=== PATIENT | male | born 1940 | race Caucasian/White ===

== ENCOUNTER → 2017-11-13 07:48 | Outpatient (CLI) | payer MEDICARE, OTHER, SELFPAY ==
--- NOTE | 2017-11-13 07:52 | CT_ITS ---
STUDY: CT PELVIS WITHOUT CONTRAST REASON FOR EXAM: Male, 76 years old. Abnormal bone scan. Pelvic fracture. RADIATION DOSAGE (If Supplied By Facility): CTDIvol = ( 17.68 ) mGy, DLP = ( 591.64 ) mGycm TECHNIQUE: Transaxial imaging of the pelvis was performed with oral contrast, and without intravenous administration of contrast material. Individualized dose optimization techniques were used for this CT. COMPARISON: 03/01/2017 and 09/28/2017 FINDINGS: Patient is status post prostatectomy. Some bladder wall thickening is noted. Fat stranding in the lower pelvic region is noted. Normal visualized small intestine. There are multiple colonic diverticula of the sigmoid colon consistent with chronic diverticulosis. There is no pelvic fluid. There is no pelvic mass lesion or lymphadenopathy. There is diffuse atherosclerotic calcification of the pelvic arteries. Normal abdominal wall. Healing fracture of the right acetabulum is noted, likely corresponding to increased radiotracer uptake on bone scan. There is some healing osseous sclerotic formation. Stable bone island in the right iliac wing as compared to February [address]/Pelvis without IV Contrast IMPRESSION: Healing fracture involving the right acetabulum with sclerotic appearance. Likely corresponding to increased uptake on bone scan. Repeat pelvic CT is suggested in 6 months Electronically Signed: Rod Camarena DO at 9:46 EST Tel , Service support ,
== END ==
PROVIDERS: Family Provider Internal Medicine; PCP Internal Medicine; Visit Provider Internal Medicine
DX: R94.8 Abnormal results of function studies of other organs and systems (principal)
CPT/HCPCS: 72192

== ENCOUNTER → 2018-03-14 13:06 | Outpatient (CLI) | payer MEDICARE, OTHER, SELFPAY ==
[2018-03-14 14:55] LABS: Absolute Lymphocyte Count 1.14 X10^3/ul (0.83-4.51); Absolute Neutrophil Count 3.3 X10^3/uL (2.0-7.7); Basophil# 0.02 X10^3/uL; Basophil% 0.4 % (0-1); Eosinophil# 0.22 X10^3/uL; Hemoglobin 13.4 g/dl (13.0-16.5); Lymphocyte # 1.14 X10^3/ul (4.0); Lymphocyte % 20.5 % (19-41); Mean Corp Hgb Conc 33.5 g/gl (32-36); Mean Corpuscular Hgb 32.9 pg (27.0-32.0); Mean Corpuscular Volume 98.3 fL (80-94); Monocyte# 0.81 X10^3/uL; Monocyte% 14.6 % (0-10); Neutrophil # 3.33 X10^3/uL (2.7-7.7); Neutrophil % 59.8 % (47-70); Platelet Count 198 K/mm3 (150-450); RBC Distribution Width CV 13.9 % (11.6-14.6); RBC Distribution Width SD 49.5 fl (35.1-43.9); Red Blood Count 4.07 M/mm3 (4.6-6.2); White Blood Count 5.6 K/mm3 (4.4-11.0)
[2018-03-14 15:01] LABS: POSITIVE COUNT NO; POSITIVE DIFFERENTIAL NO; POSITIVE MORPHOLOGY NO
[2018-03-14 15:23] LABS: ALB/GLOB Ratio 0.8 RATIO (0.9-2.4); AST(SGOT) 22 U/L (15-37); Alanine Aminotransfer ALT/SGPT 24 U/L (16-61); Albumin, Serum 3.2 g/dL (3.2-5.0); Alkaline Phosphatase 98 U/L (45-117); Anion Gap 9 (5-15); BUN 16 mg/dL (7-18); BUN/Creat Ratio 17.8 RATIO (10-20); Calcium,Total 8.4 mg/dL (8.5-10.1); Chloride 106 mmol/L (98-107); EST Glomerular Filtration Rate 87 mL/min (>60); Est Glom Filt Rate - Afr Amer 105 mL/min (>60); Globulin 3.9 g/dL (2.2-4.2); Glucose 86 mg/dL (74-106); Potassium 3.8 mmol/L (3.5-5.1); Protein, Total 7.1 g/dL (6.4-8.2); Sodium Level 142 mmol/L (136-145)
== END ==
PROVIDERS: Family Provider Internal Medicine; PCP Internal Medicine; Visit Provider Internal Medicine
DX: Z51.81 Encounter for therapeutic drug level monitoring (principal)
CPT/HCPCS: 36415; 80053; 85025

== ENCOUNTER → 2018-03-21 10:03 | Outpatient (CLI) | payer MEDICARE, OTHER, SELFPAY ==
--- NOTE | 2018-03-21 10:03 | DT_ITS ---
This patient was seen during an EMR downtime March 18, 2018 - March 25, 2018. This patient may have a combination of paper and electronic documentation or all paper documentation. All documentation is viewable within the e-chart portion of [facility] for each patient visit.
--- NOTE | 2018-03-21 10:05 | NM_ITS ---
CLINICAL: Male, 77 years old. Prostate cancer, pelvic fracture WHOLE BODY NUCLEAR BONE SCAN TECHNIQUE: Following the IV administration of 25.9 mCi of Tc MDP, whole body bone imaging was performed with a gamma camera following a three hour delay. COMPARISON STUDIES : NM - bone scan 09/28/2017 CR - Not available for review at this time. CT - pelvis CT 11/13/2017 MR - Not available for review at this time. US - Not available for review at this time. FINDINGS: There is abnormal activity identified involving the right ilium and acetabulum. Mild activity bilateral sacroiliac joints. NM/Bone Scan Whole Body IMPRESSION: Continued abnormal activity right acetabulum, ilium and bilateral SI joints. Findings consistent with metastases. Electronically Signed: Aniceto Patten DO at 10:38 EDT , Service support ,
== END ==
PROVIDERS: Family Provider Internal Medicine; PCP Internal Medicine; Visit Provider Internal Medicine
DX: C61 Malignant neoplasm of prostate (principal)
CPT/HCPCS: 78306

== ENCOUNTER → 2018-03-29 10:48 | Outpatient (CLI) | payer MEDICARE, OTHER, SELFPAY ==
--- NOTE | 2018-03-29 10:50 | RAD_ITS ---
STUDY: X-RAY - LEFT KNEE REASON FOR EXAM: Male, 77 years old. Knee pain TECHNIQUE: 2 view(s) of the knee. COMPARISON: None. FINDINGS: Normal visualized distal femur. Normal visualized proximal tibia and fibula. Normal proximal tibiofibular articulation. There is no demonstrated fracture. Normal medial femorotibial compartment. Normal lateral femorotibial compartment. Normal patellofemoral articulation. There is no demonstrated joint effusion. There are atherosclerotic calcifications. RAD/Knee 1 or 2 Views IMPRESSION: Within normal limits for age. Electronically Signed: Jesus Ghosh MD at 14:38 EDT , Service support ,
== END ==
PROVIDERS: Family Provider Internal Medicine; PCP Internal Medicine; Visit Provider Anesthesiology Pain Medicine
DX: M25.562 Pain in left knee (principal)
CPT/HCPCS: 73560

== ENCOUNTER → 2018-04-03 16:33 | Outpatient (CLI) | payer MEDICARE, OTHER, SELFPAY ==
[2018-04-03 17:44] LABS: Hematocrit 42.4 % (40-54); Hemoglobin 13.8 g/dl (13.0-16.5); Mean Corp Hgb Conc 32.5 g/gl (32-36); Mean Corpuscular Volume 98.4 fL (80-94); Mean Platelet Vol. 9.5 fl (6.2-12.0); Platelet Count 177 K/mm3 (150-450); RBC Distribution Width CV 14.2 % (11.6-14.6); RBC Distribution Width SD 51.3 fl (35.1-43.9); Red Blood Count 4.31 M/mm3 (4.6-6.2); White Blood Count 7.2 K/mm3 (4.4-11.0)
[2018-04-03 17:45] LABS: Scan Indicated on CBC? Y/N NO
[2018-04-03 18:14] LABS: Erythrocyte Sedimentation Rate 25 mm/hr (0-20)
[2018-04-03 18:28] LABS: ALB/GLOB Ratio 0.8 RATIO (0.9-2.4); AST(SGOT) 17 U/L (15-37); Alanine Aminotransfer ALT/SGPT 25 U/L (16-61); Albumin, Serum 3.4 g/dL (3.2-5.0); Alkaline Phosphatase 83 U/L (45-117); Anion Gap 10 (5-15); BUN 20 mg/dL (7-18); BUN/Creat Ratio 18.5 RATIO (10-20); CRP < 2.90 mg/L (0.0-3.0); Calcium,Total 8.2 mg/dL (8.5-10.1); Chloride 106 mmol/L (98-107); Creatinine, Serum 1.08 mg/dL (0.70-1.30); EST Glomerular Filtration Rate 70 mL/min (>60); Est Glom Filt Rate - Afr Amer 85 mL/min (>60); Globulin 4.1 g/dL (2.2-4.2); Glucose 93 mg/dL (74-106); PSA,Total - Annual Screen 1.69 ng/mL (0.00-4.00); Protein, Total 7.5 g/dL (6.4-8.2); Sodium Level 141 mmol/L (136-145)
== END ==
PROVIDERS: Family Provider Internal Medicine; PCP Internal Medicine; Visit Provider Internal Medicine
DX: C61 Malignant neoplasm of prostate (principal); R93.8 Abnormal findings on diagnostic imaging of other specified body structures
CPT/HCPCS: 36415; 80053; 84153; 85027; 85652; 86140; G0103

== ENCOUNTER → 2018-04-29 10:24 | Outpatient (CLI) | payer MEDICARE, OTHER, SELFPAY ==
--- NOTE | 2018-04-29 12:00 | PET_ITS ---
EXAMINATION: FDG PET CT INDICATIONS: A 77-year-old male with history of carcinoma of the prostate presenting for restaging examination. COMPARISON EXAMINATION: Conventional whole body bone scintigraphy report dated 03/21/18. TECHNIQUE: Following the intravenous administration of 15 mCi of F-18 deoxyglucose via the left antecubital fossa, multiplanar image acquisitions of the neck, chest, abdomen and pelvis to level of mid thigh, obtained at one hour post radiopharmaceutical administration contemporaneously interpreted with the current CT of the neck, chest, abdomen and pelvis to level of mid thigh, dated 04/29/18 via coregistration and conventional whole body bone scintigraphy report dated 03/21/18 reveal: SERUM GLUCOSE LEVEL: 95 mg/dl. HEIGHT: 72 inches. WEIGHT: 180 lbs. FINDINGS: 1. There is no quantitative scintigraphic evidence of abnormal increased glucose metabolism on meticulous inspection of whole body acquisitions to include all three axis reconstructions. 2. Normal physiologic distribution of the radiopharmaceutical is apparent in the hepatic and splenic parenchyma, both renal units, bladder and visualized intestinal tract. There is uniform distribution of the radiopharmaceutical concentration compared on the cerebellar hemispheres and cerebral cortex. Diffuse intestinal tract activity is noted throughout all four quadrants of the abdominal-pelvic retroperitoneum, mesentery consistent with normal physiologic distribution of the radiopharmaceutical. Prominent glucose metabolism is defined in the oral cavity to the right of the midline in proximity to dental hardware placement. Pertinent CT findings are as follows. CHEST: There is evidence of prior median sternotomy. Atherosclerotic calcification is defined in the thoracic aorta without evidence of dilatation, aneurysm formation. Coronary arterial calcification is observed. Bilateral axillary soft tissue densities are ametabolic. Scattered mediastinal soft tissue demonstrates no evidence of increased glucose metabolism. ABDOMEN AND PELVIS: Cholelithiasis is defined. Atherosclerotic calcification is defined in the abdominal aorta without evidence of dilatation, aneurysm formation. Abdominal-pelvic arterial calcification is visualized. Right-left inguinal soft tissue densities with fatty hilus formation are non-glucose avid. There appears to be surgical absence of the prostate gland. Surgical clips are identified in the prostatic bed and bilateral lower hemipelvis. SKELETAL: Degenerative changes defined in the cervical, thoracic and lumbar spine demonstrate no evidence for glucose hypermetabolism. Diffuse demineralization is noted in the axial skeletal structures. Meticulous attention paid to the right acetabulum, posterior ilium demonstrates no evidence of increased glucose metabolism to correlate with sclerotic changes defined on CT of the pelvis dated 04/29/18. PET/PET/CT Tumor Base -Thigh Init IMPRESSION: 1. NEGATIVE EXAMINATION. There is no definitive quantitative scintigraphic evidence of recurrent-metastatic viable neoplasm. 2. Prominent glucose concentration observed in the oral cavity is commensurate with a component of metallic reconstruction artifact. (Ciro et al, AJR 179:1337, 2002). 3. Sclerotic changes noted in the right acetabulum and right posterior ilium demonstrate no evidence of increased glucose metabolism. This is consistent with the expected decreased sensitivity of FDG PET in the evaluation of primarily osteoblastic skeletal metastatic disease. (Bert, [place] J Med 350: 1655, 2004. David et al, Journal of Nuclear Medicine 33:1280, 2006). Electronic Signature Gordon Thompson D.O. Electronically Signed: Gordon Thompson DO at 23:41 EDT Tel , Service support ,
== END ==
PROVIDERS: Family Provider Internal Medicine; PCP Internal Medicine; Visit Provider Internal Medicine Medical Oncology
DX: C61 Malignant neoplasm of prostate (principal); R97.20 Elevated prostate specific antigen [PSA]
CPT/HCPCS: 78815; A9552

== ENCOUNTER → 2018-04-30 10:12 | Outpatient (CLI) | payer MEDICARE, OTHER, SELFPAY ==
--- NOTE | 2018-04-30 10:56 | MRI_ITS ---
STUDY: MR PELVIS WITH T WITHOUT CONTRAST REASON FOR EXAM: Male, 77 years old. Pelvic metastatic bone disease, prostate cancer history. TECHNIQUE: Standardized fat and water weighted pulse sequences were obtained in all 3 orthogonal planes, pre-and post contrast administration. 10 ml of Gadavist contrast material was administered intravenously for the contrast portion of the examination. COMPARISON: PET/CT 04/29/2018, whole body bone scan 03/21/2018, CT pelvis 11/13/2017, whole-body bone scan 09/28/2017. FINDINGS: Intrapelvic: The prostate appears to be surgically absent. Seminal vesicles also appear to be surgically absent. There is no lymphadenopathy of the pelvic floor or sidewalls. Unremarkable vasculature. Evaluated portions of the bowel exhibits no acute process. Bilateral soft tissues: Unremarkable. Osseous structures: On prior bone scan of 09/28/2017 there was prominent reticular uptake in the superior acetabulum on the right, in the sacrum bilaterally. On the bone scan of 03/21/2018 there was prominent radiotracer deposition in the sacrum bilaterally, there was new radiotracer deposition in the right iliac crest, and there was prominent radiotracer deposition in the right superior acetabulum, mild in the left superior acetabulum. On PET/CT of 04/29/2018, there is radiotracer deposition within the right iliac crest lateral to the SI joint, within the sacrum bilaterally, within the superior acetabulum bilaterally. Also within the left superior and inferior pubic rami. On the CT portion of the PET scan, there were sacral insufficiency fractures bilaterally, fracture of the left side of the pubic symphysis, and a fracture of the right superior acetabulum. There is heterogeneous mild sclerosis within the right iliac crest just lateral to the SI joint. There is minimal hazy sclerosis in the left superior acetabulum. There is more prominent sclerosis of the right superior acetabulum surrounding the fractures. On the MRI today: There is diffuse edema and enhancement of the bone of the superior acetabulum on the left, of the anterior and posterior columns of the acetabulum on the left, with a suspicion of insufficiency fractures in the anterior and posterior columns. There is edema and enhancement associated with the fractures on the left pubic rami. There is mild edema and enhancement of the right side of the pubic symphysis. There is edema and enhancement associated with the right superior acetabular fractures. There is edema and enhancement associated with the right iliac crest just lateral to the SI joint. There is edema and enhancement associated with the bilateral sacral insufficiency fractures. There is low lumbar spondylosis with disc bulging at L3-L4 contributing to mild stenosis, moderate disc narrowing L4-L5 without significant stenosis, mild disc bulge at L5-S1 associated with mild foraminal stenosis. MRI/Pelvis W/WO Contrast IMPRESSION: The sacral insufficiency fractures are likely associated with osteoporosis. The edema and enhancement of the right iliac crest lateral to the SI joint associated with sclerotic heterogeneous features on the PET CT scan, and associated with increased metabolism on the PET CT scan, is suspicious for metastatic disease. On the PET/CT scan there is no definitive blastic pattern in the bone of the left superior acetabulum. The bone is hyperlucent, possibly reflecting infiltrative metastatic disease. Edema and enhancement are quite impressive on the MRI today, suspicious for metastatic disease. Edema and enhancement of the left-sided pubic rami are associated with fracture. Insufficiency fracture versus trauma versus pathologic fracture? Edema and enhancement of the right superior acetabulum are associated with sclerotic features in the bone and fracture. Underlying metastatic disease with pathologic fracture is suspected. Electronically Signed: Gordon Austin, at 13:59 EDT Tel , Service support ,
== END ==
PROVIDERS: Family Provider Internal Medicine; PCP Internal Medicine; Visit Provider Internal Medicine Medical Oncology
DX: C61 Malignant neoplasm of prostate (principal); R97.20 Elevated prostate specific antigen [PSA]
CPT/HCPCS: 72197; A9585

== ENCOUNTER → 2018-05-17 10:04 | Outpatient (CLI) | payer MEDICARE, OTHER, SELFPAY ==
--- NOTE | 2018-05-17 10:06 | STEWCON_ITS ---
Reason For Study: CAD; S/P CABG Stress Results Protocol: Dobutamine Stress Echo Maximum Predicted HR: 142 bpm Target HR: 121 bpm% Maximum Pre dicted HR: 89 % DurationHeart Rate Stage (mm:ss) (bpm) BPCom ment Baseline 81 130/77 Definity 6 ML Diluted Given; No Chest Pain DSE 10 MCG 4:41 76 111/52No Chest Pain DSE 20 MCG 5:07 12 7 108/57No Chest Pain Recovery 93 118/51 No Chest Pain Stress Duration: 9:48 mm:ss Maximum Stress HR: 127 bpmM ETS: 1 Baseline Echocardiogram Findings The estimated ejection fraction is 65 %. Stress Echo Wall motion Data Resting WMIntermediate WMStress WM Resting Wall Motion Wall Motion Stress No regional wall motion No regional wall motion abnormalities noted. abnormalities noted. EKG Data Normal intervals are noted. The patient was titrated from 10 mcg to a maximum of 20 mcg of dobutamine during the stress. The maximum heart rate attained was 139 beats per minute. This was 97% of maximum predicted heart rate. During dobutamine infusion, there were no ST or T wave changes noted to suggest ischemia. No clinical angina was noted. Interpretation Summary The estimated ejection fraction is 65 %. The patient was titrated from 10 mcg to a maximum of 20 mcg of dobutamine during the stress. Normal, adequate, dobutamine echocardiogram. Negative for ischemia by EKG and echocardiographic criteria. No anginal symptoms noted. Rare PVCs noted. One ventricular triplet noted which is a nonspecific finding given dobutamine. Appropriate blood pressure response to dobutamine. Final LVEF of 75%. Decreased sensitivity due to poor echo windows requiring Definity agent. No complications. Ordering Physician: Carroll Johnson Referring Physician: Carroll Johnson Performed By: Grant Meehan RCS
[2018-05-17 11:20] LABS: AST(SGOT) 23 U/L (15-37); Alanine Aminotransfer ALT/SGPT 24 U/L (16-61); Albumin, Serum 3.2 g/dL (3.2-5.0); Alkaline Phosphatase 88 U/L (45-117); Bilirubin, Direct 0.15 mg/dL (0.00-0.30); Cholesterol 147 mg/dL (200); Globulin 3.7 g/dL (2.2-4.2); High Density Lipoprotein 45 mg/dL; Protein, Total 6.9 g/dL (6.4-8.2); Triglycerides 138 mg/dL; Very Low Density Lipoprotein 28 mg/dL (5-40)
== END ==
PROVIDERS: Family Provider Internal Medicine; PCP Internal Medicine; Visit Provider Internal Medicine Cardiovascular Disease
DX: I25.10 Atherosclerotic heart disease of native coronary artery without angina pectoris (principal); I10 Essential (primary) hypertension; E78.5 Hyperlipidemia, unspecified; Z95.1 Presence of aortocoronary bypass graft
CPT/HCPCS: 36415; 80061; 80076; 93017; 93350; J7030; Q9957; A4216; C8928

== ENCOUNTER → 2018-11-19 14:00 | Outpatient (CLI) | payer MEDICARE, OTHER, SELFPAY ==
[2018-08-05 11:31] VITALS: BMI 25.0
--- NOTE | 2018-11-19 14:03 | US_ITS ---
STUDY: ULTRASOUND BREAST - LEFT REASON FOR EXAM: Male, 77 years old. Palpable lump left breast. TECHNIQUE: Axial and longitudinal images of the LEFT breast were performed with a high resolution ultrasound transducer. COMPARISON: Comparison is made with prior mammogram done earlier today. FINDINGS: LEFT Breast: There is a homogeneous thyroid glandular tissue. No solid or cystic mass lesion is seen. This is in keeping with gynecomastia. US/Breast Complete Unilateral IMPRESSION: Gynecomastia. No sonographic abnormality is seen. ASSESSMENT CATEGORY: BIRADS Category 2: Benign. A letter regarding these results will be sent to the patient by the facility within 30 days. Electronically Signed: Nam Bell MD at 15:47 EST , Service support ,
--- NOTE | 2018-11-19 14:12 | BI_ITS ---
MAMMOGRAPHY - BILATERAL DIAGNOSTIC REASON FOR EXAM: Male, 77 years old. 2 month history of left breast pain. PERTINENT HISTORY: Non-contributory. TECHNIQUE: Digital bilateral breast dong (3D mammographic acquisition) in the CC and MLO projections. 2-D mediolateral oblique (MLO) and craniocaudad (CC) views of both breasts were obtained. CAD: Full Field Digital Mammography with Computer Added Detection was performed. COMPARISON: None. Baseline examination. FINDINGS: Breast Composition: There are scattered areas of fibroglandular density. There are no dominant masses or suspicious calcifications. No other significant abnormalities are identified. BI/DIAG MAMM W/CAD, BILAT IMPRESSION: Negative diagnostic mammogram. Correlation with ultrasound is recommended. ASSESSMENT CATEGORY: BIRADS Category 0: Incomplete. Need additional imaging evaluation. A letter regarding these results will be sent to the patient by the facility within 30 days. Approximately 10% of breast cancers are not detected by mammography. A normal mammogram should not delay biopsy of a clinically suspicious abnormality. Electronically Signed: Nam Bell MD at 15:54 EST , Service support ,
== END ==
PROVIDERS: Family Provider Internal Medicine; PCP Internal Medicine; Referring Provider Surgery; Visit Provider Surgery
DX: N64.4 Mastodynia (principal); N63.20 Unspecified lump in the left breast, unspecified quadrant
CPT/HCPCS: 76641; 77062; 77066; G0279

== ENCOUNTER → 2018-12-12 09:13 | Outpatient (CLI) | payer MEDICARE, OTHER, SELFPAY ==
[2018-12-10 14:29] VITALS: BMI 25.0
[2018-12-12 11:36] LABS: AST(SGOT) 18 U/L (15-37); Alanine Aminotransfer ALT/SGPT 25 U/L (16-61); Albumin, Serum 3.4 g/dL (3.2-5.0); Alkaline Phosphatase 75 U/L (45-117); Bilirubin, Direct 0.13 mg/dL (0.00-0.30); Cholesterol 141 mg/dL (200); Globulin 3.9 g/dL (2.2-4.2); High Density Lipoprotein 41 mg/dL; Protein, Total 7.3 g/dL (6.4-8.2); Triglycerides 153 mg/dL; Very Low Density Lipoprotein 31 mg/dL (5-40)
== END ==
PROVIDERS: Family Provider Internal Medicine; PCP Internal Medicine; Referring Provider Internal Medicine Cardiovascular Disease; Visit Provider Internal Medicine Cardiovascular Disease
DX: E78.5 Hyperlipidemia, unspecified (principal)
CPT/HCPCS: 36415; 80061; 80076

== ENCOUNTER → 2019-03-03 11:26 | Outpatient (CLI) | payer MEDICARE, OTHER, SELFPAY ==
[2018-12-10 14:29] VITALS: BMI 25.0
[2019-03-03 12:53] LABS: Absolute Lymphocyte Count 1.45 X10^3/ul (0.83-4.51); Absolute Neutrophil Count 2.8 X10^3/uL (2.0-7.7); Basophil# 0.01 X10^3/uL; Basophil% 0.2 % (0-1); Eosinophil# 0.25 X10^3/uL; Eosinophils% 4.8 % (0-5); Hematocrit 43.3 % (40-54); Hemoglobin 14.6 g/dl (13.0-16.5); Lymphocyte # 1.45 X10^3/ul (4.0); Lymphocyte % 27.8 % (19-41); Mean Corp Hgb Conc 33.7 g/gl (32-36); Mean Corpuscular Hgb 32.2 pg (27.0-32.0); Mean Corpuscular Volume 95.4 fL (80-94); Monocyte# 0.72 X10^3/uL; Monocyte% 13.8 % (0-10); Neutrophil # 2.77 X10^3/uL (2.7-7.7); Platelet Count 159 K/mm3 (150-450); RBC Distribution Width CV 14.9 % (11.6-14.6); RBC Distribution Width SD 50.2 fl (35.1-43.9); Red Blood Count 4.54 M/mm3 (4.6-6.2); White Blood Count 5.2 K/mm3 (4.4-11.0)
[2019-03-03 12:57] LABS: POSITIVE COUNT NO; POSITIVE DIFFERENTIAL NO; POSITIVE MORPHOLOGY NO
[2019-03-03 13:18] LABS: AST(SGOT) 23 U/L (15-37); Alanine Aminotransfer ALT/SGPT 23 U/L (16-61); Albumin, Serum 3.5 g/dL (3.2-5.0); Alkaline Phosphatase 71 U/L (45-117); Anion Gap 6 (5-15); BUN 17 mg/dL (7-18); Calcium,Total 8.4 mg/dL (8.5-10.1); Chloride 107 mmol/L (98-107); EST Glomerular Filtration Rate 77 mL/min (>60); Est Glom Filt Rate - Afr Amer 93 mL/min (>60); Globulin 3.6 g/dL (2.2-4.2); Glucose 97 mg/dL (74-106); PSA,Total- Diagnostic 2.03 ng/mL (0.0-4.0); Potassium 3.9 mmol/L (3.5-5.1); Protein, Total 7.1 g/dL (6.4-8.2); Sodium Level 139 mmol/L (136-145)
== END ==
PROVIDERS: Internal Medicine Medical Oncology; Family Provider Internal Medicine; PCP Internal Medicine; Referring Provider Urology; Visit Provider Urology
DX: C61 Malignant neoplasm of prostate (principal)
CPT/HCPCS: 36415; 80053; 84153; 85025

== ENCOUNTER → 2019-08-04 10:54 | Outpatient (CLI) | payer MEDICARE, OTHER, SELFPAY ==
[2019-07-21 13:56] VITALS: BMI 24.7
--- NOTE | 2019-08-04 10:55 | ECHOD_ITS ---
Reason For Study: S/P CABG Procedure This was a 2D Doppler, Color Flow transthoracic echocardiogram. Exam performed in department. Left Ventricle Normal size and thickness. The estimated ejection fraction is 60 %. Stage 1 diastolic dysfunction. No regional wall motion abnormalities noted. Right Ventricle Normal size and thickness. Normal systolic function. Atria Normal left atrium. Normal right atrium. Normal atrial septum. Mitral Valve The mitral valve is structurally normal. No prolapse or stenosis seen. Trivial mitral valve insufficiency. Tricuspid Valve Normal tricuspid valve. Trivial tricuspid valve insufficiency. Right ventricular systolic pressure estimated to be 26 mmHg. Aortic Valve Normal aortic valve. Trisinus/trileaflet aortic valve. Pulmonic Valve Normal pulmonic valve. Great Vessels Normal aortic root. Normal arch. Normal inferior vena cava. Inferior vena cava collapse with sniff. Pericardium/Pleural No pericardial effusion. MMode/2D Measurements & Calculations LVIDd: 3.9 cm IVSd: 1.1 cm Ao root diam: 3.2 cm LVIDs: 2.6 cm LVPWd: 1.2 cm LA dimension: 3.8 cm FS: 32.9 % LAV(MOD-bp): 65.6 ml LA A4 area: 21.3 cm2 RA A4 area: 12.1 cm2 LAV(MOD-bp) Indexed: 32.6 ml/m2 LAV(MOD-sp2): 60.8 ml LAV(MOD-sp4): 61.5 ml Time Measurements MV dec time: 0.22 sec Doppler Measurements & Calculations MV E max spencer: 65.3 cm/sec Lat Peak E' Spencer: 11.6 cm/sec Med Peak E' Spencer: 7.4 cm/sec MV A max spencer: 40.4 cm/sec E/E' lat: 5.7 E/E' med: 8.9 MV E/A: 1.6 MV V2 max: 79.4 cm/sec MV P1/2t max spencer: 83.1 cm/sec Ao V2 max: 101.2 cm/sec MV max P.5 mmHg MV P1/2t: 55.4 msec Ao max P.1 mmHg MV V2 mean: 35.7 cm/sec MV dec slope: 439.4 cm/sec2 Ao V2 mean: 63.8 cm/sec MV mean P.61 mmHg MVA(P1/2t): 4.0 cm2 Ao mean P.9 mmHg MV V2 VTI: 23.3 cm Ao V2 VTI: 19.9 cm LV V1 max: 89.1 cm/sec PA V2 max: 78.5 cm/sec TR max spencer: 229.4 cm/sec LV V1 max P.2 mmHg TR max P.0 mmHg LV V1 mean P.5 mmHg LV V1 mean: 57.4 cm/sec LV V1 VTI: 20.5 cm Interpretation Summary The estimated ejection fraction is 60 %. Stage 1 diastolic dysfunction. Trivial mitral valve insufficiency. Trivial tricuspid valve insufficiency. Right ventricular systolic pressure estimated to be 26 mmHg. Compared to echo report dated 12/20/2011, no appreciable changes noted. Ordering Physician: Carroll Johnson Referring Physician: Nahomi Long M.D. Performed By: Grant Meehan RCS
== END ==
PROVIDERS: Family Provider Internal Medicine; PCP Internal Medicine; Referring Provider Internal Medicine Cardiovascular Disease; Visit Provider Internal Medicine Cardiovascular Disease
DX: I25.10 Atherosclerotic heart disease of native coronary artery without angina pectoris (principal); I10 Essential (primary) hypertension; E78.5 Hyperlipidemia, unspecified; Z95.1 Presence of aortocoronary bypass graft; Z95.5 Presence of coronary angioplasty implant and graft
CPT/HCPCS: 93306

== ENCOUNTER → 2020-05-21 09:13 | Outpatient (CLI) | payer MEDICARE, OTHER, SELFPAY ==
[2020-05-13 10:36] VITALS: BMI 24.9
[2020-05-21 10:39] LABS: AST(SGOT) 19 U/L (15-37); Alanine Aminotransfer ALT/SGPT 25 U/L (16-61); Albumin, Serum 3.6 g/dL (3.2-5.0); Alkaline Phosphatase 53 U/L (45-117); Bilirubin, Direct 0.21 mg/dL (0.00-0.30); Cholesterol 143 mg/dL (200); Globulin 3.7 g/dL (2.2-4.2); High Density Lipoprotein 46 mg/dL; Protein, Total 7.3 g/dL (6.4-8.2); Triglycerides 120 mg/dL; Very Low Density Lipoprotein 24 mg/dL (5-40)
== END ==
PROVIDERS: PCP Internal Medicine; Visit Provider Internal Medicine Cardiovascular Disease
DX: I25.10 Atherosclerotic heart disease of native coronary artery without angina pectoris (principal); E78.5 Hyperlipidemia, unspecified
CPT/HCPCS: 36415; 80061; 80076

== ENCOUNTER → 2020-05-24 10:48 | Outpatient (CLI) | payer MEDICARE, OTHER, SELFPAY ==
[2020-05-13 10:36] VITALS: BMI 24.9
--- NOTE | 2020-05-24 10:49 | ECHOD_ITS ---
Reason For Study: S/P CABG Procedure This was a 2D Doppler, Color Flow transthoracic echocardiogram. Exam performed in department. Left Ventricle Normal size and thickness. The estimated ejection fraction is 65 %. Stage 2 diastolic dysfunction. No regional wall motion abnormalities noted. Right Ventricle Normal size and thickness. Normal systolic function. Atria Normal left atrium. Normal right atrium. Normal atrial septum. Mitral Valve The mitral valve is structurally normal. No prolapse or stenosis seen. Tricuspid Valve Normal tricuspid valve. Mild (1+) tricuspid valve insufficiency. Right ventricular systolic pressure estimated to be 25 mmHg. Aortic Valve Trisinus/trileaflet aortic valve. Normal aortic valve. Pulmonic Valve The pulmonic valve is not well visualized. Great Vessels Normal aortic root. Normal arch. Normal inferior vena cava. Inferior vena cava collapse with sniff. Pericardium/Pleural No pericardial effusion. MMode/2D Measurements & Calculations LVIDd: 3.8 cm IVSd: 1.3 cm Ao root diam: 3.6 cm LVIDs: 2.3 cm LVPWd: 0.96 cm LA dimension: 4.1 cm RVDd: 3.0 cm FS: 40.9 % LAV(MOD-bp): 47.4 ml LA Area_phl: 17.2 cm2 RA A4 area: 10.9 cm2 LAV(MOD-bp) Indexed: 23.3 ml/m2 LAV(MOD-sp2): 52.1 ml LAV(MOD-sp4): 43.2 ml Time Measurements MV dec time: 0.21 sec Doppler Measurements & Calculations MV E max spencer: 70.7 cm/sec Lat Peak E' Spencer: 9.0 cm/sec Med Peak E' Spencer: 6.6 cm/sec MV A max spencer: 39.3 cm/sec E/E' lat: 7.9 E/E' med: 10.7 MV E/A: 1.8 Ao V2 max: 107.2 cm/sec LV V1 max: 90.5 cm/sec PA V2 max: 83.6 cm/sec Ao max P.6 mmHg LV V1 max P.3 mmHg TR max spencer: 220.9 cm/sec TR max P.5 mmHg Interpretation Summary The estimated ejection fraction is 65 %. Stage 2 diastolic dysfunction. Mild (1+) tricuspid valve insufficiency. Right ventricular systolic pressure estimated to be 25 mmHg. Compared to echo report dated 08/04/2019, no appreciable changes noted. Ordering Physician: Carroll Johnson Referring Physician: Nahomi Long Performed By: Leisa Tyler RDCS and Student
== END ==
PROVIDERS: PCP Internal Medicine; Referring Provider Internal Medicine Cardiovascular Disease; Visit Provider Internal Medicine Cardiovascular Disease
DX: I25.10 Atherosclerotic heart disease of native coronary artery without angina pectoris (principal); Z95.1 Presence of aortocoronary bypass graft
CPT/HCPCS: 93306

== ENCOUNTER → 2020-05-31 09:11 | Outpatient (CLI) | payer MEDICARE, OTHER, SELFPAY ==
[2020-05-13 10:36] VITALS: BMI 24.9
--- NOTE | 2020-05-31 09:11 | STEWCON_ITS ---
Reason For Study: S/P CABG Stress Results Protocol: [facility] Protocol WITH DEFINITY Maximum Predicted HR: 140 bpm Target HR: 119 bpm % Maximum Predicted HR: 90 % DurationHeart Rate Stage (mm:ss) (bpm) BP Comment BASELINE 75 120/845CC DEFINITY STAGE 1 3:00 98 152/74 STAGE 2 3:00 126 162/64 RECOVERY 75 114/60 Stress Duration: 6:00 mm:ss Maximum Stress HR: 126 bpm Baseline Echocardiogram Findings The estimated ejection fraction is 65 %. Stress Echo Wall motion Data Resting WM Intermediate WM Stress WM Resting Wall Motion Wall Motion Stress No regional wall motion No regional wall motion abnormalities noted. abnormalities noted. EKG Data The baseline ECG displays diffuse abnormal ST segments. The patient exercised according to the regular [facility] protocol for a total duration of 6:01. The maximum heart rate attained was 141 beats per minute. This was 100% of maximum predicted heart rate. The patient exercised into stage 3 of the [facility] protocol. During stress, there were no ST or T wave changes noted to suggest ischemia. No clinical angina was noted. Interpretation Summary The estimated ejection fraction is 65 %. Normal, adequate, treadmill echocardiogram. Negative for ischemia by EKG and echocardiographic criteria. No anginal symptoms noted. Average exercise capacity for age. Rare PVC and PACs noted during exercise. Test terminated due to the attainment of target heart rate and dyspnea. Final LVEF is 75%. Decrease sensitivity due to poor echo windows requiring Definity agent. Patient tolerated procedure well. No complications. The study was technically difficult. Contrast injection was performed. Ordering Physician: Carroll Johnson Referring Physician: Carroll Johnson Performed By: Modesta Colon, DREWCS, RVT
== END ==
PROVIDERS: PCP Internal Medicine; Referring Provider Internal Medicine Cardiovascular Disease; Visit Provider Internal Medicine Cardiovascular Disease
DX: I25.10 Atherosclerotic heart disease of native coronary artery without angina pectoris (principal); I10 Essential (primary) hypertension; E78.5 Hyperlipidemia, unspecified; Z95.1 Presence of aortocoronary bypass graft; Z95.5 Presence of coronary angioplasty implant and graft
CPT/HCPCS: 93017; 93350; Q9957; A4216; C8928

== ENCOUNTER 2021-01-19 09:39 | Emergency (ER) | payer MEDICARE, OTHER, SELFPAY ==
[2021-01-04 14:29] VITALS: BMI 23.6
[2021-01-19 09:40] VITALS: BP 138/82; PULSE 71; RESP 17; TEMP 36.6; O2SAT 94; BMI 23.9
[2021-01-19 09:53] VITALS: O2SAT 97
--- NOTE | 2021-01-19 10:11 | ED.VIS.GEN ---
History of Present Illness Chief Complaint: Fall Informant: Patient Onset: Today Current Severity: Mild Maximum Severity: Mild Narrative: Patient presents after mechanical fall. Patient states he was walking into his dentist office when his face mask came up over his eyes. He caught his toe on the curb and fell forward striking his head and right hand. He has abrasions to his right forehead and right hand. He denies loss of consciousness. Patient does currently take Plavix. - Past Medical History (1) Atherosclerotic heart disease of [place] coronary artery without angina pectoris Status: Chronic (2) DVT (deep venous thrombosis) Status: Chronic (3) Essential (primary) hypertension Status: Chronic (4) History of prostate cancer Status: Chronic (5) Hyperlipidemia Status: Chronic (6) H/O coronary artery bypass surgery Status: Resolved Comment: CABG x 3: GOLDSTEIN-LCx, CHANDA-LAD, SVG-D1 11/11/97 (7) History of coronary artery stent placement Status: Resolved Comment: LAFREDO-LMT to Prox LCx w/ 3.5 x 28 mm Promus Premier Stent 10/01/14 Past Medical History - Allergies and Home Meds Allergies/Adverse Reactions: Allergies atorvastatin [From Lipitor] Adverse Reaction (Intermediate, Verified 01/19/21 09:40) Myalgias simvastatin [From Zocor] Adverse Reaction (Intermediate, Verified 01/19/21 09:40) Myalgias iodine Adverse Reaction (Verified 01/19/21 09:40) Rash Primary Care Physician: Nahomi Long DO [Primary Care Provider] - Prior records reviewed: Yes Lives: Spouse/ Significant Other Smoking Status: Never smoker Review of Systems General: Denies: Chills, Fever Eyes: Denies: Visual changes - bilaterally ENT: Denies: Bilateral ear pain Cardiovascular: Denies: Chest pain, Palpitations Respiratory: Denies: Dyspnea, Cough Gastrointestinal: Denies: Abdominal pain Skin: Reports: Abrasions Neurological: Denies: Headache Psych: Denies: Depression Hematologic: Denies: Easy bruising, Easy bleeding Allergy: Denies: Uticaria Physical Exam Vital Signs/Narrative: Vital Signs Temp Pulse Resp BP Pulse Ox 01/19/21 09:53 97 01/19/21 09:40 97.8 F 71 17 138/82 H 94 Inital Vital Signs reviewed: Yes General: Well nourished, Well developed Head: Normocephalic, - - Superficial abrasions to the right forehead. Minimal edema. Eyes: Perrl, EOMI ENT: Moist mucous membranes Neck: Supple, - - No C-spine tenderness. Cardiovascular: Regular rate, Regular rhythm Respiratory: No distress, CTA bilaterally Abdomen: Soft, Nontender Extremities: - - 3 abrasions along the right fifth finger and metacarpal region of the right hand. No bony tenderness with full range of motion. The combined length of abrasions is 3 cm. Neurological: Alert, Oriented x3 Diagnostic/Tx/Re-eval - Medical Decision Making Right hand wounds are cleansed and dressed. Forehead is cleansed and bacitracin applied. Tetanus is up-to-date. With patient's injury occurring an hour ago and had a normal neuro exam at this time I do not feel he needs CT imaging. He agrees. He will be discharged with his . Return instructions are provided. ED Disposition - Plan for ED Patient: Disposition: Home or Assisted Living Diagnosis: Fall, Forehead abrasion, Hand abrasion Instructions: ED Abrasion, ED Head Injury (Adult) Referrals: Nahomi Long DO [Primary Care Provider] - As Needed
== END 2021-01-19 11:05 | disposition home or self-care (01) ==
PROVIDERS: Emergency Provider Emergency Medicine; PCP Internal Medicine
DX: S00.81XA Abrasion of other part of head, initial encounter (principal); S60.511A Abrasion of right hand, initial encounter; S60.416A Abrasion of right little finger, initial encounter; W01.10XA Fall on same level from slipping, tripping and stumbling with subsequent striking against unspecified object, initial encounter; Y93.01 Activity, walking, marching and hiking; Y92.531 Health care provider office as the place of occurrence of the external cause; Y99.9 Unspecified external cause status; I25.10 Atherosclerotic heart disease of native coronary artery without angina pectoris; I10 Essential (primary) hypertension; E78.5 Hyperlipidemia, unspecified; Z79.02 Long term (current) use of antithrombotics/antiplatelets; Z79.82 Long term (current) use of aspirin; Z79.899 Other long term (current) drug therapy; Z86.718 Personal history of other venous thrombosis and embolism; Z85.46 Personal history of malignant neoplasm of prostate; Z95.1 Presence of aortocoronary bypass graft; Z95.5 Presence of coronary angioplasty implant and graft
CPT/HCPCS: 99282

== ENCOUNTER → 2021-06-17 12:22 | Outpatient (CLI) | payer MEDICARE, OTHER, SELFPAY ==
--- NOTE | 2021-06-17 12:25 | RAD_ITS ---
STUDY: X-RAY - UNILATERAL RIBS ( RIGHT ) WITH CHEST REASON FOR EXAM: Male, 80 years old. Rib pain. TECHNIQUE - RIBS: 3 view(s) of the ribs. TECHNIQUE - CHEST: Single frontal view of the chest. COMPARISON: 09/21/2014. FINDINGS - RIBS: Diffuse osteopenia of the osseous structures. No displaced rib fracture identified. FINDINGS - CHEST: Stable mild hyperexpansion with scattered healed granulomatous calcifications. There is no demonstrated pleural abnormality. Cardiomegaly with sternotomy wires unchanged. Normal mediastinum and jodi. Normal visualized pulmonary arteries. Aortic tortuosity with calcification unchanged. Normal visualized thoracic spine. Normal visualized ribs, clavicles, and shoulders. There is no demonstrated abnormality of the visualized soft tissue structures of the upper abdomen. RAD/Ribs Uni Min 3V w/PA Chest IMPRESSION: RIBS: Osteopenia with no displaced rib fracture. CHEST: Stable mild cardiomegaly with hyperexpansion and no acute finding. Electronically Signed: Fantasma Cruz MD at 13:45 EDT , Service support ,
== END ==
PROVIDERS: PCP Internal Medicine; Referring Provider Internal Medicine; Visit Provider Internal Medicine
DX: R07.81 Pleurodynia (principal)
CPT/HCPCS: 71101

== ENCOUNTER → 2021-07-07 10:58 | Outpatient (CLI) | payer MEDICARE, OTHER, SELFPAY ==
--- NOTE | 2021-07-07 11:01 | MRI_ITS ---
STUDY: MRI BRAIN WITH AND WITHOUT CONTRAST (ATTENTION INTERNAL AUDITORY CANALS - I.A.C.''s) REASON FOR EXAM: Male, 80 years old. TINNITUS, LEFT HEARING LOSS TECHNIQUE: Standardized multiplanar fat and water weighted pulse sequences were obtained. IV Yes YES was administered for the contrast portion of the examination. COMPARISON: MRI brain with and without contrast 12/16/2015. FINDINGS: Normal bilateral temporal bones. Normal bilateral internal auditory canals. There is no demonstrated intracanalicular or cisternal vestibular schwannoma (acoustic neuroma). There is no enhancement of the bilateral VIIth or VIIIth cranial nerves. Normal bilateral cochlea, vestibules and semicircular canals. Normal size of the ventricles and extra-axial spaces for the patient''s age. Multiple T2 FLAIR hyperintensity foci in the white matter of both cerebral hemispheres are chronic white matter ischemic changes. Normal bilateral basal ganglia. Normal thalami. Normal flow voids within the major intracranial circulation suggesting patency by spin echo criteria. Normal venous enhancement. There is no enhancing intra-axial or extra-axial abnormality. There is no extra-axial fluid accumulation. Normal sella turcica, pituitary gland, infundibular stalk, optic chiasm and hypothalamus. Normal tectal plate and pineal gland. Normal midbrain, rolanda and medulla. Normal cerebellum. Normal basal cisterns. No demonstrated orbital abnormality, within the constraints of a routine brain study. Normal visualized paranasal sinuses. Normal calvarium and skull base. Normal visualized soft tissue structures. Normal visualized upper cervical spine. MRI/Brain W/WO Contrast IMPRESSION: 1. Normal MRI of the bilateral internal auditory canals and the membranous labyrinths with and without contrast. 2. Chronic white matter ischemic changes in both cerebral hemispheres. 3. No significant interval change when compared to 12/16/2015. Electronically Signed: Tanmay Collazo MD at 12:58 EDT , Service support ,
[2021-07-07 11:26] LABS: CREATININE FINGERSTICK 0.6 mg/dL (0.70-1.30); EGFR FINGERSTICK > 60.0000 mL/min (>60)
== END ==
PROVIDERS: PCP Internal Medicine; Visit Provider Otolaryngology
DX: H91.92 Unspecified hearing loss, left ear (principal); H93.19 Tinnitus, unspecified ear
CPT/HCPCS: 70553; A9575

== ENCOUNTER → 2021-10-06 10:57 | Outpatient (CLI) | payer MEDICARE, OTHER, SELFPAY ==
--- NOTE | 2021-10-06 11:01 | CDU_ITS ---
Reason For Study: Dizziness Rt. Velocities/BP Lt. Velocities/BP Prox CCA 83.9/14.7 cm/sec. Prox CCA 100.3/15.7 cm/sec. Mid CCA 93/17.3 cm/sec. Mid CCA 110.9/20 cm/sec. Dist CCA 81.2/16 cm/sec. Dist CCA 69.1/13.9 cm/sec. Prox ICA 102.8/11.5 cm/sec. Prox ICA 75.4/11.5 cm/sec. Mid ICA 61.5/15.1 cm/sec. Mid ICA 69.1/18.8 cm/sec. Dist ICA 37.7/11.3 cm/sec. Dist ICA 70.4/20 cm/sec. Rt. ICA/CCA = 1.09. Lt. ICA/CCA = 0.75. Prox ECA 124.7/13.3 cm/sec. Prox ECA 110.1/9.7 cm/sec. Rt. Vert. 45.6/14.2 cm/sec. Lt. Vert. 39/7.8 cm/sec. Right Extracranial There is homogeneous, smooth atherosclerotic plaque noted in the right common carotid artery. There is heterogeneous, irregular atherosclerotic plaque noted in the right internal carotid artery. There is heterogeneous, irregular atherosclerotic plaque noted in the right external carotid artery. Antegrade flow is noted in the right vertebral artery. Left Extracranial There is homogeneous, smooth atherosclerotic plaque noted in the left common carotid artery. There is heterogeneous, smooth atherosclerotic plaque noted in the left internal carotid artery. There is intimal thickening but no significant atherosclerotic plaque noted in the left external carotid artery. Antegrade flow is noted in the left vertebral artery. Procedure Carotid Duplex 78209. This is a Carotid Duplex examination using B-mode, color flow and specral Doppler. Exam performed in department. VL/Carotid Duplex Ultrasound Interpretation Summary Mild irregular plague proximal right internal carotid with <50% stenosis. <50% stenosis right external carotid Smooth plague at the proximal left internal carotid with <50% stenosis. <50% stenosis left external carotid Patent, antegrade vertebrals bilaterally No change from 04/21/16 Ordering Physician: Trevor Shin Referring Physician: Nahomi Long M.D. Performed By: France Brown RVT
== END ==
PROVIDERS: PCP Internal Medicine; Referring Provider Internal Medicine Cardiovascular Disease; Visit Provider Internal Medicine Cardiovascular Disease
DX: R42 Dizziness and giddiness (principal); I25.10 Atherosclerotic heart disease of native coronary artery without angina pectoris; I82.409 Acute embolism and thrombosis of unspecified deep veins of unspecified lower extremity; I10 Essential (primary) hypertension; E78.5 Hyperlipidemia, unspecified; M54.2 Cervicalgia; N62 Hypertrophy of breast; Q78.2 Osteopetrosis; Z85.46 Personal history of malignant neoplasm of prostate; Z95.1 Presence of aortocoronary bypass graft; Z95.5 Presence of coronary angioplasty implant and graft
CPT/HCPCS: 93880

== ENCOUNTER 2022-01-19 07:02 | Outpatient (CLI) | payer MEDICARE, OTHER, SELFPAY ==
--- NOTE | 2022-01-19 11:25 | STRESSREP ---
Stress Test Report Exercise myocardial perfusion stress test. 81-year-old man with a history of coronary artery disease status post carotid bypass surgery and stenting. Stress protocol: Resting EKG demonstrates normal sinus rhythm with a rate of 65 bpm normal intervals are noted resting blood pressure is 122/78 mmHg. The patient exercised according to regular Hunter protocol for a total duration of 4 minutes and 30 seconds. The maximum heart rate attained was 133 bpm which was 96% of max impact at heart rate the maximum workload was 7 metabolic equivalents. At rest there were no ST or T wave changes noted suggest ischemia and at peak exercise downsloping ST changes of approximately 1 mm were noted in leads II, III and aVF with T wave inversions. The above did not meet the criteria for ischemia. No clinical angina was noted. The maximum heart rate was 133 bpm and the maximum blood pressure was 158/72 mmHg. Myocardial perfusion protocol. 11.6 mCi of technetium 99m sestamibi was injected at rest. Patient exercised according to regular Hunter protocol for 4-1/2 minutes and at peak exercise 36.0 mCi of technetium 99m sestamibi was injected stress images were obtained stress and rest images were reconstructed and compared in the short axis vertical long and horizontal long axis. Gated images were also obtained per Perfusion SPECT analysis: Review of the images demonstrate normal uptake of tracer noted in all areas of the myocardium. The resting images similarly demonstrate normal uptake of tracer noted in all areas of the myocardium. No areas of reversibility are noted to suggest ischemia and no previous infarct is noted. Gated SPECT analysis: The gated ejection fraction is noted to be 60%. Conclusion: Normal exercise myocardial perfusion stress test at a moderate workload. No obvious ischemia noted.
== END 2022-01-19 23:59 | disposition home or self-care (01) ==
LOC: CVS 07:03
PROVIDERS: PCP Internal Medicine; Referring Provider Internal Medicine Cardiovascular Disease; Visit Provider Internal Medicine Cardiovascular Disease
DX: I25.10 Atherosclerotic heart disease of native coronary artery without angina pectoris (principal); I10 Essential (primary) hypertension; E78.5 Hyperlipidemia, unspecified; Z95.1 Presence of aortocoronary bypass graft; Z95.5 Presence of coronary angioplasty implant and graft
CPT/HCPCS: 78452; 93017; A9500; A4216

== ENCOUNTER → 2022-06-14 | Outpatient (CLI) | payer MEDICARE, OTHER, SELFPAY ==
--- NOTE | 2022-06-14 15:17 | RAD_ITS ---
STUDY: X-RAY CHEST REASON FOR EXAM: Male, 81 years old. ELEVATED PSA/HX OF PROSTATE CA TECHNIQUE: PA and lateral COMPARISON: 12/21/2021 FINDINGS: The lungs are clear and expanded. Left lower lobe infiltrate resolved. There is no demonstrated pleural abnormality. Normal size heart. Status post sternotomy. Normal mediastinum and jodi. Normal visualized pulmonary arteries. Mildly tortuous descending aorta. Normal visualized thoracic spine. Normal visualized ribs, clavicles, and shoulders. There is no demonstrated abnormality of the visualized soft tissue structures of the upper abdomen. RAD/Chest PA and Lateral IMPRESSION: Interval resolution of left lower lobe infiltrate. Status post sternotomy. Electronically Signed: Will Esteban MD, MANFRED at 17:54 EDT ,
== END | disposition home or self-care (01) ==
LOC: RAD 15:15
PROVIDERS: PCP Internal Medicine; Visit Provider Internal Medicine Medical Oncology
DX: R97.20 Elevated prostate specific antigen [PSA] (principal); Z85.46 Personal history of malignant neoplasm of prostate
CPT/HCPCS: 71046

== ENCOUNTER → 2022-06-21 | Outpatient (CLI) | payer MEDICARE, OTHER, SELFPAY ==
--- NOTE | 2022-06-21 09:00 | CT_ITS ---
STUDY: CT ABDOMEN AND PELVIS WITH CONTRAST REASON FOR EXAM: Male, 81 years old. Elevated PSA. Prostate cancer. RADIATION DOSAGE (If Supplied By Facility): CTDIvol = ( 18.91 ) mGy, DLP = ( 985.82 ) mGycm TECHNIQUE: Transaxial images were obtained from the dome of the diaphragm to the symphysis pubis without oral contrast. IV 100mL Isovue-300 was administered. Sagittal and coronal images were reconstructed. Individualized dose optimization techniques were used for this CT. COMPARISON: MRI of the pelvis 04/30/2008 FINDINGS: The visualized lung bases are unremarkable. The visualized portions of the heart are within normal limits. Evidence of CABG procedure. Normal liver. There are small gallstones near the neck of the gallbladder without inflammatory change. No biliary ductal dilatation or choledocholithiasis. Normal spleen. Fatty replacement of pancreas without mass. Normal bilateral adrenal glands. Normal right kidney. Normal left kidney. Normal ureters. Normal visualized stomach. Normal small intestine. Normal colon. There is non-visualization of the appendix. There is diffuse atherosclerotic calcification of the abdominal aorta, without a demonstrated aneurysm. Normal inferior vena cava. Normal retroperitoneum. Poorly distended urinary bladder with mild wall thickening. There is no filling defect. Status post prostatectomy. There are multiple surgical clips in the pelvis. No lymphadenopathy. No free air or free fluid is seen within the peritoneal cavity. Normal abdominal wall. There are diffuse degenerative changes of the visualized lumbar spine. There is evidence of lytic area as well as sclerotic margins in both thania. There are degenerative changes of bilateral hips. There is irregularity of the symphysis pubis with fracture through the left superior pubic ramus, possibly pathologic. CT/Abdomen/Pelvis W IV Cont ONLY IMPRESSION: 1. 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 There is a questionable pathological fracture of the left superior pubic ramus and symphysis pubis. 2. Status post prostatectomy. There is no evidence of local recurrence. 3. Gallstones without acute cholecystitis. 4. Atherosclerotic changes of the abdominal aorta. Electronically Signed: Tee Gutiérrez DO at 23:01 EDT ,
[2022-06-21 09:31] LABS: CREATININE FINGERSTICK < 0.9 mg/dL (0.70-1.30); EGFR FINGERSTICK > 60.0000 mL/min (>60)
== END | disposition home or self-care (01) ==
LOC: CT 08:55
PROVIDERS: PCP Internal Medicine; Referring Provider Internal Medicine Medical Oncology; Visit Provider Internal Medicine Medical Oncology
DX: C61 Malignant neoplasm of prostate (principal); R97.20 Elevated prostate specific antigen [PSA]
CPT/HCPCS: 74177; Q9967

== ENCOUNTER → 2022-06-26 | Outpatient (CLI) | payer MEDICARE, OTHER, SELFPAY ==
--- NOTE | 2022-06-26 08:45 | NM_ITS ---
CLINICAL: Male, 81 years old. PROSTATE CA/ELEVATED PSA WHOLE BODY NUCLEAR BONE SCAN TECHNIQUE: Following the IV administration of 25.5 mCi of Tc MDP, whole body bone imaging was performed with a gamma camera following a three hour delay. COMPARISON STUDIES : NM - comparison is made with prior nuclear medicine bone scan dated 03/21/2018. CR - Not available for review at this time. CT - Not available for review at this time. MR - Not available for review at this time. US - Not available for review at this time. FINDINGS: Persistent increased uptake is seen at the level of the right acetabulum. Increased uptake is also seen at the level of both shoulder joints suggestive of the degenerative changes. NM/Bone Scan Whole Body IMPRESSION: Persistent mild increased uptake at the level of the right acetabulum. Electronically Signed: Nam Bell MD at 12:31 EDT ,
== END | disposition home or self-care (01) ==
LOC: NM 08:44
PROVIDERS: PCP Internal Medicine; Referring Provider Internal Medicine Medical Oncology; Visit Provider Internal Medicine Medical Oncology
DX: C61 Malignant neoplasm of prostate (principal); R97.20 Elevated prostate specific antigen [PSA]
CPT/HCPCS: 78306; A9503

== ENCOUNTER → 2022-09-11 | Outpatient (CLI) | payer MEDICARE, OTHER, SELFPAY ==
[2022-09-11 08:58] LABS: Absolute Lymphocyte Count 1.72 X10^3/uL (0.83-4.51); Absolute Neutrophil Count 2.7 X10^3/uL (2.0-7.7); Basophil# 0.03 X10^3/uL; Basophil% 0.5 % (0-1); Eosinophil# 0.46 X10^3/uL; Eosinophils% 8.2 % (0-5); Hematocrit 44.2 % (40-54); Hemoglobin 14.7 g/dL (13.0-16.5); Lymphocyte # 1.72 X10^3/ul (0.83-4.51); Lymphocyte % 30.7 % (19-41); Mean Corp Hgb Conc 33.3 g/dL (32-36); Mean Corpuscular Volume 99.3 fL (80-94); Mean Platelet Vol. 9.5 fl (6.2-12.0); Monocyte# 0.67 X10^3/uL; Monocyte% 11.9 % (0-10); NRBC Flagged by Analyzer 0 % (0-5); Neutrophil # 2.71 X10^3/uL (2.7-7.7); Neutrophil % 48.3 % (47-70); Platelet Count 161 K/mm3 (150-450); RBC Distribution Width CV 14.2 % (11.6-14.6); RBC Distribution Width SD 51.6 fl (35.1-43.9); Red Blood Count 4.45 M/mm3 (4.6-6.2); White Blood Count 5.6 K/mm3 (4.4-11.0)
[2022-09-11 09:20] LABS: ALB/GLOB Ratio 0.9 RATIO (0.9-2.4); AST(SGOT) 22 U/L (15-37); Alanine Aminotransfer ALT/SGPT 28 U/L (16-61); Albumin, Serum 3.4 g/dL (3.2-5.0); Alkaline Phosphatase 44 U/L (45-117); Anion Gap 4 (5-15); BUN 17 mg/dL (7-18); BUN/Creat Ratio 15.7 RATIO (10-20); Calcium,Total 8.9 mg/dL (8.5-10.1); Chloride 110 mmol/L (98-107); Creatinine, Serum 1.08 mg/dL (0.70-1.30); EST Glomerular Filtration Rate 69 mL/min (>60); Est Glom Filt Rate - Afr Amer 84 mL/min (>60); Globulin 3.6 g/dL (2.2-4.2); Glucose 91 mg/dL (74-106); LDH 200 U/L (87-241); Potassium 4.2 mmol/L (3.5-5.1); Sodium Level 140 mmol/L (136-145)
[2022-09-11 16:56] LABS: Xtra Tube EP Lab EXTRA TUBE
== END | disposition home or self-care (01) ==
LOC: PAVLAB 08:40
PROVIDERS: PCP Internal Medicine; Referring Provider Internal Medicine Medical Oncology; Visit Provider Internal Medicine Medical Oncology
DX: Z85.46 Personal history of malignant neoplasm of prostate (principal)
CPT/HCPCS: 36415; 80053; 83615; 84153; 85025

== ENCOUNTER → 2023-04-19 | Outpatient (CLI) | payer MEDICARE, OTHER, SELFPAY ==
--- NOTE | 2023-04-19 08:40 | BD_ITS ---
STUDY: DUAL ENERGY X-RAY ABSORPTIOMETRY / DXA REASON FOR EXAM: Male, 82 years old. HIGH RISK MED TECHNIQUE: Bone Mineral Density (BMD) measurements of lumbar spine and bilateral hips were obtained. COMPARISON: Comparison is made with prior study dated September 18, 2017. FINDINGS: Lumbar Spine (L1-L4): g/cm2 (0.914) / T-score (-1.5) / Z-score (-0.3) Findings are suggestive of osteopenia with a low fracture risk. Left Femur Total: g/cm2 (0.730) / T-score (-2.0) / Z-score (-0.8) Left Femoral Neck: g/cm2 (0.642) / T-score (-2.1) / Z-score (-0.5) Right Femur Total: g/cm2 (0.794) / T-score (-1.6) / Z-score (-0.4) Right Femoral Neck: g/cm2 (0.786) / T-score (-1.1) / Z-score (0.6) The T-Scores on the most recent prior examination were: Lumbar Spine (L1-L4): There has been worsening of bone density since the previous examination. Left Femur Total: which represents a worsening of 9.2%. Right Femur Total: which represents an improvement of 3.2%. BD/Dexa Bone Density Study IMPRESSION: The patient is considered osteopenic as outlined below according to World Nain Organization (WHO) criteria with a high fracture risk. There has been worsening of bone density since the previous examination. Reference Information: The T-score is the number of standard deviations above or below the standard which is normal for young adults at their peak bone mineral density. The World Health Organization (WHO) interprets the T-scores as follows: Above -1 Normal bone density Between -1 and -2.5 Osteopenia Equal to / or below -2.5 Osteoporosis As a practical clinical guideline, osteopenia may be graded as follows: Mild -1 through -1.5 Moderate -1.6 through -2.0 Severe -2.1 through -2.4 The Z-score is the number of standard deviations above or below age-matched controls. A Z-score of less than -1.5 would be considered abnormal. References: 1. NIH Osteoporosis and Related Bone Diseases www osteo.org 2. International Society for Clinical Densitometry www iscd.org 3. National Osteoporosis Foundation www nof.org Electronically Signed: Nam Bell MD at 14:51 EDT ,
== END | disposition home or self-care (01) ==
LOC: OPBD 08:24
PROVIDERS: PCP Internal Medicine; Referring Provider Internal Medicine Medical Oncology; Visit Provider Internal Medicine Medical Oncology
DX: Z79.899 Other long term (current) drug therapy (principal); M85.861 Other specified disorders of bone density and structure, right lower leg; M85.862 Other specified disorders of bone density and structure, left lower leg; M85.88 Other specified disorders of bone density and structure, other site
CPT/HCPCS: 77080

== ENCOUNTER → 2023-05-08 | Outpatient (CLI) | payer MEDICARE, OTHER, SELFPAY ==
--- NOTE | 2023-05-08 09:44 | CDU_ITS ---
Reason For Study: carotid stenosis Rt. Velocities/BP Lt. Velocities/BP Prox CCA 68.3/14.5 cm/sec. Prox CCA 74.0/13.9 cm/sec. Mid CCA 84.4/20.1 cm/sec. Mid CCA 82.6/17.6 cm/sec. Dist CCA 74.9/16.3 cm/sec. Dist CCA 69.1/17.6 cm/sec. Prox ICA 77.7/13.9 cm/sec. Prox ICA 80.2/16.3 cm/sec. Mid ICA 61.8/18.8 cm/sec. Mid ICA 88.8/21.2 cm/sec. Dist ICA 63.0/17.6 cm/sec. Dist ICA 90.0/28.6 cm/sec. Rt. ICA/CCA = .9. Lt. ICA/CCA = 1.1. Prox ECA 78.0/6.1 cm/sec. Prox ECA 88.8/7.7 cm/sec. Rt. Vert. 39.7/11.4 cm/sec. Lt. Vert. 34.4/5.8 cm/sec. Right Extracranial There is intimal thickening but no significant atherosclerotic plaque noted in the right common carotid artery. There is heterogeneous, irregular atherosclerotic plaque noted in the right internal carotid artery. There is heterogeneous, irregular atherosclerotic plaque noted in the right external carotid artery. Antegrade flow is noted in the right vertebral artery. Left Extracranial There is intimal thickening but no significant atherosclerotic plaque noted in the left common carotid artery. There is heterogeneous, irregular atherosclerotic plaque noted in the left internal carotid artery. There is intimal thickening but no significant atherosclerotic plaque noted in the left external carotid artery. Antegrade flow is noted in the left vertebral artery. Procedure Carotid Duplex [id number]. This is a Carotid Duplex examination using B-mode, color flow and specral Doppler. The exam was diagnostic. Exam performed in department. VL/Carotid Duplex Ultrasound Interpretation Summary Mild (<50%) stenosis right extracranial internal carotid. Mild (<50%) stenosis left extracranial internal carotid. Patent and antegrade vertebrals bilaterally. Ordering Physician: Nahomi Long Performed By: Leighton Mora RVT
== END | disposition home or self-care (01) ==
LOC: CVS 09:43
PROVIDERS: PCP Internal Medicine; Referring Provider Internal Medicine; Visit Provider Internal Medicine
DX: I65.23 Occlusion and stenosis of bilateral carotid arteries (principal)
CPT/HCPCS: 93880

== ENCOUNTER → 2023-06-22 | Outpatient (CLI) | payer MEDICARE, OTHER, SELFPAY ==
[2023-06-22 16:38] LABS: Absolute Lymphocyte Count 1.68 X10^3/uL (0.83-4.51); Absolute Neutrophil Count 3.8 X10^3/uL (2.0-7.7); Basophil# 0.04 X10^3/uL; Basophil% 0.6 % (0-1); Eosinophils% 4.6 % (0-5); Hematocrit 40.2 % (40-54); Hemoglobin 13.9 g/dL (13.0-16.5); Lymphocyte # 1.68 X10^3/ul (0.83-4.51); Lymphocyte % 25.5 % (19-41); Mean Corp Hgb Conc 34.6 g/dL (32-36); Mean Corpuscular Hgb 34.2 pg (27.0-32.0); Mean Corpuscular Volume 98.8 fL (80-94); Mean Platelet Vol. 9.6 fl (6.2-12.0); Monocyte# 0.71 X10^3/uL; Monocyte% 10.8 % (0-10); NRBC Flagged by Analyzer 0 % (0-5); Neutrophil # 3.83 X10^3/uL (2.7-7.7); Platelet Count 175 K/mm3 (150-450); RBC Distribution Width CV 14.6 % (11.6-14.6); RBC Distribution Width SD 53.6 fl (35.1-43.9); Red Blood Count 4.07 M/mm3 (4.6-6.2); White Blood Count 6.6 K/mm3 (4.4-11.0)
[2023-06-22 17:09] LABS: ALB/GLOB Ratio 0.9 RATIO (0.9-2.4); AST(SGOT) 28 U/L (15-37); Alanine Aminotransfer ALT/SGPT 33 U/L (16-61); Albumin, Serum 3.5 g/dL (3.2-5.0); Alkaline Phosphatase 45 U/L (45-117); Anion Gap 5 (5-15); BUN 21 mg/dL (7-18); Calcium,Total 8.7 mg/dL (8.5-10.1); Chloride 111 mmol/L (98-107); Creatinine, Serum 1.05 mg/dL (0.70-1.30); EST Glomerular Filtration Rate 72 mL/min (>60); Est Glom Filt Rate - Afr Amer 87 mL/min (>60); Globulin 3.7 g/dL (2.2-4.2); Glucose 93 mg/dL (74-106); LDH 271 U/L (87-241); Potassium 3.9 mmol/L (3.5-5.1); Protein, Total 7.2 g/dL (6.4-8.2); Sodium Level 140 mmol/L (136-145)
== END | disposition home or self-care (01) ==
LOC: LAB 15:40
PROVIDERS: PCP Internal Medicine; Referring Provider Internal Medicine Medical Oncology; Visit Provider Internal Medicine Medical Oncology
DX: R97.20 Elevated prostate specific antigen [PSA] (principal); Z85.46 Personal history of malignant neoplasm of prostate
CPT/HCPCS: 36415; 80053; 83615; 84153; 85025

== ENCOUNTER → 2023-11-15 | Outpatient (CLI) | payer MEDICARE, OTHER, SELFPAY ==
[2023-11-15 12:14] LABS: Bacteria 0 SEEN /hpf (None Seen); Mucous, Urine 0 SEEN /hpf (<or=2+); Squamous Epithelial Cells - UA 0 SEEN /hpf (0-5); White Blood Cells 0 SEEN /hpf (0-5)
[2023-11-15 12:36] LABS: Color, Urine Yellow (Yellow); Glucose, Dipstick Normal (Normal); Ketone-Dipstick Negative (Negative); Leukocyte Esterase-Dipstick Negative /ul (Negative); Nitrite-Dipstick Negative (Negative); Occult Blood-Urine 10 /ul (Negative); Protein-Dipstick Negative (Negative); Specific Gravity, Urine 1.025 (1.002-1.030); Urine Bilirubin Dipstick Negative (Negative); Urine Clarity Clear (Clear); Urine Urobilinogen Normal (Normal)
--- NOTE | 2023-11-15 12:50 | RAD_ITS ---
STUDY: X-RAY - LUMBAR SPINE REASON FOR EXAM: Male, 82 years old. LOW BACK PAIN-PROSTATE CA-BONE METS TECHNIQUE: 5 view(s) of the lumbar spine were obtained. COMPARISON: None FINDINGS: Normal lumbar lordosis. There is a dextroscoliosis of the lumbar spine. There is no acute fracture seen. There is multilevel endplate spondylosis of the lumbar vertebrae. There is multi-level degenerative disc disease with multi-level disc space narrowing. There is sacroiliac spurring and sclerosis. There is atherosclerotic calcification of the abdominal aorta without a demonstrated aneurysm. There is postoperative change in the soft tissues of the pelvis. RAD/L/S Spine Min 4 Views IMPRESSION: Scoliosis and degenerative change. Electronically Signed: Jignesh Epstein MD at 8:43 EST ,
[2023-11-15 12:57] LABS: Red Blood Cells-Urine 0-5 SEEN /hpf (0-5); Transitional Epithelial - Ur 0-5 SEEN /hpf (0-5)
== END | disposition home or self-care (01) ==
PROVIDERS: PCP Internal Medicine; Referring Provider Internal Medicine Medical Oncology; Visit Provider Internal Medicine Medical Oncology
DX: C61 Malignant neoplasm of prostate (principal); C79.51 Secondary malignant neoplasm of bone; M54.50 Low back pain, unspecified; Z85.46 Personal history of malignant neoplasm of prostate
CPT/HCPCS: 36415; 72110; 81001; 84153

== ENCOUNTER → 2024-01-31 | Outpatient (CLI) | payer MEDICARE, OTHER, SELFPAY ==
--- NOTE | 2024-01-31 18:01 | CT_ITS ---
INDICATION: PAIN EXAMINATION: CT ABDOMEN AND PELVIS WITHOUT CONTRAST - CT Abdomen And Pelvis W/O Contrast Injection TECHNIQUE: Helically acquired images were obtained of the abdomen and pelvis with oral and without IV contrast. A radiation dose optimization technique was used for this scan. IV Contrast dosage and agent: None. Oral contrast: Redicat RADIATION DOSAGE (If Supplied By Facility): CTDIvol = ( 12.69 ) mGy, DLP = ( 640.38 ) mGycm COMPARISON: Head CT dated March 27, 2023 FINDINGS: LOWER CHEST: Lung bases are clear. There are coronary artery calcifications. There are sternotomy wires in place. The lack of intravenous contrast limits evaluation of solid visceral organs. LIVER: Homogeneous. No focal mass. GALLBLADDER AND BILIARY TREE: No calcified gallstones. No gallbladder distension or wall edema. No intra- or extrahepatic biliary ductal dilation. PANCREAS: No focal cystic or solid mass. SPLEEN: Normal size without focal cystic or solid mass. ADRENAL GLANDS: No nodules. KIDNEYS AND URETERS: Normal renal size and position. No hydronephrosis. PERITONEUM: No ascites or free air. No other fluid collection. BOWEL: No stomach or bowel distension. There is nonvisualization of the appendix. No focal inflammatory change. LYMPH NODES: No enlarged mesenteric or retroperitoneal lymph nodes. VESSELS: Aorta is non-dilated. There are peripheral calcifications of the abdominal aorta. URINARY BLADDER: Unremarkable. REPRODUCTIVE ORGANS: There are surgical clips within the pelvis consistent with prior prostatectomy ABDOMINAL WALL: No discrete abdominal or pelvic wall hernia. BONES: There are stable left superior and inferior pubic rami deformities consistent with old fractures. There are stable radiolucent and sclerotic foci throughout the bony pelvis. There are degenerative changes of the visualized thoracic and lumbar spine. CT/Abdomen/Pel W ORAL Cont Only IMPRESSION: Stable indeterminate radiolucent and sclerotic within the bony pelvis, cannot exclude a neoplastic process. Atherosclerosis. Degenerative changes of the visualized thoracic and lumbar spine. Electronically Signed: Scarlet Garcia MD at 9:30 EDT ,
== END | disposition home or self-care (01) ==
LOC: CT 17:50
PROVIDERS: PCP Internal Medicine; Referring Provider Urology; Visit Provider Urology
DX: R10.84 Generalized abdominal pain (principal)
CPT/HCPCS: 74176

== ENCOUNTER → 2024-02-11 | Outpatient (CLI) | payer MEDICARE, OTHER, SELFPAY ==
--- NOTE | 2024-02-11 09:51 | NM_ITS ---
CLINICAL: 83-year-old male with history of primary prostate carcinoma with elevation of the serum PSA level. WHOLE BODY 99m Tc MDP RADIONUCLIDE BONE SCINTIGRAPHY COMPARISON: Whole body bone scan report dated 06/26/2022 FINDINGS: Following the intravenous administration of 27.4 mCi of 99m Tc MDP, whole body bone images reveal: 1. Increased tracer uptake is noted in the patellofemoral compartment of the right knee, the dorsal aspect of the right hindfoot, the bilateral midfoot, the 11th thoracic and fifth lumbar vertebra posteriorly on the right, the mid cervical spine posteriorly on the left, the acromioclavicular compartments of both shoulders, the sternoclavicular compartment of the right shoulder, right hip involving the superior acetabulum. 2. The remaining skeletal structures are scintigraphically unremarkable with normal-appearing renal images and urinary bladder activity identified. Facilitated uptake is noted in the right maxilla most consistent with periostitis and/or periodontal disease. NM/Bone Scan Whole Body IMPRESSION: 1. The increase in radiopharmaceutical concentration defined in the appendicular and axial skeletal structures articulated above is consistent with degenerative arthrosis. 2. There is no definitive scintigraphic evidence of diffuse axial skeletal metastatic disease. Overall compared to the previous whole body bone scintigraphy report dated 06/26/2022, there is apparent no interval change. Electronically Signed: Gordon Thompson DO at 8:24 EDT ,
== END | disposition home or self-care (01) ==
LOC: NM 09:50
PROVIDERS: PCP Internal Medicine; Referring Provider Urology; Visit Provider Urology
DX: R97.21 Rising PSA following treatment for malignant neoplasm of prostate (principal); R97.20 Elevated prostate specific antigen [PSA]
CPT/HCPCS: 78306; A9503

== ENCOUNTER → 2024-10-13 | Outpatient (CLI) | payer MEDICARE, OTHER, SELFPAY ==
[2024-10-13 16:02] LABS: Absolute Lymphocyte Count 1.15 X10^3/uL (0.83-4.51); Absolute Neutrophil Count 6.5 X10^3/uL (2.0-7.7); Basophil# 0.03 X10^3/uL; Basophil% 0.4 % (0-1); Eosinophil# 0.05 X10^3/uL; Eosinophils% 0.6 % (0-5); Hematocrit 46.8 % (40-54); Hemoglobin 15.9 g/dL (13.0-16.5); Lymphocyte # 1.15 X10^3/ul (0.83-4.51); Lymphocyte % 13.7 % (19-41); Mean Corpuscular Hgb 33.6 pg (27.0-32.0); Mean Corpuscular Volume 98.9 fL (80-94); Mean Platelet Vol. 9.9 fl (6.2-12.0); Monocyte# 0.61 X10^3/uL; Monocyte% 7.3 % (0-10); NRBC Flagged by Analyzer 0 % (0-5); Neutrophil % 77.2 % (47-70); Platelet Count 166 K/mm3 (150-450); RBC Distribution Width SD 51.2 fl (35.1-43.9); Red Blood Count 4.73 M/mm3 (4.6-6.2); White Blood Count 8.4 K/mm3 (4.4-11.0)
[2024-10-13 16:39] LABS: AST(SGOT) 26 U/L (15-37); Alanine Aminotransfer ALT/SGPT 38 U/L (16-61); Albumin, Serum 3.3 g/dL (3.2-5.0); Alkaline Phosphatase 98 U/L (45-117); Amylase 40 U/L (25-115); Anion Gap 10 (5-15); BUN 37 mg/dL (7-18); BUN/Creat Ratio 29.1 RATIO (10-20); Bilirubin, Direct 0.46 mg/dL (0.00-0.30); Calcium,Total 8.7 mg/dL (8.5-10.1); Chloride 103 mmol/L (98-107); Creatinine, Serum 1.27 mg/dL (0.70-1.30); EST Glomerular Filtration Rate 57 mL/min (>60); Est Glom Filt Rate - Afr Amer 69 mL/min (>60); Globulin 3.9 g/dL (2.2-4.2); Glucose 113 mg/dL (74-106); Lipase 37 U/L (13-75); Potassium 3.9 mmol/L (3.5-5.1); Protein, Total 7.2 g/dL (6.4-8.2); Sodium Level 138 mmol/L (136-145)
[2024-10-13 17:52] LABS: D-Dimer Quantitative (DVT/PE) > 20.00 FEU/ug/m (0.27-0.49)
[2024-10-14 05:45] LABS: Troponin-I HS 13 pg/mL (3.0-78.0)
[2024-10-15 05:06] LABS: CRP, High Sensitivity 14.55 mg/L (0.00-3.00)
== END | disposition home or self-care (01) ==
LOC: LABSPEC 15:04
PROVIDERS: PCP Internal Medicine; Referring Provider Nurse Practitioner Family; Visit Provider Nurse Practitioner Family
DX: R07.9 Chest pain, unspecified (principal); R10.9 Unspecified abdominal pain; Z85.46 Personal history of malignant neoplasm of prostate
CPT/HCPCS: 71046; 74176; 80048; 80076; 82150; 83690; 84443; 84484; 85025; 85379; 86141

== ENCOUNTER → 2024-10-13 | Outpatient (CLI) | payer MEDICARE, OTHER, SELFPAY ==
--- NOTE | 2024-10-13 08:03 | RAD_ITS ---
We are attempting to reach an attending provider to discuss findings. An addendum with communication details will be sent when the communication is complete. EXAM: XR CHEST, 2 VIEWS CLINICAL INDICATION: CHEST PAIN TECHNIQUE: Frontal and lateral views of the chest. COMPARISON: June 14, 2022. CT abdomen and pelvis October 13, 2024 at 6:03 PM. FINDINGS: LUNGS AND PLEURAL SPACES: Similar appearance of mild increased lucency in the central lungs. May be due to COPD. Minimal linear-and increased vascular markings in the right lung base compared to the left are stable, possibly minimal scarring. No basilar infiltrate is seen on abdomen and pelvis CT this evening. No pneumothorax. No effusion. HEART: Unremarkable. Cardiac silhouette not enlarged. MEDIASTINUM: Central airways and mediastinal contour are unremarkable. BONES/JOINTS: Similar appearance of median sternotomy wires with broken most superior wire. SOFT TISSUES: Unremarkable. RAD/Chest PA and Lateral IMPRESSION: 1. Stable chest. 2. On review of the abdomen and pelvis CT there is suspicion of 1.9 cm x 1.4 cm nonperforated ulcer projecting inferiorly from the duodenal bulb on coronal image #43. Correlate with epigastric pain. This is not a typical location of a duodenal diverticulum. Mild surrounding soft tissue stranding. Electronically Signed: Tyra Pires MD at 2:41 EST ,
--- NOTE | 2024-10-13 15:54 | CT_ITS ---
EXAM: CT ABDOMEN AND PELVIS WITHOUT INTRAVENOUS CONTRAST CLINICAL INDICATION: STAT N/V, pain, no oral intake x 5 days -- STAT ORAL ONLY-PT REFUSED IV TECHNIQUE: Helically acquired images were obtained of the abdomen and pelvis without intravenous contrast. This CT exam was performed using one or more of the following dose reduction techniques: automated exposure control, adjustment of the mA and/or kV according to patient size, and/or use of iterative reconstruction technique. CONTRAST: Oral Gastrografin RADIATION DOSE: CTDIvol = 7.10 mGy, DLP = 379.41 mGy-cm COMPARISON: January 31, 2024 FINDINGS: LOWER THORAX: Median sternotomy wires and coronary artery stents are partially included. Normal heart size. Lung bases are clear. No significant pericardial effusion. ABDOMEN: LIVER: Unremarkable. Homogeneous. GALLBLADDER AND BILE DUCTS: Multiple small gallstones in the distal gallbladder, the gallbladder is partially contracted with no obvious wall thickening. No bowel duct distention. PANCREAS: Fatty replaced and atrophic pancreas appear similar. No dilated pancreatic duct. No focal cystic mass. SPLEEN: Unremarkable. Normal size without focal cystic or solid mass. ADRENALS: Unremarkable. No nodules. KIDNEYS AND URETERS: Unremarkable. Normal renal size and position. No hydronephrosis. STOMACH AND BOWEL: Oral contrast reached proximal descending colon, no obstruction. Minimal gas and stool in the rectosigmoid. Minimal sigmoid diverticulosis, no evidence of diverticulitis. PELVIS: APPENDIX: Nonvisualized appendix. BLADDER: Moderately distended urinary bladder with minimal wall thickening, similar to prior exam. REPRODUCTIVE: Prostatectomy clips are again noted. ABDOMEN and PELVIS: INTRAPERITONEAL SPACE: Unremarkable. No ascites or other fluid collection. No free air. BONES/JOINTS: Multilevel vacuum discs and disc space narrowing of the lumbar spine. New compression deformity with sclerosis and some residual curvilinear upper body lucent fracture line in the L1 body, with slight retropulsion of the posterior-superior margin of the body, only roughly 4 mm. Likely at least subacute, there is mild sclerosis adjacent to the visible curvilinear fracture line. There is similar appearance of nonunited-nonhealed left pubic ramus fracture with some sclerotic margins, no significant surrounding soft tissue swelling, and similar appearance of fairly extensive changes around the SI joints and involving the sacral wings. No evidence of high-grade spinal stenosis. SOFT TISSUES: See above. VASCULATURE: Moderate aortoiliac atherosclerotic calcifications, moderate to high-grade calcifications at the origin-proximal celiac axis, conjoined SMA and celiac axis. Moderate to high-grade origin stenosis. LYMPH NODES: Unremarkable. No enlarged lymph nodes. CT/Abdomen/Pelvis without Cont IMPRESSION: 1. Compression fracture deformity of L1 is new from January 31, 2024 but the loss of body height and mild sclerosis along the slightly visible fracture line suggests it is at least subacute. No convincing acute-appearing fractures. 2. 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 Similar extensive bone changes involving SI joints and iliac bones. 3. Prostatectomy. 4. Cholelithiasis. No convincing evidence of acute cholecystitis. 5. No bowel obstruction. Minimal diverticulosis. No evidence of acute diverticulitis. 6. Minimal distention of most of the sigmoid and rectum. This is a very limited exam for screening for neoplasm. Electronically Signed: Tyra Pires MD at 20:30 EST ,
== END | disposition home or self-care (01) ==
LOC: CT 15:54
PROVIDERS: PCP Internal Medicine; Referring Provider Nurse Practitioner Family; Visit Provider Nurse Practitioner Family
DX: R07.9 Chest pain, unspecified (principal); R10.9 Unspecified abdominal pain; Z85.46 Personal history of malignant neoplasm of prostate
CPT/HCPCS: 71046; 74176

== ENCOUNTER 2024-10-14 09:46 | Emergency (ER) | payer MEDICARE, OTHER, SELFPAY ==
[2024-10-14 09:46] VITALS: BP 129/89; PULSE 92; RESP 14; TEMP 36.1; O2SAT 100; BMI 20.9
--- NOTE | 2024-10-14 10:18 | EDS_ITS ---
HPI History of Present Illness Chief Complaint: General Illness Informant: patient Onset/Context/Timing Onset: Days Context: Gradual Onset Timing: Continuous Quality: Aching Location: Upper abdomen Worsened by: Nothing Relieved by: Nothing Narrative Narrative: Patient presents because he was told to come to the emergency department. [facility] and had x-ray and CT scan done there. Patient states he went home after that. Patient states that he was awoken today by people knocking on his door and was being told that he needed to go to the emergency department. Patient states he had recent episode of food poisoning. Patient states he has been having some nausea and vomiting. Patient denies any diarrhea, melena, or hematochezia. Patient states he had been having some upper abdominal pain. Patient denies any fevers or chills. Patient denies any chest pain or shortness of breath. [facility] Medical History Neck pain on right side Essential (primary) hypertension Gynecomastia, male Bony sclerosis History of prostate cancer History of fractured pelvis Kidney stones BPH (benign prostatic hyperplasia) GERD (gastroesophageal reflux disease) DVT (deep venous thrombosis) Hyperlipidemia Atherosclerotic heart disease of [place] coronary artery without angina pectoris Prostate cancer Home Medications ?Medication ?Instructions ?Recorded ?Last Taken ?Type nitroglycerin 0.4 mg sublingual 0.4 mg sublingual Q5M PRN Chest 09/22/14 Unknown History tablet Pain losartan 25 mg tablet 12.5 mg PO DAILY 01/09/17 02/09/17 07:00 History cholecalciferol (vitamin D3) 25 2,000 unit PO QDAY 10/26/17 Unknown History mcg (1,000 unit) capsule finasteride 5 mg tablet (Proscar) 5 mg PO DAILY 12/10/18 Unknown History metoprolol succinate 25 mg 12.5 mg PO DAILY 01/05/22 Unknown History tablet,extended release 24 hr bicalutamide 50 mg tablet (Casodex) 50 mg PO DAILY #60 tabs 06/25/23 Unknown Rx rosuvastatin 20 mg tablet 20 mg PO QHS #90 tabs 06/25/24 Unknown Rx apixaban 5 mg tablet (Eliquis) 5 mg PO BID #74 tabs 10/14/24 Unknown Rx pantoprazole 40 mg tablet,delayed 40 mg PO DAILY #30 tabs 10/14/24 Unknown Rx release sucralfate 100 mg/mL oral 1 gm (10 mL) PO 4X/DAY stomach 10/14/24 Unknown Rx suspension upset #200 mL Allergy/AdvReac Type Severity Reaction Status Date / Time povidone-iodine Allergy Mild Rash Verified 10/14/24 09:47 atorvastatin (From Lipitor) AdvReac Intermediate Myalgias Verified 10/14/24 09:47 simvastatin (From Zocor) AdvReac Intermediate Myalgias Verified 10/14/24 09:47 Family History Father , age 64 CAD (coronary artery disease) Myocardial infarction Sudden cardiac Mother , Age 67 Cancer Brother CAD (coronary artery disease) Sister CAD (coronary artery disease) Surgical History H/O coronary artery bypass surgery (11/11/97) History of coronary artery stent placement (10/01/14) H/O right mastectomy Social History Smoking Status: Never smoker ROS ROS ED Constitutional Constitutional ED: Denies chills or fever(s) Eyes Eyes: Denies blurry vision or change in vision ENT ENT ED: Denies rhinorrhea or sore throat Cardiovascular Cardiovascular: Denies chest pain or palpitations Respiratory/Chest Respiratory/Chest: Denies cough or dyspnea Gastrointestinal Gastrointestinal: Reports abdominal pain, nausea and vomiting; Denies diarrhea or melena Genitourinary Genitourinary ED: Denies dysuria or hematuria Musculoskeletal Musculoskeletal: Reports back pain; Denies neck pain Integumentary Denies abscess or rash Neurologic Neurologic: Denies headache(s) or weakness Allergic/Immunologic Allergic/Immunologic ED: Denies mouth swelling or urticaria EXAM Physical Exam Const Vital Signs: 10/14/24 09:46 10/14/24 10:14 10/14/24 11:46 Temperature 97 F L Temperature Source Temporal Pulse Rate 92 77 Respiratory Rate 14 17 Respiratory Effort Normal Non-Labored Respiratory Pattern Normal Blood Pressure 129/89 H 104/67 Blood Pressure Mean 102 79 Pulse Ox 100 96 Oxygen Delivery Method Room Air Room Air 10/14/24 13:00 Temperature Temperature Source Pulse Rate 77 Respiratory Rate 19 H Respiratory Effort Respiratory Pattern Blood Pressure Blood Pressure Mean Pulse Ox 97 Oxygen Delivery Method Room Air Positive well nourished and well developed General Appearance ED: well developed and NAD HEENT Reports moist mucous membranes Eyes PERRL and EOMs intact bilaterally Neck supple and no JVD Resp normal respiratory effort and clear to auscultation bilaterally Cardio regular rate and regular rhythm GI non-tender and non-distended Palpation: soft Neuro oriented x3, CN's II-XII intact bilaterally and no sensory deficits noted Sensorium / Orientation: alert Motor Exam: strength 5/5 throughout Psych mental status grossly normal MDM MDM MDM Narrative Medical decision making narrative: Differential diagnosis includes gastroenteritis, peptic ulcer disease, duodenal ulcer, cholecystitis, cholelithiasis, pancreatitis, urinary tract infection, and pyelonephritis. CBC will be obtained to assess for leukocytosis and anemia. Comprehensive metabolic profile will be obtained to assess for hepatic function, renal function, and electrolyte abnormality. Lipase will be obtained to assess for pancreatitis. Urinalysis will be obtained to assess for urinary tract infection and hematuria. Acute abdominal x-rays will be obtained to assess for perforation and obstruction. History & Record Review Additional record(s) reviewed:: Prior outpatient record (I reviewed patient's outpatient CT scan done yesterday. There is a duodenal ulcer with some surrounding edema. There is no perforation at this time.) Lab Data Attestation: I reviewed the patient's lab results. Lab results narrative: CBC was reviewed and was essentially within normal limits. Comprehensive metabolic profile was reviewed. Total bilirubin was mildly elevated at 1.2. The remainder is within normal limits. Lipase was reviewed and was normal at 36. Urinalysis was reviewed. There is no evidence of urinary tract infection or hematuria. Labs: Laboratory Results - last 24 hr 10/14/24 10/14/24 10:03 11:04 WBC 8.4 RBC 4.48 L Hgb 14.8 Hct 43.3 MCV 96.7 H MCH 33.0 H MCHC 34.2 RDW Std Deviation 50.1 H RDW Coeff of Dami 14.1 Plt Count 157 MPV 10.0 Immature Gran % (Auto) 1.000 H Neut % (Auto) 66.3 Lymph % (Auto) 22.2 [place] % (Auto) 8.6 Eos % (Auto) 1.4 Baso % (Auto) 0.5 Absolute Neuts (auto) 5.5 Absolute Lymphs (auto) 1.85 Nucleated RBC % 0 Sodium 136 Potassium 3.8 Chloride 104 Carbon Dioxide 22.0 Anion Gap 10 BUN 30 H Creatinine 1.10 Estim Creat Clear Calc 49.58 Est GFR (MDRD) Af Amer 82 Est GFR (MDRD) Non-Af 68 BUN/Creatinine Ratio 27.3 H Glucose 92 Calcium 8.7 Total Bilirubin 1.20 H AST 28 ALT 33 Alkaline Phosphatase 92 Total Protein 7.0 Albumin 3.0 L Globulin 4.0 Albumin/Globulin Ratio 0.8 L Lipase 36 Urine Color Yellow Urine Clarity Clear Urine pH 5.0 Ur Specific [place] 1.025 Urine Protein 30 H Urine Glucose (UA) Normal Urine Ketones 15 H Urine Occult Blood 10 H Urine Nitrite Negative Urine Bilirubin Negative Urine Urobilinogen 1 H Ur Leukocyte Esterase 25 H Urine RBC 0 SEEN Urine WBC 0 SEEN Ur Squamous Epith Cells 0 SEEN Urine Bacteria 0 SEEN Urine Mucus 0 SEEN Radiography Diagnostic Testing: Clinical Impression(s) from Imaging Studies Acute Abdomen Series 10/14/24 10:30 IMPRESSION: Negative chest and abdominal series. Electronically Signed: Teddy Camarillo MD at 11:19 EST , Chest CTA 10/14/24 12:57 IMPRESSION: 1. Pulmonary emboli in peripheral branches of right lower lobe pulmonary artery. 2. No acute pulmonary infiltrate or pleural effusions. N.B. : The above Results were Read Back by Teddy Camarillo MD to Eladio Livingston DO, and understanding confirmed on 10/14/2024 14:17:42 (ET). Electronically Signed: Teddy Camarillo MD at 14:10 EST , Acute abdominal x-rays were obtained. There are 4 views. On my independent interpretation, there is no evidence of free air or air-fluid levels. Radiologist also interpreted the x-rays and agrees. CT of the chest was obtained. There are pulmonary emboli in the peripheral branches of the right lower lobe. There is no acute infiltrate or effusion noted. This was interpreted by the radiologist was also independently reviewed by myself. Treatment and Re-Evaluation :: Saline lock IV was established. Patient was advised of his findings. Patient is feeling better on reevaluation. I discussed the case with Dr. Masters. She s tated that the patient was referred to the emergency department due to the elevated D-dimer drawn as an outpatient yesterday. Because of this, CTA of the chest was obtained. CTA of the chest was reviewed. There are pulmonary emboli in the peripheral branches of the right lower lobe. Because of this, patient will be started on Eliquis. Patient was also started on pantoprazole and Carafate for the duodenal ulcer. Patient was instructed to follow-up with his primary care physician in 5 to 7 days. Patient understood and was agreeable with the plan. All questions were answered. Discharge Plan Triage Chief Complaint: General Illness ED Provider: Eladio Livingston Dx/Rx/DC Orders Clinical Impression: Pulmonary embolism, Essential (primary) hypertension, Duodenal ulcer Instructions: Pulmonary Embolism, ED Peptic Ulcer Prescriptions: New Eliquis 5 mg tablet 5 mg PO BID Qty: 74 0RF Rx Instructions: 10 mg twice a day for the first week. Then 5 mg twice a day. Continued pantoprazole 40 mg tablet,delayed release (DR/EC) 40 mg PO DAILY Qty: 30 0RF Changed sucralfate 1 GM/10 ML suspension 1 gm PO 4X/DAY Qty: 200 0RF No Action cholecalciferol (vitamin D3) 1,000 unit capsule 2,000 unit PO QDAY finasteride [Proscar] 5 mg tablet 5 mg PO DAILY metoprolol succinate 25 mg tablet extended release 24 hr 12.5 mg PO DAILY bicalutamide [Casodex] 50 mg tablet 50 mg PO DAILY Qty: 60 3RF nitroglycerin 0.4 MG tablet 0.4 mg sublingual Q5M PRN (Reason: Chest Pain) losartan 25 MG tablet 12.5 mg PO DAILY rosuvastatin 20 mg tablet 20 mg PO QHS Qty: 90 3RF Primary Care Provider: Nahomi Long Referrals: Nahomi Long DO [Primary Care Provider] - 5-7 Days Print Language: Green[place]ic Disposition Disposition: Home, Self Care
--- NOTE | 2024-10-14 10:30 | RAD_ITS ---
INDICATION: Pain EXAMINATION/TECHNIQUE: X-RAY - XR Abdomen Series W/ Chest 1 View COMPARISON: No relevant prior comparison study available FINDINGS: --Chest: LINES/DEVICES: None. LUNGS: No consolidation, edema or effusion. Mild stranding/scarring in the right lung base. No pneumothorax. MEDIASTINUM AND CARDIOVASCULAR STRUCTURES: Normal cardiac silhouette. Status post median sternotomy and CABG. Tortuosity of the thoracic aorta. BONES AND SOFT TISSUES: No acute findings. --Abdomen: BOWEL GAS PATTERN: Non-obstructive. No bowel or stomach distention. FREE AIR: None visualized. ORGANOMEGALY: Not seen. CALCIFICATIONS: No abnormal calcifications observed. BONES AND SOFT TISSUES: No acute findings. RAD/Acute Abdomen Inc Chest IMPRESSION: Negative chest and abdominal series. Electronically Signed: Teddy Camarillo MD at 11:19 EST ,
[2024-10-14 10:36] LABS: Absolute Lymphocyte Count 1.85 X10^3/uL (0.83-4.51); Absolute Neutrophil Count 5.5 X10^3/uL (2.0-7.7); Basophil# 0.04 X10^3/uL; Basophil% 0.5 % (0-1); Eosinophil# 0.12 X10^3/uL; Eosinophils% 1.4 % (0-5); Hematocrit 43.3 % (40-54); Hemoglobin 14.8 g/dL (13.0-16.5); Lymphocyte # 1.85 X10^3/ul (0.83-4.51); Lymphocyte % 22.2 % (19-41); Mean Corp Hgb Conc 34.2 g/dL (32-36); Mean Corpuscular Volume 96.7 fL (80-94); Monocyte# 0.72 X10^3/uL; Monocyte% 8.6 % (0-10); NRBC Flagged by Analyzer 0 % (0-5); Neutrophil # 5.54 X10^3/uL (2.7-7.7); Neutrophil % 66.3 % (47-70); Platelet Count 157 K/mm3 (150-450); RBC Distribution Width CV 14.1 % (11.6-14.6); RBC Distribution Width SD 50.1 fl (35.1-43.9); Red Blood Count 4.48 M/mm3 (4.6-6.2); White Blood Count 8.4 K/mm3 (4.4-11.0)
[2024-10-14 11:08] LABS: Bacteria 0 SEEN /hpf (None Seen); Mucous, Urine 0 SEEN /hpf (<or=2+); Red Blood Cells-Urine 0 SEEN /hpf (0-5); Squamous Epithelial Cells - UA 0 SEEN /hpf (0-5); White Blood Cells 0 SEEN /hpf (0-5)
[2024-10-14 11:10] LABS: ALB/GLOB Ratio 0.8 RATIO (0.9-2.4); AST(SGOT) 28 U/L (15-37); Alanine Aminotransfer ALT/SGPT 33 U/L (16-61); Alkaline Phosphatase 92 U/L (45-117); Anion Gap 10 (5-15); BUN 30 mg/dL (7-18); BUN/Creat Ratio 27.3 RATIO (10-20); Calcium,Total 8.7 mg/dL (8.5-10.1); Chloride 104 mmol/L (98-107); EST Glomerular Filtration Rate 68 mL/min (>60); Est Glom Filt Rate - Afr Amer 82 mL/min (>60); Estimated Creatinine Clearance 49.58 ml/min; Glucose 92 mg/dL (74-106); Lipase 36 U/L (13-75); Potassium 3.8 mmol/L (3.5-5.1); Sodium Level 136 mmol/L (136-145)
[2024-10-14 11:14] LABS: Color, Urine Yellow (Yellow); Glucose, Dipstick Normal (Normal); Ketone-Dipstick 15 mg/dl (Negative); Leukocyte Esterase-Dipstick 25 /ul (Negative); Nitrite-Dipstick Negative (Negative); Occult Blood-Urine 10 /ul (Negative); Protein-Dipstick 30 mg/dl (Negative); Specific Gravity, Urine 1.025 (1.002-1.030); Urine Bilirubin Dipstick Negative (Negative); Urine Clarity Clear (Clear); Urine Urobilinogen 1 mg/dl (Normal)
[2024-10-14 11:46] VITALS: BP 104/67; PULSE 77; RESP 17; O2SAT 96
--- NOTE | 2024-10-14 12:57 | CT_ITS ---
STUDY: CTA CHEST REASON FOR EXAM: Male, 83 years old. Elevated D-dimer RADIATION DOSAGE (If Supplied By Facility): CTDIvol = ( 6.67 ) mGy, DLP = ( 232.76 ) mGycm TECHNIQUE: The examination was performed with the intravenous administration of IV 100mL [id number]-[id number]. Post-processing of the angiographic images was performed, with multiplanar reformation and 3D reconstruction. The protocol utilizes one or more of the following dose reduction techniques: automated exposure control, adjustment of mA and/or kV according to patient size,and/or use of iterative reconstruction technique. COMPARISON: No relevant prior comparison study available FINDINGS: Normal enhancement of the main pulmonary artery and right and left pulmonary arteries. Filling defects in peripheral branches of right lower lobe consistent with pulmonary emboli. Atherosclerotic calcifications of the aortic arch without evidence of aneurysm There is no demonstrated aortic dissection. Sternal cerclage wires and vascular clips are present from a prior sternotomy and coronary artery bypass graft procedure (CABG). There are calcifications of the coronary arteries. Normal mediastinum. Normal hilar regions. Normal visualized trachea and bronchi. There are no pulmonary infiltrates. There are no pleural effusions. Normal chest wall structures. No demonstrated acute osseous changes. Visualized portions of the upper abdomen demonstrate gallstones. CT/CTA Chest W/WO Contrast IMPRESSION: 1. Pulmonary emboli in peripheral branches of right lower lobe pulmonary artery. 2. No acute pulmonary infiltrate or pleural effusions. N.B. : The above Results were Read Back by Teddy Camarillo MD to Eladio Livingston DO, and understanding confirmed on 10/14/2024 14:17:42 (ET). Electronically Signed: Teddy Camarillo MD at 14:10 EST ,
[2024-10-14 13:00] VITALS: PULSE 77; RESP 19; O2SAT 97
[2024-10-14 15:00] VITALS: BP 110/75; PULSE 87; RESP 16; O2SAT 95
[2024-10-14] MEDS: APIXABAN 5 MG TABLET 10 MG PO (15:14)
[2024-10-14 15:19] VITALS: BP 110/75; PULSE 87; RESP 16; TEMP 36.1; O2SAT 95
== END 2024-10-14 15:19 | disposition home or self-care (01) ==
PROVIDERS: Emergency Provider Emergency Medicine; PCP Internal Medicine; Visit Provider Emergency Medicine
DX: I26.99 Other pulmonary embolism without acute cor pulmonale (principal); K26.9 Duodenal ulcer, unspecified as acute or chronic, without hemorrhage or perforation; E78.5 Hyperlipidemia, unspecified; I25.10 Atherosclerotic heart disease of native coronary artery without angina pectoris; I10 Essential (primary) hypertension; R10.9 Unspecified abdominal pain; R11.2 Nausea with vomiting, unspecified; Z79.899 Other long term (current) drug therapy; Z95.1 Presence of aortocoronary bypass graft; Z95.5 Presence of coronary angioplasty implant and graft
CPT/HCPCS: 71275; 74022; 80053; 81001; 83690; 85025; 99283; Q9967; A4216

== ENCOUNTER 2024-10-20 07:37 | Emergency (ER) | payer MEDICARE, OTHER, SELFPAY ==
[2024-10-20 07:38] VITALS: BP 122/78; PULSE 84; RESP 16; TEMP 36.4; O2SAT 99
[2024-10-20 07:40] VITALS: BP 124/78; PULSE 83; RESP 18; TEMP 36.6; O2SAT 98
[2024-10-20 07:55] VITALS: BP 113/75; BP 129/70; BP 92/47; PULSE 70; PULSE 74; PULSE 87
[2024-10-20 08:07] LABS: Absolute Lymphocyte Count 1.57 X10^3/uL (0.83-4.51); Absolute Neutrophil Count 5.5 X10^3/uL (2.0-7.7); Basophil# 0.05 X10^3/uL; Basophil% 0.6 % (0-1); Eosinophil# 0.09 X10^3/uL; Eosinophils% 1.1 % (0-5); Hematocrit 41.5 % (40-54); Hemoglobin 14.1 g/dL (13.0-16.5); Lymphocyte # 1.57 X10^3/ul (0.83-4.51); Lymphocyte % 19.6 % (19-41); Mean Corpuscular Hgb 32.9 pg (27.0-32.0); Mean Platelet Vol. 9.2 fl (6.2-12.0); Monocyte# 0.66 X10^3/uL; Monocyte% 8.3 % (0-10); NRBC Flagged by Analyzer 0 % (0-5); Neutrophil # 5.46 X10^3/uL (2.7-7.7); Neutrophil % 68.3 % (47-70); Platelet Count 252 K/mm3 (150-450); RBC Distribution Width CV 14.3 % (11.6-14.6); RBC Distribution Width SD 50.5 fl (35.1-43.9); Red Blood Count 4.28 M/mm3 (4.6-6.2)
--- NOTE | 2024-10-20 08:09 | EX.ED.DYSGE1 ---
HPI History of Present Illness Chief Complaint: Nausea/Vomiting/Diarrhea Detail of Chief Complaint: Nausea vomiting predominantly and diarrhea for greater than a week Informant: patient and spouse/S.O. Onset/Context/Timing Onset: Weeks Context: Sudden Onset Timing: Intermittent Quality: I do not feel well. I feel like I am dying. Location: Generalized Maximum Severity: Severe Worsened by: Worse anytime he attempts to eat or drink anything Relieved by: Nothing Associated Symptoms Associated Symptoms: Thirst, dry mouth, lightheadedness Narrative Narrative: Patient is an 83-year-old male. He was diagnosed with peripheral PE last week October 14. He is on apixaban. He does have history of prostate cancer. He denies fever, chills or night sweats. He denies headache, visual, ocular auditory symptoms. He does endorse thirst, dry mouth and lightheadedness. He denies cough, shortness of breath or difficulty breathing. He denies chest discomfort. He complains of vague abdominal discomfort. With nausea and vomiting. Vomited once since last night. He vomited twice yesterday. He has had minimal diarrhea. Denies blood or mucus in the diarrhea. He denies hematemesis, melena or hematochezia. He is on anticoagulant for PE that was diagnosed October 14. Prior similar symptoms: Yes Recent Illness/Hospitalization: Yes (Seen in the ER for pulmonary embolus) [facility] Medical History Neck pain on right side Essential (primary) hypertension Gynecomastia, male Bony sclerosis History of prostate cancer History of fractured pelvis Kidney stones BPH (benign prostatic hyperplasia) GERD (gastroesophageal reflux disease) DVT (deep venous thrombosis) Hyperlipidemia Atherosclerotic heart disease of [place] coronary artery without angina pectoris Prostate cancer Home Medications ?Medication ?Instructions ?Recorded ?Last Taken ?Type nitroglycerin 0.4 mg sublingual 0.4 mg sublingual Q5M PRN Chest 09/22/14 Unknown History tablet Pain losartan 25 mg tablet 12.5 mg PO DAILY 01/09/17 02/09/17 07:00 History cholecalciferol (vitamin D3) 25 2,000 unit PO QDAY 10/26/17 Unknown History mcg (1,000 unit) capsule finasteride 5 mg tablet (Proscar) 5 mg PO DAILY 12/10/18 Unknown History metoprolol succinate 25 mg 12.5 mg PO DAILY 01/05/22 Unknown History tablet,extended release 24 hr bicalutamide 50 mg tablet (Casodex) 50 mg PO DAILY #60 tabs 06/25/23 Unknown Rx rosuvastatin 20 mg tablet 20 mg PO QHS #90 tabs 06/25/24 Unknown Rx apixaban 5 mg tablet (Eliquis) 5 mg PO BID #74 tabs 10/14/24 Unknown Rx pantoprazole 40 mg tablet,delayed 40 mg PO DAILY #30 tabs 10/14/24 Unknown Rx release sucralfate 100 mg/mL oral 1 gm (10 mL) PO 4X/DAY stomach 10/14/24 Unknown Rx suspension upset #200 mL dicyclomine 10 mg capsule 20 mg (2 x 10 mg) PO TIDAC #20 10/20/24 Unknown Rx CAPSULES ondansetron 4 mg disintegrating 4 mg PO Q8H PRN PRN Nausea #10 tabs 10/20/24 Unknown Rx tablet Allergy/AdvReac Type Severity Reaction Status Date / Time povidone-iodine Allergy Mild Rash Verified 10/20/24 07:37 atorvastatin (From Lipitor) AdvReac Intermediate Myalgias Verified 10/20/24 07:37 simvastatin (From Zocor) AdvReac Intermediate Myalgias Verified 10/20/24 07:37 Family History Father , age 64 CAD (coronary artery disease) Myocardial infarction Sudden cardiac Mother , Age 67 Cancer Brother CAD (coronary artery disease) Sister CAD (coronary artery disease) Surgical History H/O coronary artery bypass surgery (11/11/97) History of coronary artery stent placement (10/01/14) H/O right mastectomy Social History Smoking Status: Never smoker ROS ROS ED Constitutional Constitutional ED: Denies chills, fever(s), subjective, sweats or weight loss Eyes Eyes: Denies blurry vision or change in vision ENT ENT ED: Denies ear pain, rhinorrhea or sore throat Cardiovascular Cardiovascular: Denies chest pain, orthopnea, palpitations or paroxysmal nocturnal dyspnea Respiratory/Chest Respiratory/Chest: Denies cough, dyspnea, dyspnea on exertion, orthopnea or paroxysmal nocturnal dyspnea Gastrointestinal Gastrointestinal: Reports abdominal pain, diarrhea, nausea and vomiting; Denies constipation or melena Genitourinary Genitourinary ED: Denies dysuria, hematuria or urinary frequency Integumentary Denies abscess or rash Neurologic Neurologic: Reports weakness; Denies headache(s) or paresthesias Psychiatric Psychiatric: Denies anxiety or depression Endocrine Endocrinology: Denies cold intolerance Hematologic/Lymphatic Hematologic/Lymphatic: Reports systems reviewed and no addt'l complaints, except as documented EXAM Physical Exam Const Vital Signs: 10/20/24 07:38 10/20/24 07:40 10/20/24 07:55 Temperature 97.6 F L 98 F Temperature Source Temporal Oral Pulse Rate 84 83 Pulse Rate [Lying] 70 Pulse Rate [Sitting (for 1 minute prior to obtaining)] 74 Pulse Rate [Standing (for 1 minute prior to obtaining)] 87 Respiratory Rate 16 18 Blood Pressure 122/78 H 124/78 H Blood Pressure [Lying] 129/70 H Blood Pressure [Sitting (for 1 minute prior to obtaining)] 113/75 Blood Pressure [Standing (for 1 minute prior to obtaining)] 92/47 L Blood Pressure Mean 92 93 Blood Pressure Mean [Lying] 89 Blood Pressure Mean [Sitting (for 1 minute prior to obtaining)] 87 Blood Pressure Mean [Standing (for 1 minute prior to obtaining)] 62 Pulse Ox 99 98 Oxygen Delivery Method Room Air Room Air 10/20/24 09:37 Temperature Temperature Source Pulse Rate 74 Pulse Rate [Lying] Pulse Rate [Sitting (for 1 minute prior to obtaining)] Pulse Rate [Standing (for 1 minute prior to obtaining)] Respiratory Rate 18 Blood Pressure 109/67 Blood Pressure [Lying] Blood Pressure [Sitting (for 1 minute prior to obtaining)] Blood Pressure [Standing (for 1 minute prior to obtaining)] Blood Pressure Mean 81 Blood Pressure Mean [Lying] Blood Pressure Mean [Sitting (for 1 minute prior to obtaining)] Blood Pressure Mean [Standing (for 1 minute prior to obtaining)] Pulse Ox 98 Oxygen Delivery Method Room Air Positive well nourished Constitutional Narrative: Orthostatic vital signs revealed greater than 30 mm drop. He was symptomatic. He was not tachycardic. He is on a beta-elmo which may blunt his response. General Appearance ED: Negative for cyanotic, diaphoretic, NAD or pallor HEENT Reports dry mucous membranes HEENT Narrative: Head is atraumatic and normocephalic. Ears normal. Nares patent. Posterior pharynx is normal. Mouth ED: Yes dry mucous membranes Mouth: dry mucous membranes Eyes PERRL and EOMs intact bilaterally General Eye ED: Negative for pale conjunctiva or scleral icterus Neck no lymphadenopathy, supple and no JVD Chest Wall inspection of chest normal and palpation of chest normal Resp normal respiratory effort and clear to auscultation bilaterally Cardio regular rate, regular rhythm, S1 normal heart sound, S2 normal heart sound and no murmurs GI non-tender, non-distended and no masses; Negative for normal to inspection, nondistended, normoactive bowel sounds or hepatosplenomegaly Auscultation: hypoactive bowel sounds Palpation: soft; Negative for tender, guarding, splenomegaly or mass Back/Spine no CVA tenderness Extremity normal to inspection General Extremety ED: Negative for edema or tenderness General Extremity: Negative for edema Neuro oriented x3 and CN's II-XII intact bilaterally Sensorium / Orientation: alert Psych mental status grossly normal Skin no rashes or lesions noted, no wounds and skin turgor normal General Skin Exam: elasticity normal; Negative for jaundice or pallor MDM MDM MDM Narrative Medical decision making narrative: Differential diagnosis would include viral illness, with him having [place] his foot essentially rule out ileus, partial small bowel obstruction or bowel obstruction. Will obtain BMP to assess renal function and anion gap. CBC to assess white count and differential as well as H&H. History & Record Review Additional record(s) reviewed:: Prior ED visit (Note authored by Dr. Eladio De Dios on October 14 was reviewed. He was diagnosed with peripheral PE at that time.) and Prior labs Lab Data Attestation: I reviewed the patient's lab results. Lab results narrative: Competence of metabolic panel is remarkable for glucose of 120 with a normal CO2 anion gap. BUN and is elevated 26 with a creatinine of 1.09 and estimated GFR 68. BUN to creatinine ratio is approximate 24-1. CBC is unremarkable. Labs: Laboratory Results - last 24 hr 10/20/24 07:50 WBC 8.0 RBC 4.28 L Hgb 14.1 Hct 41.5 MCV 97.0 H MCH 32.9 H MCHC 34.0 RDW Std Deviation 50.5 H RDW Coeff of Dami 14.3 Plt Count 252 MPV 9.2 Immature Gran % (Auto) 2.100 H Neut % (Auto) 68.3 Lymph % (Auto) 19.6 [place] % (Auto) 8.3 Eos % (Auto) 1.1 Baso % (Auto) 0.6 Absolute Neuts (auto) 5.5 Absolute Lymphs (auto) 1.57 Nucleated RBC % 0 Sodium 134 L Potassium 4.3 Chloride 103 Carbon Dioxide 25.0 Anion Gap 6 BUN 26 H Creatinine 1.09 Estim Creat Clear Calc 50.73 Est GFR (MDRD) Af Amer 83 Est GFR (MDRD) Non-Af 68 BUN/Creatinine Ratio 23.9 H Glucose 120 H Calcium 8.9 Total Bilirubin 0.70 AST 30 ALT 41 Alkaline Phosphatase 87 Total Protein 6.9 Albumin 3.1 L Globulin 3.8 Albumin/Globulin Ratio 0.8 L Treatment and Re-Evaluation :: Patient was complaining of pain. Exam was not remarkable. He is given Bentyl. He has not vomited as of 953. Patient was reassessed at 1034. Patient asked what was in the medicine I prescribed to him. He was informed he received dicyclomine. He is pain-free. He has passed p.o. challenge. Will discharge to home. Discharge Plan Triage Chief Complaint: Nausea/Vomiting/Diarrhea ED Provider: Nestor Mendez Dx/Rx/DC Orders Clinical Impression: Nausea, vomiting and diarrhea, Essential (primary) hypertension, Prostate cancer metastatic to bone, Hyperlipidemia, Generalized abdominal pain, Acute dehydration Instructions: ED Vomit Diarrhea [place] Adult Prescriptions: New ondansetron 4 mg tablet,disintegrating 4 mg PO Q8H PRN PRN (Reason: Nausea) Qty: 10 0RF dicyclomine 10 mg capsule 20 mg PO TIDAC Qty: 20 0RF No Action cholecalciferol (vitamin D3) 1,000 unit capsule 2,000 unit PO QDAY finasteride [Proscar] 5 mg tablet 5 mg PO DAILY metoprolol succinate 25 mg tablet extended release 24 hr 12.5 mg PO DAILY bicalutamide [Casodex] 50 mg tablet 50 mg PO DAILY Qty: 60 3RF nitroglycerin 0.4 MG tablet 0.4 mg sublingual Q5M PRN (Reason: Chest Pain) losartan 25 MG tablet 12.5 mg PO DAILY Eliquis 5 mg tablet 5 mg PO BID Qty: 74 0RF Rx Instructions: 10 mg twice a day for the first week. Then 5 mg twice a day. sucralfate 1 GM/10 ML suspension 1 gm PO 4X/DAY Qty: 200 0RF pantoprazole 40 mg tablet,delayed release (DR/EC) 40 mg PO DAILY Qty: 30 0RF rosuvastatin 20 mg tablet 20 mg PO QHS Qty: 90 3RF Primary Care Provider: Nahomi Long Referrals: Nahomi Long DO [Primary Care Provider] - 3-5 Days if not improving Print Language: Lebanese Disposition Disposition: Home, Self Care
[2024-10-20] MEDS: Ondansetron 4 MG/2 ML Vial IV (08:14)
[2024-10-20] MEDS: 0.9% Normal Saline (1000mL) 1,000 ML 1000 ML IV (08:14)
[2024-10-20 08:16] VITALS: BMI 21.2
[2024-10-20 08:23] LABS: ALB/GLOB Ratio 0.8 RATIO (0.9-2.4); AST(SGOT) 30 U/L (15-37); Alanine Aminotransfer ALT/SGPT 41 U/L (16-61); Albumin, Serum 3.1 g/dL (3.2-5.0); Alkaline Phosphatase 87 U/L (45-117); Anion Gap 6 (5-15); BUN 26 mg/dL (7-18); BUN/Creat Ratio 23.9 RATIO (10-20); Calcium,Total 8.9 mg/dL (8.5-10.1); Chloride 103 mmol/L (98-107); Creatinine, Serum 1.09 mg/dL (0.70-1.30); EST Glomerular Filtration Rate 68 mL/min (>60); Est Glom Filt Rate - Afr Amer 83 mL/min (>60); Estimated Creatinine Clearance 50.73 ml/min; Globulin 3.8 g/dL (2.2-4.2); Glucose 120 mg/dL (74-106); Potassium 4.3 mmol/L (3.5-5.1); Protein, Total 6.9 g/dL (6.4-8.2); Sodium Level 134 mmol/L (136-145)
[2024-10-20] MEDS: Dicyclomine 10 MG Capsule 20 MG PO (09:35)
[2024-10-20 09:37] VITALS: BP 109/67; PULSE 74; RESP 18; O2SAT 98
[2024-10-20 11:08] VITALS: BP 130/68; PULSE 74; RESP 18; TEMP 36.6; O2SAT 99
== END 2024-10-20 11:13 | disposition home or self-care (01) ==
PROVIDERS: Emergency Provider Emergency Medicine; PCP Internal Medicine; Visit Provider Emergency Medicine
DX: R11.2 Nausea with vomiting, unspecified (principal); C79.51 Secondary malignant neoplasm of bone; I26.99 Other pulmonary embolism without acute cor pulmonale; C61 Malignant neoplasm of prostate; R10.84 Generalized abdominal pain; E86.0 Dehydration; I25.10 Atherosclerotic heart disease of native coronary artery without angina pectoris; I10 Essential (primary) hypertension; E78.5 Hyperlipidemia, unspecified; R19.7 Diarrhea, unspecified; N40.0 Benign prostatic hyperplasia without lower urinary tract symptoms; Z79.01 Long term (current) use of anticoagulants; Z79.899 Other long term (current) drug therapy
CPT/HCPCS: 80053; 85025; 96361; 96374; 99284; A4216; J2405

== ENCOUNTER 2024-10-24 12:30 | Emergency (ER) | payer MEDICARE, OTHER, SELFPAY ==
[2024-10-24 12:32] VITALS: BP 109/73; PULSE 82; RESP 16; TEMP 35.7; O2SAT 100
--- NOTE | 2024-10-24 12:43 | CT_ITS ---
EXAM: CT ABDOMEN AND PELVIS WITH INTRAVENOUS CONTRAST CLINICAL INDICATION: Pain TECHNIQUE: Helically acquired images were obtained of the abdomen and pelvis with intravenous contrast. CTDIvol = ( 21.13 ) mGy, DLP = ( 670.90 ) mGycm This CT exam was performed using one or more of the following dose reduction techniques: automated exposure control, adjustment of the mA and/or kV according to patient size, and/or use of iterative reconstruction technique. CONTRAST: IV 100mL Isovue-300 COMPARISON: 10/13/2024. Blood FINDINGS: Chest: Unremarkable. Bowel: New distal stomach and duodenal wall thickening extending to the second portion of the duodenum. Adjacent stranding. There is compatible with gastritis/duodenitis. No free air. No free fluid. No bowel obstruction. No colitis or diverticulitis. Delayed: Cholelithiasis but no acute cholecystitis. Renal/bladder: Bladder is decompressed in appearance limiting its assessment. Kidneys are unremarkable. Bones: Redemonstration of metastasis and pathologic fractures of L1 vertebral body, the right ilium extending to the SI joint and left parasymphyseal bone. No new metastasis. Other: No other changes. CT/Abdomen/Pelvis W IV Cont ONLY IMPRESSION: 1. NEW distal stomach and duodenal wall thickening extending to the second portion of the duodenum with adjacent stranding. There is compatible with gastritis/duodenitis. No complications. 2. Redemonstration of metastasis and pathologic fractures of L1 vertebral body, the right ilium extending to the SI joint and left parasymphyseal bone. 3. No new metastasis 4. No other changes. Electronically Signed: Remi Huang MD at 14:42 EST ,
--- NOTE | 2024-10-24 12:44 | ED.VIS.GI ---
HPI HPI - GI History of Present Illness Chief Complaint: Nausea/Vomiting Narrative Narrative: 83-year-old male presents with his because of nausea and vomiting that has had for 2 weeks. States he is also losing weight. Thought maybe he had food poisoning. He states this is his third visit to the emergency department. He denies having fever or chills, no diarrhea however, his last bowel movement was 4 days ago. He denies any exacerbating or alleviating factors but complains of diffuse abdominal pain and its present in the right upper quadrant and left lower quadrant as well. Past abdominal surgery includes appendectomy with peritonitis. Although he has not vomited in the last 24 hours, he is concerned because he states this has been ongoing for [address] [facility] Medical History Neck pain on right side Essential (primary) hypertension Gynecomastia, male Bony sclerosis History of prostate cancer History of fractured pelvis Kidney stones BPH (benign prostatic hyperplasia) GERD (gastroesophageal reflux disease) DVT (deep venous thrombosis) Hyperlipidemia Atherosclerotic heart disease of [place] coronary artery without angina pectoris Prostate cancer Home Medications ?Medication ?Instructions ?Recorded ?Last Taken ?Type nitroglycerin 0.4 mg sublingual 0.4 mg sublingual Q5M PRN Chest 09/22/14 Unknown History tablet Pain losartan 25 mg tablet 12.5 mg PO DAILY 01/09/17 02/09/17 07:00 History cholecalciferol (vitamin D3) 25 2,000 unit PO QDAY 10/26/17 Unknown History mcg (1,000 unit) capsule finasteride 5 mg tablet (Proscar) 5 mg PO DAILY 12/10/18 Unknown History metoprolol succinate 25 mg 12.5 mg PO DAILY 01/05/22 Unknown History tablet,extended release 24 hr bicalutamide 50 mg tablet (Casodex) 50 mg PO DAILY #60 tabs 06/25/23 Unknown Rx rosuvastatin 20 mg tablet 20 mg PO QHS #90 tabs 06/25/24 Unknown Rx apixaban 5 mg tablet (Eliquis) 5 mg PO BID #74 tabs 10/14/24 Unknown Rx pantoprazole 40 mg tablet,delayed 40 mg PO DAILY #30 tabs 10/14/24 Unknown Rx release sucralfate 100 mg/mL oral 1 gm (10 mL) PO 4X/DAY stomach 10/14/24 Unknown Rx suspension upset #200 mL dicyclomine 10 mg capsule 20 mg (2 x 10 mg) PO TIDAC #20 10/20/24 Unknown Rx CAPSULES ondansetron 4 mg disintegrating 4 mg PO Q8H PRN PRN Nausea #10 tabs 10/20/24 Unknown Rx tablet pantoprazole 20 mg tablet,delayed 20 mg PO BID #30 tabs 10/24/24 Unknown Rx release Allergy/AdvReac Type Severity Reaction Status Date / Time povidone-iodine Allergy Mild Rash Verified 10/24/24 12:32 atorvastatin (From Lipitor) AdvReac Intermediate Myalgias Verified 10/24/24 12:32 simvastatin (From Zocor) AdvReac Intermediate Myalgias Verified 10/24/24 12:32 Family History Father , age 64 CAD (coronary artery disease) Myocardial infarction Sudden cardiac Mother , Age 67 Cancer Brother CAD (coronary artery disease) Sister CAD (coronary artery disease) Surgical History H/O coronary artery bypass surgery (11/11/97) History of coronary artery stent placement (10/01/14) H/O right mastectomy Social History Smoking Status: Never smoker ROS ROS ED ROS Narrative Constitutional: No fever, no chills. HEENT: No sore throat. No neck pain. No loss of vision. No rhinorrhea. Cardiovascular: No chest pain. No palpitations. No pedal edema. Respiratory: No cough, no shortness of breath. Abdominal: Positive diffuse abdominal pain. 2 weeks of nausea and vomiting. Positive weight loss. No diarrhea. Mild constipation with no bowel movement for 4 days. Genitourinary: No dysuria. No hematuria. Musculoskeletal: No myalgias. No arthralgias. Neurologic: No headaches. No dizziness. No lightheadedness. Skin: No rash. No change in color. EXAM Physical Exam Narrative Exam Narrative: Afebrile. Vital signs noted. Nontoxic-appearing. Cardiovascular examination reveals a regular rate and rhythm. Lungs are clear to auscultation bilaterally. The abdomen is soft with diffuse tenderness to palpation but also in the right upper quadrant and the left lower quadrant. Hypoactive bowel sounds. No guarding or rebound. Neurological examination shows him to be awake, alert, oriented, and ambulatory in the emergency department. Const Vital Signs: 10/24/24 12:32 10/24/24 14:31 Temperature 96.3 F L Temperature Source Temporal Pulse Rate 82 88 Respiratory Rate 16 18 Blood Pressure 109/73 111/66 Blood Pressure Mean 85 81 Pulse Ox 100 97 Oxygen Delivery Method Room Air Room Air MDM MDM MDM Narrative Medical decision making narrative: Differential diagnosis includes but not limited to bowel obstruction versus ileus versus constipation versus pancreatitis versus gastritis. I reviewed the patient's prior labs and ED visits. He was here 4 days ago. He had laboratory work performed. Given that this is his third visit in 2 weeks, I do feel imaging of his abdomen is indicated. It should be noted that his visit on 14 October, was actually more for his recent diagnosis of pulmonary embolism. I reviewed his laboratory work and he has normal white count of 8.0 with hemoglobin normal at 14.0, platelet count normal at 270. Sodium slightly low at 134 which I think is nonspecific, BUN slightly elevated at 21 with normal creatinine of 1.25. LFTs are grossly unremarkable. Lipase normal at 25 so I doubt pancreatitis. In review of the CT of the abdomen and pelvis, he does have wall thickening in the distal part of the stomach and the proximal duodenum consistent with gastritis and duodenitis without complication. Upon repeat examination at approximately 1510, he is comfortably lying on the cot and does not have any abdominal pain. He is motivated for discharge. I wrote him prescription for a PPI to take twice a day for the next 14 days. Additionally, I referred him to gastroenterology. Through shared decision making, and with the fact that I feel he can be discharged to follow-up, he was discharged home in stable condition. Return instructions were reviewed. History & Record Review Discussion w/independent historian: Patient Additional record(s) reviewed:: Prior ED visit and Prior labs Lab Data Attestation: I reviewed the patient's lab results. Labs: Laboratory Results - last 24 hr 10/24/24 13:00 WBC 8.0 RBC 4.21 L Hgb 14.0 Hct 40.6 MCV 96.4 H MCH 33.3 H MCHC 34.5 RDW Std Deviation 50.3 H RDW Coeff of Dami 14.3 Plt Count 270 MPV 8.9 Immature Gran % (Auto) 1.900 H Neut % (Auto) 74.8 H Lymph % (Auto) 13.8 L [place] % (Auto) 8.0 Eos % (Auto) 1.0 Baso % (Auto) 0.5 Absolute Neuts (auto) 6.0 Absolute Lymphs (auto) 1.10 Nucleated RBC % 0 Sodium 134 L Potassium 3.8 Chloride 103 Carbon Dioxide 26.0 Anion Gap 6 BUN 21 H Creatinine 1.25 Est GFR (MDRD) Af Amer 71 Est GFR (MDRD) Non-Af 58 L BUN/Creatinine Ratio 16.8 Glucose 109 H Calcium 8.5 Total Bilirubin 0.90 AST 23 ALT 33 Alkaline Phosphatase 86 Total Protein 6.9 Albumin 3.0 L Globulin 3.9 Albumin/Globulin Ratio 0.8 L Lipase 25 Radiography Diagnostic Testing: Clinical Impression(s) from Imaging Studies Abdomen/Pelvis CT 10/24/24 12:43 IMPRESSION: 1. NEW distal stomach and duodenal wall thickening extending to the second portion of the duodenum with adjacent stranding. There is compatible with gastritis/duodenitis. No complications. 2. Redemonstration of metastasis and pathologic fractures of L1 vertebral body, the right ilium extending to the SI joint and left parasymphyseal bone. 3. No new metastasis 4. No other changes. Electronically Signed: Remi Huang MD at 14:42 EST , Discharge Plan Triage Chief Complaint: Nausea/Vomiting ED Provider: Tanmay Vela Dx/Rx/DC Orders Clinical Impression: Gastritis and duodenitis, Nausea and vomiting Instructions: ED Gastritis (Adult), ED Vomiting (Adult) Prescriptions: New pantoprazole 20 mg tablet,delayed release (DR/EC) 20 mg PO BID Qty: 30 0RF No Action cholecalciferol (vitamin D3) 1,000 unit capsule 2,000 unit PO QDAY finasteride [Proscar] 5 mg tablet 5 mg PO DAILY metoprolol succinate 25 mg tablet extended release 24 hr 12.5 mg PO DAILY bicalutamide [Casodex] 50 mg tablet 50 mg PO DAILY Qty: 60 3RF nitroglycerin 0.4 MG tablet 0.4 mg sublingual Q5M PRN (Reason: Chest Pain) losartan 25 MG tablet 12.5 mg PO DAILY Eliquis 5 mg tablet 5 mg PO BID Qty: 74 0RF Rx Instructions: 10 mg twice a day for the first week. Then 5 mg twice a day. sucralfate 1 GM/10 ML suspension 1 gm PO 4X/DAY Qty: 200 0RF pantoprazole 40 mg tablet,delayed release (DR/EC) 40 mg PO DAILY Qty: 30 0RF ondansetron 4 mg tablet,disintegrating 4 mg PO Q8H PRN PRN (Reason: Nausea) Qty: 10 0RF dicyclomine 10 mg capsule 20 mg PO TIDAC Qty: 20 0RF rosuvastatin 20 mg tablet 20 mg PO QHS Qty: 90 3RF Primary Care Provider: Nahomi Long Referrals: Nahomi Long DO [Primary Care Provider] - Dk Machado DO [Med Staff - Active Staff] - 1-2 Weeks Activity Restrictions/Additional Instructions: Return with increased pain, new or worsening symptoms. Follow-up with Dr. Machado in the next 1 to 2 weeks. If you are already taking pantoprazole, you should increase this to 20 mg twice a day for the next 2 weeks. Print Language: Korean Disposition Disposition: Home, Self Care
[2024-10-24 13:09] LABS: Basophil# 0.04 X10^3/uL; Basophil% 0.5 % (0-1); Eosinophil# 0.08 X10^3/uL; Hematocrit 40.6 % (40-54); Lymphocyte % 13.8 % (19-41); Mean Corp Hgb Conc 34.5 g/dL (32-36); Mean Corpuscular Hgb 33.3 pg (27.0-32.0); Mean Corpuscular Volume 96.4 fL (80-94); Mean Platelet Vol. 8.9 fl (6.2-12.0); Monocyte# 0.64 X10^3/uL; NRBC Flagged by Analyzer 0 % (0-5); Neutrophil # 5.96 X10^3/uL (2.7-7.7); Neutrophil % 74.8 % (47-70); Platelet Count 270 K/mm3 (150-450); RBC Distribution Width CV 14.3 % (11.6-14.6); RBC Distribution Width SD 50.3 fl (35.1-43.9); Red Blood Count 4.21 M/mm3 (4.6-6.2)
[2024-10-24 13:27] LABS: ALB/GLOB Ratio 0.8 RATIO (0.9-2.4); AST(SGOT) 23 U/L (15-37); Alanine Aminotransfer ALT/SGPT 33 U/L (16-61); Alkaline Phosphatase 86 U/L (45-117); Anion Gap 6 (5-15); BUN 21 mg/dL (7-18); BUN/Creat Ratio 16.8 RATIO (10-20); Calcium,Total 8.5 mg/dL (8.5-10.1); Chloride 103 mmol/L (98-107); Creatinine, Serum 1.25 mg/dL (0.70-1.30); EST Glomerular Filtration Rate 58 mL/min (>60); Est Glom Filt Rate - Afr Amer 71 mL/min (>60); Globulin 3.9 g/dL (2.2-4.2); Glucose 109 mg/dL (74-106); Lipase 25 U/L (13-75); Potassium 3.8 mmol/L (3.5-5.1); Protein, Total 6.9 g/dL (6.4-8.2); Sodium Level 134 mmol/L (136-145)
[2024-10-24 14:31] VITALS: BP 111/66; PULSE 88; RESP 18; O2SAT 97
[2024-10-24 15:58] VITALS: BP 104/88; PULSE 88; RESP 16; TEMP 36.6; O2SAT 99
== END 2024-10-24 15:58 | disposition home or self-care (01) ==
PROVIDERS: Emergency Provider Emergency Medicine; PCP Internal Medicine; Visit Provider Emergency Medicine
DX: K29.70 Gastritis, unspecified, without bleeding (principal); R10.84 Generalized abdominal pain; I25.10 Atherosclerotic heart disease of native coronary artery without angina pectoris; K29.80 Duodenitis without bleeding; I10 Essential (primary) hypertension; E78.5 Hyperlipidemia, unspecified; K21.9 Gastro-esophageal reflux disease without esophagitis; Z79.01 Long term (current) use of anticoagulants; Z79.899 Other long term (current) drug therapy; Z95.5 Presence of coronary angioplasty implant and graft
CPT/HCPCS: 74177; 80053; 83690; 85025; 99282; Q9967; A4216

== ENCOUNTER → 2024-11-04 | Outpatient (CLI) | payer MEDICARE, OTHER, SELFPAY ==
--- NOTE | 2024-11-04 07:30 | PET_ITS ---
EXAMINATION:? FDG-PET/CT ? INDICATIONS: 82-year-old male with a history of primary prostate carcinoma, presenting for restaging examination. ? COMPARISON EXAMINATION: None available ? INDEX LESION SIZE SUV INTERPRETATION Spleen uniform increase ? 5.0, > hepatic reference Fulfills quantitative criteria for viable neoplasm with single point technique, histopathologic analysis may be indicated ? TECHNIQUE: Following the intravenous administration of 13.0 mCi of F-18 deoxyglucose via the left hand, multiplanar image acquisitions of the head, neck, chest, abdomen and pelvis to the level of the midthigh, bilateral lower extremities to the level of the forefoot obtained at one-hour post radiopharmaceutical administration contemporaneously interpreted with the current CT of the chest, abdomen and pelvis dated 11/04/2024 via coregistration reveal: ? SERUM GLUCOSE LEVEL:? 104 mg/dL? HEIGHT:?? 72 inches WEIGHT:?? 130 pounds ? FINDINGS: ? HEAD/NECK:? There is no evidence of abnormal increased glucose metabolism in the pharyngeal mucosal space, parapharyngeal space, oropharynx, bilateral-lateral and anterior neck, hypopharynx and distribution of the larynx. ? The visualized portion of the cerebral cortical-subcortical structures demonstrate symmetric and preserved glucose metabolism. ? CHEST:? There is no quantitative scintigraphic evidence of abnormal increased glucose metabolism within the context of the bilateral hemithorax pulmonary parenchyma, right and left hemithorax at the pleural interface, mediastinal structures, and left-right thoracic perihilum. ? CT of the chest demonstrates the following anatomic characteristics: Atherosclerotic calcification is defined in the thoracic aorta without evidence of dilatation, aneurysm formation. Coronary artery calcification is observed. Mediastinal and bilateral axillary soft tissue densities are ametabolic. There are no parenchymal densities-nodules defined in the right and left hemithorax with quantitatively significant increased FDG uptake. ? ABDOMEN/PELVIS: Diffuse increased tracer uptake is noted in the parenchyma of a normal-size spleen. The calculated standard uptake value is 5.0, > hepatic reference. Normal physiologic distribution of the radiopharmaceutical is identified in the hepatic (2.5) parenchyma, both renal units, urinary bladder, and visualized intestinal tract. ? CT of the abdomen and pelvis is remarkable for the following: There is visualized cholelithiasis. Atherosclerotic calcification is defined in the abdominal aorta without evidence of dilatation, aneurysm formation. Abdominal-pelvic arterial calcification is observed. Postsurgical change is noted in the lower pelvis associated with previous prostatectomy. Right and left inguinal soft tissue densities are ametabolic. ? SKELETAL:? There is no evidence of quantitatively significant enhanced glucose metabolism on meticulous inspection of the appendicular and axial skeletal structures. There is evidence of prior left pubic ramus fracture. ? Degenerative changes defined in the thoracic and lumbar spine demonstrate no evidence of increased glucose metabolism. Sclerotic changes noted throughout the visualized axial skeleton demonstrates no evidence of increased tracer uptake. ? PET/PET/CT Tumor WB Subs IMPRESSION: 1. The diffuse increased radiotracer uptake noted in the normal-size spleen may necessitate histopathologic analysis. Quantitative criteria for viable neoplasm are fulfilled utilizing single point technique. 2.? No other quantitatively significant hypermetabolic abnormalities are noted. Electronic Signature Gordon Thompson D.O. Accurate Quantification of SUVs for this report are calculated using the exclusive [employer] Technology. ([place]. Patent No. [phone] [phone] [phone] patent [phone]). Standardization and correction of the FDG SUV metric via [employer] technology allow for vendor non-specific objective quantitative examination comparison and optimization of the sensitivity and specificity of the FDG PET-CT examination. [email or web address] Electronically Signed: Gordon Thompson DO at 22:22 EST ,
== END | disposition home or self-care (01) ==
LOC: ONC 07:16
PROVIDERS: PCP Internal Medicine; Referring Provider Internal Medicine; Visit Provider Internal Medicine
DX: C61 Malignant neoplasm of prostate (principal)
CPT/HCPCS: 78816; A9552

== ENCOUNTER 2024-11-27 19:13 | Emergency (ER) | payer MEDICARE, OTHER, SELFPAY ==
[2024-11-27 19:15] VITALS: BP 129/71; PULSE 85; RESP 20; TEMP 36.6; O2SAT 97; BMI 20.7
[2024-11-27 19:24] VITALS: BP 129/71; PULSE 84; RESP 18; O2SAT 97
--- NOTE | 2024-11-27 19:34 | CT_ITS ---
EXAM: BRAIN/HEAD WITHOUT CONTRAST CLINICAL HISTORY: 83-year-old male, trauma. Fell and hit head, headache and confusion. COMPARISON: MRI head 07/07/2021. TECHNIQUE: Routine CT imaging of the head without IV contrast. Additional multiplanar reformats were obtained. Dose reduction techniques were used including intermediate exposure control (AEC),iterative reconstruction technique, and/or mA and/or KV dose adjustments based on patient's size. FINDINGS: Moderate cerebral and cerebellar atrophy with concordant prominence of the ventricles and subarachnoid spaces. Moderate patchy supratentorial white matter hypodensities. 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 No acute intracranial hemorrhage or herniation. Small frontal mucosal retention cyst or polyp. Mild thickening of the right maxillary sinus. The visualized sinuses and mastoid air cells are otherwise well aerated. Prior bilateral ocular lens replacements. Small left frontal scalp hematoma. CT/Brain/Head without Contrast IMPRESSION: 1. No acute intracranial hemorrhage or herniation. 2. Small left frontal scalp hematoma. 3. Findings of chronic microvascular ischemic changes and age-related changes. Reading Location: [id number]
[2024-11-27 19:47] LABS: Absolute Lymphocyte Count 1.06 X10^3/uL (0.83-4.51); Absolute Neutrophil Count 3.6 X10^3/uL (2.0-7.7); Basophil# 0.03 X10^3/uL; Basophil% 0.5 % (0-1); Eosinophil# 0.06 X10^3/uL; Eosinophils% 1.1 % (0-5); Hematocrit 31.5 % (40-54); Hemoglobin 10.4 g/dL (13.0-16.5); Lymphocyte # 1.06 X10^3/ul (0.83-4.51); Lymphocyte % 19.4 % (19-41); Mean Corpuscular Hgb 33.5 pg (27.0-32.0); Mean Corpuscular Volume 101.6 fL (80-94); Mean Platelet Vol. 9.3 fl (6.2-12.0); Monocyte# 0.64 X10^3/uL; Monocyte% 11.7 % (0-10); NRBC Flagged by Analyzer 0 % (0-5); Neutrophil # 3.64 X10^3/uL (2.7-7.7); Neutrophil % 66.8 % (47-70); Platelet Count 249 K/mm3 (150-450); RBC Distribution Width CV 16.9 % (11.6-14.6); RBC Distribution Width SD 62.2 fl (35.1-43.9); White Blood Count 5.5 K/mm3 (4.4-11.0)
[2024-11-27 20:01] LABS: Anion Gap 6 (5-15); BUN 15 mg/dL (7-18); BUN/Creat Ratio 14.3 RATIO (10-20); Calcium,Total 8.7 mg/dL (8.5-10.1); Chloride 112 mmol/L (98-107); Creatinine, Serum 1.05 mg/dL (0.70-1.30); EST Glomerular Filtration Rate 71 mL/min (>60); Est Glom Filt Rate - Afr Amer 86 mL/min (>60); Estimated Creatinine Clearance 51.56 ml/min; Glucose 109 mg/dL (74-106); Potassium 3.6 mmol/L (3.5-5.1); Sodium Level 144 mmol/L (136-145)
--- NOTE | 2024-11-27 20:10 | EX.ED.DYSGE1 ---
HPI History of Present Illness Chief Complaint: Alt LOC Detail of Chief Complaint: Confusion after fall and striking head Informant: patient and spouse/S.O. Onset/Context/Timing Onset: Today and Hours Context: Sudden Onset Timing: Continuous Quality: Disoriented to time Location: Fire station Current Severity: Mild Maximum Severity: Mild Worsened by: Nothing Relieved by: Nothing Associated Symptoms Associated Symptoms: Headache Narrative Narrative: Patient is a 83-year-old male. He believes he is 63. He does not know the month. He does not know where he is at and his name. states he lost his keys and went to the fire station. He apparently tripped and fell striking his head He complains of headache. Send no vomiting but does feel nauseous. Denies double vision blurred vision loss of vision. Eyes corcoran ears decreased hearing. No trouble speech or swallowing. Denies neck pain. Denies paresthesia, anesthesia medics. Denies chest pain. Denies shortness of breath. Apparently had diarrhea for some time and black stool which states is due to food poisoning. Patient is on no antithrombotic or anticoagulant presently she was on Eliquis per old records. He does have a history of peptic ulcer disease. He denies bruising easily. He denies blood in his urine. Prior similar symptoms: No Recent Illness/Hospitalization: No PFSH PFSH Medical History Neck pain on right side Essential (primary) hypertension Gynecomastia, male Bony sclerosis History of prostate cancer History of fractured pelvis Kidney stones BPH (benign prostatic hyperplasia) GERD (gastroesophageal reflux disease) DVT (deep venous thrombosis) Hyperlipidemia Atherosclerotic heart disease of [place] coronary artery without angina pectoris Prostate cancer Home Medications ?Medication ?Instructions ?Recorded ?Last Taken ?Type nitroglycerin 0.4 mg sublingual 0.4 mg sublingual Q5M PRN Chest 09/22/14 Unknown History tablet Pain losartan 25 mg tablet 12.5 mg PO DAILY 01/09/17 02/09/17 07:00 History cholecalciferol (vitamin D3) 25 2,000 unit PO QDAY 10/26/17 Unknown History mcg (1,000 unit) capsule metoprolol succinate 25 mg 12.5 mg PO DAILY 01/05/22 Unknown History tablet,extended release 24 hr rosuvastatin 20 mg tablet 20 mg PO QHS #90 tabs 06/25/24 Unknown Rx apixaban 5 mg tablet (Eliquis) 5 mg PO BID #74 tabs 10/14/24 Unknown Rx pantoprazole 40 mg tablet,delayed 40 mg PO DAILY #30 tabs 10/14/24 Unknown Rx release ondansetron 4 mg disintegrating 4 mg PO Q8H PRN PRN Nausea #10 tabs 10/20/24 Unknown Rx tablet oxybutynin chloride 10 mg 10 mg PO QDAY 10/30/24 Unknown History tablet,extended release 24 hr sucralfate 1 gram tablet 1 g PO QACHS #56 tabs 10/30/24 Unknown Rx Allergy/AdvReac Type Severity Reaction Status Date / Time povidone-iodine Allergy Mild Rash Verified 10/30/24 10:02 atorvastatin (From Lipitor) AdvReac Intermediate Myalgias Verified 10/30/24 10:02 simvastatin (From Zocor) AdvReac Intermediate Myalgias Verified 10/30/24 10:02 Family History Father , age 64 CAD (coronary artery disease) Myocardial infarction Sudden cardiac Asthma Heart disease Hypertension Mother , Age 67 Cancer Brother CAD (coronary artery disease) Sister CAD (coronary artery disease) Colon cancer Surgical History H/O coronary artery bypass surgery (11/11/97) History of coronary artery stent placement (10/01/14) H/O right mastectomy Social History Smoking Status: Never smoker ROS ROS ED Constitutional Constitutional ED: Denies chills, fever(s), subjective or sweats Eyes Eyes: Denies blurry vision, change in vision or diplopia ENT ENT ED: Denies ear pain, rhinorrhea or sore throat Cardiovascular Cardiovascular: Denies chest pain, palpitations or racing heartbeat Respiratory/Chest Respiratory/Chest: Denies cough, dyspnea or dyspnea on exertion Gastrointestinal Gastrointestinal: Reports diarrhea and other Details: He does not believe his had black stool recently. ; Denies melena, nausea or vomiting Genitourinary Genitourinary ED: Denies dysuria, hematuria or urinary frequency Musculoskeletal Musculoskeletal: Denies arthralgias, back pain or myalgias Integumentary Reports Abrasions; Denies abscess or rash Neurologic Neurologic: Reports headache(s); Denies paresthesias or weakness Endocrine Endocrinology: Denies cold intolerance or heat intolerance Hematologic/Lymphatic Hematologic/Lymphatic: Reports systems reviewed and no addt'l complaints, except as documented EXAM Physical Exam Const Vital Signs: 11/27/24 19:15 11/27/24 19:24 11/27/24 20:18 Temperature 98 F Temperature Source Oral Pulse Rate 85 84 Pulse Rate [Lying] 80 Respiratory Rate 20 H 18 Blood Pressure 129/71 H 129/71 H Blood Pressure [Lying] 110/79 Blood Pressure [Sitting (for 1 minute prior to obtaining)] 130/86 H Blood Pressure [Standing (for 1 minute prior to obtaining)] 121/72 H Blood Pressure Mean 90 90 Blood Pressure Mean [Lying] 89 Blood Pressure Mean [Sitting (for 1 minute prior to obtaining)] 100 Blood Pressure Mean [Standing (for 1 minute prior to obtaining)] 88 Pulse Ox 97 97 Oxygen Delivery Method Room Air Room Air 11/27/24 20:24 11/27/24 21:00 Temperature Temperature Source Pulse Rate 76 76 Pulse Rate [Lying] Respiratory Rate 20 H 12 Blood Pressure 121/72 H 122/73 H Blood Pressure [Lying] Blood Pressure [Sitting (for 1 minute prior to obtaining)] Blood Pressure [Standing (for 1 minute prior to obtaining)] Blood Pressure Mean 88 89 Blood Pressure Mean [Lying] Blood Pressure Mean [Sitting (for 1 minute prior to obtaining)] Blood Pressure Mean [Standing (for 1 minute prior to obtaining)] Pulse Ox 98 99 Oxygen Delivery Method Room Air Room Air Blood pressure slightly elevated otherwise vital signs are unremarkable. Positive well nourished and well developed Constitutional Narrative: Orthostatic vital signs are negative. General Appearance ED: well developed and NAD; Negative for cyanotic, diaphoretic or pallor HEENT Reports TM's clear and moist mucous membranes HEENT Narrative: Left periorbital abrasions and scalp abrasions. There is no palpable depression. No clinical signs of basilar skull fracture. trauma and tenderness Tympanic Membrane ED: Yes TM's clear Eyes PERRL and EOMs intact bilaterally General Eye ED: Negative for pale conjunctiva or scleral icterus Neck no lymphadenopathy, supple and no JVD Neck Narrative: There is no midline posterior neck pain and he has full active range of motion without pain Chest Wall inspection of chest normal and palpation of chest normal Resp normal respiratory effort and clear to auscultation bilaterally Cardio regular rate, regular rhythm, S1 normal heart sound, S2 normal heart sound and no murmurs GI normal to inspection, nondistended, normoactive bowel sounds, non-tender, non-distended and no masses; Negative for hepatosplenomegaly GI Narrative: Because of the drop in hemoglobin rectal exam was a performed. Stool is brown. Stool was sent for occult blood Auscultation: normoactive bowel sounds Palpation: soft Back/Spine no CVA tenderness Extremity normal to inspection General Extremety ED: Negative for edema or tenderness General Extremity: Negative for edema Neuro No oriented x3, CN's II-XII intact bilaterally and no sensory deficits noted Sensorium / Orientation: alert and orientation impaired Motor Exam: strength 5/5 throughout Psych mental status grossly normal Skin no rashes or lesions noted, no wounds and skin turgor normal General Skin Exam: Negative for jaundice or pallor MDM MDM MDM Narrative Medical decision making narrative: CT of the head was obtained to rule out epidural hematoma, subdural hematoma, traumatic subarachnoid hemorrhage or intraparenchymal contusion. Blood work was obtained shows white count H&H and electrolyte function as well as renal function. Because of the drop in hemoglobin rectal exam was performed and stool was sent for occult blood since it is not melanotic. History & Record Review Additional record(s) reviewed:: Prior outpatient record (Blood thinners were held end of October.) and Prior ED visit (October 24 for gastritis duodenitis. He was seen by me on 20 October for nausea vomiting diarrhea. He was diagnosed with pulmonary embolus September.) Lab Data Attestation: I reviewed the patient's lab results. Lab results narrative: White count is normal. Patient's had a 4 g drop in his hemoglobin to 10.4 and 31.5 with MCV of 101.6. BUN and creatinine are normal. Glucose is slight elevated 109. CO2 anion gap is normal. Labs: Laboratory Results - last 24 hr 11/27/24 19:41 WBC 5.5 RBC 3.10 L Hgb 10.4 L Hct 31.5 L MCV 101.6 H MCH 33.5 H MCHC 33.0 RDW Std Deviation 62.2 H RDW Coeff of Dami 16.9 H Plt Count 249 MPV 9.3 Immature Gran % (Auto) 0.500 Neut % (Auto) 66.8 Lymph % (Auto) 19.4 [place] % (Auto) 11.7 H Eos % (Auto) 1.1 Baso % (Auto) 0.5 Absolute Neuts (auto) 3.6 Absolute Lymphs (auto) 1.06 Nucleated RBC % 0 Sodium 144 Potassium 3.6 Chloride 112 H Carbon Dioxide 27.0 Anion Gap 6 BUN 15 Creatinine 1.05 Estim Creat Clear Calc 51.56 Est GFR (MDRD) Af Amer 86 Est GFR (MDRD) Non-Af 71 BUN/Creatinine Ratio 14.3 Glucose 109 H Calcium 8.7 Stool for occult blood is negative. Radiography Diagnostic Testing: Clinical Impression(s) from Imaging Studies Brain CT 11/27/24 19:34 IMPRESSION: 1. No acute intracranial hemorrhage or herniation. 2. Small left frontal scalp hematoma. 3. Findings of chronic microvascular ischemic changes and age-related changes. Reading Location: [facility] Treatment and Re-Evaluation :: Patient was reassessed at 2119. He is alert oriented x 3. GSF is 15. Plan is to discharge to home. Discharge Plan Triage Chief Complaint: Alt LOC ED Provider: Nestor Mendez Dx/Rx/DC Orders Clinical Impression: Concussion with loss of consciousness, History of prostate cancer, Hyperlipidemia, Amnesia, Kristopher coma scale score 13-15, at hospital admission, Contusion of forehead, Abrasion of forehead, Anemia, macrocytic Instructions: ED Abrasion, ED Concussion Prescriptions: No Action cholecalciferol (vitamin D3) 1,000 unit capsule 2,000 unit PO QDAY metoprolol succinate 25 mg tablet extended release 24 hr 12.5 mg PO DAILY oxybutynin chloride 10 mg tablet extended release 24hr 10 mg PO QDAY sucralfate 1 gram tablet 1 g PO QACHS Qty: 56 1RF Rx Instructions: Take an hour before meals and at bedtime nitroglycerin 0.4 MG tablet 0.4 mg sublingual Q5M PRN (Reason: Chest Pain) losartan 25 MG tablet 12.5 mg PO DAILY Eliquis 5 mg tablet 5 mg PO BID Qty: 74 0RF Rx Instructions: 10 mg twice a day for the first week. Then 5 mg twice a day. pantoprazole 40 mg tablet,delayed release (DR/EC) 40 mg PO DAILY Qty: 30 0RF ondansetron 4 mg tablet,disintegrating 4 mg PO Q8H PRN PRN (Reason: Nausea) Qty: 10 0RF rosuvastatin 20 mg tablet 20 mg PO QHS Qty: 90 3RF Primary Care Provider: Nahomi Long Referrals: Nahomi Long, [Primary Care Provider] - 1 Week Activity Restrictions/Additional Instructions: 1. Need to contact Dr. Long for follow-up to evaluate you the cause of your anemia Print Language: Tamazight Disposition Disposition: Home, Self Care
[2024-11-27 20:18] VITALS: BP 110/79; BP 121/72; BP 130/86; PULSE 80
[2024-11-27 20:24] VITALS: BP 121/72; PULSE 76; RESP 20; O2SAT 98
[2024-11-27 21:00] VITALS: BP 122/73; PULSE 76; RESP 12; O2SAT 99
[2024-11-27 21:25] VITALS: BP 101/73; PULSE 82; RESP 16; TEMP 36.6; O2SAT 100
--- NOTE | 2024-11-27 21:43 | CM.ED ---
Social Work SW met with patient and patients . Patient presented to ER due to fall at the firestation. Patient had lost the house keys and he went to [facility] for help. stated that this is the third time the keys have been lost. As patient was empyting pockets, keys were found, uncertain if they are the right keys to access the home. upset over events and was making repetitive statements. Patients brother in law also at bedside and was helping patient and get into their home. Emotional support provided, no further needs identified at this time. Angelica Mendoza, SOLUTION MANAGER, BLUEPRINT CLERK
== END 2024-11-27 21:44 | disposition home or self-care (01) ==
PROVIDERS: Emergency Provider Emergency Medicine; PCP Internal Medicine; Referring Provider Emergency Medicine; Visit Provider Emergency Medicine
DX: S06.0X9A Concussion with loss of consciousness of unspecified duration, initial encounter (principal); S00.83XA Contusion of other part of head, initial encounter; W18.09XA Striking against other object with subsequent fall, initial encounter; R40.2412 Glasgow coma scale score 13-15, at arrival to emergency department; R41.0 Disorientation, unspecified; R41.3 Other amnesia; I10 Essential (primary) hypertension; I25.10 Atherosclerotic heart disease of native coronary artery without angina pectoris; E78.5 Hyperlipidemia, unspecified; R19.7 Diarrhea, unspecified; N40.0 Benign prostatic hyperplasia without lower urinary tract symptoms; K21.9 Gastro-esophageal reflux disease without esophagitis; Z79.01 Long term (current) use of anticoagulants; Z79.899 Other long term (current) drug therapy; Z95.5 Presence of coronary angioplasty implant and graft; Z86.711 Personal history of pulmonary embolism; Z85.46 Personal history of malignant neoplasm of prostate
CPT/HCPCS: 70450; 80048; 82274; 85025; 99284; A4216

== ENCOUNTER → 2024-11-28 | Outpatient (CLI) | payer MEDICARE, OTHER, SELFPAY ==
[2024-11-28 10:20] LABS: Absolute Lymphocyte Count 0.84 X10^3/uL (0.83-4.51); Absolute Neutrophil Count 3.7 X10^3/uL (2.0-7.7); Basophil# 0.02 X10^3/uL; Basophil% 0.4 % (0-1); Eosinophil# 0.02 X10^3/uL; Eosinophils% 0.4 % (0-5); Hematocrit 33.5 % (40-54); Hemoglobin 11.1 g/dL (13.0-16.5); Lymphocyte # 0.84 X10^3/ul (0.83-4.51); Lymphocyte % 16.1 % (19-41); Mean Corp Hgb Conc 33.1 g/dL (32-36); Mean Corpuscular Hgb 33.7 pg (27.0-32.0); Mean Corpuscular Volume 101.8 fL (80-94); Mean Platelet Vol. 9.2 fl (6.2-12.0); Monocyte# 0.57 X10^3/uL; Monocyte% 10.9 % (0-10); NRBC Flagged by Analyzer 0 % (0-5); Neutrophil # 3.72 X10^3/uL (2.7-7.7); Neutrophil % 71.4 % (47-70); Platelet Count 262 K/mm3 (150-450); RBC Distribution Width CV 16.8 % (11.6-14.6); RBC Distribution Width SD 63.2 fl (35.1-43.9); Red Blood Count 3.29 M/mm3 (4.6-6.2); White Blood Count 5.2 K/mm3 (4.4-11.0)
[2024-11-28 11:03] LABS: ALB/GLOB Ratio 0.8 RATIO (0.9-2.4); AST(SGOT) 25 U/L (15-37); Alanine Aminotransfer ALT/SGPT 27 U/L (16-61); Albumin, Serum 2.8 g/dL (3.2-5.0); Alkaline Phosphatase 115 U/L (45-117); Anion Gap 5 (5-15); BUN 13 mg/dL (7-18); BUN/Creat Ratio 14.4 RATIO (10-20); Calcium,Total 8.5 mg/dL (8.5-10.1); Chloride 110 mmol/L (98-107); EST Glomerular Filtration Rate 85 mL/min (>60); Est Glom Filt Rate - Afr Amer 103 mL/min (>60); Globulin 3.7 g/dL (2.2-4.2); Glucose 108 mg/dL (74-106); LDH 245 U/L (87-241); PSA,Total- Diagnostic 1.96 ng/mL (0.0-4.0); Potassium 3.5 mmol/L (3.5-5.1); Protein, Total 6.5 g/dL (6.4-8.2); Sodium Level 143 mmol/L (136-145)
== END | disposition home or self-care (01) ==
LOC: LAB 10:00
PROVIDERS: PCP Internal Medicine; Referring Provider Internal Medicine Medical Oncology; Visit Provider Internal Medicine Medical Oncology
DX: C61 Malignant neoplasm of prostate (principal); C79.51 Secondary malignant neoplasm of bone
CPT/HCPCS: 36415; 80053; 83615; 84153; 85025

== ENCOUNTER 2024-12-19 17:37 | Emergency (ER) | payer MEDICARE, OTHER, SELFPAY ==
[2024-12-19 17:39] VITALS: BP 138/94; PULSE 87; RESP 17; TEMP 36.3; O2SAT 94
--- NOTE | 2024-12-19 17:46 | ED.RN ---
PT AND APPEAR TO BE CONFUSED. UNABLE TO GET ANY TYPE OF TIME TABLE OF THE PAIN. SOUNDS LIKE PT HAS BEEN HER MULTIPLE TIMES FOR SIMILAR COMPLAINTS. PT STATES HE IS SICK OF GETTING SICK. WHEN THIS NURSE TRIED TO CLARIFY COMPLAINTS PT AND TALKED ABOUT ANOTHER VISIT OR SITUATION. AFTER TRIAGING PT EXPLAINED THEY NEEDED TO HAVE A SEAT IN THE WAITING ROOM PT THEN STATED HE WAS GOING HOME. EXPLAINED IF HE WANTED TO BE SEEN HE NEEDED TO HAVE A SEAT IN THE WAITING ROOM. PT THEN REPLIED HE HAD TO HAVE A SEAT IN THE WAITING ROOM IF HE WANTED SEEN TOMORROW. AGAIN EXPLAINED THE WAIT TO BE SEEN TONIGHT. UNSURE IF OR PT ARE FULLY UNDERSTANDING WHAT IS GOING ON OR THE FULL REASON TO WHY THE PT IS HERE.
--- NOTE | 2024-12-19 18:39 | EDS_ITS ---
HPI History of Present Illness Chief Complaint: Abd Pain PFSH PFSH Medical History Neck pain on right side Essential (primary) hypertension Gynecomastia, male Bony sclerosis History of prostate cancer History of fractured pelvis Kidney stones BPH (benign prostatic hyperplasia) GERD (gastroesophageal reflux disease) DVT (deep venous thrombosis) Hyperlipidemia Atherosclerotic heart disease of [place] coronary artery without angina pectoris Prostate cancer Home Medications ?Medication ?Instructions ?Recorded ?Last Taken ?Type nitroglycerin 0.4 mg sublingual 0.4 mg sublingual Q5M PRN Chest 09/22/14 Unknown History tablet Pain losartan 25 mg tablet 12.5 mg PO DAILY 01/09/17 07:00 History cholecalciferol (vitamin D3) 25 2,000 unit PO QDAY 10/01 Unknown History mcg (1,000 unit) capsule metoprolol succinate 25 mg 12.5 mg PO DAILY 01/05/22 U nknown History tablet,extended release 24 hr rosuvastatin 20 mg tablet 20 mg PO QHS #90 tabs Unknown Rx apixaban 5 mg tablet (Eliquis) 5 mg PO BID #74 tabs Unknown Rx pantoprazole 40 mg tablet,delayed 40 mg PO DAILY #30 t abs 10/14/24 Unknown Rx release ondansetron 4 mg disintegrating 4 mg PO Q8H PRN PRN Na usea #10 tabs 10/20/24 Unknown Rx tablet oxybutynin chloride 10 mg 10 mg PO QDAY 10/30/24 Unkno wn History tablet,extended release 24 hr sucralfate 1 gram tablet 1 g PO QACHS #56 tabs Unknown Rx Allergy/AdvReac Type Severity Reaction Status Date / Time povidone-iodine Allergy Mild Rash Verified 12/19/24 17:44 atorvastatin (From Lipitor) AdvReac Intermediate Myalgias Verified 12/19/24 17:44 simvastatin (From Zocor) AdvReac Intermediate Myalgias Verified 12/19/24 17:44 Family History Father , age 64 CAD (coronary artery disease) Myocardial infarction Sudden cardiac
--- NOTE | 2024-12-19 18:39 | EX.ED.DYSGE1 ---
HPI History of Present Illness Chief Complaint: Abd Pain PFSH PFSH Medical History Neck pain on right side Essential (primary) hypertension Gynecomastia, male Bony sclerosis History of prostate cancer History of fractured pelvis Kidney stones BPH (benign prostatic hyperplasia) GERD (gastroesophageal reflux disease) DVT (deep venous thrombosis) Hyperlipidemia Atherosclerotic heart disease of false pass coronary artery without angina pectoris Prostate cancer Home Medications ?Medication ?Instructions ?Recorded ?Last Taken ?Type nitroglycerin 0.4 mg sublingual 0.4 mg sublingual Q5M PRN Chest 09/22/14 Unknown History tablet Pain losartan 25 mg tablet 12.5 mg PO DAILY 01/09/17 02/09/17 07:00 History cholecalciferol (vitamin D3) 25 2,000 unit PO QDAY 10/26/17 Unknown History mcg (1,000 unit) capsule metoprolol succinate 25 mg 12.5 mg PO DAILY 01/05/22 Unknown History tablet,extended release 24 hr rosuvastatin 20 mg tablet 20 mg PO QHS #90 tabs 06/25/24 Unknown Rx apixaban 5 mg tablet (Eliquis) 5 mg PO BID #74 tabs 10/14/24 Unknown Rx pantoprazole 40 mg tablet,delayed 40 mg PO DAILY #30 tabs 10/14/24 Unknown Rx release ondansetron 4 mg disintegrating 4 mg PO Q8H PRN PRN Nausea #10 tabs 10/20/24 Unknown Rx tablet oxybutynin chloride 10 mg 10 mg PO QDAY 10/30/24 Unknown History tablet,extended release 24 hr sucralfate 1 gram tablet 1 g PO QACHS #56 tabs 10/30/24 Unknown Rx Allergy/AdvReac Type Severity Reaction Status Date / Time povidone-iodine Allergy Mild Rash Verified 12/19/24 17:44 atorvastatin (From Lipitor) AdvReac Intermediate Myalgias Verified 12/19/24 17:44 simvastatin (From Zocor) AdvReac Intermediate Myalgias Verified 12/19/24 17:44 Family History Father , age 64 CAD (coronary artery disease) Myocardial infarction Sudden cardiac Asthma Heart disease Hypertension Mother , Age 67 Cancer Brother CAD (coronary artery disease) Sister CAD (coronary artery disease) Colon cancer Surgical History H/O coronary artery bypass surgery (11/11/97) History of coronary artery stent placement (10/01/14) H/O right mastectomy Social History (Updated 12/19/24 @ 21:[address] Cortney Collazo MD) household members: spouse Smoking Status: Never smoker EXAM Physical Exam Const Vital Signs: 12/19/24 17:39 12/19/24 20:00 Temperature 97.3 F L 97.8 F Temperature Source Temporal Temporal Pulse Rate 87 82 Respiratory Rate 17 18 Blood Pressure 138/94 H 110/75 Blood Pressure Mean 108 86 Pulse Ox 94 95 Oxygen Delivery Method Room Air MDM MDM MDM Narrative Medical decision making narrative: HISTORY OF PRESENT ILLNESS: 84-year-old male history of PE on Eliquis, prostate cancer, presents with concern for feeling sick to his stomach. He states this began 4 to 5 days ago. Notes his is also sick. He notes nonbloody vomitus. Number bilious vomitus. He notes diarrhea as well. Denies melena or hematochezia. Notes mid abdominal pain. REVIEW OF SYSTEMS: Pertinent positives: Abdominal pain, nausea vomiting diarrhea Pertinent negatives: Fever, cough, chest pain PHYSICAL EXAM: Nursing triage notes reviewed, Vital signs reviewed Constitutional: please see mdm HENT: MMM Eyes: Pupils equal round and reactive to light, Extraocular muscles intact Neck: No stridor, no JVD, full neck ROM Lungs: Clear to auscultation, No wheezing or rales. No increased work of breathing, no conversational dyspnea, no accessory muscle use, no nasal flaring. No respiratory distress noted Heart: Regular rate and rhythm, No murmurs, No rubs and No gallops, 2+ distal pulses (radial, femoral, posterior tibial) in all extremities Abdomen: Soft, mild mid abdominal tenderness but no rigidity, rebound or guarding, no obvious peritoneal signs, no palpable pulsatile abdominal masses, no auscultated abdominal bruit : No CVAT Extremities: No edema Neuro: No new focal neurological deficits, cranial nerves II through XII intact, 5/5 strength in all present extremities. Intact sensation to light touch in all present extremities, 2+ reflexes bilateral patella tendons. Skin: No rash or lesions noted MEDICAL DECISION MAKING: Chief Complaint: As per HPI External records reviewed: Reviewed CT scan of the abdomen pelvis from October 2024 which showed signs of gastritis/duodenitis Factors affecting care: Weight loss, chronic abdominal pain, chronic back pain, prostate cancer, CAD status post CABG and stent, hypertension, hyperlipidemia, gynecomastia Social determinants of health: Elderly History obtained from others: none Consults: none [facility] Narrative: Patient was initially hemodynamically stable, afebrile and nontoxic-appearing. Abdominal exam with umbilical tenderness but no obvious peritoneal signs. Patient appeared relatively comfortable. Vitals are stable. I considered the following differential diagnosis: AAA, small bowel obstruction, abdominal perforation, appendicitis, pancreatitis, hepatobiliary pathology (acute cholecystitis), mesenteric ischemia, pathology (ie nephrolithiasis, pyelonephritis). I obtained a broad lab and imaging workup to further elucidate etiology patient complaints. Initially treated the patient with 1 L IV fluid, 4 mg IV Zofran and 15 mg IV Toradol ALL IMAGES (IF OBTAINED) HAVE BEEN PERSONALLY REVIEWED AND INTERPRETED BY MYSELF. CBC without leukocytosis, mild anemia (improving baseline) but no thrombocytopenia BMP without evidence of significant electrolyte abnormalities, no anion gap, no acute kidney injury. LFTs show no evidence of hepatobiliary pathology. Lipase is wnl indicating no pancreatic inflammation. Urinalysis pending however patient had no symptoms CT scan showed evidence of duodenitis. The patient was able to tolerate p.o. here in the emergency department. Upon reassessment patient's vital signs improved. They were stable. Will prescribe Zofran and Carafate encouraged patient to continue take pantoprazole given concern for duodenitis. Will give close outpatient GI follow-up The patient and/or family, caregivers express understanding. The patient and/or family, caregivers agrees with the plan. Shared decision making: I will have a discussion with the patient and or visitors regarding risk/benefits of further testing or admission. They will be made aware of of the risk/benefits inherent in this decision they will be given the opportunity to voice understanding. Total critical care time today provided was at least 0 minutes. This excludes separately billable procedures. Critical care time (if documented) is secondary to the patient having high probability of clinically significant/life threatening deterioration in the patient's condition which required my urgent intervention. Impression: 1. Abdominal pain 2. Duodenitis 3. Duodenal ulcer Dispo: Discharge home This note was generated with [employer] dictation software. It may contain incorrect words, spelling, and punctuation that were not noted in review of the chart prior to signing. Lab Data Labs: Laboratory Results - last 24 hr 12/19/24 18:48 WBC 8.3 RBC 3.44 L Hgb 11.5 L Hct 34.5 L MCV 100.3 H MCH 33.4 H MCHC 33.3 RDW Std Deviation 54.4 H RDW Coeff of Dami 14.7 H Plt Count 261 MPV 9.8 Immature Gran % (Auto) 0.400 Neut % (Auto) 81.5 H Lymph % (Auto) 8.8 L [place] % (Auto) 9.0 Eos % (Auto) 0.1 Baso % (Auto) 0.2 Absolute Neuts (auto) 6.8 Absolute Lymphs (auto) 0.73 L Nucleated RBC % 0 Sodium 138 Potassium 3.7 Chloride 103 Carbon Dioxide 20.4 L Anion Gap 15 BUN 16 Creatinine 0.91 Est GFR (MDRD) Non-Af 83 BUN/Creatinine Ratio 17.7 Glucose 129 H Calcium 8.8 Total Bilirubin 0.83 AST 17 ALT 9 Alkaline Phosphatase 79 Total Protein 6.5 Albumin 3.4 Globulin 3.1 Albumin/Globulin Ratio 1.1 Lipase 16 Radiography Diagnostic Testing: Clinical Impression(s) from Imaging Studies Abdomen/Pelvis CT 12/19/24 19:10 IMPRESSION: Circumferential wall thickening of the duodenum with adjacent stranding, as well as a focal area of outpouching with air-fluid collection, concerning for an ulcer. Alternatively this may represent duodenal diverticulum, this is similar in appearance to the prior study. Upper endoscopy on upper GI series is recommended for further characterization. Cholelithiasis. Stable appearing heterogeneous appearance of the osseous structures with pathological fractures as described above, concerning for Mets. One or more dose reduction techniques were used (e.g., Automated exposure control, adjustment of the mA and/or kV according to patient size, use of iterative reconstruction technique). [facility] Chief Complaint: Abd Pain ED Provider: Jacek Vazquez Dx/Rx/DC Orders Prescriptions: No Action cholecalciferol (vitamin D3) 1,000 unit capsule 2,000 unit PO QDAY metoprolol succinate 25 mg tablet extended release 24 hr 12.5 mg PO DAILY oxybutynin chloride 10 mg tablet extended release 24hr 10 mg PO QDAY sucralfate 1 gram tablet 1 g PO QACHS Qty: 56 1RF Rx Instructions: Take an hour before meals and at bedtime nitroglycerin 0.4 MG tablet 0.4 mg sublingual Q5M PRN (Reason: Chest Pain) losartan 25 MG tablet 12.5 mg PO DAILY Eliquis 5 mg tablet 5 mg PO BID Qty: 74 0RF Rx Instructions: 10 mg twice a day for the first week. Then 5 mg twice a day. pantoprazole 40 mg tablet,delayed release (DR/EC) 40 mg PO DAILY Qty: 30 0RF ondansetron 4 mg tablet,disintegrating 4 mg PO Q8H PRN PRN (Reason: Nausea) Qty: 10 0RF rosuvastatin 20 mg tablet 20 mg PO QHS Qty: 90 3RF Primary Care Provider: Nahomi Long Referrals: Nahomi Long DO [Primary Care Provider] - Print Language: Angolan
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
[2024-12-19] MEDS: Ketorolac 15 MG/ML Vial IV (19:32)
[2024-12-19] MEDS: 0.9% Normal Saline (1000mL) 1,000 ML 999 ML IV (19:32)
[2024-12-19] MEDS: Ondansetron 4 MG/2 ML Vial IV (19:32)
[2024-12-19 19:41] LABS: Absolute Lymphocyte Count 0.73 X10^3/uL (0.83-4.51); Absolute Neutrophil Count 6.8 X10^3/uL (2.0-7.7); Basophil# 0.02 X10^3/uL; Basophil% 0.2 % (0-1); Eosinophil# 0.01 X10^3/uL; Eosinophils% 0.1 % (0-5); Hematocrit 34.5 % (40-54); Hemoglobin 11.5 g/dL (13.0-16.5); Lymphocyte # 0.73 X10^3/ul (0.83-4.51); Lymphocyte % 8.8 % (19-41); Mean Corp Hgb Conc 33.3 g/dL (32-36); Mean Corpuscular Hgb 33.4 pg (27.0-32.0); Mean Corpuscular Volume 100.3 fL (80-94); Mean Platelet Vol. 9.8 fl (6.2-12.0); Monocyte# 0.75 X10^3/uL; NRBC Flagged by Analyzer 0 % (0-5); Neutrophil # 6.79 X10^3/uL (2.7-7.7); Neutrophil % 81.5 % (47-70); Platelet Count 261 K/mm3 (150-450); RBC Distribution Width CV 14.7 % (11.6-14.6); RBC Distribution Width SD 54.4 fl (35.1-43.9); Red Blood Count 3.44 M/mm3 (4.6-6.2); White Blood Count 8.3 K/mm3 (4.4-11.0)
[2024-12-19 20:00] VITALS: BP 110/75; PULSE 82; RESP 18; TEMP 36.6; O2SAT 95
[2024-12-19 20:09] LABS: ALB/GLOB Ratio 1.1 RATIO (0.9-2.4); AST(SGOT) 17 U/L (<=37); Alanine Aminotransfer ALT/SGPT 9 U/L (<=46); Albumin, Serum 3.4 g/dL (3.4-4.8); Alkaline Phosphatase 79 U/L (40-129); Anion Gap 15 (5-15); BUN 16 mg/dL (4-19); BUN/Creat Ratio 17.7 RATIO (10-20); Calcium,Total 8.8 mg/dL (7.6-11.0); Carbon Dioxide 20.4 mmol/L (21.0-32.0); Chloride 103 mmol/L (98-108); Creatinine, Serum 0.91 mg/dL (0.70-1.20); EST Glomerular Filtration Rate 83 (>60); Globulin 3.1 g/dL (2.2-4.2); Glucose 129 mg/dL (70-99); Lipase 16 U/L (13-75); Potassium 3.7 mmol/L (3.3-5.1); Protein, Total 6.5 g/dL (5.9-8.4); Sodium Level 138 mmol/L (133-145); Total Bilirubin 0.83 mg/dL (0.00-1.30)
[2024-12-19 21:34] LABS: Bacteria 0 SEEN /hpf (None Seen); Mucous, Urine 0 SEEN /hpf (<or=2+); Squamous Epithelial Cells - UA 0 SEEN /hpf (0-5); White Blood Cells 0 SEEN /hpf (0-5)
[2024-12-19 22:00] VITALS: BP 134/96; PULSE 77; RESP 18; TEMP 36.6; O2SAT 100
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
[2024-12-19 22:20] LABS: Color, Urine Yellow (Yellow); Glucose, Dipstick Normal (Normal); Ketone-Dipstick 15 mg/dl (Negative); Leukocyte Esterase-Dipstick Negative /ul (Negative); Nitrite-Dipstick Negative (Negative); Occult Blood-Urine 250 /ul (Negative); Protein-Dipstick 30 mg/dl (Negative); Urine Bilirubin Dipstick Negative (Negative); Urine Clarity Clear (Clear); Urine Urobilinogen 1 mg/dl (Normal); Urine pH 6.5 (5.0 - 8.0)
[2024-12-19 22:29] LABS: Red Blood Cells-Urine 25-50 SEEN /hpf (0-5)
--- NOTE | 2024-12-19 22:49 | ED.RN ---
pts behavior since arrival has been consistent w/dementia and possible sun downers. he has been in hallway yelling at staff asking for urinal that he had next to him. pt is able to answer some orientation questions correctly with multiple prompts, but initially provides incorrect answers to year and month. pt attempted to dress himself and put his underpants on backwards. per initial assessment in triage and the triage nurses note, pt was unable to provide information on why he came to the hospital and seemed to have generalized confusion (see ED RN note). per & brother in law is primary care professionals and he is unable to dress himself at home. is being admitted to hospital. i expressed concerns to pts attending dr about the safety of him going home independently. per dr hernandes assessment of pts mental status, he is comfortable with discharging patient home.
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
== END 2024-12-19 23:45 | disposition home or self-care (01) ==
PROVIDERS: Emergency Provider Emergency Medicine; PCP Internal Medicine; Visit Provider Emergency Medicine
DX: K29.80 Duodenitis without bleeding (principal); K26.9 Duodenal ulcer, unspecified as acute or chronic, without hemorrhage or perforation; R19.7 Diarrhea, unspecified; G89.29 Other chronic pain; I25.10 Atherosclerotic heart disease of native coronary artery without angina pectoris; M54.9 Dorsalgia, unspecified; I10 Essential (primary) hypertension; E78.5 Hyperlipidemia, unspecified; R41.0 Disorientation, unspecified; R45.1 Restlessness and agitation; Z79.01 Long term (current) use of anticoagulants; Z79.899 Other long term (current) drug therapy; Z86.711 Personal history of pulmonary embolism; Z85.46 Personal history of malignant neoplasm of prostate; Z95.1 Presence of aortocoronary bypass graft; Z95.5 Presence of coronary angioplasty implant and graft
CPT/HCPCS: 74177; 80053; 81001; 83690; 85025; 96361; 96374; 96375; 99283; Q9967; J2405

== ENCOUNTER 2024-12-24 14:47 | Inpatient (IN) | payer MEDICARE, OTHER, SELFPAY ==
[2024-12-24] VITALS (9 sets, daily range): BP systolic 96–126; BP diastolic 52–86; PULSE 80–100; RESP 13–21; TEMP 36.1–37.2; O2SAT 55–100; BMI 18.8; BMI 17.8
--- NOTE | 2024-12-24 15:37 | EKG12_ITS ---
Test Reason : Blood Pressure : */* mmHG Vent. Rate : 90 BPM Atrial Rate : 90 BPM P-R Int : 118 ms QRS Dur : 94 ms QT Int : 378 ms P-R-T Axes : 52 37 -29 degrees QTcB Int : 462 ms Sinus rhythm with Premature atrial complexes Nonspecific T wave abnormality Abnormal ECG Confirmed by KIMBERLEE DUMONT, ELADIO ([id number]), image editor NUNO SYKES ([id number]) on 12/29/2024 10:59:53 AM Referred By: KRISTAN Confirmed By: ELADIO MOHAN MD
--- NOTE | 2024-12-24 15:39 | EDS_ITS ---
HPI History of Present Illness Chief Complaint: Weakness Informant: patient, spouse/S.O. and family Narrative Narrative: Presents from home spouse [id number] present for evaluation worsening vertigo symptoms and chest pain. Symptoms started yesterday. He ambulates with a walker. He is on Eliquis history of A-fib and PE. Coronary bypass in the past. States nausea without vomiting. He fell off the chair yesterday due to vertigo symptoms. Denies head injuries. Does report headache. No fevers. Denies vomiting diarrhea. Denies urinary symptoms. Prior similar symptoms: Yes PFSH PFSH Medical History (Updated 12/24/24 @ 19:19 by Piper Ott) Rheumatoid arthritis Non-smoker Asthma Atrial fibrillation Neck pain on right side Essential (primary) hypertension Gynecomastia, male Bony sclerosis History of prostate cancer History of fractured pelvis Kidney stones BPH (benign prostatic hyperplasia) GERD (gastroesophageal reflux disease) DVT (deep venous thrombosis) Hyperlipidemia Atherosclerotic heart disease of [place] coronary artery without angina pectoris Prostate cancer Home Medications ?Medication ?Instructions ?Recorded ?Last Taken ?Type nitroglycerin 0.4 mg sublingual 0.4 mg sublingual Q5M PRN Chest 09/22/14 Unknown History tablet Pain cholecalciferol (vitamin D3) 25 2,000 unit PO QDAY 10/01 Unknown History mcg (1,000 unit) capsule rosuvastatin 20 mg tablet 20 mg PO QHS #90 tabs Unknown Rx apixaban 5 mg tablet (Eliquis) 5 mg PO BID #74 tabs Unknown Rx ondansetron 4 mg disintegrating 4 mg PO Q8H PRN PRN Na usea #10 tabs 10/20/24 Unknown Rx tablet sucralfate 1 gram tablet 1 g PO QACHS #56 tabs Unknown Rx ondansetron 4 mg disintegrating 4 mg PO Q8H PRN PRN Na usea #10 tabs 12/19/24 Unknown Rx tablet sucralfate 1 gram tablet (Carafate) 1 g PO BID #20 tab s 12/19/24 Unknown Rx pantoprazole 20 mg tablet,delayed 20 mg PO BID 5 Unknown History release Allergy/AdvReac Type Severity Reaction Status Date / Time povidone-iodine Allergy Mild Rash Verified 12/24/24 14:49 atorvastatin (From Lipitor) AdvReac Intermediate Myalgias Verified 12/24/24 14:49 simvastatin (From Zocor) AdvReac Intermediate Myalgias Verified 12/24/24 14:49 Family History Father , age 64 CAD (coronary artery disease) Myocardial infarction Sudden cardiac Asthma Heart disease Hypertension Mother , Age 67 Cancer Brother CAD (coronary artery disease) Sister CAD (coronary artery disease) Colon cancer Surgical History (Updated 12/24/24 @ 19:19 by Piper Ott) History of appendectomy H/O coronary artery bypass surgery (11/11/97) History of coronary artery stent placement (10/01/14) H/O right mastectomy Social History (Updated 12/24/24 @ 19:18 by Ayan JEROME, PA) household members: spouse Smoking Status: Never smoker alcohol intake: never substance use type: does not use ROS ROS ED Constitutional Constitutional ED: Denies chills, fever(s) or sweats ENT ENT ED: Denies sore throat Cardiovascular Cardiovascular: Reports chest pain; Denies leg edema, palpitations or racing heartbeat Respiratory/Chest Respiratory/Chest: Denies cough, dyspnea or dyspnea on exertion Gastrointestinal Gastrointestinal: Reports nausea; Denies abdominal pain, diarrhea or vomiting Genitourinary Genitourinary ED: Denies dysuria, hematuria or urinary frequency Musculoskeletal Musculoskeletal: Denies back pain, extremity pain or neck pain Integumentary Denies rash or wounds Neurologic Neurologic: Reports headache(s) and other Details: Dizziness ; Denies paresthesias or weakness EXAM Physical Exam Const Vital Signs: 12/24/24 14:48 12/24/24 15:27 12/24/24 15:30 Temperature 97 F L Temperature Source Temporal Pulse Rate 100 87 82 Respiratory Rate 20 H 16 13 Blood Pressure 126/86 H Blood Pressure Mean 99 Pulse Ox 100 55 Oxygen Delivery Method Room Air 12/24/24 15:45 12/24/24 16:48 12/24/24 18:16 Temperature Temperature Source Pulse Rate 91 83 Respiratory Rate 17 17 Blood Pressure 100/52 L Blood Pressure Mean 68 Pulse Ox 93 96 98 Oxygen Delivery Method Room Air Room Air Positive well nourished and well developed General Appearance ED: well developed and NAD HEENT Reports dry mucous membranes HEENT Narrative: Mild dry mucosal membranes. normocephalic and atraumatic Mouth ED: Yes dry mucous membranes Mouth: dry mucous membranes Eyes General Eye ED: Yes pale conjunctiva Neck full ROM Chest Wall Chest: Negative for tenderness Resp normal respiratory effort and normal air movement Effort and Inspection: symmetric chest movement; Negative for respiratory distress Cardio regular rate and no murmurs Rhythm: abnormal rhythm Peripheral Pulses: pulses 2+ throughout GI normal to inspection, nondistended, normoactive bowel sounds and non-tender Palpation: Negative for guarding or rebound tenderness present Extremity normal to inspection General Extremety ED: Negative for edema or tenderness General Extremity: Negative for edema Neuro oriented x3, CN's II-XII intact bilaterally and no sensory deficits noted Neuro Narrative: Alert to person place and year. Tell me the month with November. Slight bilateral leg drifting. Cerebellar upper and lower extremity equal and symmetric. Sensorium / Orientation: awake and alert Skin no rashes or lesions noted and no wounds NIHSS NIHSS Initial: 1a Level of Consciousness: 0 1b LOC Questions (Score 2 if aphasic/stupor): 1 1c LOC Commands (Only score 1st attempt): 0 2 Best Gaze (If aphasic, use reflexive mvmts.): 0 3 Visual: 0 4 Facial Palsy: 0 5 Motor Arm Right (UN = amputation/fusion): 0 5 Motor Arm Left: 0 6 Motor Leg Right: 1 6 Motor Leg Left: 1 7 Limb ataxia (Only + if out of proportion): 0 8 Sensory (Aphasia/stupor=0 or 1, coma=2): 0 9 Best Language: 0 10 Dysarthria (mute, coma=2, intubated=UN): 0 11 Extinction and Inattention (only scored if +): 0 Total Score: 3 MDM MDM MDM Narrative Medical decision making narrative: Interventions / MDM: Differential diagnosis: Chest pain, vertigo, anemia Diagnosis considered but do not suspect: N/A My EKG interpretation: Sinus rhythm 98, no ST or T wave changes, frequent PACs noted. Imaging independently reviewed and interpreted by myself: 1 view chest x-ray: No acute process. CT angiogram head and neck: No acute process. External documents reviewed: Seen in ED 5 days ago abdominal discomfort with nausea. Found to have duodenitis on CT. Labs are stable. He was to continue his pantoprazole and Carafate was prescribed. Test considered but not ordered:N/A ED course: Patient having vertigo symptoms with no focal deficits. NIH of 3. Symptoms started yesterday over 24 hours ago. Outside the window for any TNK. Additionally reports chest pains. Heart is irregular with history of A-fib on Eliquis. Cardiac workup initiated. CT angiogram head and neck with his symptoms. Labs fluids Zofran ordered for symptom control. After evaluation and social work discussed with me he was here a few days ago there is concerns of his safety of being at home with his spouse for both of them. APS has been involved. They do not feel he is safe to be at home. Discussed at this time being worked up for his vertigo and his chest pains. 1615: Nausea improved. Hemoglobin 8.2 it was 11.5, 5 days ago. He had a duodenal ulcer on CT 5 days ago. Abdomen soft. Rectal exam performed brown stools with guaiac pending. I am concern for likely upper GI bleed with the ulcer on CT. He is on Eliquis. Will dose with Protonix IV. 1652: Guaiac returned negative. Chest x-ray negative. CT angiogram negative. Vitals remained stable. 1800: I spoke with hospitalist Dr. Cyndi Paz, with his significant drop in hemoglobin 12 and also would like Protonix drip started. He was not given any aspirin or anticoagulants due to the anemia being worked up at this time. He will be admitted to PCU. Re-evaluation: stable Disposition discussed with patient/family/significant other: Patient and family Case discussed with consulting clinician: Hospitalist This note was generated with [employer] dictation software. It may contain incorrect words, spelling, and punctuation that were not noted in checking the note before signing. Lab Data Attestation: I reviewed the patient's lab results. Labs: Laboratory Results - last 24 hr 12/24/24 12/24/24 12/24/24 14:38 16:27 18:09 WBC 9.1 RBC 2.42 L Hgb 8.2 L Hct 24.9 L MCV 102.9 H MCH 33.9 H MCHC 32.9 RDW Std Deviation 55.2 H RDW Coeff of Dami 14.7 H Plt Count 237 MPV 10.2 Immature Gran % (Auto) 1.000 H Neut % (Auto) 80.4 H Lymph % (Auto) 12.3 L [place] % (Auto) 6.1 Eos % (Auto) 0.0 Baso % (Auto) 0.2 Absolute Neuts (auto) 7.3 Absolute Lymphs (auto) 1.12 Nucleated RBC % 0 PT Cancelled 15.8 H INR Cancelled 1.2 APTT Cancelled 26.1 Sodium 135 Potassium 4.1 Chloride 101 Carbon Dioxide 14.6 L Anion Gap 19 H BUN 40 H Creatinine 1.13 Estim Creat Clear Calc 42.66 L Est GFR (MDRD) Non-Af 64 BUN/Creatinine Ratio 35.8 H Glucose 181 H Calcium 8.7 Troponin T High Sens 22 Urine Color Yellow Urine Clarity Clear Urine pH 5.0 Ur Specific [place] 1.010 Urine Protein 15 H Urine Glucose (UA) Normal Urine Ketones 15 H Urine Occult Blood Negative Urine Nitrite Negative Urine Bilirubin 1 H Urine Urobilinogen 1 H Ur Leukocyte Esterase Negative Urine RBC 0-5 SEEN Urine WBC 0-5 SEEN Ur Squamous Epith Cells 0 SEEN Urine Bacteria RARE Urine Mucus 0 SEEN Radiography Diagnostic Testing: Clinical Impression(s) from Imaging Studies Head/Neck CTA 12/24/24 16:00 IMPRESSION: 1. No acute intracranial abnormality. Senescent changes. If there is persistent clinical concern for acute ischemia, MRI is most sensitive. 2. No large vessel high-grade stenosis, occlusion or aneurysm. One or more dose reduction techniques were used (e.g., Automated exposure control, adjustment of the mA and/or kV according to patient size, use of iterative reconstruction technique). [facility] Chest X-Ray 12/24/24 16:05 IMPRESSION: No acute airspace abnormality. Reading Location: [facility] Discharge Plan Dx/Rx/DC Orders Clinical Impression: Chest pain, Dizziness, Anemia Disposition Disposition: Acute Care Hospital [facility] Discharge Date/Time: 12/24/24 19:00
--- NOTE | 2024-12-24 15:43 | ED.RN ---
Pt. refused catheterization upon arrival to ER room.
--- NOTE | 2024-12-24 15:43 | CM.ED ---
Social Work SW received additional information regarding patient from ED nurse. Nurse told SW that after patient was discharged from last visit, patient had returned to the ED several hours later looking for his . Patients was not a patient in the hospital. An APS referral was placed on Sunday, SW called APS this morning to give updated information of patient. Angelica Mendoza, FORMING AND ASSEMBLING SUPERVISOR, PRESCHOOL TEACHER
[2024-12-24] MEDS: Ondansetron 4 MG/2 ML Vial IV (15:50)
[2024-12-24 15:54] LABS: Absolute Lymphocyte Count 1.12 X10^3/uL (0.83-4.51); Absolute Neutrophil Count 7.3 X10^3/uL (2.0-7.7); Basophil# 0.02 X10^3/uL; Basophil% 0.2 % (0-1); Hematocrit 24.9 % (40-54); Hemoglobin 8.2 g/dL (13.0-16.5); Lymphocyte # 1.12 X10^3/ul (0.83-4.51); Lymphocyte % 12.3 % (19-41); Mean Corp Hgb Conc 32.9 g/dL (32-36); Mean Corpuscular Hgb 33.9 pg (27.0-32.0); Mean Corpuscular Volume 102.9 fL (80-94); Mean Platelet Vol. 10.2 fl (6.2-12.0); Monocyte# 0.56 X10^3/uL; Monocyte% 6.1 % (0-10); NRBC Flagged by Analyzer 0 % (0-5); Neutrophil # 7.34 X10^3/uL (2.7-7.7); Neutrophil % 80.4 % (47-70); Platelet Count 237 K/mm3 (150-450); RBC Distribution Width CV 14.7 % (11.6-14.6); RBC Distribution Width SD 55.2 fl (35.1-43.9); Red Blood Count 2.42 M/mm3 (4.6-6.2); White Blood Count 9.1 K/mm3 (4.4-11.0)
--- NOTE | 2024-12-24 16:00 | CT_ITS ---
PROCEDURE: CT brain without IV contrast CTA head and neck width IV contrast REASON FOR EXAM: DIZZINESS TECHNIQUE: Multiple contiguous axial images through the brain were obtained without the administration of intravenous contrast. Two-dimensional coronal and sagittal reformatted images were reconstructed. Contiguous postcontrast images of the brain and neck were also obtained after the administration of intravenous contrast. Two- dimensional and three-dimensional MIP coronal and sagittal reformatted images were reconstructed. Low-dose imaging technique was utilized. COMPARISON: None FINDINGS: Brain. No evidence of acute intracranial hemorrhage, midline shift or mass effect. No definite CT evidence of acute territorial cortical infarction. No hydrocephalus. Moderate generalized cerebral atrophy and chronic small-vessel ischemic changes. Bilateral basal ganglia calcifications. Cerebrovascular calcifications. No depressed calvarial fracture. Paranasal sinuses and mastoid air cells are clear. No large vessel high-grade stenosis, occlusion or aneurysm involving the [id number]. Dural venous sinuses are patent. No pathologic enhancement. Neck. Patent three-vessel arch. No significant subclavian artery stenosis. Right common, internal and external carotid arteries are without significant stenosis. Left common, internal and external carotid arteries are without significant stenosis. Retropharyngeal course of the left ICA. No significant vertebral or basilar artery stenosis. Dominant right vertebral artery. No suspicious neck mass or adenopathy. Lung apices are clear. No acute osseous abnormality. Degenerative changes of the spine. CT/CTA Head AND Neck W/ Contrast IMPRESSION: 1. No acute intracranial abnormality. Senescent changes. If there is persiste nt clinical concern for acute ischemia, MRI is most sensitive. 2. No large vessel high-grade stenosis, occlusion or aneurysm. One or more dose reduction techniques were used (e.g., Automated exposure contr ol, adjustment of the mA and/or kV according to patient size, use of iterative reconstruction technique). Reading Location: [facility]
--- NOTE | 2024-12-24 16:05 | RAD_ITS ---
PROCEDURE: Chest radiograph REASON FOR EXAM: CHEST PAIN TECHNIQUE: Frontal view of the chest. COMPARISON: 10/14/2024 FINDINGS: Cardiomediastinal silhouette is within normal limits. Status post CABG. Lungs are clear. No sizable pneumothorax. RAD/Chest 1 View (Portable) IMPRESSION: No acute airspace abnormality. Reading Location: [facility]
[2024-12-24 17:05] LABS: Anion Gap 19 (5-15); BUN 40 mg/dL (4-19); BUN/Creat Ratio 35.8 RATIO (10-20); Calcium,Total 8.7 mg/dL (7.6-11.0); Carbon Dioxide 14.6 mmol/L (21.0-32.0); Chloride 101 mmol/L (98-108); Creatinine, Serum 1.13 mg/dL (0.70-1.20); EST Glomerular Filtration Rate 64 (>60); Estimated Creatinine Clearance 42.66 ml/min (50-250); Glucose 181 mg/dL (70-99); Potassium 4.1 mmol/L (3.3-5.1); Sodium Level 135 mmol/L (133-145)
[2024-12-24 17:07] LABS: Troponin T High Sensitivity 22 ng/L (<=22)
[2024-12-24 17:21] LABS: International Normalized Ratio 1.2; Partial Thromboplast Time 26.1 Seconds (24.1-36.2); Prothrombin Time (Protime)PT. 15.8 SECONDS (11.7-14.9)
[2024-12-24] MEDS: Pantoprazole Sodium 80 MG in 0.9% Normal Saline (50mL Bag) 15 ML 420 MG IV BOLUS (17:39)
[2024-12-24 18:16] LABS: Mucous, Urine 0 SEEN /hpf (<or=2+); Squamous Epithelial Cells - UA 0 SEEN /hpf (0-5)
[2024-12-24 18:18] LABS: Color, Urine Yellow (Yellow); Glucose, Dipstick Normal (Normal); Ketone-Dipstick 15 mg/dl (Negative); Leukocyte Esterase-Dipstick Negative /ul (Negative); Nitrite-Dipstick Negative (Negative); Occult Blood-Urine Negative /ul (Negative); Protein-Dipstick 15 mg/dl (Negative); Urine Clarity Clear (Clear); Urine Urobilinogen 1 mg/dl (Normal)
[2024-12-24 18:30] LABS: Urine Bilirubin Dipstick 1 mg/dL (Negative)
--- NOTE | 2024-12-24 18:44 | PCM.HP.STD ---
HPI - General General Date of Admission: 12/24/24 Date of Service: 12/24/24 Chief Complaint: dizziness HPI Narrative FELIX RAZA, is a 84 M with pmhx of duodenal ulcer, afib on eliquis, CAD with prior CABG and 4x stent placement, DVT, HTN, HLD, BPH, prostate cancer s/p prostatectomy, who presents to the ER with dizziness. He was in the er 5 days ago with abdominal pain. At that time he had a Hgb of 11.[address] abdomen showing duodenal ulcer. He was treated with carafate and protonix and sent home. Every day he continues to have abdominal pain in the epigastric region. He also notes black tarry stools. He cannot eat solids due to abdominal pain. He can keep liquids down and some cereal. He has vomited, no blood or coffee grounds noted. He has had worsening weakness daily and is also dizzy when he gets up and ambulates. He has had multiple falls at home. He fell today in the driveway and EMS was called and he was brought to the hospital. He had a CT head and neck which was negative. Hgb has declined to 8.2. His notes his memory has also been worsening over about 5 months. [facility] Medical History Neck pain on right side Essential (primary) hypertension Gynecomastia, male Bony sclerosis History of prostate cancer History of fractured pelvis Kidney stones BPH (benign prostatic hyperplasia) GERD (gastroesophageal reflux disease) DVT (deep venous thrombosis) Hyperlipidemia Atherosclerotic heart disease of [place] coronary artery without angina pectoris Prostate cancer Home Medications ?Medication ?Instructions ?Recorded ?Last Taken ?Type nitroglycerin 0.4 mg sublingual 0.4 mg sublingual Q5M PRN Chest 09/22/14 Unknown History tablet Pain cholecalciferol (vitamin D3) 25 2,000 unit PO QDAY 10/26/17 Unknown History mcg (1,000 unit) capsule rosuvastatin 20 mg tablet 20 mg PO QHS #90 tabs 06/25/24 Unknown Rx apixaban 5 mg tablet (Eliquis) 5 mg PO BID #74 tabs 10/14/24 Unknown Rx ondansetron 4 mg disintegrating 4 mg PO Q8H PRN PRN Nausea #10 tabs 10/20/24 Unknown Rx tablet sucralfate 1 gram tablet 1 g PO QACHS #56 tabs 10/30/24 Unknown Rx ondansetron 4 mg disintegrating 4 mg PO Q8H PRN PRN Nausea #10 tabs 12/19/24 Unknown Rx tablet sucralfate 1 gram tablet (Carafate) 1 g PO BID #20 tabs 12/19/24 Unknown Rx pantoprazole 20 mg tablet,delayed 20 mg PO BID 12/24/24 Unknown History release Allergy/AdvReac Type Severity Reaction Status Date / Time povidone-iodine Allergy Mild Rash Verified 12/24/24 14:49 atorvastatin (From Lipitor) AdvReac Intermediate Myalgias Verified 12/24/24 14:49 simvastatin (From Zocor) AdvReac Intermediate Myalgias Verified 12/24/24 14:49 Family History Father , age 64 CAD (coronary artery disease) Myocardial infarction Sudden cardiac Asthma Heart disease Hypertension Mother , Age 67 Cancer Brother CAD (coronary artery disease) Sister CAD (coronary artery disease) Colon cancer Surgical History H/O coronary artery bypass surgery (11/11/97) History of coronary artery stent placement (10/01/14) H/O right mastectomy Social History (Updated 12/24/24 @ 19:18 by Ayan JEROME PA) household members: spouse Smoking Status: Never smoker alcohol intake: never substance use type: does not use ROS Constitutional Constitutional: Reports weakness; Denies anorexia, chills or fever(s) Eyes Eyes: Denies blurry vision ENT HEENT: Denies abnormal hearing, headache(s) or nasal congestion Cardiovascular Cardiovascular: Reports chest pain; Denies edema or syncope Respiratory/Chest Respiratory/Chest: Denies cough, dyspnea or productive cough Gastrointestinal Gastrointestinal: Reports abdominal pain, nausea and vomiting; Denies coffee ground emesis or diarrhea Genitourinary Genitourinary: Denies burning urination or difficulty urinating Musculoskeletal Musculoskeletal: Reports other Details: right shoulder pain Neurologic Neurologic: Reports dizziness; Denies abnormal gait or abnormal speech Psychiatric Psychiatric: Denies anxiety or depression Endocrine Endocrinology: Denies change in body appearance Hematologic/Lymphatic Hematologic/Lymphatic: Reports anemia Allergic/Immunologic Allergic/Immunologic: Denies rhinitis Vital Signs Vital Signs Vital Signs: 12/24/24 14:48 12/24/24 15:27 12/24/24 15:30 Temperature 97 F L Temperature Source Temporal Pulse Rate 100 87 82 Respiratory Rate 20 H 16 13 Blood Pressure 126/86 H Blood Pressure Mean 99 Pulse Ox 100 55 Oxygen Delivery Method Room Air 12/24/24 15:45 12/24/24 16:48 12/24/24 18:16 Temperature Temperature Source Pulse Rate 91 83 Respiratory Rate 17 17 Blood Pressure 100/52 L Blood Pressure Mean 68 Pulse Ox 93 96 98 Oxygen Delivery Method Room Air Room Air Weight Weight: 63.1 kg Body Mass Index (BMI) 18.8 Physical Exam Const alert Constitutional Narrative: oriented x 2 General Appearance: cooperative HEENT normocephalic and head/scalp atraumatic Eyes PERRL Neck no lymphadenopathy, supple, no JVD and no carotid bruits Resp normal respiratory effort, no retractions, no use of accessory muscles and clear to auscultation bilaterally Cardio Cardio Narrative: irregularly irregular GI Auscultation: hypoactive bowel sounds Palpation: tender epigastric; Negative for guarding Extremity normal to inspection Neuro Neuro Narrative: oriented x 2 Sensorium / Orientation: awake, alert and oriented to person Psych affect normal Results Lab / Micro Data 12/24/24 14:38 12/24/24 14:38 Labs: Laboratory Results - last 24 hr 12/24/24 14:38: WBC 9.1, RBC 2.42 L, Hgb 8.2 L, Hct 24.9 L, MCV 102.9 H, MCH 33.9 H, MCHC 32.9, RDW Std Deviation 55.2 H, RDW Coeff of Dami 14.7 H, Plt Count 237, MPV 10.2, Immature Gran % (Auto) 1.000 H, Neut % (Auto) 80.4 H, Lymph % (Auto) 12.3 L, [place] % (Auto) 6.1, Eos % (Auto) 0.0, Baso % (Auto) 0.2, Absolute Neuts (auto) 7.3, Absolute Lymphs (auto) 1.12, Nucleated RBC % 0, PT Cancelled, INR Cancelled, APTT Cancelled, Sodium 135, Potassium 4.1, Chloride 101, Carbon Dioxide 14.6 L, Anion Gap 19 H, BUN 40 H, Creatinine 1.13, Estim Creat Clear Calc 42.66 L, Est GFR (MDRD) Non-Af 64, BUN/Creatinine Ratio 35.8 H, Glucose 181 H, Calcium 8.7, Troponin T High Sens 22 12/24/24 16:27: PT 15.8 H, INR 1.2, APTT 26.1 12/24/24 18:09: Urine Color Yellow, Urine Clarity Clear, Urine pH 5.0, Ur Specific [place] 1.010, Urine Protein 15 H, Urine Glucose (UA) Normal, Urine Ketones 15 H, Urine Occult Blood Negative, Urine Nitrite Negative, Urine Bilirubin 1 H, Urine Urobilinogen 1 H, Ur Leukocyte Esterase Negative Micro: Microbiology 12/24/24 Unknown Stool Stool Occult Blood (NATHALY) - Final Imaging Radiology Impression Head/Neck CTA 12/24/24 16:00 IMPRESSION: 1. No acute intracranial abnormality. Senescent changes. If there is persistent clinical concern for acute ischemia, MRI is most sensitive. 2. No large vessel high-grade stenosis, occlusion or aneurysm. One or more dose reduction techniques were used (e.g., Automated exposure control, adjustment of the mA and/or kV according to patient size, use of iterative reconstruction technique). [facility] Chest X-Ray 12/24/24 16:05 IMPRESSION: No acute airspace abnormality. Reading Location: [facility] Assessment & Plan Assessment/Plan (1) Anemia: PLAN: 1. Dizziness and anemia 2/2 anemia suspected due to blood loss due to duodenal ulcer - 5 days ago he came to the ER with abdominal pain, had CT abdomen with duodenal ulcer but Hgb of 11.5, now representing with daily midepigrastric pain, nausea, vomiting, only tolerating liquids, black stools, worsening weakness and dizziness with ambulation and falling at home. On exam some tenderness at the midepigastric region. Pt already on carafate and protonix but not improving. Pt taking eliquis for afib and hx dvt. Hold eliquis. Start protonix drip, iv fluids, Zofran prn. NPO except clear liquids. Consult GI. 2. right shoulder pain with recent falls - shoulder xray ordered at this time 3. hx Afib - rate irregular but controlled on exam, hold eliquis 2/2 above. 4. Hx CAD prior CABG and stents x 4 - pt of [facility] 5. Hx Prostate cancer s/p prostatectomy - follows Dr. Simeon urology 6. suspected dementia - pt a/ox2 at this time (person, time), per this has been worsening over about 5 weeks. 7. Hx dvt as above eliquis held DVT ppx: scd's, chemoppx contraindicated CODE status : discussed with pt and , pt wishes to remain full code at this time This patient was seen by Ayan Chris PA-C under the supervision of Doctor Paz.
[2024-12-24 18:53] LABS: Red Blood Cells-Urine 0-5 SEEN /hpf (0-5); White Blood Cells 0-5 SEEN /hpf (0-5)
[2024-12-24 18:54] LABS: Bacteria RARE /hpf (None Seen)
[2024-12-24 19:08] LABS: Troponin T High Sens 2 HR 20 ng/L (<=22)
--- NOTE | 2024-12-24 19:50 | RAD_ITS ---
PROCEDURE: Right shoulder radiographs REASON FOR EXAM: Pain TECHNIQUE: Four views of the right shoulder COMPARISON: None. FINDINGS: See impression RAD/Shoulder min 2 Views IMPRESSION: Negative for acute fracture or dislocation. High-riding humeral head which cou ld relate to underlying rotator cuff tear. Mild glenohumeral and acromioclavicular joint osteoarthritis. Reading Location: [facility]
--- NOTE | 2024-12-24 19:56 | CM.ED ---
Social Work SW entered room, introduced self and role at hospital. Patients and KATHERINE were also in room. Patient was thankful he was being admitted, stating he has felt sick for some time. KATHERINE asked to speak to SW in hallway. KATHERINE stated that he had received a call from APS and was concerned that APS worker would not know how to find patient since he was in the hospital. SW reassured KATHERINE that she would would be informed of his admission. KATHERINE stated he was thankful APS was involved as he was concerned about his sisters safety and did not feel patient was able to remain at home. KATHERINE stated that patient has been verbally aggressive with and physically aggressive one time that he was aware of. KATHERINE also stated the he feels that patients cognition is impaired, stating that he recently showed up at his home at 4:00am looking for his . SW was able to speak with patients privately. told SW that patient is incredibly demanding and she is having a hard time taking care of him. SW discussed patient being admitted to a SNF, stated it was a very hard decision for her but she does believe it would be the right decision. Angelica Mendoza, ACT ENGLISH TUTOR, MIXER OPERATOR [employer]
[2024-12-24] MEDS: Pantoprazole Sodium 80 MG in 0.9% Normal Saline (100mL Bag) 80 ML 10 MG CONT INF (21:05)
[2024-12-24] MEDS: Lactated Ringers 1,000 ML 70 ML IV (21:07)
[2024-12-24] MEDS: Rosuvastatin 20 MG Tablet PO (21:08)
[2024-12-24 21:12] LABS: Ferritin 173 ng/mL (37-417)
[2024-12-24 21:20] LABS: Iron 50 ug/dL (65-175); Iron Binding Capacity,Unsat 137 ug/dL (228-428)
[2024-12-24 21:50] LABS: Iron Binding Capacity,Total 187 ug/dL (250-450)
[2024-12-24 22:51] LABS: Hematocrit 20.5 % (40-54); Hemoglobin 6.8 g/dL (13.0-16.5); Platelet Count 212 K/mm3 (150-450); RET-HE 35.7 pg (30-35); Reticulocyte Count 3.94 % (0.5-1.5)
[2024-12-24 23:02] LABS: Troponin T High Sens 4 HR 20 ng/L (<=22)
[2024-12-25] VITALS (10 sets, daily range): BP systolic 90–108; BP diastolic 50–67; PULSE 75–81; RESP 16–18; TEMP 36.4–36.9; O2SAT 97–100; BMI 17.8
--- NOTE | 2024-12-25 01:08 | MDS.RN ---
this nurse called patients brother in law to get further consent for blood products for patient. Brother inlaw oked consent for patient to have blood . Patient signed consent for blood but is confused at times. This nurse attempted to call patients , but it went straight to voicemail with no answer.
[2024-12-25] MEDS: Pantoprazole Sodium 80 MG in 0.9% Normal Saline (100mL Bag) 80 ML 10 MG CONT INF ×2 (07:02→16:16)
[2024-12-25 08:42] LABS: Absolute Lymphocyte Count 1.27 X10^3/uL (0.83-4.51); Absolute Neutrophil Count 4.5 X10^3/uL (2.0-7.7); Basophil# 0.02 X10^3/uL; Basophil% 0.3 % (0-1); Eosinophil# 0.07 X10^3/uL; Eosinophils% 1.1 % (0-5); Hematocrit 24.7 % (40-54); Hemoglobin 8.1 g/dL (13.0-16.5); Lymphocyte # 1.27 X10^3/ul (0.83-4.51); Lymphocyte % 19.4 % (19-41); Mean Corp Hgb Conc 32.8 g/dL (32-36); Mean Corpuscular Hgb 31.5 pg (27.0-32.0); Mean Corpuscular Volume 96.1 fL (80-94); Mean Platelet Vol. 9.7 fl (6.2-12.0); Monocyte% 9.2 % (0-10); NRBC Flagged by Analyzer 0 % (0-5); Neutrophil # 4.48 X10^3/uL (2.7-7.7); Neutrophil % 68.3 % (47-70); Platelet Count 190 K/mm3 (150-450); RBC Distribution Width CV 17.4 % (11.6-14.6); RBC Distribution Width SD 60.8 fl (35.1-43.9); Red Blood Count 2.57 M/mm3 (4.6-6.2); White Blood Count 6.6 K/mm3 (4.4-11.0)
--- NOTE | 2024-12-25 09:09 | PCM.PN.HOSP ---
Reason for Visit Reason for Visit: Diagnoses Anemia, unspecified (12/24/24) Subjective Subjective Patient sitting up in bed, reports that the only thing that makes his stomach feel better is water so he is not been eating and drinking well, reports he does not have frequent bowel movements because he does not eat but when he does they are very dark, not presently feeling nauseous Objective Data Objective Data Vital Signs: Vital Signs Temp Pulse Resp BP Pulse Ox O2 Del Method 98.5 F 77 16 99/57 L 97 Room Air 12/25/24 06:20 12/25/24 06:20 12/25/24 06:20 12/25/24 06:20 12/25/24 06:20 12/25/24 06:20 Oxygen Delivery Method Room Air Weight: 59.6 kg Body Mass Index (BMI) 17.8 Intake & Output: Intake and Output for Last 24 Hours 12/23/24 12/24/24 12/25/24 23:59 23:59 23:59 Intake Total 35 / 35 599.5 / 599.5 Output Total 300 / 300 Balance 35 / 35 299.5 / 299.5 Lab / Micro Data 12/25/24 08:24 12/25/24 08:24 Labs: Laboratory Results - last 24 hr 12/24/24 14:38: WBC 9.1, RBC 2.42 L, Hgb 8.2 L, Hct 24.9 L, MCV 102.9 H, MCH 33.9 H, MCHC 32.9, RDW Std Deviation 55.2 H, RDW Coeff of Dami 14.7 H, Plt Count 237, MPV 10.2, Immature Gran % (Auto) 1.000 H, Neut % (Auto) 80.4 H, Lymph % (Auto) 12.3 L, Bertie % (Auto) 6.1, Eos % (Auto) 0.0, Baso % (Auto) 0.2, Absolute Neuts (auto) 7.3, Absolute Lymphs (auto) 1.12, Nucleated RBC % 0, PT Cancelled, INR Cancelled, APTT Cancelled, Sodium 135, Potassium 4.1, Chloride 101, Carbon Dioxide 14.6 L, Anion Gap 19 H, BUN 40 H, Creatinine 1.13, Estim Creat Clear Calc 42.66 L, Est GFR (MDRD) Non-Af 64, BUN/Creatinine Ratio 35.8 H, Glucose 181 H, Calcium 8.7, Troponin T High Sens 22 12/24/24 16:27: PT 15.8 H, INR 1.2, APTT 26.1 12/24/24 18:09: Urine Color Yellow, Urine Clarity Clear, Urine pH 5.0, Ur Specific [place] 1.010, Urine Protein 15 H, Urine Glucose (UA) Normal, Urine Ketones 15 H, Urine Occult Blood Negative, Urine Nitrite Negative, Urine Bilirubin 1 H, Urine Urobilinogen 1 H, Ur Leukocyte Esterase Negative, Urine RBC 0-5 SEEN, Urine WBC 0-5 SEEN, Ur Squamous Epith Cells 0 SEEN, Urine Bacteria RARE, Urine Mucus 0 SEEN 12/24/24 18:33: Iron 50 L, TIBC 187 L, Iron Saturation 27.0, Unsaturated IBC 137 L, Ferritin 173, Troponin T Hi Sens 2 Hr 20 12/24/24 22:13: Hgb 6.8 L, Hct 20.5 L, Retic Count 3.94 H, Immature Retic Fraction 39.40 H, Retic Hgb Equivalent 35.7 H, Troponin T Hi Sens 4Hr 20, Blood Type A POSITIVE, Antibody Screen NEGATIVE, Crossmatch See Detail 12/25/24 08:24: WBC 6.6, RBC 2.57 L, Hgb Cancelled 12/25/24 08:24: Hgb 8.1 L, Hct Cancelled 12/25/24 08:24: Hct 24.7 L, MCV 96.1 H D, MCH 31.5, MCHC 32.8, RDW Std Deviation 60.8 H, RDW Coeff of Dami 17.4 H, Plt Count 190, MPV 9.7, Immature Gran % (Auto) 1.700 H, Neut % (Auto) 68.3, Lymph % (Auto) 19.4, Bertie % (Auto) 9.2, Eos % (Auto) 1.1, Baso % (Auto) 0.3, Absolute Neuts (auto) 4.5, Absolute Lymphs (auto) 1.27, Nucleated RBC % 0, Diff Path Review Cancelled Micro: Microbiology 12/24/24 Unknown Stool Stool Occult Blood (NATHALY) - Final Radiography Diagnostic Testing: Radiology Impression Head/Neck CTA 12/24/24 16:00 IMPRESSION: 1. No acute intracranial abnormality. Senescent changes. If there is persistent clinical concern for acute ischemia, MRI is most sensitive. 2. No large vessel high-grade stenosis, occlusion or aneurysm. One or more dose reduction techniques were used (e.g., Automated exposure control, adjustment of the mA and/or kV according to patient size, use of iterative reconstruction technique). Reading Location: [facility] Chest X-Ray 12/24/24 16:05 IMPRESSION: No acute airspace abnormality. [facility] Should[facility] 12/24/24 19:50 IMPRESSION: Negative for acute fracture or dislocation. High-riding humeral head which could relate to underlying rotator cuff tear. Mild glenohumeral and acromioclavicular joint osteoarthritis. Reading Location: [facility] Physical Exam Narrative General: Alert, answers most questions appropriately, did think he was in [place] initially but knew the year, no apparent distress HEENT: Atraumatic, normocephalic Eyes: Anicteric, normal conjunctiva, extraocular movements grossly intact Neck: Supple Respiratory: Clear to auscultation bilaterally, normal respiratory effort Cardiovascular: Regular rate GI: Soft, nontender, nondistended Extremities: No edema Musculoskeletal: Moving all extremities Neuro: No overt focal neurological deficits Skin: No rashes appreciated Psych: Cooperative Assessment & Plan Assessment/Plan (1) Anemia: PLAN: Plan # Dizziness and acute on chronic anemia suspected due to GI bleed -Hemoglobin down trended to 6.8, patient transfused -Patient previously noted to have duodenal ulcer and was on Protonix and Carafate, he continues to have epigastric abdominal pain and is having black stools -He has progressive weakness and dizziness -Patient IV PPI -Patient n.p.o. -GI consulted #Hx of afib and PE -Patient on Eliquis at home, this has been held -Metoprolol with holding parameters #DVT ppx: SCDs Jessica Julio MD Time spent in the patient's overall evaluation, decision-making process, review of diagnostic data, adjustment of management, discussion with other providers, nursing and ancillary staff involved in patient's care documentation, 35 Minutes Charges/Coding Visit Charges Inpatient E&M: 82521 Subs Hosp L2
[2024-12-25] MEDS: Metoprolol(XL)Succ 25 MG Tablet 12.5 MG PO (09:12)
[2024-12-25] MEDS: Tolterodine Tartrate 2 MG CAP.SA PO (09:12)
[2024-12-25 09:35] LABS: Magnesium 2.1 mg/dL (1.5-2.2); Phosphorus 2.6 mg/dL (2.7-4.5)
[2024-12-25 10:02] LABS: ALB/GLOB Ratio 1.4 RATIO (0.9-2.4); AST(SGOT) 16 U/L (<=37); Alanine Aminotransfer ALT/SGPT 8 U/L (<=46); Albumin, Serum 2.8 g/dL (3.4-4.8); Alkaline Phosphatase 52 U/L (40-129); Anion Gap 11 (5-15); BUN 35 mg/dL (4-19); BUN/Creat Ratio 38.2 RATIO (10-20); Calcium,Total 7.9 mg/dL (7.6-11.0); Carbon Dioxide 19.6 mmol/L (21.0-32.0); Chloride 108 mmol/L (98-108); Creatinine, Serum 0.92 mg/dL (0.70-1.20); EST Glomerular Filtration Rate 82 (>60); Estimated Creatinine Clearance 49.49 ml/min (50-250); Globulin 2.1 g/dL (2.2-4.2); Glucose 87 mg/dL (70-99); Potassium 3.7 mmol/L (3.3-5.1); Protein, Total 4.9 g/dL (5.9-8.4); Sodium Level 139 mmol/L (133-145); Total Bilirubin 1.01 mg/dL (0.00-1.30)
[2024-12-25] MEDS: Lactated Ringers 1,000 ML 70 ML IV (10:44)
--- NOTE | 2024-12-25 12:51 | CM.ED ---
Social Work Robert from [facility] was notified that patient was admitted to the hospital at this time and likely discharging to a SNF. Angelica Mendoza,GRAD INTERN, LICENSED HOME INSPECTOR
[2024-12-25 13:48] LABS: Hematocrit 24.6 % (40-54)
--- NOTE | 2024-12-25 16:30 | CHAPLAIN ---
Type of Pastoral Visit ___ Initial Visit ___ Follow-up Visit ___ On-call Visit ___ General Patient Visit ___ Spiritual Assessment ___ Family Conference ___ Bereavement ___ Rapid Response ___ Code Blue ___ Other (describe below) Pastoral Care Referral From ___ Patient ___ Family ___ Nurse ___ Physician ___ Slitting Machine Operator Helper ___ [employer] Professional ___ Other (describe below) Sacrament/Intervention ___ Active listening ___ Anointing ___ Religious ___ Bereavement ___ Communion ___ Genny exploration ___ ___ Life review ___ Prayer ___ Reconciliation ___ Sacrament of Sick ___ Supportive presence ___ Wedding ___ Other (describe below) Pastoral Comments cra was sleeping and was not disturbed
--- NOTE | 2024-12-25 18:22 | PN_ITS ---
Progress Note Patient was supposed to undergo an upper endoscopy today. However there are 3 surgical emergencies so it might have to wait until the morning. Visit Charges Inpatient E&M: 19817 [facility] Hosp L1
[2024-12-25] MEDS: Na Biphos/Potassium Phosphate PACKET 1 PACKET PO (18:30)
[2024-12-25 20:18] LABS: Hematocrit 23.9 % (40-54)
[2024-12-25] MEDS: Rosuvastatin 20 MG Tablet PO (21:33)
[2024-12-26] VITALS (20 sets, daily range): BP systolic 76–115; BP diastolic 43–73; PULSE 58–95; RESP 16–18; TEMP 36.2–37.2; O2SAT 93–100; BMI 18.9
[2024-12-26] MEDS: Pantoprazole Sodium 80 MG in 0.9% Normal Saline (100mL Bag) 80 ML 10 MG CONT INF ×3 (02:10→23:38)
[2024-12-26 03:51] LABS: Absolute Neutrophil Count 4.6 X10^3/uL (2.0-7.7); Basophil# 0.01 X10^3/uL; Basophil% 0.2 % (0-1); Eosinophil# 0.04 X10^3/uL; Eosinophils% 0.7 % (0-5); Hematocrit 23.2 % (40-54); Hemoglobin 7.6 g/dL (13.0-16.5); Lymphocyte % 9.1 % (19-41); Mean Corp Hgb Conc 32.8 g/dL (32-36); Mean Corpuscular Hgb 32.3 pg (27.0-32.0); Mean Corpuscular Volume 98.7 fL (80-94); Mean Platelet Vol. 10.2 fl (6.2-12.0); Monocyte# 0.26 X10^3/uL; Monocyte% 4.7 % (0-10); NRBC Flagged by Analyzer 1.1 % (0-5); Neutrophil # 4.57 X10^3/uL (2.7-7.7); Neutrophil % 83.3 % (47-70); POSITIVE DIFFERENTIAL YES; POSITIVE MORPHOLOGY YES; Platelet Count 186 K/mm3 (150-450); RBC Distribution Width CV 18.6 % (11.6-14.6); Red Blood Count 2.35 M/mm3 (4.6-6.2); White Blood Count 5.5 K/mm3 (4.4-11.0)
[2024-12-26 04:08] LABS: Partial Thromboplast Time 26.6 Seconds (24.1-36.2)
[2024-12-26 04:12] LABS: International Normalized Ratio 1.1; Prothrombin Time (Protime)PT. 14.5 SECONDS (11.7-14.9)
[2024-12-26 04:41] LABS: Anion Gap 10 (5-15); BUN 31 mg/dL (4-19); BUN/Creat Ratio 37.9 RATIO (10-20); Calcium,Total 7.8 mg/dL (7.6-11.0); Carbon Dioxide 18.3 mmol/L (21.0-32.0); Chloride 108 mmol/L (98-108); Creatinine, Serum 0.82 mg/dL (0.70-1.20); EST Glomerular Filtration Rate 86 (>60); Estimated Creatinine Clearance 59.06 ml/min (50-250); Glucose 87 mg/dL (70-99); Phosphorus 2.8 mg/dL (2.7-4.5); Potassium 3.6 mmol/L (3.3-5.1); Sodium Level 136 mmol/L (133-145)
[2024-12-26 05:05] LABS: Differential Indicated SCAN CRITERIA MET
[2024-12-26 05:09] LABS: Anisocytosis 2+; Differential Comment SCANNED; Microcytosis 1+
[2024-12-26 05:10] LABS: Macrocytosis RARE; Red Cell Morphology N CHROM NORMAL (NORM C&C)
[2024-12-26 05:19] LABS: AST(SGOT) 19 U/L (<=37); Alanine Aminotransfer ALT/SGPT 7 U/L (<=46)
--- NOTE | 2024-12-26 09:50 | PCM.PN.HOSP ---
Reason for Visit Reason for Visit: Diagnoses Anemia, unspecified (12/24/24) Subjective Subjective Patient resting comfortably in bed, denies any nausea or abdominal pain, discussed with nurse, no bloody bowel movements appreciated Objective Data Objective Data Vital Signs: Vital Signs Temp Pulse Resp BP Pulse Ox O2 Del Method 97.5 F L 95 18 83/69 L 95 Room Air 12/26/24 09:18 12/26/24 09:18 12/26/24 09:18 12/26/24 09:18 12/26/24 09:18 12/26/24 09:24 Oxygen Delivery Method Room Air Weight: 63.4 kg Body Mass Index (BMI) 18.9 Intake & Output: Intake and Output for Last 24 Hours 12/24/24 12/25/24 12/26/24 23:59 23:59 23:59 Intake Total 1845.00 / 1845.00 1099 / 1099 Output Total 600 / 600 Balance 35 35 1245.00 / 1245.00 1099 / 1099 Lab / Micro Data 12/26/24 03:30 12/26/24 03:30 Labs: Laboratory Results - last 24 hr 12/25/24 08:24: Sodium 139, Potassium 3.7, Chloride 108, Carbon Dioxide 19.6 L, Anion Gap 11, BUN 35 H, Creatinine 0.92, Estim Creat Clear Calc 49.49 L, Est GFR (MDRD) Non-Af 82, BUN/Creatinine Ratio 38.2 H, Glucose 87, Calcium 7.9, Total Bilirubin 1.01, AST 16, ALT 8, Alkaline Phosphatase 52, Total Protein 4.9 L, Albumin 2.8 L, Globulin 2.1 L, Albumin/Globulin Ratio 1.4 12/25/24 13:40: Hgb 8.0 L, Hct 24.6 L 12/25/24 20:05: Hgb 8.0 L, Hct 23.9 L 12/26/24 03:30: WBC 5.5, RBC 2.35 L, Hgb 7.6 L, Hct 23.2 L, MCV 98.7 H, MCH 32.3 H, MCHC 32.8, RDW Std Deviation 66.0 H, RDW Coeff of Dami 18.6 H, Plt Count 186, MPV 10.2, Immature Gran % (Auto) 2.000 H, Neut % (Auto) 83.3 H, Lymph % (Auto) 9.1 L, [place] % (Auto) 4.7, Eos % (Auto) 0.7, Baso % (Auto) 0.2, Absolute Neuts (auto) 4.6, Absolute Lymphs (auto) 0.50 L, Nucleated RBC % 1.1, Differential Comment SCANNED, RBC Morphology N CHROM, Anisocytosis 2+, Microcytosis 1+, Macrocytosis RARE, PT 14.5, INR 1.1, APTT 26.6, Sodium 136, Potassium 3.6, Chloride 108, Carbon Dioxide 18.3 L, Anion Gap 10, BUN 31 H, Creatinine 0.82, Estim Creat Clear Calc 59.06, Est GFR (MDRD) Non-Af 86, BUN/Creatinine Ratio 37.9 H, Glucose 87, Calcium 7.8, Phosphorus 2.8, AST 19, ALT 7 Micro: Microbiology 12/24/24 Unknown Stool Stool Occult Blood (NATHALY) - Final Physical Exam Narrative General: Resting comfortably, wakes up and attempts to answer questions HEENT: Atraumatic Eyes: Resting with eyes closed Neck: Supple Respiratory: normal respiratory effort Cardiovascular: no edema appreciated GI: Nontender Extremities: Moving all extremities Neuro: No overt focal neurological deficits Psych: Cooperative Assessment & Plan Assessment/Plan (1) Anemia: PLAN: Plan # Dizziness and acute on chronic anemia suspected due to GI bleed -Hemoglobin down trended to 6.8, patient transfused -Patient previously noted to have duodenal ulcer and was on Protonix and Carafate, he continues to have epigastric abdominal pain and is having black stools -He has progressive weakness and dizziness -Patient IV PPI -Patient n.p.o. -GI consulted -12/26: Continue PPI, hemoglobin slightly down trended since transfusion but has been fairly stable and no profound blood loss appreciated, awaiting upper endoscopy for further management #Hx of afib and PE -Patient on Eliquis at home, this has been held -Metoprolol with holding parameters -12/26: Will need to be resumed soon as cleared to do so with GI #DVT ppx: SCDs Jessica Julio MD Time spent in the patient's overall evaluation, decision-making process, review of diagnostic data, adjustment of management, discussion with other providers, nursing and ancillary staff involved in patient's care documentation, 35 Minutes Charges/Coding Visit Charges Inpatient E&M: 33971 Subs Hosp L2
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
--- NOTE | 2024-12-26 12:34 | CASEMGMT ---
Discharge Planning A list of?SNF providers including quality and resource use data and consistent with the patient's preferred geographic region, medical needs, and insurance network was created in [employer] Guide.? This list was provided to the SW. Екатерина Han Discharge Planning Asst.
--- NOTE | 2024-12-26 14:00 | PCM.PRE.AN2 ---
ASA Classification* ASA Classification ASA Classification: 3 and E Assessment & Plan Anesthesia* Anesthesia Assessment Anesthesia Assessment: Discussed sedation and/or anesthesia options, risks, benefits, and alternatives with patient/parents/legal guardian/POA. Questions invited. The patient/parents/legal guardian/POA seems to understand and agrees to proceed with anesthesia plan. Reviewed the physical assessment, medical history, allergy history and patient home medications list prior to surgery/procedure/anesthetic and documented any changes. Performed airway and anesthesia risk assessments. Anesthesia Type Anesthesia Type: MAC Anesthesia Focused Assessment* Temperature: 97.8 F Pulse Rate: 67 Blood Pressure: 90/60 Respiratory Rate: 18 Pulse Ox: 96 Airway Assessment Mouth opens: >3 cm Mallampati Score: II Focused Labs Anesthesia Preop lab: CBC WBC 5.5 K/mm3 (4.4-11.0) 12/26/24 03:30 12/26/24 RBC 2.35 M/mm3 (4.6-6.2) L 12/26/24 03:30 12/26/24 Hgb 7.6 g/dL (13.0-16.5) L 12/26/24 03:30 12/26/24 Hct 23.2 % (40-54) L 12/26/24 03:30 12/26/24 Plt Count 186 K/mm3 (150-450) 12/26/24 03:30 12/26/24 CHEMISTRY Potassium 3.6 mmol/L (3.3-5.1) 12/26/24 03:30 12/26/24 Sodium 136 mmol/L (133-145) 12/26/24 03:30 12/26/24 Magnesium 2.1 mg/dL (1.5-2.2) 12/25/24 08:24 12/25/24 Phosphorus 2.8 mg/dL (2.7-4.5) 12/26/24 03:30 12/26/24 BUN 31 mg/dL (4-19) H 12/26/24 03:30 12/26/24 Creatinine 0.82 mg/dL (0.70-1.20) 12/26/24 03:30 12/26/24 Glucose 87 mg/dL (70-99) 12/26/24 03:30 12/26/24 TSH 1.600 uIU/mL (0.358-3.740) 10/13/24 02:11 10/13/24 COAG PT 14.5 SECONDS (11.7-14.9) 12/26/24 03:30 12/26/24 Pre-Assessment Diagnosis/Proposed Procedure Planned Operative Procedure(s): EGD Anesthesia History Anesthesia History - wrapper selector: Anesthesia History - wrapper selector Hx Hospitalization Yes 04/02/23 12:34 Any Problems With Anesthesia No 04/02/23 12:34 Cholinesterase deficiency No 04/02/23 12:34 You/Your Family Experience No 04/02/23 12:34 fever (hyperthermia) with Relationship Recent Exposure to Contagious No 04/02/23 12:34 Disease Does patient have nerve No 04/02/23 12:34 stimulator Patient instructed to have device shut off --Does patient have Pacemaker or ICD? When Was Last Pacemaker Check QUESTION #4 FULL TEXT: You/Your Family Experience fever (hyperthermia) with Anesthesia Last Oral Intake Last Oral intake: Last Oral Intake NPO since Meds taken in AM with sips of water? Meds patient instructed to take am of surgery PONV PONV - wrapper selector: PONV - wrapper selector Female HX of Motion Sickness HX of N/V After Surgery Non-Smoker Duration of Surgery greater than 60 minutes Number of Risk Factors PONV Score Height & Weight Height & Weight: Anesthesia: Height & Weight Height 6 ft 12/25/24 15:29 Weight: 63.4 kg 12/26/24 03:46 Body Mass Index (BMI) 18.9 12/26/24 03:46 Respiratory Assessment Respiratory Assessment - wrapper selector: Respiratory Tract Infection Hx - wrapper selector Hx Respiratory Tract Infection No 04/02/23 12:34 STOP Sleep Apnea STOP Sleep Apnea - wrapper selector: STOP Sleep Apnea - wrapper selector Hx Hypertension Yes: on med bp controlled 12/25/24 15:41 Hx Sleep Apnea No 12/24/24 19:13 CPAP BIPAP Do you snore loudly (louder No 12/24/24 19:13 than talking or can be heard Do you often feel tired/ Yes 12/24/24 19:13 fatigued/ sleepy during daytime? Has anyone observed you stop No 12/24/24 19:13 breathing during sleep? STOP Results Positive 12/24/24 19:13 QUESTION #5 FULL TEXT : Do you snore loudly (louder than talking or can be heard through closed doors)? 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 Specify any problems Hx of Preganancy in last 3 N/A 12/24/24 19:13 Months Nurse Filling Out Transfusion FSTEINER 12/24/24 19:13 & Questions: Date: 12/24/24 12/24/24 19:13 Time: 19:15 12/24/24 19:13 Patient unable to answer at this time (ie. confused, unrespo /Reproduction History /Reproductive History - wrapper selector: /Reproductive Hx- wrapper selector Hx Now Gestational Age (in weeks): EDC: Hx Hx Para Hx Section SAB Active Medications Active Medications: Current Medications Generic Name Dose Route Start Last Admin Trade Name Freq PRN Reason Stop Dose Admin Acetaminophen 650 mg 12/24/24 19:46 Acetaminophen 325 Mg Tablet PO Q6H PRN PRN Pain 1-10 Or Fever>100.7 Albuterol Sulfate 2.5 mg 12/24/24 19:46 Albuterol 2.5 Mg/3 Ml Vial.Neb. INHALATION Q2H PRN PRN SOB &/OR WHEEZING Pantoprazole Sodium 80 mg/ 100 mls @ 10 mls/hr 12/24/24 18:15 12/26/24 11:17 Sodium Chloride CONT INF 10 mls/hr Q10H ABNER Administration Sodium Chloride 1,000 mls @ 50 mls/hr 12/26/24 12:30 IV 12/26/24 22:29 .Q20H ABNER Melatonin 3 mg 12/24/24 19:46 Melatonin 3 Mg Tablet PO QHS PRN PRN INSOMNIA Metoprolol Succinate 12.5 mg 12/25/24 10:00 12/26/24 09:23 Metoprolol(Xl)Succ 25 Mg Tablet PO Not Given DAILY [facility] Protocol Ondansetron HCl 4 mg 12/24/24 19:46 Ondansetron 4 Mg/2 Ml Vial IV Q8H PRN PRN NAUSEA/VOMITING Prochlorperazine Edisylate 5 mg 12/24/24 19:46 Prochlorperazine 10 Mg/2 Ml Vial IV Q4H PRN PRN Breakthrough Nausea/Vomiting Rosuvastatin Calcium 20 mg 12/26/24 22:00 Rosuvastatin 20 Mg Tablet PO QHS [facility] Senna/Docusate Sodium 2 tablet 12/24/24 19:46 Senna/Docusate Sodium 1 Tablet PO BID PRN PRN Constipation Tolterodine Tartrate 2 mg 12/25/24 10:00 12/26/24 09:23 Tolterodine Tartrate 2 Mg Cap.Sa PO Not Given DAILY [facility] Medical History Rheumatoid arthritis Non-smoker Asthma Atrial fibrillation Neck pain on right side Essential (primary) hypertension Gynecomastia, male Bony sclerosis History of prostate cancer History of fractured pelvis Kidney stones BPH (benign prostatic hyperplasia) GERD (gastroesophageal reflux disease) DVT (deep venous thrombosis) Hyperlipidemia Atherosclerotic heart disease of [place] coronary artery without angina pectoris Prostate cancer Home Medications ?Medication ?Instructions ?Recorded ?Last Taken ?Type nitroglycerin 0.4 mg sublingual 0.4 mg sublingual Q5M PRN Chest 09/22/14 Unknown History tablet Pain cholecalciferol (vitamin D3) 25 2,000 unit PO QDAY 10/26/17 Unknown History mcg (1,000 unit) capsule rosuvastatin 20 mg tablet 20 mg PO QHS #90 tabs 06/25/24 Unknown Rx apixaban 5 mg tablet (Eliquis) 5 mg PO BID #74 tabs 10/14/24 Unknown Rx ondansetron 4 mg disintegrating 4 mg PO Q8H PRN PRN Nausea #10 tabs 10/20/24 Unknown Rx tablet sucralfate 1 gram tablet 1 g PO QACHS #56 tabs 10/30/24 Unknown Rx ondansetron 4 mg disintegrating 4 mg PO Q8H PRN PRN Nausea #10 tabs 12/19/24 Unknown Rx tablet sucralfate 1 gram tablet (Carafate) 1 g PO BID #20 tabs 12/19/24 Unknown Rx pantoprazole 20 mg tablet,delayed 20 mg PO BID 12/24/24 Unknown History release Allergy/AdvReac Type Severity Reaction Status Date / Time povidone-iodine Allergy Mild Rash Verified 12/24/24 14:49 atorvastatin (From Lipitor) AdvReac Intermediate Myalgias Verified 12/24/24 14:49 simvastatin (From Zocor) AdvReac Intermediate Myalgias Verified 12/24/24 14:49 Family History Father , age 64 CAD (coronary artery disease) Myocardial infarction Sudden cardiac Asthma Heart disease Hypertension Mother , Age 67 Cancer Brother CAD (coronary artery disease) Sister CAD (coronary artery disease) Colon cancer Surgical History History of appendectomy H/O coronary artery bypass surgery (11/11/97) History of coronary artery stent placement (10/01/14) H/O right mastectomy Social History household members: spouse Smoking Status: Never smoker alcohol intake: never substance use type: does not use Review of Systems (Anesthesia) ROS Narrative System reviewed and no additional complaints, except as documented.
--- NOTE | 2024-12-26 14:12 | PCM.PN.BLA ---
Progress Note Patient will undergo upper endoscopy today to evaluate his CT abnormalities. His blood count is down to 7.6. Physical Exam Narrative General: Resting comfortably, wakes up and attempts to answer questions HEENT: Atraumatic Eyes: Resting with eyes closed Neck: Supple Respiratory: normal respiratory effort Cardiovascular: no edema appreciated GI: Nontender Extremities: Moving all extremities Neuro: No overt focal neurological deficits Psych: Cooperative Assessment & Plan Assessment/Plan (1) Anemia: PLAN: Plan 84-year-old with multiple comorbidities including CAD, atrial fibrillation, CABG previously on Eliquis with progressive weight loss and suspected GI bleed due to duodenal ulcer. Patient will undergo an upper endoscopy. He was explained alternatives, risk and benefits include not withstanding bleeding, infection, subsequent perforation, need for return to . He will have an ASA of 3. Visit Charges Inpatient E&M: 60531 Subs Hosp L2
[2024-12-26] MEDS: Epinephrine (1 mg/ml) 1 MG/ML VIAL (14:37)
[2024-12-26] MEDS: 0.9% Normal Saline (Pres. free 10 ML Vial (14:37)
--- NOTE | 2024-12-26 14:49 | PCM.POST.ANE ---
Anesthesia: Postop Eval I Current Vital Signs Temperature: 97.7 F Pulse Rate: 68 Blood Pressure: 81/43 Respiratory Rate: 16 Pulse Ox: 100 Oxygen Delivery Method: Venturi Mask Oxygen Flow Rate (L/min): 8 Assessment Airway patent: Yes Spontaneous unlabored respirations: Yes Mental status: Awake nausea: No Vomiting: No Anesthesia Complication: No Fluid Hydration Crystalloid volume administer (ml): 20 Total IV fluid infused: 20 Progress Note Anesthesia document: Postop Eval 1 completed: Yes
--- NOTE | 2024-12-26 14:54 | OP.CCLET_ITS ---
12/26/2024 Nahomi Long [address] [place] [address] Re : Upper GI endoscopy procedure for [place] [address] Dear Dr. Long This procedure was performed on Thursday, December 26, 2024. My impressions and recommendations are as follows: Impressions : - Normal esophagus. - Red blood in the gastric body. - Spurting duodenal ulcer with a visible vessel. Injected. Treated with a heater probe. - No specimens collected. Recommendations : - [facility] to [facility]. - Give Protonix (pantoprazole): initiate therapy with 80 mg IV bolus, then 8 mg/hr IV by continuous infusion today. - Continue present medications. My findings are described in the full procedure note, which is enclosed. If I can be of further assistance, please feel free to contact me at . Sincerely, Dk Machado, 12/26/2024 2:53:42 PM This report has been signed electronically.
--- NOTE | 2024-12-26 14:54 | OP.EGD_ITS ---
Patient Name: Suleiman Mheta Procedure Date: 12/26/2024 1:40 PM Date of : 1940 Age: 84 Procedure: Upper GI endoscopy Indications: Epigastric abdominal pain Providers: Dk Machado DO Medicines: Monitored Anesthesia Care Patient Profile: This is an 84 year old male. Refer to note in patient chart for documentation of history and physical. Patient has symptoms of acute epigastric abdominal pain. Complications: No immediate complications. Procedure: Pre-Anesthesia Assessment: - Prior to the procedure, a History and Physical was performed, and patient medications and allergies were reviewed. The patient is competent. The risks and benefits of the procedure and the sedation options and risks were discussed with the patient. All questions were answered and informed consent was obtained. Patient identification and proposed procedure were verified by the physician in the pre-procedure area. Mental Status Examination: alert and oriented. Airway Examination: normal oropharyngeal airway and neck mobility. Respiratory Examination: clear to auscultation. CV Examination: normal. Prophylactic Antibiotics: The patient does not require prophylactic antibiotics. Prior Anticoagulants: The patient has taken no anticoagulant or antiplatelet agents. ASA Grade Assessment: IV - A patient with severe systemic disease that is a constant threat to life. After reviewing the risks and benefits, the patient was deemed in satisfactory condition to undergo the procedure. The anesthesia plan was to use monitored anesthesia care (MAC). Immediately prior to administration of medications, the patient was re-assessed for adequacy to receive sedatives. The heart rate, respiratory rate, oxygen saturations, blood pressure, adequacy of pulmonary ventilation, and response to care were monitored throughout the procedure. The physical status of the patient was re-assessed after the procedure. After obtaining informed consent, the endoscope was passed under direct vision. Throughout the procedure, the patient's blood pressure, pulse, and oxygen saturations were monitored continuously. The gastroscope was introduced through the mouth, and advanced to the third part of the duodenum. Small bowel enteroscopy was deemed necessary. The upper GI endoscopy was accomplished without difficulty. The patient tolerated the procedure fairly well. Scope In: 2:26:46 PM Scope Out: 2:41:22 PM Total Procedure Duration Time 0 hours 14 minutes 36 seconds Findings: The examined esophagus was normal. Red blood was found in the gastric body. One spurting cratered duodenal ulcer with a visible vessel was found in the first portion of the duodenum. The lesion was 30 mm in largest dimension. Area was successfully injected with 20 mL of a 0.1 mg/mL solution of epinephrine for hemostasis. Estimated blood loss was minimal. Coagulation for hemostasis using heater probe was successful. Estimated blood loss was minimal. Impression: - Normal esophagus. - Red blood in the gastric body. - Spurting duodenal ulcer with a visible vessel. Injected. Treated with a heater probe. - No specimens collected. Recommendation: - [facility]. - Give Protonix (pantoprazole): initiate therapy with 80 mg IV bolus, then 8 mg/hr IV by continuous infusion today. - Continue present medications. Procedure Code(s): --- Professional --- 32011, Small intestinal endoscopy, enteroscopy beyond second portion of duodenum, not including ileum; with control of bleeding (eg, injection, bipolar cautery, unipolar cautery, laser, heater probe, stapler, plasma housekeeper manager) CPT copyright 2021 [employer]. All rights reserved. The codes documented in this report are preliminary and upon dynamometer tester engine review may be revised to meet current compliance requirements. Dk Machado DO 12/26/2024 2:53:42 PM This report has been signed electronically. Number of Addenda: 0 Note Initiated On: 12/26/2024 1:40 PM
--- NOTE | 2024-12-26 15:00 | CASEMGMT ---
SW spoke with patient's via phone and she said she thinks the plan is SNF for patient. SW told patient's SW will leave a list of facilities in patient's room. SW then explained she would need to choose 3-4 preferences and SW will take care of contacting the facilities. Corinna Rodas ACID TREATER ARNOLDO
--- NOTE | 2024-12-26 15:21 | POSTOPAN2_ITS ---
Anesthesia Postop Eval I Sum Postop Eval Completion status Anesthesia document: Postop Eval 1 completed: Yes Anesthesia Postop Eval I Summary Anesthesia Postop Eval I Summary: Anesthesia Postop Eval I: Assessment Summary Airway patent Yes 12/26/24 14:51 [email or web address] Spontaneous unlabored Yes 12/26/24 14:51 [email or web address] respirations Mental status Awake 12/26/24 14:51 [email or web address] nausea No 12/26/24 14:51 [email or web address] Vomiting No 12/26/24 14:51 [email or web address] Anesthesia Postop Eval I: Fluid Summary Crystalloid volume administer 20 12/26/24 14:51 [email or web address] (ml) Colloids volume administered ( ml) Blood Product volume administered (ml) Total IV fluid infused 20 12/26/24 14:51 [email or web address] Anesthesia Postop Eval I: Summary Notes Anesthesia Complication No 12/26/24 14:51 [email or web address] Anesthesia Complication Comment: Post-operative progress note Anesthesia: Postop Eval II Evaluation Mental status: Awake Pain Level: 0 nausea: No Vomiting: No
--- NOTE | 2024-12-26 15:21 | PCM.POSTANE2 ---
Anesthesia Postop Eval I Sum Postop Eval Completion status Anesthesia document: Postop Eval 1 completed: Yes Anesthesia Postop Eval I Summary Anesthesia Postop Eval I Summary: Anesthesia Postop Eval I: Assessment Summary Airway patent Yes 12/26/24 14:51 [email or web address] Spontaneous unlabored Yes 12/26/24 14:51 [email or web address] [email or web address] respirations Mental status Awake 12/26/24 14:51 [email or web address] nausea No 12/26/24 14:51 [email or web address] [email or web address] Vomiting No 12/26/24 14:51 [email or web address] [email or web address] Anesthesia Postop Eval I: Fluid Summary Crystalloid volume administer 20 12/26/24 14:51 [email or web address] (ml) Colloids volume administered ( ml) Blood Product volume administered (ml) Total IV fluid infused 20 12/26/24 14:51 [email or web address] Anesthesia Postop Eval I: Summary Notes Anesthesia Complication No 12/26/24 14:51 [email or web address] Anesthesia Complication Comment: Post-operative progress note Anesthesia: Postop Eval II Evaluation Mental status: Awake Pain Level: 0 nausea: No Vomiting: No
--- NOTE | 2024-12-26 16:06 | CHAPLAIN ---
Type of Pastoral Visit _x__ Initial Visit ___ Follow-up Visit ___ On-call Visit ___ General Patient Visit ___ Spiritual Assessment ___ Family Conference ___ Bereavement ___ Rapid Response ___ Code Blue ___ Other (describe below) Pastoral Care Referral From _x__ Patient ___ Family ___ Nurse ___ Physician ___ Partner Alliance Manager ___ Multiple Drum Sander Helper ___ Other (describe below) Sacrament/Intervention _x__ Active listening ___ Anointing ___ Jew ___ Bereavement ___ Communion ___ Genny exploration ___ ___ Life review _x__ Prayer ___ Reconciliation ___ Sacrament of Sick _x__ Supportive presence ___ Wedding ___ Other (describe below) Pastoral Comments patient is resting quietly in bed and awake; pt welcomes the grain and yeast plants supervisor but states that he is doing fine and has no needs at this time; pt does welcome a prayer and says thanks for the visit
[2024-12-26] MEDS: Acetaminophen 325 MG Tablet 650 MG PO (16:10)
[2024-12-26] MEDS: Rosuvastatin 20 MG Tablet PO (20:45)
[2024-12-26 22:41] LABS: Hematocrit 27.6 % (40-54); Hemoglobin 9.2 g/dL (13.0-16.5)
[2024-12-27 03:00] VITALS: BP 100/58; PULSE 65; RESP 18; TEMP 36.8; O2SAT 98
[2024-12-27 03:18] VITALS: BMI 19.0
[2024-12-27 04:40] LABS: Absolute Lymphocyte Count 0.82 X10^3/uL (0.83-4.51); Absolute Neutrophil Count 7.1 X10^3/uL (2.0-7.7); Basophil# 0.02 X10^3/uL; Basophil% 0.2 % (0-1); Eosinophil# 0.04 X10^3/uL; Eosinophils% 0.5 % (0-5); Hematocrit 28.2 % (40-54); Hemoglobin 9.2 g/dL (13.0-16.5); Lymphocyte # 0.82 X10^3/ul (0.83-4.51); Lymphocyte % 9.5 % (19-41); Mean Corp Hgb Conc 32.6 g/dL (32-36); Mean Corpuscular Hgb 30.4 pg (27.0-32.0); Mean Corpuscular Volume 93.1 fL (80-94); Mean Platelet Vol. 10.3 fl (6.2-12.0); Monocyte# 0.59 X10^3/uL; Monocyte% 6.9 % (0-10); NRBC Flagged by Analyzer 0.3 % (0-5); Neutrophil # 7.07 X10^3/uL (2.7-7.7); Neutrophil % 82.1 % (47-70); POSITIVE MORPHOLOGY YES; Platelet Count 180 K/mm3 (150-450); RBC Distribution Width CV 19.9 % (11.6-14.6); RBC Distribution Width SD 65.4 fl (35.1-43.9); Red Blood Count 3.03 M/mm3 (4.6-6.2); White Blood Count 8.6 K/mm3 (4.4-11.0)
[2024-12-27 05:12] LABS: Differential Indicated SCAN CRITERIA MET
[2024-12-27 05:46] LABS: Anisocytosis 1+; Differential Comment SCANNED; Macrocytosis 1+; Polychromasia RARE
[2024-12-27 05:48] LABS: Other RBC Morphology RARE
[2024-12-27 06:51] LABS: Anion Gap 15 (5-15); BUN 30 mg/dL (4-19); BUN/Creat Ratio 35.8 RATIO (10-20); Calcium,Total 7.7 mg/dL (7.6-11.0); Carbon Dioxide 16.5 mmol/L (21.0-32.0); Chloride 106 mmol/L (98-108); Creatinine, Serum 0.84 mg/dL (0.70-1.20); EST Glomerular Filtration Rate 86 (>60); Estimated Creatinine Clearance 57.84 ml/min (50-250); Glucose 76 mg/dL (70-99); Potassium 3.4 mmol/L (3.3-5.1); Sodium Level 138 mmol/L (133-145)
[2024-12-27 09:00] VITALS: BP 101/65; PULSE 73; RESP 16; TEMP 36.4; O2SAT 100
[2024-12-27 09:22] VITALS: BP 101/65; PULSE 73
[2024-12-27] MEDS: Tolterodine Tartrate 2 MG CAP.SA PO (09:22)
[2024-12-27] MEDS: Metoprolol(XL)Succ 25 MG Tablet 12.5 MG PO (09:22)
[2024-12-27] MEDS: Pantoprazole Sodium 80 MG in 0.9% Normal Saline (100mL Bag) 80 ML 10 MG CONT INF ×2 (10:46→22:05)
--- NOTE | 2024-12-27 12:35 | PCM.PN.HOSP ---
Reason for Visit Reason for Visit: Diagnoses Anemia, unspecified (12/24/24) Subjective Subjective Patient sitting up in bed, more awake and alert, reports he would like to go home, denies any nausea or abdominal pain, patient remains somewhat confused but is more appropriate and answering questions today Objective Data Objective Data Vital Signs: Vital Signs Temp Pulse Resp BP Pulse Ox O2 Del Method O2 Flow Rate 97.6 F L 73 16 101/65 100 Room Air 2 12/27/24 09:00 12/27/24 09:22 12/27/24 09:00 12/27/24 09:22 12/27/24 09:00 12/27/24 09:00 12/26/24 15:15 Oxygen Flow Rate (L/min) 2 Oxygen Delivery Method Room Air Weight: 63.6 kg Body Mass Index (BMI) 19.0 Intake & Output: Intake and Output for Last 24 Hours 12/25/24 12/26/24 12/27/24 23:59 23:59 23:59 Intake Total 1845.00 / 1845.00 1849.17 / 1849.17 500 / 500 Output Total 600 / 600 500 / 500 400 / 400 Balance 1245.00 / 1245.00 1349.17 / 1349.17 100 / 100 Lab / Micro Data 12/27/24 03:58 12/27/24 03:58 Labs: Laboratory Results - last 24 hr 12/24/24 22:13: Crossmatch See Detail 12/26/24 22:33: Hgb 9.2 L, Hct 27.6 L 12/27/24 03:58: WBC 8.6, RBC 3.03 L, Hgb 9.2 L, Hct 28.2 L, MCV 93.1 D, MCH 30.4, MCHC 32.6, RDW Std Deviation 65.4 H, RDW Coeff of Dami 19.9 H, Plt Count 180, MPV 10.3, Immature Gran % (Auto) 0.800, Neut % (Auto) 82.1 H, Lymph % (Auto) 9.5 L, [place] % (Auto) 6.9, Eos % (Auto) 0.5, Baso % (Auto) 0.2, Absolute Neuts (auto) 7.1, Absolute Lymphs (auto) 0.82 L, Nucleated RBC % 0.3, Differential Comment SCANNED, RBC Morphology RARE, Polychromasia RARE, Anisocytosis 1+, Macrocytosis 1+, Sodium 138, Potassium 3.4, Chloride 106, Carbon Dioxide 16.5 L, Anion Gap 15, BUN 30 H, Creatinine 0.84, Estim Creat Clear Calc 57.84, Est GFR (MDRD) Non-Af 86, BUN/Creatinine Ratio 35.8 H, Glucose 76, Calcium 7.7 Micro: Microbiology 12/24/24 Unknown Stool Stool Occult Blood (NATHALY) - Final Physical Exam Narrative General: Alert, little bit confused, no apparent distress HEENT: Atraumatic, normocephalic Eyes: Anicteric, normal conjunctiva, extraocular movements grossly intact Neck: Supple Respiratory: Clear to auscultation bilaterally, normal respiratory effort Cardiovascular: Regular rate and rhythm GI: Soft, nontender, nondistended Extremities: No edema Musculoskeletal: Moving all extremities Neuro: No overt focal neurological deficits Skin: No rashes appreciated Psych: Cooperative Assessment & Plan Assessment/Plan (1) Anemia: PLAN: Plan # Dizziness and acute on chronic anemia secondary to acute upper GI bleed secondary to spurting duodenal ulcer -Hemoglobin down trended to 6.8, patient transfused -Patient previously noted to have duodenal ulcer and was on Protonix and Carafate, he continues to have epigastric abdominal pain and is having black stools -He has progressive weakness and dizziness -Patient IV PPI -Patient n.p.o. -GI consulted -12/26: Continue PPI, hemoglobin slightly down trended since transfusion but has been fairly stable and no profound blood loss appreciated, awaiting upper endoscopy for further management -12/27: Patient with upper endoscopy that revealed spurting duodenal ulcer with significant bleeding, patient treated endoscopically and subsequently transfused 2 units, patient was on clear liquids and was advised to continue PPI drip, discussed with GI and plan today is to advance to full's, advised protein supplementation and will continue Protonix #Hx of afib and PE -Patient on Eliquis at home, this has been held -Metoprolol with holding parameters -12/26: Will need to be resumed soon as cleared to do so with GI -12/27: Patient with significant bleed yesterday with spurting duodenal ulcer, blood pressure still borderline though hemoglobin is stabilizing, will discuss optimal timing of anticoagulation versus alternatives as patient's hospitalization continues, metoprolol as blood pressure and heart rate allows #DVT ppx: SCDs Jessica Julio MD Time spent in the patient's overall evaluation, decision-making process, review of diagnostic data, adjustment of management, discussion with other providers, nursing and ancillary staff involved in patient's care documentation, 37 Minutes Charges/Coding Visit Charges Inpatient E&M: 44931 Subs Hosp L2
[2024-12-27 14:05] VITALS: BP 103/62; PULSE 79; RESP 16; TEMP 36.4; O2SAT 100
--- NOTE | 2024-12-27 16:02 | VDLE_ITS ---
Reason For Study Reason For Study: HX PE RIGHT LEFT GSV appears compressible from SFJ to knee. Unable to GSV is normal. visualize vessel from knee to ankle, PT has HX of CFV is compressible, spontaneous, phasic, competent, CABG. and demonstrates normal augmentation. CFV is compressible, spontaneous, phasic, competent FV is compressible, spontaneous, phasic, competent and demonstrates normal augmentation. and demonstrates normal augmentation. FV is compressible, spontaneous, phasic, competent POP V is compressible, spontaneous, phasic, competent and demonstrates normal augmentation. and demonstrates normal augmentation. POP V is compressible, spontaneous, phasic, competent T/P Trunk is compressible. and demonstrates normal augmentation. PTV is compressible. T/P Trunk is compressible. LT PerV is compressible. PTV is compressible. RT PerV is compressible. Procedure This is a venous duplex using B-mode, color flow and spectral Doppler. Exam performed portable in patient room. The exam was diagnostic. A preliminary report was called and/or faxed to PCU beverage server Amanda. VL/Venous Duplex US - Mauricio Extrem Interpretation Summary Deep veins of the lower extremities are bilaterally patent and compressible seg mentally. There is no evidence of deep vein thrombosis on either side. Valvular competence appears intact within the p roximal deep venous systems bilaterally. The left great saphenous vein appears patent and compressible segmentally. The right great saphenous vein is patent and compressible above the knee, but was not visualized below the knee. Ordering Physician: Jessica Julio Referring Physician: Nahomi Long M.D. Performed By: Antoni Murillo RVT
[2024-12-27] MEDS: MELATONIN 3 MG TABLET PO (19:35)
[2024-12-27] MEDS: Rosuvastatin 20 MG Tablet PO (19:35)
[2024-12-27] MEDS: Acetaminophen 325 MG Tablet 650 MG PO (19:35)
[2024-12-27 19:38] VITALS: BP 121/77; PULSE 81; RESP 16; TEMP 36.4; O2SAT 99
[2024-12-28 02:49] VITALS: BP 99/67; PULSE 75; RESP 16; TEMP 36.2; O2SAT 95
[2024-12-28 03:22] VITALS: BMI 19.4
[2024-12-28 05:56] LABS: Absolute Lymphocyte Count 0.98 X10^3/uL (0.83-4.51); Absolute Neutrophil Count 3.9 X10^3/uL (2.0-7.7); Basophil# 0.01 X10^3/uL; Basophil% 0.2 % (0-1); Eosinophil# 0.11 X10^3/uL; Hematocrit 28.4 % (40-54); Hemoglobin 9.3 g/dL (13.0-16.5); Lymphocyte # 0.98 X10^3/ul (0.83-4.51); Lymphocyte % 17.5 % (19-41); Mean Corp Hgb Conc 32.7 g/dL (32-36); Mean Corpuscular Hgb 30.3 pg (27.0-32.0); Mean Corpuscular Volume 92.5 fL (80-94); Mean Platelet Vol. 9.5 fl (6.2-12.0); Monocyte# 0.56 X10^3/uL; NRBC Flagged by Analyzer 0 % (0-5); Neutrophil % 69.4 % (47-70); Platelet Count 192 K/mm3 (150-450); RBC Distribution Width CV 19.8 % (11.6-14.6); RBC Distribution Width SD 64.9 fl (35.1-43.9); Red Blood Count 3.07 M/mm3 (4.6-6.2); White Blood Count 5.6 K/mm3 (4.4-11.0)
[2024-12-28 06:54] LABS: Anion Gap 11 (5-15); BUN 29 mg/dL (4-19); BUN/Creat Ratio 34.6 RATIO (10-20); Calcium,Total 7.6 mg/dL (7.6-11.0); Carbon Dioxide 19.6 mmol/L (21.0-32.0); Chloride 106 mmol/L (98-108); Creatinine, Serum 0.83 mg/dL (0.70-1.20); EST Glomerular Filtration Rate 86 (>60); Estimated Creatinine Clearance 59.82 ml/min (50-250); Glucose 92 mg/dL (70-99); Sodium Level 137 mmol/L (133-145)
[2024-12-28 09:17] VITALS: BP 97/56; PULSE 75; RESP 16; TEMP 36.5; O2SAT 98
[2024-12-28 09:19] VITALS: BP 97/56
[2024-12-28] MEDS: Tolterodine Tartrate 2 MG CAP.SA PO (09:19)
[2024-12-28] MEDS: Pantoprazole Sodium 80 MG in 0.9% Normal Saline (100mL Bag) 80 ML 10 MG CONT INF ×2 (09:19→21:55)
--- NOTE | 2024-12-28 09:36 | PN.HOSP_ITS ---
Reason for Visit Reason for Visit: Diagnoses Anemia, unspecified (12/24/24) Subjective Subjective Patient feeling better today, stomach is grumbling little bit but he has none of the previous symptoms, no epigastric pain, no nausea, overall improving Objective Data Objective Data Vital Signs: Vital Signs Temp Pulse Resp BP Pulse Ox O2 Del Method O2 Flow Rate 97.7 F L 75 16 97/56 L 98 Room Air 2 12/28/24 09:17 12/28/24 09:17 12/28/24 09:17 12/28/24 09:19 12/28/24 09:17 12/28/24 09:17 12/26/24 15:15 Oxygen Flow Rate (L/min) 2 Oxygen Delivery Method Room Air Weight: 65 kg Body Mass Index (BMI) 19.4 Intake & Output: Intake and Output for Last 24 Hours 12/26/24 12/27/24 12/28/24 23:59 23:59 23:59 Intake Total 1849.17 / 1849.17 600 / 700 200 / 200 Output Total 500 / 500 500 / 600 700 / 700 Balance 1349.17 / 1349.17 100 / 100 -500 / -500 Lab / Micro Data 12/28/24 05:36 12/28/24 05:36 Labs: Laboratory Results - last 24 hr 12/28/24 05:36: WBC 5.6, RBC 3.07 L, Hgb 9.3 L, Hct 28.4 L, MCV 92.5, MCH 30.3, MCHC 32.7, RDW Std Deviation 64.9 H, RDW Coeff of Dami 19.8 H, Plt Count 192, MPV 9.5, Immature Gran % (Auto) 0.900, Neut % (Auto) 69.4, Lymph % (Auto) 17.5 L, [place] % (Auto) 10.0, Eos % (Auto) 2.0, Baso % (Auto) 0.2, Absolute Neuts (auto) 3.9, Absolute Lymphs (auto) 0.98, Nucleated RBC % 0, Sodium 137, Potassium 3.0 L , Chloride 106, Carbon Dioxide 19.6 L, Anion Gap 11, BUN 29 H, Creatinine 0.83, Estim Creat Clear Calc 59.82, Est GFR (MDRD) Non-Af 86, BUN/Creatinine Ratio 34.6 H, Glucose 92, Calcium 7.6 Micro: Microbiology 12/24/24 Unknown Stool Stool Occult Blood (NATHALY) - Final Physical Exam Narrative General: Awake and alert no apparent distress HEENT: Atraumatic, normocephalic Eyes: Anicteric, normal conjunctiva, extraocular movements grossly intact Neck: Supple Respiratory: Normal respiratory effort Cardiovascular: Regular rate and rhythm GI: Soft, nontender, no rebound, guarding, rigidity Extremities: No edema Musculoskeletal: Moving all extremities Neuro: No overt focal neurological deficits Skin: No rashes appreciated Psych: Cooperative Assessment & Plan Assessment/Plan (1) Anemia: PLAN: Plan # Dizziness and acute on chronic anemia secondary to acute upper GI bleed secondary to spurting duodenal ulcer -Hemoglobin down trended to 6.8, patient transfused -Patient previously noted to have duodenal ulcer and was on Protonix and Carafate, he continues to have epigastric abdominal pain and is having black stools -He has progressive weakness and dizziness -Patient IV PPI -Patient n.p.o. -GI consulted -12/26: Continue PPI, hemoglobin slightly down trended since transfusion but has been fairly stable and no profound blood loss appreciated, awaiting upper endoscopy for further management -12/27: Patient with upper endoscopy that revealed spurting duodenal ulcer with significant bleeding, patient treated endoscopically and subsequently transfused 2 units, patient was on clear liquids and was advised to continue PPI drip, discussed with GI and plan today is to advance to full's, advised protein supplementation and will continue Protonix -12/28: Hemoglobin stable today at 9.3, on full liquid diet and Protonix drip, will need to assess when patient ready to advance diet #Hx of afib and recent PE -Patient on Eliquis at home, this has been held -Metoprolol with holding parameters -12/26: Will need to be resumed soon as cleared to do so with GI -12/27: Patient with significant bleed yesterday with spurting duodenal ulcer, blood pressure still borderline though hemoglobin is stabilizing, will discuss optimal timing of anticoagulation versus alternatives as patient's hospitalization continues, metoprolol as blood pressure and heart rate allows -12/28: On review of the chart patient had his PE 10/14/2024 so this was only 1- 1/2 months ago, discussed with GI and given high risk of holding anticoagulation it was decided the patient would benefit from retrialing his Eliquis at the 48- hour sandra and monitoring closely, if patient rebleeds he will need repeat intervention and likely transfer for a filter, also lower extremity duplex pending to assess if there is any clot burden as this may also change the urgency of need for filter if patient does not tolerate anticoagulation. Presently hemoglobin is stable. Discussed with patient and family members at bedside extensively with risks and benefits of anticoagulation and the risk of bleeding versus the risk of clotting if anticoagulation is held, after extensive discussion patient and family agreeable to retrialing Eliquis while patient is being monitored closely # History of prostate cancer -Following with Dr. Madrigal, patient being monitored for recurrence and had recent PET scan. PET scan showed diffuse increased radiotracer uptake in the normal- sized spleen that may necessitate histopathologic analysis but no other quantitatively significant hypermetabolic abnormalities noted. Patient has had some abdominal CTs which showed pathologic fractures but unclear if these are new or old. Patient supposed to follow-up with his oncologist for further evaluation management #Hypokalemia -Replace -Repeat in the AM #DVT ppx: SCDs Jessica Julio MD Time spent in the patient's overall evaluation, decision-making process, review of diagnostic data, adjustment of management, discussion with other providers, nursing and ancillary staff involved in patient's care documentation, 36 Minutes Charges/Coding Visit Charges Inpatient E&M: 78529 Subs Hosp L2
[2024-12-28] MEDS: Potassium Chloride Oral Tablet 20 MEQ 60 MEQ PO (10:26)
[2024-12-28 15:00] VITALS: BP 111/84; PULSE 77; RESP 16; TEMP 36.4; O2SAT 97
[2024-12-28] MEDS: Rosuvastatin 20 MG Tablet PO (21:55)
[2024-12-28] MEDS: MELATONIN 3 MG TABLET PO (21:55)
[2024-12-28 22:08] VITALS: BP 109/64; PULSE 97; RESP 14; TEMP 36.6; O2SAT 97
[2024-12-29 02:04] VITALS: BP 108/60; PULSE 95; RESP 18; TEMP 36.5; O2SAT 97
[2024-12-29 04:47] LABS: Absolute Lymphocyte Count 1.02 X10^3/uL (0.83-4.51); Absolute Neutrophil Count 3.9 X10^3/uL (2.0-7.7); Basophil# 0.02 X10^3/uL; Basophil% 0.4 % (0-1); Eosinophil# 0.06 X10^3/uL; Eosinophils% 1.1 % (0-5); Hematocrit 29.1 % (40-54); Hemoglobin 9.5 g/dL (13.0-16.5); Lymphocyte # 1.02 X10^3/ul (0.83-4.51); Lymphocyte % 18.3 % (19-41); Mean Corp Hgb Conc 32.6 g/dL (32-36); Mean Corpuscular Hgb 30.4 pg (27.0-32.0); Mean Corpuscular Volume 93.3 fL (80-94); Mean Platelet Vol. 9.5 fl (6.2-12.0); Monocyte# 0.57 X10^3/uL; Monocyte% 10.3 % (0-10); NRBC Flagged by Analyzer 0 % (0-5); Neutrophil # 3.85 X10^3/uL (2.7-7.7); Neutrophil % 69.2 % (47-70); POSITIVE MORPHOLOGY YES; Platelet Count 215 K/mm3 (150-450); RBC Distribution Width CV 19.3 % (11.6-14.6); RBC Distribution Width SD 64.2 fl (35.1-43.9); Red Blood Count 3.12 M/mm3 (4.6-6.2); White Blood Count 5.6 K/mm3 (4.4-11.0)
[2024-12-29 04:58] LABS: Differential Indicated SCAN CRITERIA MET
[2024-12-29 05:12] LABS: Anion Gap 8 (5-15); BUN 24 mg/dL (4-19); BUN/Creat Ratio 29.5 RATIO (10-20); Calcium,Total 7.8 mg/dL (7.6-11.0); Carbon Dioxide 22.4 mmol/L (21.0-32.0); Chloride 105 mmol/L (98-108); Creatinine, Serum 0.82 mg/dL (0.70-1.20); EST Glomerular Filtration Rate 86 (>60); Estimated Creatinine Clearance 60.55 ml/min (50-250); Glucose 106 mg/dL (70-99); Potassium 3.5 mmol/L (3.3-5.1); Sodium Level 135 mmol/L (133-145)
[2024-12-29] MEDS: Pantoprazole Sodium 80 MG in 0.9% Normal Saline (100mL Bag) 80 ML 10 MG CONT INF (07:40)
[2024-12-29 07:48] VITALS: BP 105/63; PULSE 91; RESP 18; TEMP 36.5; O2SAT 97
--- NOTE | 2024-12-29 08:07 | PCM.PN.HOSP ---
Reason for Visit Reason for Visit: Diagnoses Anemia, unspecified (12/24/24) Objective Data Objective Data Vital Signs: Vital Signs Temp Pulse Resp BP Pulse Ox O2 Del Method O2 Flow Rate 97.7 F L 91 18 105/63 97 Room Air 2 12/29/24 07:48 12/29/24 07:48 12/29/24 07:48 12/29/24 07:48 12/29/24 07:48 12/29/24 07:48 12/26/24 15:15 Oxygen Flow Rate (L/min) 2 Oxygen Delivery Method Room Air Weight: 143 lb 4.807 oz Body Mass Index (BMI) 19.4 Intake & Output: Intake and Output for Last 24 Hours 12/27/24 12/28/24 12/29/24 23:59 23:59 23:59 Intake Total 600 / 700 600 / 600 97.5 / 97.5 Output Total 500 / 600 1350 / 1350 Balance 100 / 100 -750 / -750 97.5 / 97.5 Lab / Micro Data 12/29/24 04:32 12/29/24 04:32 Labs: Laboratory Results - last 24 hr 12/29/24 04:32: WBC 5.6, RBC 3.12 L, Hgb 9.5 L, Hct 29.1 L, MCV 93.3, MCH 30.4, MCHC 32.6, RDW Std Deviation 64.2 H, RDW Coeff of Dami 19.3 H, Plt Count 215, MPV 9.5, Immature Gran % (Auto) 0.700, Neut % (Auto) 69.2, Lymph % (Auto) 18.3 L, [place] % (Auto) 10.3 H, Eos % (Auto) 1.1, Baso % (Auto) 0.4, Absolute Neuts (auto) 3.9, Absolute Lymphs (auto) 1.02, Nucleated RBC % 0, Sodium 135, Potassium 3.5, Chloride 105, Carbon Dioxide 22.4, Anion Gap 8, BUN 24 H, Creatinine 0.82, Estim Creat Clear Calc 60.55, Est GFR (MDRD) Non-Af 86, BUN/Creatinine Ratio 29.5 H, Glucose 106 H, Calcium 7.8 Micro: Microbiology 12/24/24 Unknown Stool Stool Occult Blood (NATHALY) - Final Radiography Diagnostic Testing: Radiology Impression Venous Doppler Study 12/27/24 16:02 Interpretation Summary Deep veins of the lower extremities are bilaterally patent and compressible segmentally. There is no evidence of deep vein thrombosis on either side. Valvular competence appears intact within the proximal deep venous systems bilaterally. The left great saphenous vein appears patent and compressible segmentally. The right great saphenous vein is patent and compressible above the knee, but was not visualized below the knee. Ordering Physician: Jessica Julio Referring Physician: Nahomi Long M.D. Performed By: Antoni Murillo RVT Physical Exam Narrative Seen and examined. No acute issues. Anticoagulant is to be resumed from today. Patient on PPI drip for spurting duodenal ulcer. No abdominal pain. History of PE on Eliquis which was on hold Physical exam General: Alert, Oriented x3, Cooperative. BMI 19.4 kg/m? HEENT: Atraumatic, PERRLA, EOMI, Normocephalic Oral: No Gingival or Mucosal Lesions/ Ulcerations Neck: Supple, No JVD, Negative Carotid Bruits Chest wall/Lungs: Air entry diminished in bilateral lung bases. No crepitation/rhonchi Cardiovascular: Regular rate, Regular Rhythm, Normal S1, Normal S2, No M/G/R Abdomen: Bowel Sounds Present, Soft, Non Tender, Non-Distended : No dysuria. No renal angle tenderness. No suprapubic tenderness. Extremities: No edema, Capillary Refill Less than 3 Seconds Skin: No rashes, No breakdown Musculoskeletal: No Tenderness to Palpation of Joints or Extremities. Mild decreased muscle bulk of extremities Neurological: Cranial nerves II-XII grossly intact, DTR 2+/4. No acute focal neurological deficit. Psych/Mental Status: Flat affect. Mild cognitive impairment/amnesia. Assessment & Plan Assessment/Plan (1) Anemia: PLAN: Plan # Dizziness and acute on chronic anemia secondary to acute upper GI bleed secondary to spurting duodenal ulcer -Hemoglobin down trended to 6.8, patient transfused -Patient previously noted to have duodenal ulcer and was on Protonix and Carafate, he continues to have epigastric abdominal pain and is having black stools -He has progressive weakness and dizziness -Patient IV PPI -Patient n.p.o. -GI consulted -12/26: Continue PPI, hemoglobin slightly down trended since transfusion but has been fairly stable and no profound blood loss appreciated, awaiting upper endoscopy for further management -12/27: Patient with upper endoscopy that revealed spurting duodenal ulcer with significant bleeding, patient treated endoscopically and subsequently transfused 2 units, patient was on clear liquids and was advised to continue PPI drip, discussed with GI and plan today is to advance to full's, advised protein supplementation and will continue Protonix -12/28: Hemoglobin stable today at 9.3, on full liquid diet and Protonix drip, will need to assess when patient ready to advance diet. 12/29: H&H 9.5/29%. Started on Eliquis 5 mg twice today monitor CBC tomorrow. Continue PPI, infusion drip changed to intermittent pantoprazole every 12 hourly #Hx of afib and recent PE -Patient on Eliquis at home, this has been held -Metoprolol with holding parameters -12/26: Will need to be resumed soon as cleared to do so with GI -12/27: Patient with significant bleed yesterday with spurting duodenal ulcer, blood pressure still borderline though hemoglobin is stabilizing, will discuss optimal timing of anticoagulation versus alternatives as patient's hospitalization continues, metoprolol as blood pressure and heart rate allows -12/28: On review of the chart patient had his PE 10/14/2024 so this was only 1-1/2 months ago, discussed with GI and given high risk of holding anticoagulation it was decided the patient would benefit from retrialing his Eliquis at the 48-hour sandra and monitoring closely, if patient rebleeds he will need repeat intervention and likely transfer for a filter, also lower extremity duplex pending to assess if there is any clot burden as this may also change the urgency of need for filter if patient does not tolerate anticoagulation. Presently hemoglobin is stable. Discussed with patient and family members at bedside extensively with risks and benefits of anticoagulation and the risk of bleeding versus the risk of clotting if anticoagulation is held, after extensive discussion patient and family agreeable to retrialing Eliquis while patient is being monitored closely # History of prostate cancer -Following with Dr. Madrigal, patient being monitored for recurrence and had recent PET scan. PET scan showed diffuse increased radiotracer uptake in the normal-sized spleen that may necessitate histopathologic analysis but no other quantitatively significant hypermetabolic abnormalities noted. Patient has had some abdominal CTs which showed pathologic fractures but unclear if these are new or old. Patient supposed to follow-up with his oncologist for further evaluation management #Hypokalemia -Replace -Repeat in the AM #DVT ppx: SCDs Charges/Coding Visit Charges Inpatient E&M: 20121 Subs Hosp L2
[2024-12-29 08:24] VITALS: BP 105/63; PULSE 91
[2024-12-29] MEDS: Metoprolol(XL)Succ 25 MG Tablet 12.5 MG PO (08:24)
[2024-12-29] MEDS: Tolterodine Tartrate 2 MG CAP.SA PO (08:24)
[2024-12-29] MEDS: APIXABAN 5 MG TABLET PO ×2 (08:28→21:02)
[2024-12-29] MEDS: Pantoprazole Sodium 40 MG in 0.9% Normal Saline (100mL MB+) 100 ML 330 MG IV ×2 (10:24→21:02)
--- NOTE | 2024-12-29 11:56 | CASEMGMT ---
SW spoke with patient's and nephew. Introduced self and role at [facility]. SW asked about a d/c plan. They asked about therapy coming to the home. SW explained what Medicare pays for regarding home health. They were leaning towards home with home health. SW provided them with a home health list and they longterm list was left in the room last week. VALE and RN CM to follow for d/c planning. Corinna MCLAUGHLIN
--- NOTE | 2024-12-29 11:57 | CASEMGMT ---
Discharge Planning A list of?HH providers including quality and resource use data and consistent with the patient's preferred geographic region, medical needs, and insurance network was created in [facility] Guide.? This list was provided to the SW. Екатерина Han Discharge Planning Asst.
[2024-12-29 13:47] VITALS: BP 93/62; PULSE 76; RESP 16; TEMP 36.4; O2SAT 96
[2024-12-29 16:28] VITALS: BP 95/69; PULSE 86; RESP 18; TEMP 36.5; O2SAT 98
--- NOTE | 2024-12-29 20:52 | PCM.PN.BLA ---
Progress Note Patient will is not having any signs of GI bleeding Physical Exam Narrative Seen and examined. No acute issues. Anticoagulant is to be resumed from today. Patient on PPI drip for spurting duodenal ulcer. No abdominal pain. History of PE on Eliquis which was on hold Physical exam General: Alert, Oriented x3, Cooperative. BMI 19.4 kg/m? HEENT: Atraumatic, PERRLA, EOMI, Normocephalic Oral: No Gingival or Mucosal Lesions/ Ulcerations Neck: Supple, No JVD, Negative Carotid Bruits Chest wall/Lungs: Air entry diminished in bilateral lung bases. No crepitation/rhonchi Cardiovascular: Regular rate, Regular Rhythm, Normal S1, Normal S2, No M/G/R Abdomen: Bowel Sounds Present, Soft, Non Tender, Non-Distended : No dysuria. No renal angle tenderness. No suprapubic tenderness. Extremities: No edema, Capillary Refill Less than 3 Seconds Skin: No rashes, No breakdown Musculoskeletal: No Tenderness to Palpation of Joints or Extremities. Mild decreased muscle bulk of extremities Neurological: Cranial nerves II-XII grossly intact, DTR 2+/4. No acute focal neurological deficit. Psych/Mental Status: Flat affect. Mild cognitive impairment/amnesia. Assessment & Plan Assessment/Plan (1) Anemia: PLAN: Plan 84-year-old with multiple comorbidities including CAD, atrial fibrillation, CABG previously on Eliquis with progressive weight loss and suspected GI bleed due to duodenal ulcer. Patient will undergo an upper endoscopy. He was explained alternatives, risk and benefits include not withstanding bleeding, infection, subsequent perforation, need for return to . He will have an ASA of 3. Findings: The examined esophagus was normal. Red blood was found in the gastric body. One spurting cratered duodenal ulcer with a visible vessel was found in the first portion of the duodenum. The lesion was 30 mm in largest dimension. Area was successfully injected with 20 mL of a 0.1 mg/mL solution of epinephrine for hemostasis. Estimated blood loss was minimal. Coagulation for hemostasis using heater probe was successful. Estimated blood loss was minimal. Impression: - Normal esophagus. - Red blood in the gastric body. - Spurting duodenal ulcer with a visible vessel. Injected. Treated with a heater probe. - No specimens collected. It's ok to start antiocoagulation and continue PPI and Carafate therapy Visit Charges Inpatient E&M: 96768 Subs Hosp L3
[2024-12-29] MEDS: MELATONIN 3 MG TABLET PO (21:02)
[2024-12-29] MEDS: Rosuvastatin 20 MG Tablet PO (21:02)
[2024-12-29 21:15] VITALS: BP 101/59; PULSE 85; RESP 16; TEMP 36.3; O2SAT 98
[2024-12-30 03:45] VITALS: BP 136/68; PULSE 80; RESP 16; TEMP 36.1; O2SAT 98
[2024-12-30 04:36] VITALS: BMI 19.4
[2024-12-30 06:03] LABS: Absolute Lymphocyte Count 1.13 X10^3/uL (0.83-4.51); Absolute Neutrophil Count 3.3 X10^3/uL (2.0-7.7); Basophil# 0.03 X10^3/uL; Basophil% 0.6 % (0-1); Eosinophil# 0.08 X10^3/uL; Eosinophils% 1.6 % (0-5); Hematocrit 31.3 % (40-54); Hemoglobin 10.4 g/dL (13.0-16.5); Lymphocyte # 1.13 X10^3/ul (0.83-4.51); Lymphocyte % 22.1 % (19-41); Mean Corp Hgb Conc 33.2 g/dL (32-36); Mean Corpuscular Hgb 31.2 pg (27.0-32.0); Mean Platelet Vol. 9.3 fl (6.2-12.0); Monocyte# 0.54 X10^3/uL; Monocyte% 10.5 % (0-10); NRBC Flagged by Analyzer 0 % (0-5); Neutrophil % 64.4 % (47-70); POSITIVE MORPHOLOGY YES; Platelet Count 239 K/mm3 (150-450); RBC Distribution Width CV 18.8 % (11.6-14.6); RBC Distribution Width SD 64.3 fl (35.1-43.9); Red Blood Count 3.33 M/mm3 (4.6-6.2); White Blood Count 5.1 K/mm3 (4.4-11.0)
[2024-12-30 06:47] LABS: Atypical Lymphocyte 1+ %; Differential Indicated SCAN CRITERIA MET; Platelet Estimate ADEQUATE (ADEQ); Red Cell Morphology NORM C+C NORMAL (NORM C&C)
[2024-12-30 06:57] LABS: Anion Gap 10 (5-15); BUN 20 mg/dL (4-19); BUN/Creat Ratio 24.2 RATIO (10-20); Carbon Dioxide 21.1 mmol/L (21.0-32.0); Chloride 108 mmol/L (98-108); Creatinine, Serum 0.81 mg/dL (0.70-1.20); EST Glomerular Filtration Rate 86 (>60); Estimated Creatinine Clearance 61.21 ml/min (50-250); Glucose 92 mg/dL (70-99); Potassium 3.6 mmol/L (3.3-5.1); Sodium Level 139 mmol/L (133-145)
[2024-12-30 07:53] VITALS: BP 108/72; PULSE 72; RESP 16; TEMP 36.6; O2SAT 97
--- NOTE | 2024-12-30 08:17 | DCINST_ITS ---
Discharge Instructions Diet Discharge Diet: Light diet - advance as tolerated (Soft diet for 2 to 3 days and regular diet) DC O2, CPAP, BIPAP needs Home O2 Discharge instructions: No Follow Up Care Test Results: Test results from this visit will be discussed in further detail at your follow- up appointment, if applicable. Discharge Plan Admission Admit Date/Time: 12/24/24 18:24 Attending Provider: Otilio Josue Primary Care Provider: Nahomi Long Consulting Providers: Katlyn Paz; Jessica Julio Discharge Orders/Prescriptions Prescriptions: New sennosides-docusate sodium [Stimulant Laxative Plus] 8.6-50 mg Tablet 2 tab PO BID PRN PRN (Reason: Constipation) Qty: 0 0RF pantoprazole 40 mg Tablet,Delayed Release (Dr/Ec) 40 mg PO BID 30 Days Qty: 60 2RF metoprolol succinate 25 mg Tablet Extended Release 24 Hr 25 mg PO DAILY 30 Days Qty: 30 0RF Eliquis 5 mg Tablet 5 mg PO BID 30 Days Qty: 60 1RF Rx Instructions: Discontinue if platelet count drops less than 50,000 or hemoglobin less than 8 g% ferrous sulfate 325 mg (65 mg iron) tablet 325 mg PO QODAY Qty: 30 2RF ascorbic acid (vitamin C) 500 mg tablet 500 mg PO BID Qty: 60 2RF Continued cholecalciferol (vitamin D3) 1,000 unit capsule 2,000 unit PO QDAY nitroglycerin 0.4 MG tablet 0.4 mg sublingual Q5M PRN (Reason: Chest Pain) ondansetron 4 mg tablet,disintegrating 4 mg PO Q8H PRN PRN (Reason: Nausea) Qty: 10 0RF ondansetron 4 mg tablet,disintegrating 4 mg PO Q8H PRN PRN (Reason: Nausea) Qty: 10 0RF pantoprazole 20 mg tablet,delayed release (DR/EC) 20 mg PO BID rosuvastatin 20 mg tablet 20 mg PO QHS Qty: 90 3RF Discontinued sucralfate 1 gram tablet 1 g PO QACHS Qty: 56 1RF Rx Instructions: Take an hour before meals and at bedtime sucralfate [Carafate] 1 gram tablet 1 g PO BID Qty: 20 0RF Eliquis 5 mg tablet 5 mg PO BID Qty: 74 0RF Rx Instructions: 10 mg twice a day for the first week. Then 5 mg twice a day. Referrals / Follow Up: Nahomi Long DO [Primary Care Provider] - Lyssa Kurtz NP-C [Med Staff - Adv Practice Prof] - Within 2 Weeks Disposition Disposition (needs filled in before D/C Order can be placed): Home, Self Care
[2024-12-30 08:48] VITALS: PULSE 72
[2024-12-30] MEDS: Pantoprazole Sodium 40 MG Tablet PO (08:48)
[2024-12-30] MEDS: Metoprolol(XL)Succ 25 MG Tablet 12.5 MG PO (08:48)
[2024-12-30] MEDS: Tolterodine Tartrate 2 MG CAP.SA PO (08:48)
[2024-12-30] MEDS: APIXABAN 5 MG TABLET PO (08:49)
--- NOTE | 2024-12-30 09:10 | TREXTCAR_ITS ---
Diet Diet Order/Speech Therapy: 12/28/24 14:49 Diet: Transitional Type of Dietary Supplement:: Ensure Plus High Protein Diet Comments: 120mL ensure plus HP w/ meals Routine Orders/Code Status Suppository Type: Dulcolax 10mg Suppository Frequency: Daily PRN Routine Lab Work: CBC (IN 3 DAYS THEN 1 WEEK and follow with PCP. On Eliquis.) DC O2, CPAP, BIPAP needs Home O2 Discharge instructions: No Therapies Extremity Affected:: Bilateral Lower Physical Therapy: Eval and Treat Occupational Therapy: Eval and Treat Speech Therapy: Eval and Treat Problem/Diagnosis (1) Anemia: Status: Acute Code(s): D64.9 - Anemia, unspecified Plan # Dizziness and acute on chronic anemia secondary to acute upper GI bleed secondary to spurting duodenal ulcer -Hemoglobin down trended to 6.8, patient transfused -Patient previously noted to have duodenal ulcer and was on Protonix and Carafate, he continues to have epigastric abdominal pain and is having black stools -He has progressive weakness and dizziness -Patient IV PPI -Patient n.p.o. -GI consulted -12/26: Continue PPI, hemoglobin slightly down trended since transfusion but has been fairly stable and no profound blood loss appreciated, awaiting upper endoscopy for further management -12/27: Patient with upper endoscopy that revealed spurting duodenal ulcer with significant bleeding, patient treated endoscopically and subsequently transfused 2 units, patient was on clear liquids and was advised to continue PPI drip, discussed with GI and plan today is to advance to full's, advised protein supplementation and will continue Protonix -12/28: Hemoglobin stable today at 9.3, on full liquid diet and Protonix drip, will need to assess when patient ready to advance diet. 12/29: H&H 9.5/29%. Started on Eliquis 5 mg twice today monitor CBC tomorrow. Continue PPI, infusion drip changed to intermittent pantoprazole every 12 hourly 12/30: Patient tolerating Eliquis well. H&H 10.4 actually more than yesterday 9.5. Prescription given for pantoprazole, ferrous sulfate and ascorbic acid. #Hx of afib and recent PE -Patient on Eliquis at home, this has been held -Metoprolol with holding parameters -12/26: Will need to be resumed soon as cleared to do so with GI -12/27: Patient with significant bleed yesterday with spurting duodenal ulcer, blood pressure still borderline though hemoglobin is stabilizing, will discuss optimal timing of anticoagulation versus alternatives as patient's hospitalization continues, metoprolol as blood pressure and heart rate allows -12/28: On review of the chart patient had his PE 10/14/2024 so this was only 1- 1/2 months ago, discussed with GI and given high risk of holding anticoagulation it was decided the patient would benefit from retrialing his Eliquis at the 48- hour sandra and monitoring closely, if patient rebleeds he will need repeat intervention and likely transfer for a filter, also lower extremity duplex pending to assess if there is any clot burden as this may also change the urgency of need for filter if patient does not tolerate anticoagulation. Presently hemoglobin is stable. Discussed with patient and family members at bedside extensively with risks and benefits of anticoagulation and the risk of bleeding versus the risk of clotting if anticoagulation is held, after extensive discussion patient and family agreeable to retrialing Eliquis while patient is being monitored closely 12/29: Prescription given for metoprolol succinate. # History of prostate cancer -Following with Dr. Madrigal, patient being monitored for recurrence and had recent PET scan. PET scan showed diffuse increased radiotracer uptake in the normal- sized spleen that may necessitate histopathologic analysis but no other quantitatively significant hypermetabolic abnormalities noted. Patient has had some abdominal CTs which showed pathologic fractures but unclear if these are new or old. Patient supposed to follow-up with his oncologist for further evaluation management #Hypokalemia -Replace 12/30: Serum potassium was 3.6 #DVT ppx: SCDs Discharge medication reconciliation done. Discharge follow-up instructions completed. Discharge process discussed with the patient and all questions were answered to patient's satisfaction. Follow with PCP in 1 to 2 weeks Total time spent, exact 35 minutes on discharge meds reconciliation, examination, coordination of care with nurses and ancillary staff, review of imaging and blood test and discussion with the patient on follow-up instructions. Allergies/Procedures Done in Hospital Allergies povidone-iodine Allergy (Mild, Verified 12/24/24 14:49) Rash atorvastatin (From Lipitor) Adverse Reaction (Intermediate, Verified 12/24/24 14:49) Myalgias simvastatin (From Zocor) Adverse Reaction (Intermediate, Verified 12/24/24 14:49) Myalgias Type of Care/Length of Stay Estimated LOS: Convalescent Care Less Than 30 days Type of Care Needed: Skilled Rehab Potential: Good Prognosis: Good Additional Orders/Day of Discharge Day of Discharge: 12/30/24 Dietary and Speech Recommendations Dietitian Recommendations/Changes: Advance diet as tolerated to liberal regular diet when medically able to help optimize oral intakes. Will adjust ONS to 120mL ensure plus high protein 3x daily with meals. Monitor oral intake and trend weights; reassess for malnutrition as indicated. Discharge Plan Admission Admit Date/Time: 12/24/24 18:24 Primary Reason for Your Visit: Acute blood loss anemia, duodenal ulcer Attending Provider: Otilio Josue Primary Care Provider: Nahomi Long Consulting Providers: Katlyn Paz; Jessica Julio Discharge Orders/Prescriptions Prescriptions: New sennosides-docusate sodium [Stimulant Laxative Plus] 8.6-50 mg Tablet 2 tab PO BID PRN PRN (Reason: Constipation) Qty: 0 0RF pantoprazole 40 mg Tablet,Delayed Release (Dr/Ec) 40 mg PO BID 30 Days Qty: 60 2RF metoprolol succinate 25 mg Tablet Extended Release 24 Hr 25 mg PO DAILY 30 Days Qty: 30 0RF Eliquis 5 mg Tablet 5 mg PO BID 30 Days Qty: 60 1RF Rx Instructions: Discontinue if platelet count drops less than 50,000 or hemoglobin less than 8 g% ferrous sulfate 325 mg (65 mg iron) tablet 325 mg PO QODAY Qty: 30 2RF ascorbic acid (vitamin C) 500 mg tablet 500 mg PO BID Qty: 60 2RF Continued cholecalciferol (vitamin D3) 1,000 unit capsule 2,000 unit PO QDAY nitroglycerin 0.4 MG tablet 0.4 mg sublingual Q5M PRN (Reason: Chest Pain) ondansetron 4 mg tablet,disintegrating 4 mg PO Q8H PRN PRN (Reason: Nausea) Qty: 10 0RF ondansetron 4 mg tablet,disintegrating 4 mg PO Q8H PRN PRN (Reason: Nausea) Qty: 10 0RF pantoprazole 20 mg tablet,delayed release (DR/EC) 20 mg PO BID rosuvastatin 20 mg tablet 20 mg PO QHS Qty: 90 3RF Discontinued sucralfate 1 gram tablet 1 g PO QACHS Qty: 56 1RF Rx Instructions: Take an hour before meals and at bedtime sucralfate [Carafate] 1 gram tablet 1 g PO BID Qty: 20 0RF Eliquis 5 mg tablet 5 mg PO BID Qty: 74 0RF Rx Instructions: 10 mg twice a day for the first week. Then 5 mg twice a day. Referrals / Follow Up: Nahomi Long DO [Primary Care Provider] - Lyssa Kurtz NP-C [Med Staff - Adv Practice Prof] - Within 2 Weeks Disposition Disposition (needs filled in before D/C Order can be placed): Home, Self Care
--- NOTE | 2024-12-30 10:05 | CASEMGMT ---
DOMITILA CM in to discuss needs at discharge, and nephew at bedside. Patient slightly confused. RN JOHANNA inquired about disposition at discharge, and nephew prefer TCU and then transitioning home with [facility]. and nephew had no further questions or concerns. DOMITILA SPENCER updated SW regarding request for TCU. CM will continue to follow this patient and plan for a safe discharge.
--- NOTE | 2024-12-30 11:09 | CASEMGMT ---
Per RN CM patient's family would like patient to go to TCU. SW made a referral to TCU. Corinna MCLAUGHLIN
--- NOTE | 2024-12-30 11:58 | DS.PCM_ITS ---
Providers Date of Admission: 12/24/24 Date of Discharge: 12/30/24 Primary Care Physician: Dr. Nahomi Long, DO Consultations 12/24/24 19:46 Consult: Gastroenterology Routine Consulting Provider: Cass[facility] Reason for Consult: GI bleed EMERGENT Consult: No MD Notified: Yes Date Notified: 12/24/24 Time Notified: 18:26 Method of Notification: Text Reason For Visit: GIB/ABLA Diagnosis Discharge Diagnosis (1) Anemia: Status: Acute Code(s): D64.9 - Anemia, unspecified Plan # Dizziness and acute on chronic anemia secondary to acute upper GI bleed secondary to spurting duodenal ulcer -Hemoglobin down trended to 6.8, patient transfused -Patient previously noted to have duodenal ulcer and was on Protonix and Carafate, he continues to have epigastric abdominal pain and is having black stools -He has progressive weakness and dizziness -Patient IV PPI -Patient n.p.o. -GI consulted -12/26: Continue PPI, hemoglobin slightly down trended since transfusion but has been fairly stable and no profound blood loss appreciated, awaiting upper endoscopy for further management -12/27: Patient with upper endoscopy that revealed spurting duodenal ulcer with significant bleeding, patient treated endoscopically and subsequently transfused 2 units, patient was on clear liquids and was advised to continue PPI drip, discussed with GI and plan today is to advance to full's, advised protein supplementation and will continue Protonix -12/28: Hemoglobin stable today at 9.3, on full liquid diet and Protonix drip, will need to assess when patient ready to advance diet. 12/29: H&H 9.5/29%. Started on Eliquis 5 mg twice today monitor CBC tomorrow. Continue PPI, infusion drip changed to intermittent pantoprazole every 12 hourly 12/30: Patient tolerating Eliquis well. H&H 10.4 actually more than yesterday 9.5. Prescription given for pantoprazole, ferrous sulfate and ascorbic acid. #Hx of afib and recent PE -Patient on Eliquis at home, this has been held -Metoprolol with holding parameters -12/26: Will need to be resumed soon as cleared to do so with GI -12/27: Patient with significant bleed yesterday with spurting duodenal ulcer, blood pressure still borderline though hemoglobin is stabilizing, will discuss optimal timing of anticoagulation versus alternatives as patient's hospitalization continues, metoprolol as blood pressure and heart rate allows -12/28: On review of the chart patient had his PE 10/14/2024 so this was only 1- 1/2 months ago, discussed with GI and given high risk of holding anticoagulation it was decided the patient would benefit from retrialing his Eliquis at the 48- hour sandra and monitoring closely, if patient rebleeds he will need repeat intervention and likely transfer for a filter, also lower extremity duplex pending to assess if there is any clot burden as this may also change the urgency of need for filter if patient does not tolerate anticoagulation. Presently hemoglobin is stable. Discussed with patient and family members at bedside extensively with risks and benefits of anticoagulation and the risk of bleeding versus the risk of clotting if anticoagulation is held, after extensive discussion patient and family agreeable to retrialing Eliquis while patient is being monitored closely 12/29: Prescription given for metoprolol succinate. # History of prostate cancer -Following with Dr. Madrigal, patient being monitored for recurrence and had recent PET scan. PET scan showed diffuse increased radiotracer uptake in the normal- sized spleen that may necessitate histopathologic analysis but no other quantitatively significant hypermetabolic abnormalities noted. Patient has had some abdominal CTs which showed pathologic fractures but unclear if these are new or old. Patient supposed to follow-up with his oncologist for further evaluation management #Hypokalemia -Replace 12/30: Serum potassium was 3.6 #DVT ppx: SCDs Discharge medication reconciliation done. Discharge follow-up instructions completed. Discharge process discussed with the patient and all questions were answered to patient's satisfaction. Follow with PCP in 1 to 2 weeks Total time spent, exact 35 minutes on discharge meds reconciliation, examination, coordination of care with nurses and ancillary staff, review of imaging and blood test and discussion with the patient on follow-up instructions. Medications at Discharge Home Medications nitroglycerin 0.4 mg sublingual tablet 0.4 mg sublingual Q5M PRN Chest Pain 09/22/14 cholecalciferol (vitamin D3) 25 mcg (1,000 unit) capsule 2,000 unit PO QDAY 10/26/17 rosuvastatin 20 mg tablet 20 mg PO QHS cholesterol #90 tabs 06/25/24 ondansetron 4 mg disintegrating tablet 4 mg PO Q8H PRN PRN Nausea #10 tabs 10/20/24 ondansetron 4 mg disintegrating tablet 4 mg PO Q8H PRN PRN Nausea #10 tabs 12/19/24 pantoprazole 20 mg tablet,delayed release 20 mg PO BID reflux 12/24/24 apixaban 5 mg tablet (Eliquis) 5 mg PO BID 30 days #60 tabs 12/30/24 ascorbic acid (vitamin C) 500 mg tablet 500 mg PO BID #60 tabs 12/30/24 ferrous sulfate 325 mg (65 mg iron) tablet 325 mg PO QODAY #30 tabs 12/30/24 metoprolol succinate 25 mg tablet,extended release 24 hr 25 mg PO DAILY 30 days #30 tabs 12/30/24 pantoprazole 40 mg tablet,delayed release 40 mg PO BID 30 days #60 tabs 12/30/24 sennosides 8.6 mg-docusate sodium 50 mg tablet (Stimulant Laxative Plus) 2 tab PO BID PRN PRN Constipation #0 tabs 12/30/24 Physical Exam Narrative Seen and examined. No acute issues. Eliquis was resumed yesterday patient tolerating Eliquis good. On PPI no abdominal pain. Physical exam General: Alert, Oriented x3, Cooperative. BMI 19.4 kg/m? HEENT: Atraumatic, PERRLA, EOMI, Normocephalic Oral: No Gingival or Mucosal Lesions/ Ulcerations Neck: Supple, No JVD, Negative Carotid Bruits Chest wall/Lungs: Air entry diminished in bilateral lung bases. No crepitation/rhonchi Cardiovascular: Regular rate, Regular Rhythm, Normal S1, Normal S2, No M/G/R Abdomen: Bowel Sounds Present, Soft, Non Tender, Non-Distended : No dysuria. No renal angle tenderness. No suprapubic tenderness. Extremities: No edema, Capillary Refill Less than 3 Seconds Skin: No rashes, No breakdown Musculoskeletal: No Tenderness to Palpation of Joints or Extremities. Mild decreased muscle bulk of extremities Neurological: Cranial nerves II-XII grossly intact, DTR 2+/4. No acute focal neurological deficit. Psych/Mental Status: Flat affect. Mild cognitive impairment/amnesia. Weight / BMI Weight Weight: 143 lb 1.28 oz Body Mass Index (BMI) 19.4 ABG / Lab / Microbiology Data 12/30/24 05:51 12/30/24 05:51 Laboratory: Laboratory Results - last 24 hr 12/30/24 05:51: WBC 5.1, RBC 3.33 L, Hgb 10.4 L, Hct 31.3 L, MCV 94.0, MCH 31.2, MCHC 33.2, RDW Std Deviation 64.3 H, RDW Coeff of Dami 18.8 H, Plt Count 239, MPV 9.3, Immature Gran % (Auto) 0.800, Neut % (Auto) 64.4, Lymph % (Auto) 22.1, Wilcox % (Auto) 10.5 H, Eos % (Auto) 1.6, Baso % (Auto) 0.6, Absolute Neuts (auto) 3.3, Absolute Lymphs (auto) 1.13, Nucleated RBC % 0, Atypical Lymphocytes 1+, Platelet Estimate ADEQUATE, RBC Morphology NORM C+C, Sodium 139, Potassium 3.6, Chloride 108, Carbon Dioxide 21.1, Anion Gap 10, BUN 20 H, Creatinine 0.81, Estim Creat Clear Calc 61.21, Est GFR (MDRD) Non-Af 86, BUN/Creatinine Ratio 24.2 H, Glucose 92, Calcium 8.0 Microbiology: Microbiology 12/24/24 Unknown Stool Stool Occult Blood (NATHALY) - Final D/C Instructions Discharge Diet: Light diet - advance as tolerated (Soft diet for 2 to 3 days and regular diet) DC O2, CPAP, BIPAP Needs Home O2 Discharge instructions: No Meaningful Use Info Meaningful Use Meaningful Use Diagnoses (Choose all that apply): None applicable Ischemic Stroke Statin Dosing Therapy Reference: STATIN DOSE THERAPY REFERENCE: * Patients > 75 years receive moderate or high dose statin therapy. * Patients 75 years or YOUNGER should receive HIGH intensity statin dose unless contraindicated. You will be required to document reason for non-treatment if statin daily dose does not meet guidelines. HIGH DOSE STATIN THERAPY DAILY Atorvastatin > than or = to 40 mg Rosuvastatin > than or = to 20 mg Amlodipine + Atorvastatin > than or = to 2.5/40 mg Ezetimibe + Simvastatin 10/80 mg Simvastatin 80mg Discharge Plan Admission Admit Date/Time: 12/24/24 18:24 Attending Provider: Otilio Josue Primary Care Provider: Nahomi Long Consulting Providers: Katlyn Paz; Jessica Julio Discharge Orders/Prescriptions Prescriptions: New sennosides-docusate sodium [Stimulant Laxative Plus] 8.6-50 mg Tablet 2 tab PO BID PRN PRN (Reason: Constipation) Qty: 0 0RF pantoprazole 40 mg Tablet,Delayed Release (Dr/Ec) 40 mg PO BID 30 Days Qty: 60 2RF metoprolol succinate 25 mg Tablet Extended Release 24 Hr 25 mg PO DAILY 30 Days Qty: 30 0RF Eliquis 5 mg Tablet 5 mg PO BID 30 Days Qty: 60 1RF Rx Instructions: Discontinue if platelet count drops less than 50,000 or hemoglobin less than 8 g% ferrous sulfate 325 mg (65 mg iron) tablet 325 mg PO QODAY Qty: 30 2RF ascorbic acid (vitamin C) 500 mg tablet 500 mg PO BID Qty: 60 2RF Continued cholecalciferol (vitamin D3) 1,000 unit capsule 2,000 unit PO QDAY nitroglycerin 0.4 MG tablet 0.4 mg sublingual Q5M PRN (Reason: Chest Pain) ondansetron 4 mg tablet,disintegrating 4 mg PO Q8H PRN PRN (Reason: Nausea) Qty: 10 0RF ondansetron 4 mg tablet,disintegrating 4 mg PO Q8H PRN PRN (Reason: Nausea) Qty: 10 0RF pantoprazole 20 mg tablet,delayed release (DR/EC) 20 mg PO BID rosuvastatin 20 mg tablet 20 mg PO QHS Qty: 90 3RF Discontinued sucralfate 1 gram tablet 1 g PO QACHS Qty: 56 1RF Rx Instructions: Take an hour before meals and at bedtime sucralfate [Carafate] 1 gram tablet 1 g PO BID Qty: 20 0RF Eliquis 5 mg tablet 5 mg PO BID Qty: 74 0RF Rx Instructions: 10 mg twice a day for the first week. Then 5 mg twice a day. Referrals / Follow Up: Nahomi Long DO [Primary Care Provider] - Lyssa Kurtz NP-C [Med Staff - [facility]] - Within 2 Weeks Disposition Disposition (needs filled in before D/C Order can be placed): Home, Self Care Charges/Coding Visit Charges Inpatient E&M: 40761 Disch Hosp >30min
--- NOTE | 2024-12-30 12:30 | CASEMGMT ---
[facility]CU has accepted patient. VALE met with patient and his family. SW let them know patient was approved for TCU and will go today. SW answered all of their questions. Plan: d/c to [facility] under skilled level of care Corinna MCLAUGHLIN
--- NOTE | 2024-12-30 12:54 | PHA.PHARE_ITS ---
Consult Prior Doses of Antibiotics Prior Doses of Antibiotics Received/Current Regimen: * Labs Labs: Sodium 139 mmol/L (133-145) 12/30/24 05:51 Potassium 3.6 mmol/L (3.3-5.1) 12/30/24 05:51 Chloride 108 mmol/L (98-108) 12/30/24 05:51 Carbon Dioxide 21.1 mmol/L (21.0-32.0) 12/30/24 05:51 Anion Gap 10 (5-15) 12/30/24 05:51 BUN 20 mg/dL (4-19) H 12/30/24 05:51 Creatinine 0.81 mg/dL (0.70-1.20) 12/30/24 05:51 Est GFR (MDRD) Non-Af 86 (>60) 12/30/24 05:51 BUN/Creatinine Ratio 24.2 RATIO (10-20) H 12/30/24 05:51 Glucose 92 mg/dL (70-99) 12/30/24 05:51 Microbiology Microbiology: Microbiology 12/24/24 Unknown Stool Stool Occult Blood (NATHALY) - Final Pharmacy Plan for Drug Dosing Pharmacy Plan for Drug Dosing: Pharmacy Service will continue to monitor and adjust dosing as required.
--- NOTE | 2024-12-30 14:17 | CASEMGMT ---
VALE called Robert at [facility] and left her a voice mail requesting a return call. VALE will update Robert letting her know patient went to [facility]. Corinna MCLAUGHLIN
[2024-12-30 14:25] VITALS: BP 115/68; PULSE 82; RESP 18; TEMP 36.7; O2SAT 96
--- NOTE | 2024-12-30 14:51 | PHA.DC.MR.R ---
Pharmacy PA Med Reconciliation Pharmacy Service has performed discharge medication reconciliation for this patient. Pantoprazole dose increased to 40mg PO BID, but 20mg BID home dose was continued. TEXT order from Dr. Josue to stop home 20mg dose. The patient's discharge medication list was reviewed for discrepancies and discrepancies were resolved. Medications at Discharge Home Medications nitroglycerin 0.4 mg sublingual tablet 0.4 mg sublingual Q5M PRN Chest Pain 09/22/14 cholecalciferol (vitamin D3) 25 mcg (1,000 unit) capsule 2,000 unit PO QDAY 10/26/17 rosuvastatin 20 mg tablet 20 mg PO QHS cholesterol #90 tabs 06/25/24 ondansetron 4 mg disintegrating tablet 4 mg PO Q8H PRN PRN Nausea #10 tabs 12/19/24 apixaban 5 mg tablet (Eliquis) 5 mg PO BID 30 days #60 tabs 12/30/24 ascorbic acid (vitamin C) 500 mg tablet 500 mg PO BID #60 tabs 12/30/24 ferrous sulfate 325 mg (65 mg iron) tablet 325 mg PO QODAY #30 tabs 12/30/24 metoprolol succinate 25 mg tablet,extended release 24 hr 25 mg PO DAILY 30 days #30 tabs 12/30/24 pantoprazole 40 mg tablet,delayed release 40 mg PO BID 30 days #60 tabs 12/30/24 sennosides 8.6 mg-docusate sodium 50 mg tablet (Stimulant Laxative Plus) 2 tab PO BID PRN PRN Constipation #0 tabs 12/30/24
== END 2024-12-30 15:14 | disposition skilled nursing facility (03) | DRG 377 ==
LOC: ED 18:43 → PCU 18:50
PROVIDERS: Anesthesiology; Internal Medicine; Internal Medicine Gastroenterology; Admitting Provider Internal Medicine; Emergency Provider Emergency Medicine; PCP Internal Medicine; Visit Provider Internal Medicine
PROC: 0DJ08ZZ Inspection of Upper Intestinal Tract, Via Natural or Artificial Opening Endoscopic (ICD-10-PCS; CPT 43235; principal; 2024-12-26 15:40)
DX: K26.4 Chronic or unspecified duodenal ulcer with hemorrhage (principal); I26.99 Other pulmonary embolism without acute cor pulmonale; D68.32 Hemorrhagic disorder due to extrinsic circulating anticoagulants; D62 Acute posthemorrhagic anemia; Z68.1 Body mass index [BMI] 19.9 or less, adult; F03.90 Unspecified dementia, unspecified severity, without behavioral disturbance, psychotic disturbance, mood disturbance, and anxiety; I10 Essential (primary) hypertension; R63.4 Abnormal weight loss; I48.0 Paroxysmal atrial fibrillation; K29.80 Duodenitis without bleeding; K21.9 Gastro-esophageal reflux disease without esophagitis; E78.5 Hyperlipidemia, unspecified; E55.9 Vitamin D deficiency, unspecified; I25.10 Atherosclerotic heart disease of native coronary artery without angina pectoris; E87.6 Hypokalemia; M25.511 Pain in right shoulder; R29.6 Repeated falls; R42 Dizziness and giddiness; R79.89 Other specified abnormal findings of blood chemistry; Z79.01 Long term (current) use of anticoagulants; Z79.899 Other long term (current) drug therapy; Z86.718 Personal history of other venous thrombosis and embolism; Z86.711 Personal history of pulmonary embolism; Z95.1 Presence of aortocoronary bypass graft; Z95.5 Presence of coronary angioplasty implant and graft
CPT/HCPCS: 36415; 70496; 70498; 71045; 73030; 80048; 80053; 81001; 82274; 82728; 83540; 83550; 83735; 84100; 84450; 84460; 84484; 85014; 85018; 85025; 85045; 85610; 85730; 86850; 86900; 86901; 93005; 93970; 97116; 97162; 97166; 97530; 97535; 99285; P9016; Q9967; A4216; J2405

== ENCOUNTER 2024-12-30 15:28 | Inpatient (IN) | payer MEDICARE, OTHER, SELFPAY ==
[2024-12-30 15:35] VITALS: BP 117/66; PULSE 72; RESP 16; TEMP 36.4; O2SAT 99
[2024-12-30 15:37] VITALS: BMI 18.4
[2024-12-30 15:41] VITALS: BMI 18.3
[2024-12-30] MEDS: Ascorbic Acid 500 MG Tablet PO (17:16)
--- NOTE | 2024-12-30 18:11 | NURSING ---
Discussed with family PA and CAM. Family denies any questions/concerns.
[2024-12-30] MEDS: Rosuvastatin 20 MG Tablet PO (21:22)
[2024-12-30] MEDS: APIXABAN 5 MG TABLET PO (21:22)
[2024-12-30] MEDS: Pantoprazole Sodium 40 MG Tablet PO (21:23)
--- NOTE | 2024-12-30 21:41 | HP.PCM_ITS ---
HPI - General General Date of Admission: 12/30/24 Date of Service: 12/30/24 Chief Complaint: Here for rehabilitation. HPI Nessa RAZA, is a 84 Male who presents with followin12/24/2024 [facility] ED weakness. Vertigo, chest pain, on Eliquis for atrial fibrillation/pulmonary embolism. Fell out of chair, 2/2 Vertigo. Hemoglobin dropped from 12 to 8.2, start Pantoprazole drip. 12/24/2024 Admit [facility]. Serial H&H, transfuse if hemoglobin < 7, hold Eliquis, continue Pantoprazole drip, consult Dr. Machado for GI bleed. PT/OT/CM. 12/25/2024 Stools dark. Hemoglobin 6.8, transfuse PRBC. Pantoprazole, Carafate for duodenal ulcer. Epigastric pain, dark stools. 12/26/2024 Comfortable in bed. Await EGD, continue Pantoprazole. Hold Eliquis. 12/26/2024 Dr. Machado EGD normal esophagus, red blood in gastric body, spurting duodenal ulcer with visible vessel, injected, treated with heater probe. 12/27/2024 Confused, wants to go home. Recent pulmonary embolism, start Eliquis tomorrow. 12/28/2024 Feeling better, stomach pain resolved. Replace potassium. Order doppler ultrasound bilateral lower extremity to evaluate for dvt. Patient may need IVC filter if he rebleeds. 12/29/2024 Hemoglobin 9.5, Pantoprazole iv q12h. Restart Eliquis 5mg bid, monitor H&H. 12/30/2024 Admit to TCU with debility, here for rehabilitation, strengthening, prior to discharge home with . [facility] Medical History (Updated 12/30/24 @ 21:[address] Jaylon Up MD) Rheumatoid arthritis Non-smoker Asthma Atrial fibrillation Neck pain on right side Essential (primary) hypertension Gynecomastia, male Bony sclerosis History of prostate cancer History of fractured pelvis Kidney stones BPH (benign prostatic hyperplasia) GERD (gastroesophageal reflux disease) DVT (deep venous thrombosis) Hyperlipidemia Atherosclerotic heart disease of [place] coronary artery without angina pectoris Prostate cancer Home Medications ?Medication ?Instructions ?Recorded ?Last Taken ?Type nitroglycerin 0.4 mg sublingual 0.4 mg sublingual Q5M PRN Chest 09/22/14 Unknown History tablet Pain cholecalciferol (vitamin D3) 25 2,000 unit PO QDAY sup plement 10/26/17 Unknown History mcg (1,000 unit) capsule rosuvastatin 20 mg tablet 20 mg PO QHS cholesterol #90 tabs 06/25/24 Unknown Rx ondansetron 4 mg disintegrating 4 mg PO Q8H PRN PRN Na usea #10 tabs 12/19/24 Unknown Rx tablet apixaban 5 mg tablet (Eliquis) 5 mg PO BID blood thinn er 30 days 12/30/24 Unknown Rx #60 tabs ascorbic acid (vitamin C) 500 mg 500 mg PO BID supplem ent #60 tabs 12/30/24 Unknown Rx tablet ferrous sulfate 325 mg (65 mg 325 mg PO QODAY suppleme nt #30 tabs 12/30/24 Unknown Rx iron) tablet metoprolol succinate 25 mg 25 mg PO DAILY pulse/BP 30 days 12/30/24 Unknown Rx tablet,extended release 24 hr #30 tabs pantoprazole 40 mg tablet,delayed 40 mg PO BID reflux 30 days #60 12/30/24 Unknown Rx release tabs sennosides 8.6 mg-docusate sodium 2 tab PO BID PRN PRN Constipation 12/30/24 Unknown Rx 50 mg tablet (Stimulant Laxative #0 tabs Plus) Allergy/AdvReac Type Severity Reaction Status Date / Time povidone-iodine Allergy Mild Rash Verified 12/24/24 14:49 atorvastatin (From Lipitor) AdvReac Intermediate Myalgias Verified 12/24/24 14:49 simvastatin (From Zocor) AdvReac Intermediate Myalgias Verified 12/24/24 14:49 Family History Father , age 64 CAD (coronary artery disease) Myocardial infarction Sudden cardiac Asthma Heart disease Hypertension Mother , Age 67 Cancer Brother CAD (coronary artery disease) Sister CAD (coronary artery disease) Colon cancer Surgical History History of appendectomy H/O coronary artery bypass surgery (11/11/97) History of coronary artery stent placement (10/01/14) H/O right mastectomy Social History household members: spouse Smoking Status: Never smoker alcohol intake: never substance use type: does not use ROS Constitutional Constitutional: Reports weakness; Denies chills, fever(s) or weight gain ENT HEENT: Denies headache(s), nasal congestion or nasal discharge Cardiovascular Cardiovascular: Denies chest pain or palpitations Respiratory/Chest Respiratory/Chest: Denies cough, excessive phlegm production or shortness of breath with exertion Gastrointestinal Gastrointestinal: Denies abdominal pain, nausea or vomiting Genitourinary Genitourinary: Denies dysuria Musculoskeletal Musculoskeletal: Denies joint pain or joint swelling Integumentary Integumentary: Denies rash or wounds Neurologic Neurologic: Denies focal weakness, numbness or tingling Psychiatric Psychiatric: Denies anxiety, auditory hallucinations, depression, homicidal ideation or suicidal ideation Vital Signs Vital Signs Vital Signs: 12/30/24 15:35 12/30/24 16:12 Temperature 97.6 F L Temperature Source Temporal Pulse Rate 72 Pulse Rhythm Irregular Pulse Strength Normal (2+) Respiratory Rate 16 Respiratory Effort Normal Non-Labored Respiratory Depth Normal Respiratory Pattern Normal Blood Pressure 117/66 Blood Pressure Mean 83 Blood Pressure Source Monitor Blood Pressure Position Semi-Fowlers Blood Pressure Location Right Arm Pulse Ox 99 Oxygen Delivery Method Room Air Room Air Weight Weight: 61.235 kg Body Mass Index (BMI) 18.3 Physical Exam Const alert General Appearance: cooperative HEENT normocephalic Eyes PERRL and EOMs intact bilaterally Neck supple, no JVD and no carotid bruits Resp normal respiratory effort, normal air movement and clear to auscultation bilaterally Cardio regular rate and regular rhythm GI normal to inspection, nondistended, normoactive bowel sounds, non-tender and non-distended Extremity normal capillary refill General Extremity: Negative for edema Skin no rashes or lesions noted General Skin Exam: no breakdown Psych affect normal Appearance: appropriate Assessment & Plan Assessment/Plan (1) Debility: (2) Acute blood loss anemia: (3) Upper gastrointestinal bleed: (4) Duodenal ulcer: (5) Hypokalemia: (6) Encephalopathy: (7) Pulmonary embolism: (8) Atrial fibrillation: (9) Coronary artery disease: (10) Hyperlipidemia: QUALIFIERS: Hyperlipidemia type: other hyperlipidemia Qualified Code(s): E78.49 - Other hyperlipidemia PLAN: Plan 84 year old male with below past medical history hospitalized for acute blood less anemia 2/2 upper GI bleed 2/2 duodenal ulcer, complicated by encephalopathy, hypokalemia, recent pulmonary embolism, admitted to TCU with debility, here for rehabilitation, strengthening, prior to discharge home with . * Debility - PT/OT. * Cognition - ST. * Pain - Tylenol 1000mg q6 prn pain (1-10). * Bowel - Miralax 17gm daily, senna/colace 2 tablets bid, Magnesium citrate 300mL daily prn. * Adult immunization - Administer pneumonia vaccine, covid vaccine, flu vaccine as appropriate. * DVT prophylaxis - Eliquis. * Iron deficiency anemia - Ferrous sulfate 325mg every other day, Vitamin C 500mg bidcm. * Dry eyes - Artificial tears 2 gtt ou q1h prn. * Vitamin D deficiency - D3 50mcg daily. * Atrial fibrillation - Metoprolol succinate 25mg daily, Eliquis 5mg bid. * Pulmonary embolism - Eliquis 5mg bid. * Coronary artery disease - Metoprolol succinate 25mg daily, Eliquis 5mg bid, NTG 0.4mg q5m prn. * Nausea - Zofran odt 4mg q8 prn. * Duodenal ulcer - Pantoprazole 40mg bid, Carafate 1gm qachs. * Hyperlipidemia - Rosuvastatin 20mg qhs.
[2024-12-30] MEDS: Sucralfate 1 GM Tablet PO (22:59)
[2024-12-30] MEDS: Senna/Docusate Sodium 1 Tablet 2 TABLET PO (23:00)
--- NOTE | 2024-12-31 03:08 | NURSING ---
Patient with difficulty sleeping, update via written communication left for Dr. Up.
[2024-12-31 05:49] LABS: Absolute Lymphocyte Count 1.23 X10^3/uL (0.83-4.51); Absolute Neutrophil Count 3.6 X10^3/uL (2.0-7.7); Basophil# 0.02 X10^3/uL; Basophil% 0.4 % (0-1); Eosinophil# 0.05 X10^3/uL; Eosinophils% 0.9 % (0-5); Hematocrit 30.2 % (40-54); Hemoglobin 10.2 g/dL (13.0-16.5); Lymphocyte # 1.23 X10^3/ul (0.83-4.51); Lymphocyte % 22.4 % (19-41); Mean Corp Hgb Conc 33.8 g/dL (32-36); Mean Corpuscular Hgb 31.1 pg (27.0-32.0); Mean Corpuscular Volume 92.1 fL (80-94); Mean Platelet Vol. 9.5 fl (6.2-12.0); Monocyte# 0.57 X10^3/uL; Monocyte% 10.4 % (0-10); NRBC Flagged by Analyzer 0 % (0-5); Neutrophil # 3.57 X10^3/uL (2.7-7.7); POSITIVE MORPHOLOGY YES; Platelet Count 259 K/mm3 (150-450); RBC Distribution Width CV 18.2 % (11.6-14.6); RBC Distribution Width SD 61.1 fl (35.1-43.9); Red Blood Count 3.28 M/mm3 (4.6-6.2); White Blood Count 5.5 K/mm3 (4.4-11.0)
[2024-12-31] MEDS: Sucralfate 1 GM Tablet PO ×4 (06:05→20:54)
[2024-12-31 06:11] LABS: Differential Indicated SCAN CRITERIA MET
[2024-12-31 06:14] LABS: Anion Gap 10 (5-15); BUN 21 mg/dL (4-19); BUN/Creat Ratio 26.3 RATIO (10-20); Carbon Dioxide 20.3 mmol/L (21.0-32.0); Chloride 104 mmol/L (98-108); EST Glomerular Filtration Rate 87 (>60); Estimated Creatinine Clearance 58.47 ml/min (50-250); Glucose 119 mg/dL (70-99); Potassium 3.3 mmol/L (3.3-5.1); Sodium Level 134 mmol/L (133-145)
[2024-12-31 07:10] LABS: Differential Comment SCANNED
[2024-12-31] MEDS: Polyethylene Glycol 3350 17 GM PACKET PO (09:55)
[2024-12-31] MEDS: Senna/Docusate Sodium 1 Tablet 2 TABLET PO ×2 (09:56→20:55)
[2024-12-31] MEDS: Cholecalciferol (VIT D3) 25 MCG TABLET (1,000 UNITS) 50 MCG PO (09:56)
[2024-12-31] MEDS: Pantoprazole Sodium 40 MG Tablet PO ×2 (09:56→20:49)
[2024-12-31] MEDS: APIXABAN 5 MG TABLET PO ×2 (09:56→20:49)
[2024-12-31] MEDS: Ascorbic Acid 500 MG Tablet PO ×2 (09:56→18:01)
[2024-12-31 09:57] VITALS: BP 100/60; PULSE 68
[2024-12-31] MEDS: Metoprolol(XL)Succ 25 MG Tablet PO (09:57)
[2024-12-31 10:06] VITALS: BP 100/60; PULSE 68; RESP 16; TEMP 36.6; O2SAT 97
[2024-12-31] MEDS: Tuberculin,Purif.prot.deriv. 50 TU/ML Vial 0.1 ML ID (11:26)
--- NOTE | 2024-12-31 12:36 | NURSING ---
Industrial Painter Note; Activity Asset: Johnny Bearden is independent in his choice of daily activities w/reminders. will be her daily and will bring items from home he may need or want. He prefers in room activities, tv, read or resting over group. Suleiman enjoys outdoors the most. He welcomes visits from the grease and tallow pumper and therapy dog when available. Staff has given him some stuff to read while here, will remind him of weekly activities and respect his right to say no.
--- NOTE | 2024-12-31 12:41 | NURSING ---
Addendum entered by Ruddy Carpenter 12/31/24 14:10: PT HAS PRN ERIC,THIS NURSE GAVE. Original Note: PT VERY SLEEPY TODAY. MOLDING TECHNICIAN REPORTED THAT PT DIDN'T SLEEP MUCH LAST NIGHT. PT REPORTED HE WAS TIRED AND FELT NAUSEATED. PT PUT BACK TO BED AND HAS BEEN SLEEPING. REFUSED BREAKFAST AND LUNCH. IN ROOM AND STATED SHE DIDN'T WANT PT WOKE UP. WILL CONTINUE TO MONITOR AND LEFT NOTE FOR . RN AWARE
[2024-12-31] MEDS: Ferrous Sulfate 325 MG Tablet PO (13:57)
[2024-12-31 14:00] VITALS: PULSE 83; RESP 16; O2SAT 96
[2024-12-31] MEDS: Ondansetron ODT 4 MG Tablet PO (14:06)
[2024-12-31 14:10] VITALS: BP 97/70; PULSE 93
--- NOTE | 2024-12-31 14:38 | PHA.CONS_ITS ---
Documented by User: Morelia Suh 12/31/24 16:10 TCU RX Drug Regimen Review Subjective/Objective Subjective/Objective Subjective: TCU Admission. 84 YOM presented to the ER with weakness. Hospitalized for acute blood less anemia 2/2 upper GI bleed 2/2 duodenal ulcer, complicated by encephalopathy, hypokalemia, recent pulmonary embolism. Admitted to TCU with debility for strengthening and rehabilitation. Objective: Allergies povidone-iodine Allergy (Mild, Verified 12/24/24 14:49) Rash atorvastatin (From Lipitor) Adverse Reaction (Intermediate, Verified 12/24/24 14:49) Myalgias simvastatin (From Zocor) Adverse Reaction (Intermediate, Verified 12/24/24 14:49) Myalgias Current Medications Generic Name Dose Route Start Last Admin Trade Name Freq PRN Reason Stop Dose Admin Acetaminophen 1,000 mg 12/30/24 21:59 Acetaminophen 500 Mg Tablet PO Q6H PRN PRN Pain Score 1-10 Apixaban 5 mg 12/30/24 22:00 12/31/24 09:56 Apixaban 5 Mg Tablet PO 5 mg BID ABNER Administration Artificial Tears 2 drp 12/30/24 15:55 Carboxymethylcellulose Sodium 15 Ml Ophth Drops EACH EYE Q1H PRN DRY EYES Ascorbic Acid 500 mg 12/30/24 17:00 12/31/24 09:56 Ascorbic Acid 500 Mg Tablet PO 500 mg BIDCM [facility] Administration Cholecalciferol 50 mcg 12/31/24 08:00 12/31/24 09:56 Cholecalciferol (Vit D3) 25 Mcg Tablet (1,000 Units) PO 50 mcg DAILYCM [facility] Administration Ferrous Sulfate 325 mg 12/31/24 12:00 12/31/24 13:57 Ferrous Sulfate 325 Mg Tablet PO 325 mg QODAY@1200 [facility] Administration Magnesium Citrate 300 ml 12/30/24 21:52 Magnesium Citrate 300 Ml PO DAILY PRN Constipation Melatonin 3 mg 12/31/24 22:00 Melatonin 3 Mg Tablet PO QHS [facility] Metoprolol Succinate 25 mg 12/31/24 10:00 12/31/24 09:57 Metoprolol(Xl)Succ 25 Mg Tablet PO 25 mg DAILY ABNER Administration Protocol Nitroglycerin 0.4 mg 12/30/24 15:38 Nitroglycerin (Inpatient Use) 0.4 Mg Tab.Subl SL Q5M PRN Chest Pain Ondansetron HCl 4 mg 12/30/24 15:38 12/31/24 14:06 Ondansetron Odt 4 Mg Tablet PO 4 mg Q8H PRN PRN Administration Nausea Pantoprazole Sodium 40 mg 12/30/24 22:00 12/31/24 09:56 Pantoprazole Sodium 40 Mg Tablet PO 40 mg BID ABNER Administration Polyethylene Glycol 17 gm 12/31/24 10:00 12/31/24 09:55 Polyethylene Glycol 3350 17 Gm Packet PO 17 gm DAILY ABNER Administration Rosuvastatin Calcium 20 mg 12/30/24 22:00 12/30/24 21:22 Rosuvastatin 20 Mg Tablet PO 20 mg QHS [facility] Administration Senna/Docusate Sodium 2 tablet 12/30/24 22:00 12/31/24 09:56 Senna/Docusate Sodium 1 Tablet PO 2 tablet BID ABNER Administration Sucralfate 1 gm 12/30/24 22:00 12/31/24 11:28 Sucralfate 1 Gm Tablet PO 1 gm 1HR_ACHS ABNER Administration Tuberculin PPD 0.1 ml 01/07/25 10:00 Tuberculin,Purif.Prot.Deriv. 50 Tu/Ml Vial ID 01/07/25 10:01 X1 ONE Problem List Coronary artery disease (Acute) Atrial fibrillation (Acute) Encephalopathy (Acute) Hypokalemia (Acute) Upper gastrointestinal bleed (Acute) Acute blood loss anemia (Acute) Debility (Acute) Hyperlipidemia (Chronic) Vital Signs Temp Pulse Resp BP Pulse Ox O2 Del Method 97.8 F 93 16 97/70 97 Room Air 12/31/24 10:06 12/31/24 14:10 12/31/24 10:06 12/31/24 14:10 12/31/24 10:06 12/31/24 10:06 Oxygen Delivery Method Room Air Weight: 61.235 kg Body Mass Index (BMI) 18.3 Sodium 134 mmol/L (133-145) 12/31/24 05:22 Potassium 3.3 mmol/L (3.3-5.1) 12/31/24 05:22 Chloride 104 mmol/L (98-108) 12/31/24 05:22 Carbon Dioxide 20.3 mmol/L (21.0-32.0) L 12/31/24 05:22 Anion Gap 10 (5-15) 12/31/24 05:22 BUN 21 mg/dL (4-19) H 12/31/24 05:22 Creatinine 0.80 mg/dL (0.70-1.20) 12/31/24 05:22 Est GFR (MDRD) Non-Af 87 (>60) 12/31/24 05:22 BUN/Creatinine Ratio 26.3 RATIO (10-20) H 12/31/24 05:22 Glucose 119 mg/dL (70-99) H 12/31/24 05:22 Assessment/Plan: 1. Pain: acetaminophen 1000mg PO Q6H PRN pain 1-10. Patient has not required any doses. Please continue to monitor for PRN usage and increased pain. 2. Bowel: Miralax 17gm PO daily, senna/docusate 2T PO BID and magnesium citrate 300mL PO daily PRN constipation. No PRN doses have been given. Please continue to monitor for PRN usage and constipation. Last documented bowel movement was 12/30/24. 3. Atrial fibrillation/CAD/PE: apixaban 5mg PO BID, metoprolol succinate 25mg PO daily and nitroglycerin 0.4mg SL Q5M PRN chest pain. No PRN doses have been given. Please continue to monitor for S/S of bleeding, BP (last 97/70), HR (last 93), hemoglobin (last 10.2g/dL) and PRN usage. 4. Duodenal ulcer: pantoprazole 40mg PO BID and sucralfate 1gm PO 1HR_ACHS. Ple ase continue to monitor for ulcer, pain, diarrhea (BEERs), gas. 5. Hyperlipidemia: rosuvastatin 20mg PO QHS. Please consider ordering a lipid panel as the last panel is from 2019. Thanks. Please continue to monitor LFTs (last 12/26/24) and muscle pain. 6. Iron deficiency anemia: ferrous sulfate 325mg PO QODAY and ascorbic acid 500mg PO BIDCM. Please continue to monitor hemoglobin (last 10.2g/dL), constipation, dark stools. 7. Dry eyes: Artificial Tears 2gtt OU Q1H PRN dry eyes. No PRN doses given. Please continue to monitor for PRN usage. 8. Nausea: ondansetron ODT 4mg PO Q8H PRN nausea. Resident has had 1 dose. Please continue to monitor for PRN usage and nausea. 9. Vitamin D deficiency: cholecalciferol 50mcg PO daily. Please consider ordering a vitamin D level as the last level is from 2017. Thanks. 10. Insomnia: melatonin 3mg PO QHS. Please continue to monitor for excessive daytime drowsiness. Assessment/Plan for indications treated with psychotropic medications: None Medical chart and medication regimen reviewed. The following medication irregularities or issues were identified: 1. Rosuvastatin 20mg PO QHS. Please consider ordering a lipid panel as the last panel is from 2020. Thanks. 2. Cholecalciferol 50mcg PO daily. Please consider ordering a vitamin D level as the last level is from 2017. Thanks. Date Date of Note: 12/31/24 Documented by User: Dr. Jaylon Up MD 12/31/24 17:48 TCU RX Drug Regimen Review Provider Comments Provider responsibility Provider Comments to Recommendations by Pharmacy Agree
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
[2024-12-31 17:55] VITALS: BP 98/60; PULSE 84; O2SAT 95
--- NOTE | 2024-12-31 17:56 | NURSING ---
REPORTED TO THAT PT HAS BEEN SLEEPING ALL DAY AND HARD TO KEEP AWAKE. STATED HIS STOMACH WAS HURTING A LITTLE. REFUSING TO EAT AND CAN ONLY GET A FEW SIPS OF WATER IN TO PT AND BP RUNNING LOW. N.O FOR STAT H&H AND N.S 1000 ML BOLUS. RN AND FAMILY AWARE.
[2024-12-31 18:32] LABS: Hematocrit 29.2 % (40-54); Hemoglobin 9.7 g/dL (13.0-16.5)
[2024-12-31] MEDS: MELATONIN 3 MG TABLET PO (20:53)
[2024-12-31] MEDS: Rosuvastatin 20 MG Tablet PO (20:54)
[2024-12-31] MEDS: Donepezil HCl 5 MG Tablet PO (20:54)
[2024-12-31] MEDS: 0.9% Normal Saline (1000mL) 1,000 ML 999 ML IV (21:00)
[2025-01-01 05:56] VITALS: BP 121/70; PULSE 89
[2025-01-01 08:59] LABS: Cholesterol 88 mg/dL (<=200); High Density Lipoprotein 33 mg/dL; Low Density Lipoprotein Calc. 31 mg/dL; Triglycerides 121 mg/dL; Very Low Density Lipoprotein 24 mg/dL (5-40); Vitamin D,25 Hydroxy 31.4 ng/mL (30-100); cholesterol:hdl ratio screen 2.66
[2025-01-01 10:14] VITALS: BP 93/59; PULSE 71; RESP 15; TEMP 36.6; O2SAT 96
[2025-01-01] MEDS: Sucralfate 1 GM Tablet PO (10:16)
[2025-01-01] MEDS: APIXABAN 5 MG TABLET PO ×2 (10:16→22:03)
[2025-01-01] MEDS: Pantoprazole Sodium 40 MG Tablet PO ×2 (10:16→22:06)
--- NOTE | 2025-01-01 10:24 | NURSING ---
pt refusing vitamin C & Vitamin D this AM, stomach hurts and does not want those meds. pt did take eliquis, carafate, & protonix d/t diagnosis GIB
[2025-01-01 10:35] VITALS: PULSE 71
--- NOTE | 2025-01-01 10:35 | NURSING ---
pt BP low, dr davila notified, new order to Hold Toprol XL this AM. pt asymptomatic. up ambulating with therapy.
--- NOTE | 2025-01-01 10:47 | CASEMGMT ---
Social Work Nephew and presented to this worker's office notifying this worker they are touring [facility] [place] today. SW provided family with list of area ALs, as well. Family inquired about memory care units. SW suggested to tour both traiditional AL and memory care, in case pt would need memory care. Both expressed understanding. Nargis Richardson TRAILER STEERER SECONDS HANDLER
--- NOTE | 2025-01-01 11:07 | NURSING ---
0700 carafate given late, pt was sleeping, can get aggressive and agitated per report, so pt left to sleep. 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
[2025-01-01 13:49] VITALS: BP 107/70; PULSE 68
--- NOTE | 2025-01-01 14:55 | CASEMGMT ---
Social Work Nephew provided SW with advance directives. Copies placed on chart. Nargis Richardson CONTRACT LAW SPECIALIST POULTRY INSPECTOR
[2025-01-01] MEDS: 0.9% Saline Lock 10 ML Syringe IV (15:58)
[2025-01-01] MEDS: Ascorbic Acid 500 MG Tablet PO (18:20)
[2025-01-01 22:00] VITALS: O2SAT 96
[2025-01-01] MEDS: Rosuvastatin 20 MG Tablet PO (22:04)
[2025-01-01] MEDS: Donepezil HCl 5 MG Tablet PO (22:05)
[2025-01-01] MEDS: MELATONIN 3 MG TABLET PO (22:05)
[2025-01-02 04:47] VITALS: PULSE 66; O2SAT 95
[2025-01-02] MEDS: Polyethylene Glycol 3350 17 GM PACKET PO (07:45)
[2025-01-02] MEDS: Cholecalciferol (VIT D3) 25 MCG TABLET (1,000 UNITS) 50 MCG PO (07:45)
[2025-01-02] MEDS: Pantoprazole Sodium 40 MG Tablet PO (07:45)
[2025-01-02] MEDS: Senna/Docusate Sodium 1 Tablet 2 TABLET PO ×2 (07:46→21:22)
[2025-01-02] MEDS: Ascorbic Acid 500 MG Tablet PO ×2 (07:46→17:39)
[2025-01-02 07:49] VITALS: BP 114/69; PULSE 88; RESP 16; TEMP 36.4; O2SAT 94
--- NOTE | 2025-01-02 08:17 | NURSING ---
dr Up aware of occult stool +, new order to consult GI & a hold placed on eliquis. pt fixated on calling , pt asked this nurse to call for him, pt was pretty verbally abusive to on phone, wanting to know where she was at. This nurse expressed to pt that it is only 0750 in the morning and visitation is usually done after therapy. pt verbalized understanding but continued to shout out for not being here.
--- NOTE | 2025-01-02 09:19 | CASEMGMT ---
Social Work Nephew and presented to this worker's office, stating pt had a bad night last night. Pt kept calling both of them throughout the night and being very aggressive. Nephew stated, [the ] reported this has been happening for the better of 3 months. So that medication to help with aggression? Triple it. SW educated the medication will take some time to take affect. Empathized with nephew and . Encouraged both to not engage with pt. Nephew confirmed the hung up the phone and did not keep answering. SW commended and recommended continuing with that. SW offered for to contact the nurse's station if that happens again, to make them aware and intervene. expressed understanding. Both appreciative. Family had not toured ALs yet, but plan to today. SW will continue to follow. Nargis Richardson MSW STATE GAME PROTECTOR
[2025-01-02] MEDS: Ferrous Sulfate 325 MG Tablet PO (11:05)
--- NOTE | 2025-01-02 15:59 | CASEMGMT ---
Social Work Nephew presented to this worker's office, stating he and pt's toured [facility] and that is the plan for ID. However, [facility] does not have rooms available for 5-6 weeks. Nephew discussed admitting the pt elsewhere until [facility] had a room available. SW encouraged family to not move pt multiple times. Educated to negative impacts of environment changes. Nephew agreed. SW offered pt paying privately to remain in TCU until room is available, after Medicare coverage is done; $660/day and 21 days are required up front. Nephew to review with pt's , but likely that will be the decision. SW educated that [facility] will still need to review clinicals prior to officially accepting pt, especially to determine if pt needs AL or memory care. Nephew expressed understanding. Nephew stated can move in with pt also, but they will still keep their house and can come and go. SW to process this as 's safety still remains a priority. SW to place referral to [facility] and follow up with family. Nephew appreciative. Nargis Richardson LEGAL RECOVERY SPECIALIST PASTRY CHEF
--- NOTE | 2025-01-02 19:03 | CON.PCM.GI_ITS ---
HPI Consult Data Date of Consult: 01/02/25 HPI Narrative Reason for Consultation: GI bleed HPI Narrative: FELIX RAZA, is a 84 M with pmhx of duodenal ulcer, afib on eliquis, CAD with prior CABG and 4x stent placement, DVT, HTN, HLD, BPH, prostate cancer s/p prostatectomy, who presents to the ER with dizziness. He was in the er 5 days ago with abdominal pain. At that time he had a Hgb of 11.[address] abdomen showing duodenal ulcer. He was treated with carafate and protonix and sent home. Every day he continues to have abdominal pain in the epigastric region. He also notes black tarry stools. He cannot eat solids due to abdominal pain. He can keep liquids down and some cereal. He has vomited, no blood or coffee grounds noted. He has had worsening weakness daily and is also dizzy when he gets up and ambulates. Shaggy santillan has had multiple falls at home. He fell today in the driveway and EMS was called and he was brought to the hospital. He had a CT head and neck which was negative. Hgb has declined to 8.2. His notes his memory has also been worsening over about 5 months. His hemoglobin dropped all way down to 6.8. He underwent an upper endoscopy by myself and discovered to have bleeding duodenal ulcer that was treated. He can. I was asked to see him again due to his hemoglobin decreases again. [facility] Medical History (Updated 12/30/24 @ 21:[address] Jaylon Up MD) Rheumatoid arthritis Non-smoker Asthma Atrial fibrillation Neck pain on right side Essential (primary) hypertension Gynecomastia, male Bony sclerosis History of prostate cancer History of fractured pelvis Kidney stones BPH (benign prostatic hyperplasia) GERD (gastroesophageal reflux disease) DVT (deep venous thrombosis) Hyperlipidemia Atherosclerotic heart disease of [place] coronary artery without angina pectoris Prostate cancer Home Medications ?Medication ?Instructions ?Recorded ?Last Taken ?Type nitroglycerin 0.4 mg sublingual 0.4 mg sublingual Q5M PRN Chest 09/22/14 Unknown History tablet Pain cholecalciferol (vitamin D3) 25 2,000 unit PO QDAY sup plement 10/26/17 Unknown History mcg (1,000 unit) capsule rosuvastatin 20 mg tablet 20 mg PO QHS cholesterol #90 tabs 06/25/24 Unknown Rx ondansetron 4 mg disintegrating 4 mg PO Q8H PRN PRN Na usea #10 tabs 12/19/24 Unknown Rx tablet apixaban 5 mg tablet (Eliquis) 5 mg PO BID blood thinn er 30 days 12/30/24 Unknown Rx #60 tabs ascorbic acid (vitamin C) 500 mg 500 mg PO BID supplem ent #60 tabs 12/30/24 Unknown Rx tablet ferrous sulfate 325 mg (65 mg 325 mg PO QODAY suppleme nt #30 tabs 12/30/24 Unknown Rx iron) tablet metoprolol succinate 25 mg 25 mg PO DAILY pulse/BP 30 days 12/30/24 Unknown Rx tablet,extended release 24 hr #30 tabs pantoprazole 40 mg tablet,delayed 40 mg PO BID reflux 30 days #60 12/30/24 Unknown Rx release tabs sennosides 8.6 mg-docusate sodium 2 tab PO BID PRN PRN Constipation 12/30/24 Unknown Rx 50 mg tablet (Stimulant Laxative #0 tabs Plus) Allergy/AdvReac Type Severity Reaction Status Date / Time povidone-iodine Allergy Mild Rash Verified 12/24/24 14:49 atorvastatin (From Lipitor) AdvReac Intermediate Myalgias Verified 12/24/24 14:49 simvastatin (From Zocor) AdvReac Intermediate Myalgias Verified 12/24/24 14:49 Family History Father , age 64 CAD (coronary artery disease) Myocardial infarction Sudden cardiac Asthma Heart disease Hypertension Mother , Age 67 Cancer Brother CAD (coronary artery disease) Sister CAD (coronary artery disease) Colon cancer Surgical History History of appendectomy H/O coronary artery bypass surgery (11/11/97) History of coronary artery stent placement (10/01/14) H/O right mastectomy Social History household members: spouse Smoking Status: Never smoker alcohol intake: never substance use type: does not use ROS Constitutional Constitutional: Reports weakness; Denies chills, fever(s) or weight gain ENT HEENT: Denies headache(s), nasal congestion or nasal discharge Cardiovascular Cardiovascular: Denies chest pain or palpitations Respiratory/Chest Respiratory/Chest: Denies cough, excessive phlegm production or shortness of breath with exertion Gastrointestinal Gastrointestinal: Denies abdominal pain, nausea or vomiting Genitourinary Genitourinary: Denies dysuria Musculoskeletal Musculoskeletal: Denies joint pain or joint swelling Integumentary Integumentary: Denies rash or wounds Neurologic Neurologic: Denies focal weakness, numbness or tingling Psychiatric Psychiatric: Denies anxiety, auditory hallucinations, depression, homicidal ideation or suicidal ideation Physical Exam Const alert General Appearance: cooperative HEENT normocephalic Eyes PERRL and EOMs intact bilaterally Neck supple, no JVD and no carotid bruits Resp normal respiratory effort, normal air movement and clear to auscultation bilaterally Cardio regular rate and regular rhythm GI normal to inspection, nondistended, normoactive bowel sounds, non-tender and non-distended Extremity normal capillary refill General Extremity: Negative for edema Skin no rashes or lesions noted General Skin Exam: no breakdown Psych affect normal Appearance: appropriate Lab / Micro Data 12/31/24 18:16 12/31/24 05:22 Micro: Microbiology 01/01/25 18:55 Stool Stool Occult Blood (NATHALY) - Final Occult Blood Positive Assessment & Plan Assessment/Plan (1) Anemia: PLAN: Plan 84-year-old with multiple comorbidities including CAD, atrial fibrillation, CABG previously on Eliquis with progressive weight loss and suspected GI bleed due to duodenal ulcer. Patient underwent an upper endoscopy. Findings: The examined esophagus was normal. Red blood was found in the gastric body. One spurting cratered duodenal ulcer with a visible vessel was found in the first portion of the duodenum. The lesion was 30 mm in largest dimension. Area was successfully injected with 20 mL of a 0.1 mg/mL solution of epinephrine for hemostasis. Estimated blood loss was minimal. Coagulation for hemostasis using heater probe was successful. Estimated blood loss was minimal. Impression: - Normal esophagus. - Red blood in the gastric body. - Spurting duodenal ulcer with a visible vessel. Injected. Treated with a heater probe. - No specimens collected. continue PPI and Carafate therapy Plan : repeat egd on 01/05/25. NPO after midnight on 01/04/25 Charges/Coding Visit Charges Inpatient E&M: 99297 SNF Init L2
[2025-01-02] MEDS: Donepezil HCl 5 MG Tablet PO (21:20)
[2025-01-02] MEDS: Rosuvastatin 20 MG Tablet PO (21:22)
[2025-01-02] MEDS: MELATONIN 3 MG TABLET PO (21:22)
[2025-01-03] MEDS: Pantoprazole Sodium 40 MG Tablet PO ×2 (08:01→21:50)
[2025-01-03] MEDS: Cholecalciferol (VIT D3) 25 MCG TABLET (1,000 UNITS) 50 MCG PO (08:01)
[2025-01-03] MEDS: Polyethylene Glycol 3350 17 GM PACKET PO (08:01)
[2025-01-03] MEDS: Senna/Docusate Sodium 1 Tablet 2 TABLET PO ×2 (08:01→21:50)
[2025-01-03] MEDS: Ascorbic Acid 500 MG Tablet PO ×2 (08:01→16:52)
[2025-01-03 08:05] VITALS: BP 100/57; PULSE 78; RESP 16; TEMP 36.6; O2SAT 98
--- NOTE | 2025-01-03 16:12 | NURSING ---
RAW CHEESE WORKER informed this nurse, that pt. called out using the call light system. RAW CHEESE WORKER answered phone and asked pt. how she could help him. Pt. asked where the shoe horn is. RAW CHEESE WORKER informed pt. that we unfortunately do not have a shoe horn, but that she was more than happy to come assist him if he needed help. Pt. then proceeded to tell RAW CHEESE WORKER to go find out who has one dumbass. RAW CHEESE WORKER put the phone down and ended the call between her and pt. This nurse once informed of situation, entered Pt. room and asked him if he needed assistance with anything. Pt. asked me if he was discharging tomorrow. This nurse informed Pt. that he currently did not have a discharge day set and that he would not be discharging tomorrow. Pt. did not ask this nurse about a shoe horn or anything related to situation.
[2025-01-03] MEDS: Rosuvastatin 20 MG Tablet PO (21:49)
[2025-01-03] MEDS: Donepezil HCl 5 MG Tablet PO (21:49)
[2025-01-03] MEDS: MELATONIN 3 MG TABLET PO (21:49)
[2025-01-03] MEDS: 0.9% Saline Lock 10 ML Syringe IV (21:51)
[2025-01-04] MEDS: Acetaminophen 500 MG Tablet 1000 MG PO (01:11)
[2025-01-04 08:05] VITALS: BP 102/58; PULSE 71; RESP 17; TEMP 36.3; O2SAT 98
[2025-01-04] MEDS: Senna/Docusate Sodium 1 Tablet 2 TABLET PO ×2 (08:09→19:46)
[2025-01-04] MEDS: Cholecalciferol (VIT D3) 25 MCG TABLET (1,000 UNITS) 50 MCG PO (08:09)
[2025-01-04] MEDS: Pantoprazole Sodium 40 MG Tablet PO ×2 (08:09→19:46)
[2025-01-04] MEDS: Polyethylene Glycol 3350 17 GM PACKET PO (08:09)
[2025-01-04] MEDS: Ascorbic Acid 500 MG Tablet PO ×2 (08:09→16:18)
[2025-01-04] MEDS: Ferrous Sulfate 325 MG Tablet PO (11:43)
[2025-01-04] MEDS: 0.9% Saline Lock 10 ML Syringe IV (19:43)
[2025-01-04] MEDS: Donepezil HCl 5 MG Tablet PO (19:43)
[2025-01-04] MEDS: Rosuvastatin 20 MG Tablet PO (19:46)
[2025-01-04] MEDS: MELATONIN 3 MG TABLET PO (19:46)
[2025-01-05 07:44] VITALS: BP 113/60; PULSE 47; RESP 16; TEMP 35.9; O2SAT 98
[2025-01-05 07:45] VITALS: BP 113/60; PULSE 47; RESP 16; TEMP 35.9; O2SAT 97; BMI 18.3
--- NOTE | 2025-01-05 08:30 | NURSING ---
security notified, pt threatening to leave, trying to get out of room, at side. verbally abusive to and staff. pt requesting clothes on, attempted to explain that pt has EGD procedure today was unsuccessful. staff did assist pt with putting jeans on for now and will attempt to remove when pt called down before his procedure at [address] on chair. remains at side.
--- NOTE | 2025-01-05 08:30 | NURSING ---
Offered covid vaccine, VIS provided. Declines at this time.
--- NOTE | 2025-01-05 09:41 | NURSING ---
pt ambulating in halls with therapy at this time. remains in room.
[2025-01-05] MEDS: 0.9% Saline Lock 10 ML Syringe IV ×2 (10:37→20:53)
--- NOTE | 2025-01-05 11:36 | NURSING ---
pt resting in recliner chair, at side. no agitation noted since walking in halls with therapy.
--- NOTE | 2025-01-05 11:56 | CASEMGMT ---
Social Work VALE phoned Bebeto at [facility] to provide verbal update on referral. Discussed patient may benefit from memory care d/t behaviors, and the concern with pt's to admit with pt. Bebeto initially agreeable, but does not have a memory care room available and no foreseen opening. Recommended [facility], as there is likely memory care openings. Bebeto requested to send the referral to both Bebeto and Stephon at [facility]. VALE agreed. - VALE phoned Stephon, [facility] with brief update and will send referral. - VALE sent secure email referral to both Stephon and Bebeto at [facility]. ND will make their official assessment. VALE will continue to follow. Nargis Richardson MSW COMPONENT PREP OPERATOR
--- NOTE | 2025-01-05 14:34 | PCA ---
Patient is becoming very restless, refusing to go back to room and becoming aggressive with staff hospital security has been called twice.
--- NOTE | 2025-01-05 14:39 | NURSING ---
Addendum entered by Anabel Castro 01/05/25 15:20: Before security was called this RN responded to chair alarm, patient getting up without calling for help. He was following his to the door. trying to leave and patient kept yelling at her to come back. Demanding to follow her and demanding she come back into room. He told , you can't leave. RN told to go ahead and leave. Resident refused to sit down, grabbed walker and started following . RN again encouraged to leave. She left room and by the time resident reached hallway near elevators was gone. Resident unable to be re-directed, he started walking around unit demanding this RN get his and bring her back. Out in [facility] sat at a table and again told this RN to go get his . He walked back towards room and at that time officer had arrived to assist. Officer and RN spoke with him in his room, he continued to demand someone find his , said she's out in the parking lot, go get her. Bring her here. He reports they had an argument and she's mad. Says she could commit suicide you know. Estelle RN called Dr. Up to update. Resident slightly calmer. In recliner in room, call christopher in reach, alarm set. Original Note: pt getting up without assist, trying to leave with . security notified, dr up updated, new order for ativan PRN and Depakote BID.
[2025-01-05] MEDS: LORazepam 0.5 MG Tablet PO ×2 (14:46→19:33)
[2025-01-05 14:48] VITALS: BP 136/75; PULSE 100; RESP 16; TEMP 35.9; O2SAT 97; BMI 18.3
[2025-01-05 14:57] VITALS: PULSE 100; RESP 16; O2SAT 94
--- NOTE | 2025-01-05 15:02 | CASEMGMT ---
Social Work SW notified by staff that security was called twice to assist in redirecting the pt. SW remained present with security and assisted with redirecting pt. Pt continuously attempting to get out of chair and requesting to see . Attempted to redirect pt with TV, music, in-room activities and pt denied. Security remained on unit to assist. SW will continue to follow. Nargis Richardson REFRIGERATING TECHNICIAN INSURANCE CHECKER
--- NOTE | 2025-01-05 15:36 | NURSING ---
surgery staff here to take pt to endo. pt voided. then assisted to bed. report given and made surgery staff aware of pt getting ativan and will get up without assist.
--- NOTE | 2025-01-05 17:59 | NURSING ---
pt returned from endo at this time via bed, alarm placed on bed. call light in reach. dietary aware of pt needing liquid diet tonight.
--- NOTE | 2025-01-05 18:07 | NURSING ---
pt not hungry, tray sitting in front of pt, asking about , attempted to call, no answer. holding off on depakote since pt not eating. will update next shift to give when pt able to eat something.
--- NOTE | 2025-01-05 19:08 | NURSING ---
ATTEMPTED TO ADMINISTER DEPAKOTE AND PT TRIED CHEWING, REFUSING TO SWALLOW. DR CEJA NOTIFIED, NEW ORDER FOR VALPROIC ACID SAME DOSE LIQUID FORM.
[2025-01-05] MEDS: Valproic Acid 250 MG/5 ML UDC 500 MG PO (20:56)
[2025-01-05] MEDS: Senna/Docusate Sodium 1 Tablet 2 TABLET PO (20:58)
[2025-01-05] MEDS: Rosuvastatin 20 MG Tablet PO (20:58)
[2025-01-05] MEDS: Pantoprazole Sodium 40 MG Tablet PO (20:58)
[2025-01-05] MEDS: Donepezil HCl 5 MG Tablet PO (20:59)
[2025-01-05] MEDS: MELATONIN 3 MG TABLET PO (20:59)
[2025-01-05 23:05] VITALS: BP 103/60; PULSE 71; RESP 18; TEMP 36.8; O2SAT 98
--- NOTE | 2025-01-05 23:11 | NURSING ---
This Rn was notified that patient was lowered to the floor by the LAW PROFESSOR. LAW PROFESSOR denies patient hitting his head. Obtained vitals. Patient denies pain. Assisted pt back to bed.
[2025-01-05 23:44] LABS: Bedside Glucose 122 mg/dL (74-106)
[2025-01-06 02:16] VITALS: PULSE 80
--- NOTE | 2025-01-06 07:23 | NURSING ---
Called and notified Kaykay, patient's , that pt was lowered to the floor last night. No injuries. Also notified that her cell phone is on the bedside table.
[2025-01-06] MEDS: Ascorbic Acid 500 MG Tablet PO ×2 (07:48→17:39)
[2025-01-06] MEDS: Cholecalciferol (VIT D3) 25 MCG TABLET (1,000 UNITS) 50 MCG PO (07:48)
[2025-01-06] MEDS: Valproic Acid 250 MG/5 ML UDC 500 MG PO ×2 (07:49→20:28)
[2025-01-06] MEDS: Senna/Docusate Sodium 1 Tablet 2 TABLET PO ×2 (07:50→20:29)
[2025-01-06] MEDS: Pantoprazole Sodium 40 MG Tablet PO ×2 (07:50→20:29)
[2025-01-06] MEDS: APIXABAN 5 MG TABLET PO ×2 (07:58→20:29)
[2025-01-06] MEDS: 0.9% Saline Lock 10 ML Syringe IV (08:00)
[2025-01-06 08:04] VITALS: BP 95/59; PULSE 79; RESP 16; TEMP 36.5; O2SAT 99
[2025-01-06 08:07] LABS: Hemoglobin 8.1 g/dL (13.0-16.5)
[2025-01-06] MEDS: Ferrous Sulfate 325 MG Tablet PO (11:26)
[2025-01-06 13:04] VITALS: BMI 18.2
[2025-01-06] MEDS: Donepezil HCl 5 MG Tablet PO (20:28)
[2025-01-06] MEDS: Rosuvastatin 20 MG Tablet PO (20:28)
[2025-01-06] MEDS: MELATONIN 3 MG TABLET PO (20:29)
[2025-01-07 06:27] LABS: Absolute Neutrophil Count 3.2 X10^3/uL (2.0-7.7); Basophil# 0.01 X10^3/uL; Basophil% 0.2 % (0-1); Hematocrit 23.3 % (40-54); Hemoglobin 7.5 g/dL (13.0-16.5); Lymphocyte % 21.9 % (19-41); Mean Corp Hgb Conc 32.2 g/dL (32-36); Mean Corpuscular Hgb 31.6 pg (27.0-32.0); Mean Corpuscular Volume 98.3 fL (80-94); Mean Platelet Vol. 9.2 fl (6.2-12.0); Monocyte# 0.63 X10^3/uL; Monocyte% 12.5 % (0-10); NRBC Flagged by Analyzer 0 % (0-5); Neutrophil # 3.17 X10^3/uL (2.7-7.7); POSITIVE MORPHOLOGY YES; Platelet Count 266 K/mm3 (150-450); RBC Distribution Width CV 18.7 % (11.6-14.6); RBC Distribution Width SD 66.5 fl (35.1-43.9); Red Blood Count 2.37 M/mm3 (4.6-6.2)
[2025-01-07 06:53] LABS: Anion Gap 9 (5-15); BUN 19 mg/dL (4-19); BUN/Creat Ratio 22.8 RATIO (10-20); Calcium,Total 7.8 mg/dL (7.6-11.0); Carbon Dioxide 21.7 mmol/L (21.0-32.0); Chloride 106 mmol/L (98-108); Creatinine, Serum 0.84 mg/dL (0.70-1.20); EST Glomerular Filtration Rate 85 (>60); Glucose 91 mg/dL (70-99); Potassium 3.7 mmol/L (3.3-5.1); Sodium Level 136 mmol/L (133-145)
[2025-01-07 06:56] LABS: Differential Indicated SCAN CRITERIA MET
[2025-01-07] MEDS: Ascorbic Acid 500 MG Tablet PO ×2 (07:56→18:22)
[2025-01-07] MEDS: Pantoprazole Sodium 40 MG Tablet PO ×2 (07:56→20:13)
[2025-01-07] MEDS: Cholecalciferol (VIT D3) 25 MCG TABLET (1,000 UNITS) 50 MCG PO (07:57)
[2025-01-07] MEDS: Senna/Docusate Sodium 1 Tablet 2 TABLET PO (07:57)
[2025-01-07] MEDS: Polyethylene Glycol 3350 17 GM PACKET PO (07:57)
[2025-01-07] MEDS: Valproic Acid 250 MG/5 ML UDC 500 MG PO ×2 (07:58→20:14)
[2025-01-07 08:09] VITALS: BP 116/69; PULSE 82; RESP 18; TEMP 37.1; O2SAT 100
--- NOTE | 2025-01-07 08:39 | NURSING ---
Audit Consultant Note; MDS for 01/06/2025 Complete
[2025-01-07 08:56] LABS: Anisocytosis 1+; Platelet Estimate A (ADEQ); Polychromasia 1+
--- NOTE | 2025-01-07 08:56 | NURSING ---
Order for 2 units of blood, will be done tomorrow 01/08/25 @0845 at transfusion center. updated.
--- NOTE | 2025-01-07 09:59 | NURSING ---
Call from Sydnee Snow with vascular, she said she came to see resident but was unable to have good discussion d/t him confusion. She updated nursing she will reach out to the about consult.
--- NOTE | 2025-01-07 10:56 | EX.PCM.CON.S ---
Assessment & Plan Assessment/Plan (1) Pulmonary embolism: (2) Upper gastrointestinal bleed: PLAN: Plan Patient is a reasonable candidate for IVC filter insertion. I discussed IVC filter insertion procedure details including risks, benefits, and recovery with the patient. He seemed to be understanding, he was open to filter placement though really was perseverating on discharge from TCU and I had to frequently redirect the conversation. Given this and his history of dementia, all procedure details were also discussed extensively with his over the phone, she was agreeable to IVC filter placement as well. Will proceed with IVC filter insertion on 01/08/25 in the director of labor and delivery; after recovery in director of labor and delivery patient will return to TCU. NPO after midnight. HPI Consult Data Date of Consult: 01/07/25 HPI Narrative HPI Narrative: FELIX RAZA, is a 84 M who is currently admitted to TCU with debility for rehab following recent hospitalization at [facility] for acute anemia/GI bleeding from 12/24 - 12/30. In September 2024, he had presented to the ER after having an elevated D-dimer drawn as an outpatient; workup included CTA Chest which identified PE in the right lower lobe peripheral branches, no lower extremity duplex was done at that time. He was initiated on Eliquis. His most recent admission as noted was for acute anemia and he had evaluation by Dr. Machado revealed bleeding duodenal ulcers; this was treated endoscopically and his Eliquis was restarted at discharge. Unfortunately, his Hgb has been downtrending again over the last few days and there is concern for recurrent GI bleed. His Eliquis has been held. 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 We are consulted for consideration of IVC filter. [facility] Medical History (Updated 01/07/25 @ 14:44 by Nancy Oneill) Wears hearing aid Cancer Arthritis Back pain History of ulceration Gastric reflux Chronic cough History of edema Cardiology follow-up encounter History of echocardiogram History of stress test Rheumatoid arthritis Non-smoker Asthma Atrial fibrillation Anemia Dizziness Neck pain on right side Essential (primary) hypertension Gynecomastia, male Bony sclerosis History of prostate cancer History of fractured pelvis Kidney stones BPH (benign prostatic hyperplasia) GERD (gastroesophageal reflux disease) DVT (deep venous thrombosis) Hyperlipidemia Atherosclerotic heart disease of [place] coronary artery without angina pectoris Prostate cancer Home Medications ?Medication ?Instructions ?Recorded ?Last Taken ?Type nitroglycerin 0.4 mg sublingual 0.4 mg sublingual Q5M PRN Chest 09/22/14 Unknown History tablet Pain cholecalciferol (vitamin D3) 25 2,000 unit PO QDAY supplement 10/26/17 Unknown History mcg (1,000 unit) capsule rosuvastatin 20 mg tablet 20 mg PO QHS cholesterol #90 tabs 06/25/24 Unknown Rx ondansetron 4 mg disintegrating 4 mg PO Q8H PRN PRN Nausea #10 tabs 12/19/24 Unknown Rx tablet apixaban 5 mg tablet (Eliquis) 5 mg PO BID blood thinner 30 days 12/30/24 Unknown Rx #60 tabs ascorbic acid (vitamin C) 500 mg 500 mg PO BID supplement #60 tabs 12/30/24 Unknown Rx tablet ferrous sulfate 325 mg (65 mg 325 mg PO QODAY supplement #30 tabs 12/30/24 Unknown Rx iron) tablet metoprolol succinate 25 mg 25 mg PO DAILY pulse/BP 30 days 12/30/24 Unknown Rx tablet,extended release 24 hr #30 tabs pantoprazole 40 mg tablet,delayed 40 mg PO BID reflux 30 days #60 12/30/24 Unknown Rx release tabs sennosides 8.6 mg-docusate sodium 2 tab PO BID PRN PRN Constipation 12/30/24 Unknown Rx 50 mg tablet (Stimulant Laxative #0 tabs Plus) Allergy/AdvReac Type Severity Reaction Status Date / Time povidone-iodine Allergy Mild Rash Verified 01/07/25 14:37 atorvastatin (From Lipitor) AdvReac Intermediate Myalgias Verified 01/07/25 14:37 simvastatin (From Zocor) AdvReac Intermediate Myalgias Verified 01/07/25 14:37 Family History Father , age 64 CAD (coronary artery disease) Myocardial infarction Sudden cardiac Asthma Heart disease Hypertension Mother , Age 67 Cancer Brother CAD (coronary artery disease) Sister CAD (coronary artery disease) Colon cancer Surgical History (Updated 01/07/25 @ 14:44 by Nancy Oneill) History of esophagogastroduodenoscopy (EGD) History of appendectomy H/O coronary artery bypass surgery (11/11/97) History of coronary artery stent placement (10/01/14) H/O right mastectomy Social History household members: spouse Smoking Status: Never smoker alcohol intake: never substance use type: does not use Physical Exam Const alert, oriented x3 and no apparent distress General Appearance: cooperative HEENT normocephalic, hearing grossly normal bilaterally, external ears normal and external nose normal Eyes EOMs intact bilaterally General Eye: normal appearance of both eyes Neck General: normal visual inspection and trachea midline Resp normal respiratory effort and normal air movement Effort and Inspection: able to speak in complete sentences; Negative for labored, grunting or stridor Cardio regular rate and regular rhythm Extremity normal to inspection and no clubbing, cyanosis or edema General Extremity: normal exam except as noted Skin no rashes or lesions noted Trauma: no lacerations or abrasions Neuro oriented x3 and moves all extremities Speech: speech normal Psych mental status grossly normal Appearance: grossly normal Attitude: calm Lab / Micro Data 01/07/25 06:14 01/07/25 06:14 Labs: Laboratory Results - last 24 hr 01/07/25 06:14: WBC 5.0, RBC 2.37 L, Hgb 7.5 L, Hct 23.3 L, MCV 98.3 H, MCH 31.6, MCHC 32.2, RDW Std Deviation 66.5 H, RDW Coeff of Dami 18.7 H, Plt Count 266, MPV 9.2, Immature Gran % (Auto) 0.400, Neut % (Auto) 63.0, Lymph % (Auto) 21.9, [place] % (Auto) 12.5 H, Eos % (Auto) 2.0, Baso % (Auto) 0.2, Absolute Neuts (auto) 3.2, Absolute Lymphs (auto) 1.10, Nucleated RBC % 0, Platelet Estimate A, Polychromasia 1+, Anisocytosis 1+, Sodium 136, Potassium 3.7, Chloride 106, Carbon Dioxide 21.7, Anion Gap 9, BUN 19, Creatinine 0.84, Estim Creat Clear Calc 55.40, Est GFR (MDRD) Non-Af 85, BUN/Creatinine Ratio 22.8 H, Glucose 91, Calcium 7.8 01/07/25 08:40: Blood Type A POSITIVE, Antibody Screen NEGATIVE, Crossmatch See Detail Charges/Coding Visit Charges Inpatient E&M: 03092 [facility] Init L2
[2025-01-07] MEDS: Tuberculin,Purif.prot.deriv. 50 TU/ML Vial 0.1 ML ID (11:22)
--- NOTE | 2025-01-07 12:48 | NURSING ---
PT IS TO GET A IVC FILTER PLACEMENT ON 01/08/25 AT ROUND 0830 AM DUE TO PT HAVING TO BE OFF OF ELIQUIS AND HISTORY OF PE/GI BLEEDS. PT IS TO BE NPO AT MIDNIGHT. FAMILY AND PT AWARE. RN AWARE
--- NOTE | 2025-01-07 12:56 | NURSING ---
Spoke with infusion center, they will plan to transfuse tomorrow after IVC filter placed. If able they will do both units tomorrow, if time doesn't allow they will do one unit tomorrow and the 2nd on Sunday.
[2025-01-07] MEDS: Sucralfate 1 GM Tablet PO ×3 (12:57→20:13)
--- NOTE | 2025-01-07 13:04 | CASEMGMT ---
Social Work IDT met with pt's , KATHERINE outside of pt's room, and two other extended family members participated by phone, for care plan meeting. Discussed patient's progress in PT/OT/SN. Pt refused ST. Educated to Medicare benefit. Provided pt/family with written communication of insurance process and copay coverage during stay. SW provided the update on the outcome of conversations with [facility]. [facility] and [facility] both agree pt needs memory care. [facility] does not have any beds opening. [facility] is uncertain when a bed would be open. However, SW explained to , the recommendation is for not to move in to AL with pt for her safety. Since pt is needing [facility], cannot move into that unit anyway. and family all in agreement for to remain in her home. explained she was conflicted with moving in, as the intention was to assist pt with the transition in hopes pt would respond better. SW expressed understanding and had good intentions. SW also recommended that pt does not move locations once he is discharged, i.e. moving from [place] to [facility] when there is a bed available. and family agreed. SW provided another AL list for family to review for local options. Explained to tour the ALs memory care unit now knowing that is where pt will be placed. stated they toured [place], but not the memory care unit. SW suggested touring that unit as her viewpoint may be different. agreed. SW stressed the importance of keeping and pt safe, and having pt being care for by trained staff. All family in agreement and appreciative. SW explained once there is an accepting AL, a DC date will be set to transfer pt and allow him to get adjusted to that information before having him get 'too settled' in TCU. Family expressed understanding. Family to notify this worker with additional referral choices. SW will continue to follow. Nargis Richardson PARAPROFESSIONAL AIDE CARDIO TECH
[2025-01-07 14:20] VITALS: PULSE 87; RESP 18; O2SAT 93
--- NOTE | 2025-01-07 15:06 | NURSING ---
Addendum entered by Ruddy Carpenter 01/07/25 16:19: PER .FRIEND HE WILL DO A UPPER SCOPE AND COLONOSCOPY ON Sunday01/09/25 DUE TO OTHER PROCIDURES PT IS HAVING ON SUNDAY. FAMILY UPDATED. RN AWARE Original Note: SURGERY CALLED AND STATED THAT PT WILL HAVE A LOWER SCOPE TOMORROW,01/08/25 AT 1745 WITH ,FRIEND. OK TO GIVE DEPAKENE. RN AWARE
--- NOTE | 2025-01-07 15:08 | CASEMGMT ---
Social Work- SW met with pt to conduct BIMS assessment. Pt scored 8/15. Pt scored 0/2 on PHQ9. Pt reports that he wants to transfer to [facility]. Pt cannot verbalize why he would like to transfer. Pt reports that she does not want him to leave. SW actively listened to pt and provided support. Pt to have care plan meeting today and any needs will be further addressed at that time. FAWN Nance
--- NOTE | 2025-01-07 18:02 | PCM.PN.BLA ---
Progress Note I was alerted that the patient's hemoglobin continues to decrease. Vascular surgery was consulted to place IVC filter. That will take place tomorrow. Physical Exam Const alert, oriented x3 and no apparent distress General Appearance: cooperative HEENT normocephalic, hearing grossly normal bilaterally, external ears normal and external nose normal Eyes EOMs intact bilaterally General Eye: normal appearance of both eyes Neck General: normal visual inspection and trachea midline Resp normal respiratory effort and normal air movement Effort and Inspection: able to speak in complete sentences; Negative for labored, grunting or stridor Cardio regular rate and regular rhythm Extremity normal to inspection and no clubbing, cyanosis or edema General Extremity: normal exam except as noted Skin no rashes or lesions noted Trauma: no lacerations or abrasions Neuro oriented x3 and moves all extremities Speech: speech normal Psych mental status grossly normal Appearance: grossly normal Attitude: calm Assessment & Plan Assessment/Plan (1) Anemia: PLAN: Plan 84-year-old with multiple comorbidities including CAD, atrial fibrillation, CABG previously on Eliquis with progressive weight loss and suspected GI bleed due to duodenal ulcer. Patient underwent an upper endoscopy. Findings: The examined esophagus was normal. Red blood was found in the gastric body. One spurting cratered duodenal ulcer with a visible vessel was found in the first portion of the duodenum. The lesion was 30 mm in largest dimension. Area was successfully injected with 20 mL of a 0.1 mg/mL solution of epinephrine for hemostasis. Estimated blood loss was minimal. Coagulation for hemostasis using heater probe was successful. Estimated blood loss was minimal. Impression: - Normal esophagus. - Red blood in the gastric body. - Spurting duodenal ulcer with a visible vessel. Injected. Treated with a heater probe. - No specimens collected. 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 The stricture was dilated. There was no active bleeding seen. We will schedule him for repeat upper endoscopy and colonoscopy on 01/09/2025. He will need to prep tomorrow after he undergoes his IVC filter placement. Visit Charges Inpatient E&M: [address] [facility] Subs L2
[2025-01-07] MEDS: Rosuvastatin 20 MG Tablet PO (20:13)
[2025-01-07] MEDS: Donepezil HCl 5 MG Tablet PO (20:14)
[2025-01-07] MEDS: MELATONIN 3 MG TABLET PO (20:14)
[2025-01-07] MEDS: LORazepam 0.5 MG Tablet PO (23:21)
[2025-01-08 08:19] VITALS: BP 114/61; PULSE 66; RESP 16; TEMP 36.2; O2SAT 98
--- NOTE | 2025-01-08 08:39 | NURSING ---
pt taken to medical laboratory assistant for ivc filter insertion
--- NOTE | 2025-01-08 13:48 | NURSING ---
Spoke with infusion center, they want resident down there at 0830 for transfusion tomorrow. Called endo- they plan to do egd/colonoscopy at 1500 tomorrow 01/09/25.
[2025-01-08] MEDS: Valproic Acid 250 MG/5 ML UDC 500 MG PO ×2 (15:57→20:23)
[2025-01-08] MEDS: Bisacodyl 5 MG Tablet 20 MG PO (15:58)
[2025-01-08] MEDS: Sucralfate 1 GM Tablet PO ×2 (15:58→20:25)
[2025-01-08] MEDS: Ascorbic Acid 500 MG Tablet PO (15:59)
--- NOTE | 2025-01-08 17:07 | PCM.OPRPT ---
Operative Report (Standard) Operative Information Date of Procedure: 01/08/25 Pre-Operative Diagnosis: Acute blood loss anemia and history of pulmonary embolism Post-Operative Diagnosis: Same Surgery/Procedure Performed: Insertion inferior vena cava filter special diet cook: No Type of Anesthesia: Local and Sedation,Conscious Procedure Start Time: 11:15 Procedure Stop Time: 11:30 Select all DRAINS/GRAFTS/IMPLANTS that apply: Implanted device Implanted device details: [employer] [place] inferior vena cava filter Estimated Blood Loss: 3 Specimen collected: No Description of surgery: HPI: Patient is an 84-year-old male admitted with GI bleed and anemia. He initially had his upper GI bleed treated endoscopically however he has had recurrence and has had additional need for holding anticoagulation. He has a history of pulmonary embolism and is felt to be appropriate for filter placement. He is taken now for insertion inferior vena cava filter. Description of procedure: Upon obtaining form consent and verification correct patient procedure site patient was taken to the [facility] was positioned prepped and draped in usual sterile fashion. Timeouts performed consultation administered Versed and fentanyl. Skin overlying the right common femoral vein was Nestabs 1% lidocaine the vessel accessed under ultrasound guidance with a micropuncture needle wire. This was exchanged for micropuncture sheath routine injection ilio caval venogram was performed revealing satisfactory positioning with no extravasation or dissection. This also revealed normal caliber and patent inferior vena cava and right iliac vein system. Through the micropuncture sheath a J-wire was advanced and the micropuncture sheath exchanged for the [employer] [place] delivery sheath. This was then positioned at the L2 vertebral body and subtraction venacavogram performed which revealed the confluence of the renal veins and again normal caliber patent vena cava. The [place] filter was then advanced in position and deployed below the lowest renal vein. Completion venacavogram confirmed satisfactory positioning with no significant tilt. The sheath was then withdrawn manner pressure held for 5 minutes till hemostasis was obtained. The patient was then returned to the recovery area for bedrest prior to return to the TCU. Surgical Findings: See above Complications Complications: No
[2025-01-08] MEDS: Polyethylene Glycol 3350 BOWEL PREP PO (17:56)
[2025-01-08] MEDS: Pantoprazole Sodium 40 MG Tablet PO (20:24)
[2025-01-08] MEDS: LORazepam 0.5 MG Tablet PO (20:24)
[2025-01-08] MEDS: MELATONIN 3 MG TABLET PO (20:24)
[2025-01-08] MEDS: Rosuvastatin 20 MG Tablet PO (20:25)
[2025-01-08] MEDS: Senna/Docusate Sodium 1 Tablet 2 TABLET PO (20:25)
[2025-01-08] MEDS: Donepezil HCl 5 MG Tablet PO (20:25)
[2025-01-09] VITALS (8 sets, daily range): BP systolic 97–131; BP diastolic 57–81; PULSE 61–79; RESP 16; TEMP 35.5–36.8; O2SAT 93–100; BMI 18.1
--- NOTE | 2025-01-09 04:54 | NURSING ---
dtap water enema given at this time. pt had no results from the bowel prep that was ordered yesterday.
--- NOTE | 2025-01-09 04:56 | NURSING ---
pt have a lg amt of liquid stool with some formed stool that was black in color, pt tolerated the procedure well, but was embarrassed. will text .friend this am to let him know that pt had not finished his bowl prep yesterday with the results of the enema
[2025-01-09 06:11] LABS: Absolute Lymphocyte Count 0.86 X10^3/uL (0.83-4.51); Absolute Neutrophil Count 12.5 X10^3/uL (2.0-7.7); Basophil# 0.01 X10^3/uL; Basophil% 0.1 % (0-1); Hematocrit 24.6 % (40-54); Lymphocyte # 0.86 X10^3/ul (0.83-4.51); Lymphocyte % 6.1 % (19-41); Mean Corp Hgb Conc 32.5 g/dL (32-36); Mean Corpuscular Hgb 31.5 pg (27.0-32.0); Mean Corpuscular Volume 96.9 fL (80-94); Mean Platelet Vol. 9.2 fl (6.2-12.0); Monocyte# 0.73 X10^3/uL; Monocyte% 5.2 % (0-10); NRBC Flagged by Analyzer 0 % (0-5); Neutrophil # 12.46 X10^3/uL (2.7-7.7); Neutrophil % 87.9 % (47-70); POSITIVE MORPHOLOGY YES; Platelet Count 298 K/mm3 (150-450); RBC Distribution Width CV 18.2 % (11.6-14.6); RBC Distribution Width SD 65.1 fl (35.1-43.9); Red Blood Count 2.54 M/mm3 (4.6-6.2); White Blood Count 14.2 K/mm3 (4.4-11.0)
[2025-01-09 06:22] LABS: Differential Indicated SCAN CRITERIA MET
[2025-01-09 06:25] LABS: International Normalized Ratio 1.1
[2025-01-09 07:31] LABS: Anion Gap 12 (5-15); BUN 17 mg/dL (4-19); BUN/Creat Ratio 23.1 RATIO (10-20); Calcium,Total 8.3 mg/dL (7.6-11.0); Carbon Dioxide 20.8 mmol/L (21.0-32.0); Chloride 104 mmol/L (98-108); Creatinine, Serum 0.73 mg/dL (0.70-1.20); EST Glomerular Filtration Rate 89 (>60); Estimated Creatinine Clearance 58.17 ml/min (50-250); Glucose 129 mg/dL (70-99); Potassium 3.7 mmol/L (3.3-5.1); Sodium Level 136 mmol/L (133-145)
[2025-01-09] MEDS: Valproic Acid 250 MG/5 ML UDC 500 MG PO ×2 (08:10→20:26)
--- NOTE | 2025-01-09 08:25 | NURSING ---
Addendum entered by Anabel Castro 01/09/25 08:39: Updated infusion center of order to cancel lasix b/t units of blood. Original Note: Dr. Machado updated that resident still having formed stool this morning. Order for SSE. Enema given. After given placed him on bedpan and he small formed/soft stool with dark liquid stool. Update sent to Dr. Machado, await response. Resident sent down to infusion center for blood transfusion @4533.
--- NOTE | 2025-01-09 08:30 | NURSING ---
Sydnee Snow came to check on resident after he'd been taken to infusion center. Let her know groin site looked good, no redness/drainage/swelling. She said if there are no concerns he can follow-up outpatient in the office.
--- NOTE | 2025-01-09 08:50 | NURSING ---
PT LEFT FLOOR BY BED AT 0830 TO TRANSFUSION CENTER FOR BLOOD.
[2025-01-09 09:00] LABS: Anisocytosis 1+; Platelet Estimate ADEQUATE (ADEQ); Polychromasia 1+
[2025-01-09] MEDS: 0.9% Saline Lock 10 ML Syringe IV ×2 (09:07→23:22)
--- NOTE | 2025-01-09 13:36 | NURSING ---
PT RETURNED TO FLOOR BY BED AT 1330 FROM [facility]. WILL CONTINUE TO MONITOR.
--- NOTE | 2025-01-09 14:11 | NURSING ---
PT LEFT FLOOR BY BED AT 1405 FOR COLONOSCOPY/EGD WITH .
--- NOTE | 2025-01-09 15:27 | HP.PCM_ITS ---
[facility] - General General Date of Admission: 12/30/24 Date of Service: 01/09/25 Chief Complaint: GI bleeding HPI Narrative FELIX RAZA, is a 84 M who presents 84 M with pmhx of duodenal ulcer, afib on eliquis, CAD with prior CABG and 4x stent placement, DVT, HTN, HLD, BPH, prostate cancer s/p prostatectomy, who presents to the ER with dizziness. He was in the er 5 days ago with abdominal pain. At that time he had a Hgb of 11.[address] abdomen showing duodenal ulcer. He was treated with carafate and protonix and sent home. Every day he continues to have abdominal pain in the epigastric region. He also notes black tarry stools. He cannot eat solids due to abdominal pain. He can keep liquids down and some cereal. He has vomited, no blood or coffee grounds noted. He has had worsening weakness daily and is also dizzy when he gets up and ambulates. Shaggy santillan has had multiple falls at home. He fell today in the driveway and EMS was called and he was brought to the hospital. He had a CT head and neck which was negative. Hgb has declined to 8.2. His notes his memory has also been worsening over about 5 months. His hemoglobin dropped all way down to 6.8. He underwent an upper endoscopy by myself and discovered to have bleeding duodenal ulcer that was treated. He can. I was asked to see him again due to his hemoglobin decreases again. [facility] Medical History Wears hearing aid Cancer Arthritis Back pain History of ulceration Gastric reflux Chronic cough History of edema Cardiology follow-up encounter History of echocardiogram History of stress test Rheumatoid arthritis Non-smoker Asthma Atrial fibrillation Anemia Dizziness Neck pain on right side Essential (primary) hypertension Gynecomastia, male Bony sclerosis History of prostate cancer History of fractured pelvis Kidney stones BPH (benign prostatic hyperplasia) GERD (gastroesophageal reflux disease) DVT (deep venous thrombosis) Hyperlipidemia Atherosclerotic heart disease of [place] coronary artery without angina pectoris Prostate cancer Home Medications ?Medication ?Instructions ?Recorded ?Last Taken ?Type nitroglycerin 0.4 mg sublingual 0.4 mg sublingual Q5M PRN Chest 09/22/14 Unknown History tablet Pain cholecalciferol (vitamin D3) 25 2,000 unit PO QDAY sup plement 10/26/17 01/08/25 History mcg (1,000 unit) capsule rosuvastatin 20 mg tablet 20 mg PO QHS cholesterol #90 tabs 06/25/24 Unknown Rx ondansetron 4 mg disintegrating 4 mg PO Q8H PRN PRN Na usea #10 tabs 12/19/24 Unknown Rx tablet apixaban 5 mg tablet (Eliquis) 5 mg PO BID blood thinn er 30 days 12/30/24 Unknown Rx #60 tabs ascorbic acid (vitamin C) 500 mg 500 mg PO BID supplem ent #60 tabs 12/30/24 01/08/25 Rx tablet ferrous sulfate 325 mg (65 mg 325 mg PO QODAY suppleme nt #30 tabs 12/30/24 01/08/25 Rx iron) tablet metoprolol succinate 25 mg 25 mg PO DAILY pulse/BP 30 days 12/30/24 Unknown Rx tablet,extended release 24 hr #30 tabs pantoprazole 40 mg tablet,delayed 40 mg PO BID reflux 30 days #60 12/30/24 Unknown Rx release tabs sennosides 8.6 mg-docusate sodium 2 tab PO BID PRN PRN Constipation 12/30/24 Unknown Rx 50 mg tablet (Stimulant Laxative #0 tabs Plus) lorazepam 0.5 mg tablet (Ativan) 0.5 mg PO Q4H PRN anx iety 01/09/25 01/08/25 History pantoprazole 40 mg tablet,delayed 40 mg PO DAILY gerd 01/09/25 01/08/25 History release (Protonix) rosuvastatin 20 mg tablet (Crestor) 20 mg PO DAILY cho lesterol 01/09/25 01/08/25 History sucralfate 1 gram tablet (Carafate) 1 g PO ACHS GERD 0 01/09/25 01/08/25 History valproic acid 500 mg 500 mg PO BID ? 01/09/25 History capsule,delayed release Allergy/AdvReac Type Severity Reaction Status Date / Time atorvastatin (From Lipitor) AdvReac Intermediate Myalgias Verified 01/09/25 14:18 simvastatin (From Zocor) AdvReac Intermediate Myalgias Verified 01/09/25 14:18 Iodinated Contrast Media AdvReac Mild RASH Verified 01/09/25 14:28 (iodine contrast) Family History Father , age 64 CAD (coronary artery disease) Myocardial infarction Sudden cardiac Asthma Heart disease Hypertension Mother , Age 67 Cancer Brother CAD (coronary artery disease) Sister CAD (coronary artery disease) Colon cancer Surgical History History of esophagogastroduodenoscopy (EGD) History of appendectomy H/O coronary artery bypass surgery (11/11/97) History of coronary artery stent placement (10/01/14) H/O right mastectomy Social History household members: spouse Smoking Status: Never smoker alcohol intake: never substance use type: does not use ROS Constitutional Constitutional: Denies fatigue, fever(s), poor appetite, weight gain or weight loss Gastrointestinal Gastrointestinal: Denies belching, bloating, change in bowel habits, change in stool character, chewing difficulty, coffee ground emesis, constipation, cramping, diarrhea, dyspepsia, dysphagia, early satiety, excessive flatus, fecal incontinence, heartburn, hematemesis, hematochezia, hemorrhoids, loose stools, melena, nausea, odynophagia, rectal bleeding, tenesmus, vomiting or weight changes Vital Signs Vital Signs Vital Signs: 01/08/25 20:15 01/09/25 08:13 01/09/25 08:59 Temperature 98.2 F 96.3 F L Temperature Source Temporal Temporal Pulse Rate 61 72 Pulse Strength Normal (2+) Respiratory Rate 16 16 Respiratory Pattern Normal Blood Pressure 100/59 L 102/58 L Blood Pressure Mean 72 72 Blood Pressure Source Monitor Monitor Blood Pressure Position Semi-Fowlers Sitting Blood Pressure Location Left Arm Left Arm Pulse Ox 95 98 Oxygen Delivery Method Room Air Room Air 01/09/25 09:31 01/09/25 10:00 01/09/25 10:34 Temperature 96.9 F L 96 F L Temperature Source Temporal Temporal Pulse Rate 70 79 Pulse Strength Normal (2+) Respiratory Rate 16 16 Respiratory Pattern Blood Pressure 100/57 L 97/64 Blood Pressure Mean 71 75 Blood Pressure Source Monitor Monitor Blood Pressure Position Sitting Sitting Blood Pressure Location Left Arm Left Arm Pulse Ox 96 96 Oxygen Delivery Method Room Air Room Air 01/09/25 11:18 01/09/25 11:39 01/09/25 12:50 Temperature 96.3 F L 97.7 F L 96.9 F L Temperature Source Temporal Temporal Temporal Pulse Rate 68 68 74 Pulse Strength Respiratory Rate 16 16 16 Respiratory Pattern Blood Pressure 114/65 104/57 L 131/81 H Blood Pressure Mean 81 72 97 Blood Pressure Source Monitor Monitor Monitor Blood Pressure Position Sitting Semi-Fowlers Sitting Blood Pressure Location Left Arm Left Arm Pulse Ox 93 100 Oxygen Delivery Method Room Air Room Air 01/09/25 13:13 Temperature 96.0 F L Temperature Source Temporal Pulse Rate 71 Pulse Strength Respiratory Rate 16 Respiratory Pattern Blood Pressure 114/67 Blood Pressure Mean 82 Blood Pressure Source Monitor Blood Pressure Position Semi-Fowlers Blood Pressure Location Left Arm Pulse Ox 98 Oxygen Delivery Method Room Air Weight Weight: 134 lb Body Mass Index (BMI) 18.1 Physical Exam Const alert, oriented x3, no apparent distress and healthy appearing General Appearance: cooperative GI normal to inspection, nondistended, normoactive bowel sounds, soft to palpation, non-tender and non-distended Percussion: normal to percussion Rectal Exam: deferred Results Lab / Micro Data 01/09/25 05:37 01/09/25 05:37 Labs: Laboratory Results - last 24 hr 01/07/25 08:40: Blood Type A POSITIVE, Antibody Screen NEGATIVE, Crossmatch See Detail 01/09/25 05:37: WBC 14.2 H, RBC 2.54 L, Hgb 8.0 L, Hct 24.6 L, MCV 96.9 H, MCH 31.5, MCHC 32.5, RDW Std Deviation 65.1 H, RDW Coeff of Dami 18.2 H, Plt Count 298, MPV 9.2, Immature Gran % (Auto) 0.700, Neut % (Auto) 87.9 H, Lymph % (Auto) 6.1 L, [place] % (Auto) 5.2, Eos % (Auto) 0.0, Baso % (Auto) 0.1, Absolute Neuts (auto) 12.5 H, Absolute Lymphs (auto) 0.86, Nucleated RBC % 0, Platelet Estimate ADEQUATE, Polychromasia 1+, Anisocytosis 1+, PT 14.0, INR 1.1, Sodium 136, Potassium 3.7, Chloride 104, Carbon Dioxide 20.8 L, Anion Gap 12, BUN 17, Creatinine 0.73, Estim Creat Clear Calc 58.17, Est GFR (MDRD) Non-Af 89, B UN/Creatinine Ratio 23.1 H, Glucose 129 H, Calcium 8.3 Assessment & Plan Assessment/Plan (1) Anemia: PLAN: Plan 84-year-old with multiple comorbidities including CAD, atrial fibrillation, CABG previously on Eliquis with progressive weight loss and suspected GI bleed due to duodenal ulcer. Patient underwent an upper endoscopy. Findings: The examined esophagus was normal. Red blood was found in the gastric body. One spurting cratered duodenal ulcer with a visible vessel was found in the first portion of the duodenum. The lesion was 30 mm in largest dimension. Area was successfully injected with 20 mL of a 0.1 mg/mL solution of epinephrine for hemostasis. Estimated blood loss was minimal. Coagulation for hemostasis using heater probe was successful. Estimated blood loss was minimal. Impression: - Normal esophagus. - Red blood in the gastric body. - Spurting duodenal ulcer with a visible vessel. Injected. Treated with a heater probe. - No specimens collected. 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 The stricture was dilated. There was no active bleeding seen. We will schedule him for repeat upper endoscopy and colonoscopy on 01/09/2025. He will need to prep tomorrow after he undergoes his IVC filter placement. 01/09/2025-patient will undergo EGD and colonoscopy further recommendation to follow after that.
--- NOTE | 2025-01-09 16:31 | NURSING ---
[facility] CALLED AND STATED THAT DID NOT SEE ANY THING WITH THE EGD AND THAT THEY COULDN'T DO THE COLONOSCOPY DUE TO THEY COULDN'T GET THREW DUE TO STOOL. WILL LEAVE NOTE FOR . FAMILY UPDATED. RN AWARE
--- NOTE | 2025-01-09 16:42 | NURSING ---
PT RETURNED TO FLOOR BY BED AT 1630 FROM PROCEDURE WITH .
[2025-01-09] MEDS: Sucralfate 1 GM Tablet PO ×2 (16:58→20:26)
[2025-01-09] MEDS: Ascorbic Acid 500 MG Tablet PO (17:40)
[2025-01-09] MEDS: LORazepam 0.5 MG Tablet PO (17:43)
--- NOTE | 2025-01-09 18:42 | NURSING ---
PT LEFT WHILE PT WAS EATING SUPPER. PT CALLED OUT, WHERE IS MY . THIS NURSE STATED TO PT THAT SHE WENT HOME SHE WAS VERY TIRED AND WILL BE BACK TOMORROW. PT STATED WHY DID U LET HER LEAVE,THIS NURSE STATED I CAN NOT STOP HIS FROM LEAVING. AID CAME IN ROOM AND PT YELLED AT AID WHY DID U LET MY LEAVE! AID STATED I DIDNT SEE YOUR LEAVE. PT STATED YOUR ALL LIEING AND A BUNCH OF ASSHOLES. CALL MY BROTHER IN [place]. THIS NURSE DIALED PHONE FOR PT AND GAVE PHONE TO PT. PT LEFT MESSAGE. THIS NURSE ALSO GOT PT HIS PRN ATIVAN AFTER PT GOT OFF PHONE. PT THEN STATED NELY LEAVING TONIGHT. THIS NURSE AND AID STATED TO PT HE WAS STAYING TONIGHT DUE TO ALL HIS PROCEDURES TODAY TO MAKE SURE HE IS OK. PT STATED BULLSHIT GET MY PANTS ON AND I WANT TO GO IN THE CHAIR. THIS NURSE AND AID DID JUST THAT AND PT STATED GET ME A PHONE BOOK. THIS NURSE STATED THAT THEY DONT MAKE THEM ANY MORE CAUSE EVERY ONE LOOKS THINGS UP ON THE PHONES. WELL GET ME THE POLICE THEN. RN CALLED FOR SECURITY. SECURITY CAME UP TO TALK TO PT AND PT CALLED SECURITY A LIEING ASS HOLE. SECURITY STATED CALL IF YOU NEED ME AND LEFT. PT STARTED GETTING UP AGAIN AND STATED HE WANTED TO SEE THE SWANSON OR PREACHER. STATED TO PT THAT THE SWANSON IS OUT OF STATE AND THE PREACHER WENT HOME FOR THE DAY. THEN GET MY COAT. ASKED PT TO SIT DOWN SO HE DIDNT FALL PT STATED I WILL IF YOU GET MY COAT. THIS NURSE GOT PT HIS COAT AND PT SAT DOWN. PT STATED NELY STILL LEAVING AND YOUR TAKING ME HOME. THIS NURSE STATED NELY HERE FOR A FEW MORE HOURS AND CANT TAKE YOU HOME. PT STATED DO YOU LIVE IN [place]OWN? THIS NURSE STATED NO. PT AGAIN STATED YOUR A ASS HOLE. THIS NURSE STATED TO PT DONT BE MEAN TO ME I DONT LIKE IT AND NELY JUST TRYING TO HELP YOU. PT STATED OK. PT STATED HE WOULD WAIT FOR SOME ONE TO COME GET HIM. RN AWARE.
[2025-01-09] MEDS: Pantoprazole Sodium 40 MG Tablet PO (20:26)
[2025-01-09] MEDS: MELATONIN 3 MG TABLET PO (20:26)
[2025-01-09] MEDS: Donepezil HCl 5 MG Tablet PO (20:26)
[2025-01-09] MEDS: Rosuvastatin 20 MG Tablet PO (23:13)
[2025-01-10] MEDS: Sucralfate 1 GM Tablet PO ×3 (06:49→16:37)
[2025-01-10 07:35] LABS: Hematocrit 30.8 % (40-54); Hemoglobin 10.1 g/dL (13.0-16.5)
[2025-01-10] MEDS: Ascorbic Acid 500 MG Tablet PO ×2 (08:21→16:37)
[2025-01-10] MEDS: Valproic Acid 250 MG/5 ML UDC 500 MG PO (08:21)
[2025-01-10] MEDS: Pantoprazole Sodium 40 MG Tablet PO (08:21)
[2025-01-10] MEDS: Cholecalciferol (VIT D3) 25 MCG TABLET (1,000 UNITS) 50 MCG PO (08:21)
[2025-01-10 09:06] VITALS: BMI 19.1
[2025-01-10 10:47] VITALS: BP 116/64; PULSE 84; RESP 17; TEMP 36.4; O2SAT 99
[2025-01-10] MEDS: Ferrous Sulfate 325 MG Tablet PO (12:31)
[2025-01-11] MEDS: Sucralfate 1 GM Tablet PO ×4 (06:35→22:47)
[2025-01-11 07:16] LABS: Hematocrit 29.9 % (40-54); Hemoglobin 9.9 g/dL (13.0-16.5)
[2025-01-11] MEDS: Valproic Acid 250 MG/5 ML UDC 500 MG PO ×2 (08:09→22:48)
[2025-01-11] MEDS: Ascorbic Acid 500 MG Tablet PO ×2 (08:09→16:07)
[2025-01-11] MEDS: Cholecalciferol (VIT D3) 25 MCG TABLET (1,000 UNITS) 50 MCG PO (08:09)
[2025-01-11] MEDS: Pantoprazole Sodium 40 MG Tablet PO ×2 (08:09→22:47)
[2025-01-11 10:31] VITALS: BP 122/56; PULSE 90; RESP 16; TEMP 36.5; O2SAT 99
[2025-01-11] MEDS: Donepezil HCl 5 MG Tablet PO (22:46)
[2025-01-11] MEDS: Rosuvastatin 20 MG Tablet PO (22:47)
[2025-01-11] MEDS: MELATONIN 3 MG TABLET PO (22:47)
[2025-01-12 05:40] LABS: Hematocrit 31.9 % (40-54); Hemoglobin 10.4 g/dL (13.0-16.5)
[2025-01-12] MEDS: Sucralfate 1 GM Tablet PO ×4 (06:45→19:49)
[2025-01-12] MEDS: Cholecalciferol (VIT D3) 25 MCG TABLET (1,000 UNITS) 50 MCG PO (07:58)
[2025-01-12] MEDS: Ascorbic Acid 500 MG Tablet PO ×2 (07:59→15:59)
--- NOTE | 2025-01-12 09:29 | CASEMGMT ---
Social Work SW received email from Fredy at [facility] stating family toured [place] and requesting clinical information. [facility] plans to complete onsite assessment this date. VALE sent clinicals via [facility]. Notified nursing of assessment. Will continue to follow. Nargis Richardson BETTING CLERK POLICY WRITER TYPIST
[2025-01-12] MEDS: Valproic Acid 250 MG/5 ML UDC 500 MG PO ×2 (10:31→19:50)
[2025-01-12] MEDS: Senna/Docusate Sodium 1 Tablet 2 TABLET PO ×2 (10:32→19:52)
[2025-01-12] MEDS: Polyethylene Glycol 3350 17 GM PACKET PO (10:32)
[2025-01-12] MEDS: Pantoprazole Sodium 40 MG Tablet PO ×2 (10:32→19:51)
--- NOTE | 2025-01-12 11:27 | MDS.RN ---
Information for the MDS was obtained from review of the clinical record, interview of resident, staff, and direct observation of resident?s care.
[2025-01-12] MEDS: Ferrous Sulfate 325 MG Tablet PO (11:52)
[2025-01-12 14:02] VITALS: BP 115/60; PULSE 84; RESP 19; TEMP 36.2; O2SAT 96
--- NOTE | 2025-01-12 14:11 | EKG12_ITS ---
Test Reason : CP Blood Pressure : */* mmHG Vent. Rate : 85 BPM Atrial Rate : 85 BPM P-R Int : 158 ms QRS Dur : 78 ms QT Int : 342 ms P-R-T Axes : 47 15 -52 degrees QTcB Int : 406 ms Sinus rhythm with Premature atrial complexes ST & T wave abnormality, consider inferior ischemia Abnormal ECG When compared with ECG of 24-Dec-2024 16:20, Nonspecific T wave abnormality, worse in Anterior leads QT has shortened Confirmed by CHEPE RODRIGUEZ ([id number]), editorial director NUNO SYKES ([id number]) on 02/13/2025 1:27:30 PM Referred By: Jaylon Up Confirmed By: CHEPE RODRIGUEZ
--- NOTE | 2025-01-12 14:31 | NURSING ---
Complaining of chest pain to SALON MANAGER. On assessment unable to describe intensity, says its not radiating. Points to center/left chest when asked where it hurts. Keeps saying he needs nurses to go get my . EKG completed. After 10 minutes and back in room with him symptoms resolved.
[2025-01-12] MEDS: Donepezil HCl 5 MG Tablet PO (19:47)
[2025-01-12] MEDS: Rosuvastatin 20 MG Tablet PO (19:50)
[2025-01-12] MEDS: MELATONIN 3 MG TABLET PO (19:50)
[2025-01-13] MEDS: Sucralfate 1 GM Tablet PO ×4 (06:11→20:22)
[2025-01-13 08:19] VITALS: BP 123/62; PULSE 85; RESP 20; TEMP 36.6; O2SAT 98
[2025-01-13] MEDS: Pantoprazole Sodium 40 MG Tablet PO ×2 (08:22→20:23)
[2025-01-13] MEDS: Senna/Docusate Sodium 1 Tablet 2 TABLET PO ×2 (08:22→20:24)
[2025-01-13] MEDS: Cholecalciferol (VIT D3) 25 MCG TABLET (1,000 UNITS) 50 MCG PO (08:22)
[2025-01-13] MEDS: Valproic Acid 250 MG/5 ML UDC 500 MG PO ×2 (08:22→20:23)
[2025-01-13] MEDS: Ascorbic Acid 500 MG Tablet PO ×2 (08:22→16:22)
[2025-01-13] MEDS: Polyethylene Glycol 3350 17 GM PACKET PO (08:22)
--- NOTE | 2025-01-13 09:30 | CASEMGMT ---
Social Work SW sent email to [facility] to follow up on outcome of assessment. Will await outcome. Nargis Richardson INTERLOCKER FARM BOSS
[2025-01-13 13:44] VITALS: BMI 19.3
[2025-01-13] MEDS: LORazepam 0.5 MG Tablet PO (17:40)
[2025-01-13] MEDS: Donepezil HCl 5 MG Tablet PO (20:22)
[2025-01-13] MEDS: Rosuvastatin 20 MG Tablet PO (20:23)
[2025-01-13] MEDS: MELATONIN 3 MG TABLET PO (20:23)
[2025-01-14] MEDS: Sucralfate 1 GM Tablet PO ×4 (05:33→20:45)
[2025-01-14 06:12] LABS: Absolute Neutrophil Count 3.3 X10^3/uL (2.0-7.7); Basophil# 0.03 X10^3/uL; Basophil% 0.5 % (0-1); Eosinophil# 0.08 X10^3/uL; Eosinophils% 1.4 % (0-5); Hematocrit 31.1 % (40-54); Hemoglobin 9.9 g/dL (13.0-16.5); Lymphocyte % 23.1 % (19-41); Mean Corp Hgb Conc 31.8 g/dL (32-36); Mean Corpuscular Volume 94.2 fL (80-94); Mean Platelet Vol. 9.3 fl (6.2-12.0); Monocyte# 0.74 X10^3/uL; Monocyte% 13.2 % (0-10); NRBC Flagged by Analyzer 0 % (0-5); Neutrophil # 3.33 X10^3/uL (2.7-7.7); Neutrophil % 59.3 % (47-70); Platelet Count 196 K/mm3 (150-450); RBC Distribution Width CV 18.6 % (11.6-14.6); RBC Distribution Width SD 63.9 fl (35.1-43.9); White Blood Count 5.6 K/mm3 (4.4-11.0)
[2025-01-14 06:31] LABS: Anion Gap 9 (5-15); BUN 25 mg/dL (4-19); BUN/Creat Ratio 33.2 RATIO (10-20); Calcium,Total 7.8 mg/dL (7.6-11.0); Carbon Dioxide 23.8 mmol/L (21.0-32.0); Chloride 106 mmol/L (98-108); Creatinine, Serum 0.74 mg/dL (0.70-1.20); EST Glomerular Filtration Rate 89 (>60); Estimated Creatinine Clearance 61.85 ml/min (50-250); Glucose 93 mg/dL (70-99); Potassium 3.7 mmol/L (3.3-5.1); Sodium Level 139 mmol/L (133-145)
[2025-01-14] MEDS: Ascorbic Acid 500 MG Tablet PO ×2 (07:57→16:55)
[2025-01-14] MEDS: Valproic Acid 250 MG/5 ML UDC 500 MG PO ×2 (07:57→20:47)
[2025-01-14] MEDS: Polyethylene Glycol 3350 17 GM PACKET PO (07:57)
[2025-01-14] MEDS: Cholecalciferol (VIT D3) 25 MCG TABLET (1,000 UNITS) 50 MCG PO (07:57)
[2025-01-14] MEDS: Senna/Docusate Sodium 1 Tablet 2 TABLET PO ×2 (07:58→20:46)
[2025-01-14] MEDS: Pantoprazole Sodium 40 MG Tablet PO ×2 (07:58→20:46)
[2025-01-14 08:08] VITALS: BP 108/64; PULSE 93; RESP 16; O2SAT 97
--- NOTE | 2025-01-14 11:22 | CASEMGMT ---
Social Work SW approached by RELASTER that RN was needed in pt's room d/t comments that pt made. SW presented to pt's room and RN was sitting with pt. SW inquired to the pt how he was doing. Pt replied, oh I made some silly comments. SW questioned further. Pt stated, I said that if they don't get me out of here, I am going to kill myself. SW inquired how he would kill himself. Pt replied, by getting a gun or standing in front of a car. SW continued exploring further using the [place] [facility], in addition to situational questions. Pt explained further that he would machine set up technician the middle of the road and wait for a car to hit him. Also, pt explained he owns several guns at home, rifles and shot guns, used for hunting, as that was his favorite hobby. Pt denied having thoughts/plans/attempts of killing himself prior, and if he could see his , and he would feel relieved. Pt could not provide any other alternatives to finding relief. SW inquired if pt could use any items in his room to harm or kill himself. Pt looked around, and denied. 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 Pt's demeanor lifted and enjoyed discussing his career. SW remained engaged in conversation and noted pt enjoys using his hands and mind. Given pt's severe cognitive impairment, hx of irate behavior, fixation on not wanting to remain in TCU, and wanting to see his , this worker cleared 1:1 sitter as pt is not a threat to himself at this time. SW requested nursing place pt in [facility] by the nurse's station for distant supervision, and marketing database coordinator provide pt with magnatiles/fidget objects to entertain pt. Pt was moved into [facility] and remained engaged in activity. SW and staff will continue to monitor pt's behavior and safety. Nargis Richardson MOBILE APPLICATION ARCHITECT BUS ATTENDANT
[2025-01-14] MEDS: LORazepam 0.5 MG Tablet PO ×2 (11:23→16:03)
[2025-01-14 11:25] VITALS: PULSE 97; RESP 16; O2SAT 96
[2025-01-14] MEDS: Ferrous Sulfate 325 MG Tablet PO (12:57)
[2025-01-14] MEDS: Acetaminophen 500 MG Tablet 1000 MG PO (12:57)
[2025-01-14 13:04] VITALS: TEMP 36.4
--- NOTE | 2025-01-14 14:56 | CASEMGMT ---
Social Work SW followed up with Fredy at [facility]. Confirmed they can accept pt and will coordinate move-in with family. - Pt's present and SW spoke with . confirmed she spoke with Fredy. is going to buy a bed and work with brother and nephew on moving it. agreeable to DC date next week. - SW received call from paco [employer], who stated he is going to coordinate the furniture. He has a flight to [place] on 01/19 and requested DC 01/21. SW agreed and to coordinate skilled HHC and DC to [facility]. Will appreciative. - SW phoned [facility], spoke with Lyudmila, and confirmed they can accept on 01/21. Their [facility] providers [facility] or [facility]. - SW spoke with to update on DC 01/21 and Will coming into town. agreeable. SW inquired about HHC preference, educating [facility] or [facility] are primarily used. agreed to [facility], but has no preference. SW to coordinate w/c transport for DC. inquired if she should be present at time of DC. SW suggested to have Will or Willam present in TCU for transport, then meet pt at [facility]. If pt becomes combative, can leave. agreed and appreciative for assistance and guidance. - SW phoned referral to [facility] for PT/OT. - SW phoned Robert at [facility] to update on DC plan. Robert very appreciative of assistance and satisfied with outcome. Case will be closed. - SW phoned [facility] - initially requested w/c transport d/t pt's physical abilities, but after further exploration from dispatcher, d/t A&Ox1, impulsiveness, combativeness, and need for medical supervision, dispatcher stated cot will be needed and those items meet medical necessity. SW requested male crew and informed dispatcher pt will be looking forward to discharging but will not be happy to learn he is not going home. scheduled cot transport for 1100. Plan: DC 01/21 to [facility] [place] memory care unit, [facility] PT/OT Nargis Richardson FIRMWARE ENGINEER HEARSE DRIVER
--- NOTE | 2025-01-14 16:43 | PCM.DC.SUM ---
Providers Date of Admission: 12/30/24 Primary Care Physician: Dr. Nahomi Long, DO Consultations 01/02/25 08:01 Consult: Gastroenterology Routine Consulting Provider: [facility] Reason for Consult: Recurrent GI bleed. EMERGENT Consult: No Notified: Yes Date Notified: 01/02/25 Time Notified: 09:37 Method of Notification: Text 01/07/25 07:43 Consult: Vascular Surgery Routine Consulting Provider: Eladio Parsons Reason for Consult: IVC filter, PE, active GI bleed. EMERGENT Consult: No Notified: Yes Date Notified: 01/07/25 Time Notified: 09:00 Method of Notification: Answering Service Comments:: Spoke with Genevieve in office Reason For Visit: GIB/ABLA Diagnosis Discharge Diagnosis (1) Anemia: Status: Inactive Code(s): D64.9 - Anemia, unspecified Plan 84 year old male with below past medical history hospitalized for acute blood less anemia 2/2 upper GI bleed 2/2 duodenal ulcer, complicated by encephalopathy, hypokalemia, recent pulmonary embolism, admitted to TCU with debility, here for rehabilitation, strengthening, prior to discharge home with . Debility - PT/OT. Cognition - ST. Pain - Tylenol 1000mg q6 prn pain (1-10). Bowel - Miralax 17gm daily, senna/colace 2 tablets bid, Magnesium citrate 300mL daily prn. Adult immunization - Administer pneumonia vaccine, covid vaccine, flu vaccine as appropriate. DVT prophylaxis - Eliquis. Iron deficiency anemia - Ferrous sulfate 325mg every other day, Vitamin C 500mg bidcm. Dry eyes - Artificial tears 2 gtt ou q1h prn. Vitamin D deficiency - D3 50mcg daily. Atrial fibrillation - Metoprolol succinate 25mg daily, Eliquis 5mg bid. Pulmonary embolism - Eliquis 5mg bid. Coronary artery disease - Metoprolol succinate 25mg daily, Eliquis 5mg bid, NTG 0.4mg q5m prn. Nausea - Zofran odt 4mg q8 prn. Duodenal ulcer - Pantoprazole 40mg bid, Carafate 1gm qachs. Hyperlipidemia - Rosuvastatin 20mg qhs. Medications at Discharge Home Medications ascorbic acid (vitamin C) 500 mg tablet 500 mg PO BID supplement #60 tabs 12/30/24 lorazepam 0.5 mg tablet (Ativan) 0.5 mg PO Q4H PRN anxiety 01/09/25 acetaminophen 500 mg tablet 1,000 mg (2 x 500 mg) PO Q6H PRN PRN Pain Score 1-10 #0 tabs 01/14/25 donepezil 5 mg tablet 5 mg PO QHS 30 days #30 tabs 01/14/25 ferrous sulfate 325 mg (65 mg iron) tablet (FeroSul) 325 mg PO QODAY@1200 30 days #15 tabs 01/14/25 lorazepam 0.5 mg tablet 0.5 mg PO Q4H PRN PRN anxity/agitation/restlessness 30 days #120 tabs 01/14/25 melatonin 3 mg tablet 3 mg PO QHS #0 tabs 01/14/25 pantoprazole 40 mg tablet,delayed release 40 mg PO BID 30 days #60 tabs 01/14/25 sucralfate 1 gram tablet 1 g PO 1HR_ACHS 30 days #120 tabs 01/14/25 valproic acid (as sodium salt) 250 mg/5 mL (5 mL) oral solution 500 mg (10 mL) PO BID 30 days #600 mL 01/14/25 Hospital Course Operations None Procedures EGD and IVC filter placement Summary of Care Provided Minutes Spent on Discharge: 35 Hospital Course: 84 year old male with below past medical history hospitalized for acute blood less anemia 2/2 upper GI bleed 2/2 duodenal ulcer, complicated by encephalopathy, hypokalemia, recent pulmonary embolism, admitted to TCU with debility, here for rehabilitation, strengthening, prior to discharge home with . 01/05/2025 Dr. Machado EGD: Impressions : - No gross lesions in the entire esophagus. - No gross lesions in the entire stomach. - Non-bleeding duodenal ulcer with no stigmata of bleeding. - Acquired duodenal stenosis. Dilated. - No specimens collected. 01/08/2025 Dr. Parsons: Surgery/Procedure Performed: Insertion inferior vena cava filter Discharge 01/21/[address] [facility] care unit, [facility] PT/OT. Physical Exam Const alert General Appearance: cooperative HEENT normocephalic Eyes PERRL and EOMs intact bilaterally Neck supple, no JVD and no carotid bruits Resp normal respiratory effort, normal air movement and clear to auscultation bilaterally Cardio regular rate and regular rhythm GI normal to inspection, nondistended, normoactive bowel sounds, non-tender and non-distended Extremity normal capillary refill General Extremity: Negative for edema Skin no rashes or lesions noted General Skin Exam: no breakdown Psych affect normal Appearance: appropriate Weight / BMI Weight Weight: 64.773 kg Body Mass Index (BMI) 19.3 ABG / Lab / Microbiology Data 01/14/25 05:02 01/14/25 05:02 Laboratory: Laboratory Results - last 24 hr 01/14/25 05:02: WBC 5.6, RBC 3.30 L, Hgb 9.9 L, Hct 31.1 L, MCV 94.2 H, MCH 30.0, MCHC 31.8 L, RDW Std Deviation 63.9 H, RDW Coeff of Dami 18.6 H, Plt Count 196, MPV 9.3, Immature Gran % (Auto) 2.500 H, Neut % (Auto) 59.3, Lymph % (Auto) 23.1, [place] % (Auto) 13.2 H, Eos % (Auto) 1.4, Baso % (Auto) 0.5, Absolute Neuts (auto) 3.3, Absolute Lymphs (auto) 1.30, Nucleated RBC % 0, Sodium 139, Potassium 3.7, Chloride 106, Carbon Dioxide 23.8, Anion Gap 9, BUN 25 H, Creatinine 0.74, Estim Creat Clear Calc 61.85, Est GFR (MDRD) Non-Af 89, BUN/Creatinine Ratio 33.2 H, Glucose 93, Calcium 7.8 Microbiology: Microbiology 01/01/25 18:55 Stool Stool Occult Blood (NATHALY) - Final Occult Blood Positive D/C Instructions Discharge Diet: No restrictions Discharge Activity: Return to Normal Activity, May Shower and Use Walker Weight Bearing Status: Weight bearing as tolerated Call your doctor if you observe: Fever of 101 or Higher, Inability to urinate, Inability to have a bowel movement, Shortness of breath, Dizziness, Fainting spells, Swelling in the ankles, Chest pain and Uncontrolled pain DC O2, CPAP, BIPAP Needs Home O2 Discharge instructions: No Additional Instructions: Discharge 01/21/2025 to [facility], [facility] PT/OT. Meaningful Use Info Meaningful Use Meaningful Use Diagnoses (Choose all that apply): None applicable Ischemic Stroke Statin Dosing Therapy Reference: STATIN DOSE THERAPY REFERENCE: * Patients > 75 years receive moderate or high dose statin therapy. * Patients 75 years or YOUNGER should receive HIGH intensity statin dose unless contraindicated. You will be required to document reason for non-treatment if statin daily dose does not meet guidelines. HIGH DOSE STATIN THERAPY DAILY Atorvastatin > than or = to 40 mg Rosuvastatin > than or = to 20 mg Amlodipine + Atorvastatin > than or = to 2.5/40 mg Ezetimibe + Simvastatin 10/80 mg Simvastatin 80mg Discharge Plan Admission Admit Date/Time: 12/30/24 15:28 Primary Reason for Your Visit: Debility. Attending Provider: Jaylon Up Chi Primary Care Provider: Nahomi Long Consulting Providers: Eladio Parsons Instructions Additional Instructions / Restrictions: Discharge 01/21/2025 to [facility] [place] [facility], [facility] PT/OT. Discharge Orders/Prescriptions Prescriptions: New donepezil 5 mg Tablet 5 mg PO QHS 30 Days Qty: 30 0RF sucralfate 1 gram Tablet 1 g PO 1HR_ACHS 30 Days Qty: 120 0RF melatonin 3 mg Tablet 3 mg PO QHS Qty: 0 0RF acetaminophen 500 mg Tablet 1,000 mg PO Q6H PRN PRN (Reason: Pain Score 1-10) Qty: 0 0RF lorazepam 0.5 mg Tablet 0.5 mg PO Q4H PRN PRN (Reason: anxity/agitation/restlessness) 30 Days Qty: 120 0RF pantoprazole 40 mg Tablet,Delayed Release (Dr/Ec) 40 mg PO BID 30 Days Qty: 60 0RF ferrous sulfate [FeroSul] 325 mg (65 mg iron) Tablet 325 mg PO QODAY@1200 30 Days Qty: 15 0RF valproic acid (as sodium salt) 250 mg/5 mL (5 mL) Solution 500 mg PO BID 30 Days Qty: 600 0RF Continued ascorbic acid (vitamin C) 500 mg tablet 500 mg PO BID Qty: 60 2RF Discontinued cholecalciferol (vitamin D3) 1,000 unit capsule 2,000 unit PO QDAY nitroglycerin 0.4 MG tablet 0.4 mg sublingual Q5M PRN (Reason: Chest Pain) ondansetron 4 mg tablet,disintegrating 4 mg PO Q8H PRN PRN (Reason: Nausea) Qty: 10 0RF sennosides-docusate sodium [Stimulant Laxative Plus] 8.6-50 mg Tablet 2 tab PO BID PRN PRN (Reason: Constipation) Qty: 0 0RF pantoprazole 40 mg Tablet,Delayed Release (Dr/Ec) 40 mg PO BID 30 Days Qty: 60 2RF metoprolol succinate 25 mg Tablet Extended Release 24 Hr 25 mg PO DAILY 30 Days Qty: 30 0RF Eliquis 5 mg Tablet 5 mg PO BID 30 Days Qty: 60 1RF Rx Instructions: Discontinue if platelet count drops less than 50,000 or hemoglobin less than 8 g% ferrous sulfate 325 mg (65 mg iron) tablet 325 mg PO QODAY Qty: 30 2RF valproic acid 500 mg capsule,delayed release(DR/EC) 500 mg PO BID pantoprazole [Protonix] 40 mg tablet,delayed release (DR/EC) 40 mg PO DAILY rosuvastatin [Crestor] 20 mg tablet 20 mg PO DAILY sucralfate [Carafate] 1 gram tablet 1 g PO ACHS rosuvastatin 20 mg tablet 20 mg PO QHS Qty: 90 3RF No Action lorazepam [Ativan] 0.5 mg tablet 0.5 mg PO Q4H PRN (Reason: anxiety) Referrals / Follow Up: Jaylon Up Chi, MD [Med Staff - Active Staff] - Within 1 Week (TCU TCM/New patient appointment.) Sydnee Snow PA [Med Staff - Adv Practice Prof] - (Follow-up after IVC filter placed) Disposition Disposition (needs filled in before D/C Order can be placed): Assisted Living
[2025-01-14] MEDS: Donepezil HCl 5 MG Tablet PO (20:45)
[2025-01-14] MEDS: Rosuvastatin 20 MG Tablet PO (20:45)
[2025-01-14] MEDS: MELATONIN 3 MG TABLET PO (20:46)
[2025-01-15] MEDS: Sucralfate 1 GM Tablet PO ×4 (06:08→19:44)
[2025-01-15] MEDS: Polyethylene Glycol 3350 17 GM PACKET PO (08:47)
[2025-01-15] MEDS: Valproic Acid 250 MG/5 ML UDC 500 MG PO ×2 (08:47→19:44)
[2025-01-15] MEDS: Cholecalciferol (VIT D3) 25 MCG TABLET (1,000 UNITS) 50 MCG PO (08:47)
[2025-01-15] MEDS: Pantoprazole Sodium 40 MG Tablet PO ×2 (08:47→19:44)
[2025-01-15] MEDS: Senna/Docusate Sodium 1 Tablet 2 TABLET PO ×2 (08:48→19:51)
[2025-01-15 09:03] VITALS: BP 108/59; PULSE 59; RESP 18; O2SAT 98
[2025-01-15] MEDS: LORazepam 0.5 MG Tablet PO ×2 (10:44→18:13)
[2025-01-15] MEDS: Ascorbic Acid 500 MG Tablet PO ×2 (10:44→18:13)
--- NOTE | 2025-01-15 11:42 | NURSING ---
PT GETTING RESTLESS. ASKING FOR AND WANTING TO LEAVE. PRN ATIVAN GIVEN.
[2025-01-15 15:09] VITALS: TEMP 36.1
[2025-01-15 15:40] VITALS: PULSE 67; RESP 18; O2SAT 95
--- NOTE | 2025-01-15 18:53 | NURSING ---
PT CAME IN FOR ABOUT 15 MINS AND LEFT. PT GETTING RESTLESS AND AGITATED YELLING OUT. TRIED 1 ON 1,RESTROOM/SUPPER WITH NO SUCCESS. PRN ATIVAN GIVEN
[2025-01-15] MEDS: Donepezil HCl 5 MG Tablet PO (19:44)
[2025-01-15] MEDS: Rosuvastatin 20 MG Tablet PO (19:44)
[2025-01-15] MEDS: MELATONIN 3 MG TABLET PO (19:44)
[2025-01-16 06:01] VITALS: PULSE 62; RESP 16
[2025-01-16] MEDS: Sucralfate 1 GM Tablet PO ×4 (06:09→19:23)
[2025-01-16] MEDS: Menthol/Lanolin/Calamine/Znox 113 GM Tube 1 APPLIC TOPICAL ×2 (06:11→19:24)
[2025-01-16 07:22] VITALS: BP 123/66; PULSE 75; RESP 16; TEMP 36.3; O2SAT 98
[2025-01-16] MEDS: LORazepam 0.5 MG Tablet PO ×3 (07:25→20:47)
[2025-01-16] MEDS: Cholecalciferol (VIT D3) 25 MCG TABLET (1,000 UNITS) 50 MCG PO (07:25)
[2025-01-16] MEDS: Ascorbic Acid 500 MG Tablet PO ×2 (07:25→16:47)
[2025-01-16] MEDS: Valproic Acid 250 MG/5 ML UDC 500 MG PO ×2 (07:26→19:26)
[2025-01-16] MEDS: Senna/Docusate Sodium 1 Tablet 2 TABLET PO ×2 (07:26→19:27)
[2025-01-16] MEDS: Pantoprazole Sodium 40 MG Tablet PO ×2 (07:26→19:27)
[2025-01-16] MEDS: Polyethylene Glycol 3350 17 GM PACKET PO (07:26)
--- NOTE | 2025-01-16 07:35 | NURSING ---
pt restless, up trying to leave room, CONTROL SYSTEMS DEVELOPER assisted pt on a short walk then back to his room for brkfst, fresh cup coffee given. pt asking for his . 1:1 provided, ineffective. continued to try to get up w/out assist. PRN Ativan administered
[2025-01-16] MEDS: Ferrous Sulfate 325 MG Tablet PO (11:15)
--- NOTE | 2025-01-16 14:25 | RAD_ITS ---
PROCEDURE: CHEST PA AND LATERAL 01/16/2025 REASON FOR EXAM: CHRONIC COUGH. TECHNIQUE: Frontal and lateral views of the chest. COMPARISON: Chest radiographs 12/24/2024 FINDINGS: Hardware: Sternal wires are in place. Mediastinal vascular clips are seen. 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 Heart: Normal size and contour Mediastinum: Normal contour Lungs: No consolidating airspace disease. Bones: Unremarkable. RAD/Chest PA and Lateral IMPRESSION: No acute process detected. Reading Location: [facility]
[2025-01-16] MEDS: Rosuvastatin 20 MG Tablet PO (19:25)
[2025-01-16] MEDS: Donepezil HCl 5 MG Tablet PO (19:26)
[2025-01-16] MEDS: MELATONIN 3 MG TABLET PO (19:27)
--- NOTE | 2025-01-16 20:52 | NURSING ---
Patient with anxiety, restlessness, agitation, Interventions attempted, redirected, 1:1, activity, patient ambulated in [place], toileted, given fluids, position changed, room temp adjusted, interventions ineffective, patient calling staff names and not able to be redirected, PRN Ativan administered per order, patient resting in bed at time, alarms in place for safety.
--- NOTE | 2025-01-16 21:32 | NURSING ---
PRN Ativan is effective at time, patient resting quietly in bed, no c/o voiced, call light left within reach,
[2025-01-17] MEDS: Sucralfate 1 GM Tablet PO ×4 (06:22→20:06)
[2025-01-17] MEDS: Polyethylene Glycol 3350 17 GM PACKET PO (08:37)
[2025-01-17] MEDS: Cholecalciferol (VIT D3) 25 MCG TABLET (1,000 UNITS) 50 MCG PO (08:38)
[2025-01-17] MEDS: Menthol/Lanolin/Calamine/Znox 113 GM Tube 1 APPLIC TOPICAL ×2 (08:38→20:06)
[2025-01-17] MEDS: Ascorbic Acid 500 MG Tablet PO ×2 (08:38→17:29)
[2025-01-17] MEDS: Valproic Acid 250 MG/5 ML UDC 500 MG PO ×2 (08:39→20:05)
[2025-01-17] MEDS: Pantoprazole Sodium 40 MG Tablet PO ×2 (08:40→20:05)
[2025-01-17] MEDS: Senna/Docusate Sodium 1 Tablet 2 TABLET PO (08:40)
[2025-01-17 08:49] VITALS: BP 120/58; PULSE 76; RESP 16; TEMP 36.6; O2SAT 97
[2025-01-17] MEDS: LORazepam 0.5 MG Tablet PO ×3 (13:12→21:28)
--- NOTE | 2025-01-17 13:20 | NURSING ---
PT GETTING RESTLESS AND WANTING TO LEAVE. CAUGHT WALKING AROUND IN ROOM. PRN ATIVAN GIVEN. WILL CONTINUE TO MONITOR.
[2025-01-17 16:10] VITALS: PULSE 87; RESP 18; O2SAT 95
[2025-01-17] MEDS: MELATONIN 3 MG TABLET PO (20:05)
[2025-01-17] MEDS: Donepezil HCl 5 MG Tablet PO (20:06)
[2025-01-17] MEDS: Rosuvastatin 20 MG Tablet PO (20:06)
[2025-01-18] MEDS: Sucralfate 1 GM Tablet PO ×4 (06:36→20:11)
[2025-01-18] MEDS: Menthol/Lanolin/Calamine/Znox 113 GM Tube 1 APPLIC TOPICAL ×2 (08:39→20:18)
[2025-01-18] MEDS: Valproic Acid 250 MG/5 ML UDC 500 MG PO ×2 (08:40→20:11)
[2025-01-18] MEDS: Cholecalciferol (VIT D3) 25 MCG TABLET (1,000 UNITS) 50 MCG PO (08:41)
[2025-01-18] MEDS: Ascorbic Acid 500 MG Tablet PO ×2 (08:41→17:22)
[2025-01-18] MEDS: Pantoprazole Sodium 40 MG Tablet PO ×2 (08:41→20:10)
[2025-01-18] MEDS: Senna/Docusate Sodium 1 Tablet 2 TABLET PO (08:42)
[2025-01-18 08:53] VITALS: BP 119/56; PULSE 75; RESP 18; TEMP 36.4; O2SAT 98
--- NOTE | 2025-01-18 08:55 | NURSING ---
PAST 2 MEALS PT HAS BEEN COUGHING WHILE EATING AND DRINKING AND IS SITTING UP STRAIGHT. LUNGS ARE CLEAR AND HAD CHEST XRAY ON 01/16/25. MILDLY THICKENED PT LIQUIDS UP AND PT SEEMED TO DO BETTER. PUT IN SPEECH EVALUATION. RN AWARE. WILL CONTINUE TO MONITOR.
[2025-01-18] MEDS: Ferrous Sulfate 325 MG Tablet PO (11:59)
[2025-01-18] MEDS: LORazepam 0.5 MG Tablet PO (18:22)
[2025-01-18] MEDS: MELATONIN 3 MG TABLET PO (20:10)
[2025-01-18] MEDS: Rosuvastatin 20 MG Tablet PO (20:11)
[2025-01-18] MEDS: Donepezil HCl 5 MG Tablet PO (20:11)
[2025-01-19] MEDS: Valproic Acid 250 MG/5 ML UDC 500 MG PO ×2 (08:10→20:03)
[2025-01-19] MEDS: Sucralfate 1 GM Tablet PO ×4 (08:11→20:00)
[2025-01-19] MEDS: Pantoprazole Sodium 40 MG Tablet PO ×2 (08:11→20:01)
[2025-01-19] MEDS: Cholecalciferol (VIT D3) 25 MCG TABLET (1,000 UNITS) 50 MCG PO (08:11)
[2025-01-19] MEDS: Ascorbic Acid 500 MG Tablet PO ×2 (08:11→16:23)
[2025-01-19] MEDS: Menthol/Lanolin/Calamine/Znox 113 GM Tube 1 APPLIC TOPICAL ×2 (08:11→19:59)
[2025-01-19 16:00] VITALS: BP 116/62; PULSE 73; RESP 18; TEMP 36.3; O2SAT 97
[2025-01-19 20:00] VITALS: PULSE 78; O2SAT 93
[2025-01-19] MEDS: Rosuvastatin 20 MG Tablet PO (20:01)
[2025-01-19] MEDS: MELATONIN 3 MG TABLET PO (20:01)
[2025-01-19] MEDS: Donepezil HCl 5 MG Tablet PO (20:03)
[2025-01-20] MEDS: Sucralfate 1 GM Tablet PO ×4 (06:02→19:32)
[2025-01-20 06:43] VITALS: PULSE 74; O2SAT 93
[2025-01-20] MEDS: Pantoprazole Sodium 40 MG Tablet PO ×2 (08:12→19:33)
[2025-01-20] MEDS: Valproic Acid 250 MG/5 ML UDC 500 MG PO ×2 (08:13→19:31)
[2025-01-20] MEDS: Cholecalciferol (VIT D3) 25 MCG TABLET (1,000 UNITS) 50 MCG PO (08:13)
[2025-01-20] MEDS: Ascorbic Acid 500 MG Tablet PO (08:13)
[2025-01-20] MEDS: Menthol/Lanolin/Calamine/Znox 113 GM Tube 1 APPLIC TOPICAL ×2 (08:14→19:30)
--- NOTE | 2025-01-20 11:26 | CASEMGMT ---
Social Work SW completed BIMS (09/28) and PHQ-2 () for MDS assessment. Nargis Richardson ASSEMBLER FISHING FLOATS ADZING AND BORING MACHINE OPERATOR
--- NOTE | 2025-01-20 11:36 | CASEMGMT ---
Social Work Due to new concerns with swallowing, ADVANCED PRACTICE RN requested outpatient MBS, and ST at [facility]. SW updated [facility] [place]. SW updated [facility] HHC and order. Nargis Richardson HEAVY LIFT RIGGER TUCK POINTER HELPER
[2025-01-20] MEDS: Ferrous Sulfate 325 MG Tablet PO (13:20)
[2025-01-20 15:00] VITALS: BMI 20.5
[2025-01-20 15:19] VITALS: BP 112/60; PULSE 70; RESP 16; TEMP 36.8; O2SAT 96
[2025-01-20] MEDS: MELATONIN 3 MG TABLET PO (19:32)
[2025-01-20] MEDS: Rosuvastatin 20 MG Tablet PO (19:33)
[2025-01-20] MEDS: Senna/Docusate Sodium 1 Tablet 2 TABLET PO (19:33)
[2025-01-20] MEDS: Donepezil HCl 5 MG Tablet PO (19:33)
[2025-01-20] MEDS: LORazepam 0.5 MG Tablet PO (20:05)
--- NOTE | 2025-01-20 20:09 | NURSING ---
Patient becoming agitated and anxious about a person that is not here, Missy, upset that the person is not answering him. Interventions attempted: redirected, 1:1, activity, toileted, given fluids, position changed, temp in room adjusted, interventions ineffective, patient becoming increasingly agitated, PRN Ativan given per order. call light left within reach, alarms in place for safety.
--- NOTE | 2025-01-20 21:39 | NURSING ---
PRN Ativan is effective at time, patient resting quietly in bed, no agitation noted, call light left within reach, alarms in place for safety.
[2025-01-21 06:11] LABS: Absolute Lymphocyte Count 1.25 X10^3/uL (0.83-4.51); Basophil# 0.06 X10^3/uL; Basophil% 1.1 % (0-1); Eosinophil# 0.09 X10^3/uL; Eosinophils% 1.6 % (0-5); Hematocrit 29.2 % (40-54); Hemoglobin 9.4 g/dL (13.0-16.5); Lymphocyte # 1.25 X10^3/ul (0.83-4.51); Lymphocyte % 22.4 % (19-41); Mean Corp Hgb Conc 32.2 g/dL (32-36); Mean Corpuscular Hgb 30.9 pg (27.0-32.0); Mean Corpuscular Volume 96.1 fL (80-94); Mean Platelet Vol. 10.6 fl (6.2-12.0); Monocyte# 0.93 X10^3/uL; Monocyte% 16.7 % (0-10); NRBC Flagged by Analyzer 0.4 % (0-5); Neutrophil # 2.99 X10^3/uL (2.7-7.7); Neutrophil % 53.5 % (47-70); Platelet Count 184 K/mm3 (150-450); RBC Distribution Width CV 18.4 % (11.6-14.6); RBC Distribution Width SD 64.5 fl (35.1-43.9); Red Blood Count 3.04 M/mm3 (4.6-6.2); White Blood Count 5.6 K/mm3 (4.4-11.0)
[2025-01-21] MEDS: Sucralfate 1 GM Tablet PO ×2 (06:14→11:09)
[2025-01-21 06:27] VITALS: PULSE 82; O2SAT 97
[2025-01-21] MEDS: Valproic Acid 250 MG/5 ML UDC 500 MG PO (08:32)
[2025-01-21] MEDS: Menthol/Lanolin/Calamine/Znox 113 GM Tube 1 APPLIC TOPICAL (08:32)
[2025-01-21] MEDS: Cholecalciferol (VIT D3) 25 MCG TABLET (1,000 UNITS) 50 MCG PO (08:32)
[2025-01-21] MEDS: Ascorbic Acid 500 MG Tablet PO (08:32)
[2025-01-21] MEDS: Pantoprazole Sodium 40 MG Tablet PO (08:33)
[2025-01-21 08:43] VITALS: BP 108/56; PULSE 71; RESP 16; TEMP 36.1; O2SAT 96
[2025-01-21 09:53] LABS: Anion Gap 9 (5-15); BUN 23 mg/dL (4-19); BUN/Creat Ratio 32.3 RATIO (10-20); Calcium,Total 8.1 mg/dL (7.6-11.0); Carbon Dioxide 22.3 mmol/L (21.0-32.0); Chloride 107 mmol/L (98-108); EST Glomerular Filtration Rate 90 (>60); Estimated Creatinine Clearance 65.53 ml/min (50-250); Glucose 90 mg/dL (70-99); Potassium 4.3 mmol/L (3.3-5.1); Sodium Level 138 mmol/L (133-145)
== END 2025-01-21 12:00 | disposition home health service (06) | DRG 377 ==
PROVIDERS: Anesthesiology; Admitting Provider Family Medicine Geriatric Medicine; PCP Internal Medicine; Referring Provider Family Medicine Geriatric Medicine; Visit Provider Family Medicine Geriatric Medicine
DX: K26.4 Chronic or unspecified duodenal ulcer with hemorrhage (principal); I26.99 Other pulmonary embolism without acute cor pulmonale; K31.5 Obstruction of duodenum; D62 Acute posthemorrhagic anemia; Z68.1 Body mass index [BMI] 19.9 or less, adult; F03.90 Unspecified dementia, unspecified severity, without behavioral disturbance, psychotic disturbance, mood disturbance, and anxiety; I10 Essential (primary) hypertension; D50.9 Iron deficiency anemia, unspecified; F39 Unspecified mood [affective] disorder; K26.9 Duodenal ulcer, unspecified as acute or chronic, without hemorrhage or perforation; I48.91 Unspecified atrial fibrillation; E78.49 Other hyperlipidemia; I25.10 Atherosclerotic heart disease of native coronary artery without angina pectoris; E55.9 Vitamin D deficiency, unspecified; K21.9 Gastro-esophageal reflux disease without esophagitis; G47.00 Insomnia, unspecified; Z79.899 Other long term (current) drug therapy; Z79.01 Long term (current) use of anticoagulants; N40.0 Benign prostatic hyperplasia without lower urinary tract symptoms; R63.6 Underweight
CPT/HCPCS: 36415; 36430; 71046; 80048; 80061; 82274; 82306; 82962; 85014; 85018; 85025; 85610; 86850; 86900; 86901; 92523; 92526; 92610; 93005; 97110; 97116; 97162; 97166; 97530; 97535; 97802; P9016; A4216

== ENCOUNTER → 2025-01-05 | Day surgery (SDC) | payer MEDICARE, OTHER, SELFPAY ==
[2025-01-05] VITALS (8 sets, daily range): BP systolic 101–118; BP diastolic 49–64; PULSE 68–85; RESP 16–18; TEMP 36.1–36.3; O2SAT 92–100; BMI 18.3
--- NOTE | 2025-01-05 16:16 | HP.PCM_ITS ---
[facility] - General General Date of Admission: 01/05/25 Date of Service: 01/05/25 Chief Complaint: GI Bleed [facility] Narrative FELIX RAZA, is a 84 M with pmhx of duodenal ulcer, afib on eliquis, CAD with prior CABG and 4x stent placement, DVT, HTN, HLD, BPH, prostate cancer s/p prostatectomy, who presents to the ER with dizziness. He was in the er 5 days ago with abdominal pain. At that time he had a Hgb of 11.[address] abdomen showing duodenal ulcer. He was treated with carafate and protonix and sent home. Every day he continues to have abdominal pain in the epigastric region. He also notes black tarry stools. He cannot eat solids due to abdominal pain. He can keep liquids down and some cereal. He has vomited, no blood or coffee grounds noted. He has had worsening weakness daily and is also dizzy when he gets up and ambulates. Shaggy santillan has had multiple falls at home. He fell today in the driveway and EMS was called and he was brought to the hospital. He had a CT head and neck which was negative. Hgb has declined to 8.2. His notes his memory has also been worsening over about 5 months. His hemoglobin dropped all way down to 6.8. He underwent an upper endoscopy by myself and discovered to have bleeding duodenal ulcer that was treated. He can. I was asked to see him again due to his hemoglobin decreases again. [facility] Medical History Wears hearing aid Cancer Arthritis Back pain History of ulceration Gastric reflux Chronic cough History of edema Cardiology follow-up encounter History of echocardiogram History of stress test Rheumatoid arthritis Non-smoker Asthma Atrial fibrillation Anemia Dizziness Neck pain on right side Essential (primary) hypertension Gynecomastia, male Bony sclerosis History of prostate cancer History of fractured pelvis Kidney stones BPH (benign prostatic hyperplasia) GERD (gastroesophageal reflux disease) DVT (deep venous thrombosis) Hyperlipidemia Atherosclerotic heart disease of [place] coronary artery without angina pectoris Prostate cancer Home Medications ?Medication ?Instructions ?Recorded ?Last Taken ?Type nitroglycerin 0.4 mg sublingual 0.4 mg sublingual Q5M PRN Chest 09/22/14 Unknown History tablet Pain cholecalciferol (vitamin D3) 25 2,000 unit PO QDAY sup plement 10/26/17 Unknown History mcg (1,000 unit) capsule rosuvastatin 20 mg tablet 20 mg PO QHS cholesterol #90 tabs 06/25/24 Unknown Rx ondansetron 4 mg disintegrating 4 mg PO Q8H PRN PRN Na usea #10 tabs 12/19/24 Unknown Rx tablet apixaban 5 mg tablet (Eliquis) 5 mg PO BID blood thinn er 30 days 12/30/24 Unknown Rx #60 tabs ascorbic acid (vitamin C) 500 mg 500 mg PO BID supplem ent #60 tabs 12/30/24 Unknown Rx tablet ferrous sulfate 325 mg (65 mg 325 mg PO QODAY suppleme nt #30 tabs 12/30/24 Unknown Rx iron) tablet metoprolol succinate 25 mg 25 mg PO DAILY pulse/BP 30 days 12/30/24 Unknown Rx tablet,extended release 24 hr #30 tabs pantoprazole 40 mg tablet,delayed 40 mg PO BID reflux 30 days #60 12/30/24 Unknown Rx release tabs sennosides 8.6 mg-docusate sodium 2 tab PO BID PRN PRN Constipation 12/30/24 Unknown Rx 50 mg tablet (Stimulant Laxative #0 tabs Plus) Allergy/AdvReac Type Severity Reaction Status Date / Time povidone-iodine Allergy Mild Rash Verified 01/07/25 14:37 atorvastatin (From Lipitor) AdvReac Intermediate Myalgias Verified 01/07/25 14:37 simvastatin (From Zocor) AdvReac Intermediate Myalgias Verified 01/07/25 14:37 Family History Father , age 64 CAD (coronary artery disease) Myocardial infarction Sudden cardiac Asthma Heart disease Hypertension Mother , Age 67 Cancer Brother CAD (coronary artery disease) Sister CAD (coronary artery disease) Colon cancer Surgical History History of esophagogastroduodenoscopy (EGD) History of appendectomy H/O coronary artery bypass surgery (11/11/97) History of coronary artery stent placement (10/01/14) H/O right mastectomy Social History household members: spouse Smoking Status: Never smoker alcohol intake: never substance use type: does not use ROS Constitutional Constitutional: Denies fatigue, fever(s), poor appetite, weight gain or weight loss Gastrointestinal Gastrointestinal: Denies belching, bloating, change in bowel habits, change in stool character, chewing difficulty, coffee ground emesis, constipation, cramping, diarrhea, dyspepsia, dysphagia, early satiety, excessive flatus, fecal incontinence, heartburn, hematemesis, hematochezia, hemorrhoids, loose stools, melena, nausea, odynophagia, rectal bleeding, tenesmus, vomiting or weight changes Vital Signs Vital Signs Vital Signs: Weight Weight: 134 lb 14.766 oz Body Mass Index (BMI) 18.3 Physical Exam Const alert, oriented x3, no apparent distress and healthy appearing General Appearance: cooperative GI normal to inspection, nondistended, normoactive bowel sounds, soft to palpation, non-tender and non-distended Percussion: normal to percussion Rectal Exam: deferred Assessment & Plan Assessment/Plan (1) GI bleed: PLAN: Assessment & Plan Assessment/Plan (1) Anemia: PLAN: Plan 84-year-old with multiple comorbidities including CAD, atrial fibrillation, CABG previously on Eliquis with progressive weight loss and suspected GI bleed due to duodenal ulcer. Patient underwent an upper endoscopy. Findings: The examined esophagus was normal. Red blood was found in the gastric body. One spurting cratered duodenal ulcer with a visible vessel was found in the first portion of the duodenum. The lesion was 30 mm in largest dimension. Area was successfully injected with 20 mL of a 0.1 mg/mL solution of epinephrine for hemostasis. Estimated blood loss was minimal. Coagulation for hemostasis using heater probe was successful. Estimated blood loss was minimal. Impression: - Normal esophagus. - Red blood in the gastric body. - Spurting duodenal ulcer with a visible vessel. Injected. Treated with a heater probe. - No specimens collected. continue PPI and Carafate therapy
--- NOTE | 2025-01-05 16:35 | PRE.ANES_ITS ---
ASA Classification* ASA Classification ASA Classification: 3 Assessment & Plan Anesthesia* Anesthesia Assessment Anesthesia Assessment: Discussed sedation and/or anesthesia options, risks, benefits, and alternatives with patient/parents/legal guardian/POA. Questions invited. The patient/parents/legal guardian/POA seems to understand and agrees to proceed with anesthesia plan. Reviewed the physical assessment, medical history, allergy history and patient home medications list prior to surgery/procedure/anesthetic and documented any changes. Performed airway and anesthesia risk assessments. Anesthesia Type Anesthesia Type: MAC History Source History Obtained from:: Patient and Chart Anesthesia Focused Assessment* Temperature: 97 F Pulse Rate: 68 Blood Pressure: 107/64 Respiratory Rate: 16 Pulse Ox: 100 Oxygen Delivery Method: Room Air Airway Assessment Mouth opens: >3 cm Mallampati Score: III Teeth Condition: Missing (Patient has several missing teeth right upper jaw.) Neck Range of motion (ROM): Limited ROM (Slight decrease in extension) Focused Labs Anesthesia Preop lab: CBC WBC 5.5 K/mm3 (4.4-11.0) 12/31/24 05:22 12/31/24 RBC 3.28 M/mm3 (4.6-6.2) L 12/31/24 05:22 12/31/24 Hgb 9.7 g/dL (13.0-16.5) L 12/31/24 18:16 12/31/24 Hct 29.2 % (40-54) L 12/31/24 18:16 12/31/24 Plt Count 259 K/mm3 (150-450) 12/31/24 05:22 12/31/24 CHEMISTRY Potassium 3.3 mmol/L (3.3-5.1) 12/31/24 05:22 12/31/24 Sodium 134 mmol/L (133-145) 12/31/24 05:22 12/31/24 Magnesium 2.1 mg/dL (1.5-2.2) 12/25/24 08:24 12/25/24 Phosphorus 2.8 mg/dL (2.7-4.5) 12/26/24 03:30 12/26/24 BUN 21 mg/dL (4-19) H 12/31/24 05:22 12/31/24 Creatinine 0.80 mg/dL (0.70-1.20) 12/31/24 05:22 12/31/24 Glucose 119 mg/dL (70-99) H 12/31/24 05:22 12/31/24 TSH 1.600 uIU/mL (0.358-3.740) 10/13/24 02:11 09/16 COAG PT 14.5 SECONDS (11.7-14.9) 12/26/24 03:30 Pre-Assessment Diagnosis/Proposed Procedure Planned Operative Procedure(s): Esophagogastroduodenoscopy with possible biopsy Anesthesia History 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 When Was Last Pacemaker Check QUESTION #4 FULL TEXT: You/Your Family Experience fever (hyperthermia) with Anesthesia Last Oral Intake Last Oral intake: Last Oral Intake NPO since 00:00 01/05/25 15:57 Meds taken in AM with sips of water? Meds patient instructed to Ativan, Carafate 01/05/25 15:57 take am of surgery PONV PONV - hat and cap parts cutter hand: PONV - hat and cap parts cutter hand Female HX of Motion Sickness HX of N/V After Surgery Non-Smoker Duration of Surgery greater than 60 minutes Number of Risk Factors PONV Score Height & Weight Height & Weight: Anesthesia: Height & Weight Height 6 ft 01/05/25 15:57 Weight: 61.2 kg 01/05/25 15:57 Body Mass Index (BMI) 18.3 01/05/25 15:57 Respiratory Assessment Respiratory Assessment - hat and cap parts cutter hand: Respiratory Tract Infection Hx - hat and cap parts cutter hand Hx Respiratory Tract Infection No 04/02/23 12:34 STOP Sleep Apnea STOP Sleep Apnea - hat and cap parts cutter hand: STOP Sleep Apnea - hat and cap parts cutter hand Hx Hypertension No 12/31/24 15:57 Hx Sleep Apnea No 12/30/24 15:42 CPAP BIPAP Do you snore loudly (louder than talking or can be heard Do you often feel tired/ fatigued/ sleepy during daytime? Has anyone observed you stop breathing during sleep? STOP Results QUESTION #5 FULL TEXT : Do you snore loudly (louder than talking or can be heard through closed doors)? 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 Specify any problems Hx of Preganancy in last 3 Months Nurse Filling Out Transfusion & Questions: Date: Time: Patient unable to answer at this time (ie. confused, unrespo /Reproduction History /Reproductive History - hat and cap parts cutter hand: /Reproductive Hx- hat and cap parts cutter hand Hx Now Gestational Age (in weeks): EDC: Hx Hx Para Hx Section SAB PFSH Medical History Rheumatoid arthritis Non-smoker Asthma Atrial fibrillation Neck pain on right side Essential (primary) hypertension Gynecomastia, male Bony sclerosis History of prostate cancer History of fractured pelvis Kidney stones BPH (benign prostatic hyperplasia) GERD (gastroesophageal reflux disease) DVT (deep venous thrombosis) Hyperlipidemia Atherosclerotic heart disease of [place] coronary artery without angina pectoris Prostate cancer Home Medications ?Medication ?Instructions ?Recorded ?Last Taken ?Type nitroglycerin 0.4 mg sublingual 0.4 mg sublingual Q5M PRN Chest 09/22/14 Unknown History tablet Pain cholecalciferol (vitamin D3) 25 2,000 unit PO QDAY sup plement 10/26/17 Unknown History mcg (1,000 unit) capsule rosuvastatin 20 mg tablet 20 mg PO QHS cholesterol #90 tabs 06/25/24 Unknown Rx ondansetron 4 mg disintegrating 4 mg PO Q8H PRN PRN Na usea #10 tabs 12/19/24 Unknown Rx tablet apixaban 5 mg tablet (Eliquis) 5 mg PO BID blood thinn er 30 days 12/30/24 Unknown Rx #60 tabs ascorbic acid (vitamin C) 500 mg 500 mg PO BID supplem ent #60 tabs 12/30/24 Unknown Rx tablet ferrous sulfate 325 mg (65 mg 325 mg PO QODAY suppleme nt #30 tabs 12/30/24 Unknown Rx iron) tablet metoprolol succinate 25 mg 25 mg PO DAILY pulse/BP 30 days 12/30/24 Unknown Rx tablet,extended release 24 hr #30 tabs pantoprazole 40 mg tablet,delayed 40 mg PO BID reflux 30 days #60 12/30/24 Unknown Rx release tabs sennosides 8.6 mg-docusate sodium 2 tab PO BID PRN PRN Constipation 12/30/24 Unknown Rx 50 mg tablet (Stimulant Laxative #0 tabs Plus) Allergy/AdvReac Type Severity Reaction Status Date / Time povidone-iodine Allergy Mild Rash Verified 12/24/24 14:49 atorvastatin (From Lipitor) AdvReac Intermediate Myalgias Verified 12/24/24 14:49 simvastatin (From Zocor) AdvReac Intermediate Myalgias Verified 12/24/24 14:49 Family History Father , age 64 CAD (coronary artery disease) Myocardial infarction Sudden cardiac Asthma Heart disease Hypertension Mother , Age 67 Cancer Brother CAD (coronary artery disease) Sister CAD (coronary artery disease) Colon cancer Surgical History History of appendectomy H/O coronary artery bypass surgery (11/11/97) History of coronary artery stent placement (10/01/14) H/O right mastectomy Social History household members: spouse Smoking Status: Never smoker alcohol intake: never substance use type: does not use Review of Systems (Anesthesia) ROS Narrative System reviewed and no additional complaints, except as documented.
--- NOTE | 2025-01-05 16:43 | PN_ITS ---
Progress Note Patient has been n.p.o. for an upper endoscopy today regarding recent upper GI bleed. Physical Exam Const alert General Appearance: cooperative HEENT normocephalic Eyes PERRL and EOMs intact bilaterally Neck supple, no JVD and no carotid bruits Resp normal respiratory effort, normal air movement and clear to auscultation bilaterally Cardio regular rate and regular rhythm GI normal to inspection, nondistended, normoactive bowel sounds, non-tender and non-distended Extremity normal capillary refill General Extremity: Negative for edema Skin no rashes or lesions noted General Skin Exam: no breakdown Psych affect normal Appearance: appropriate Assessment & Plan Assessment/Plan (1) Anemia: PLAN: Plan 84-year-old with multiple comorbidities including CAD, atrial fibrillation, CABG previously on Eliquis with progressive weight loss and suspected GI bleed due to duodenal ulcer. Patient underwent an upper endoscopy. Findings: The examined esophagus was normal. Red blood was found in the gastric body. One spurting cratered duodenal ulcer with a visible vessel was found in the first portion of the duodenum. The lesion was 30 mm in largest dimension. Area was successfully injected with 20 mL of a 0.1 mg/mL solution of epinephrine for hemostasis. Estimated blood loss was minimal. Coagulation for hemostasis using heater probe was successful. Estimated blood loss was minimal. Impression: - Normal esophagus. - Red blood in the gastric body. - Spurting duodenal ulcer with a visible vessel. Injected. Treated with a heater probe. - No specimens collected. continue PPI and Carafate therapy Plan : repeat egd on 01/05/25. NPO after midnight on 01/04/25 Visit Charges Inpatient E&M: 45049 [facility] Subs L2
--- NOTE | 2025-01-05 17:25 | PCM.POST.ANE ---
Anesthesia: Postop Eval I Current Vital Signs Temperature: 97.1 F Pulse Rate: 76 Blood Pressure: 103/49 Respiratory Rate: 18 Pulse Ox: 97 Oxygen Delivery Method: Nasal Cannula Oxygen Flow Rate (L/min): 2 Assessment Airway patent: Yes Spontaneous unlabored respirations: Yes Mental status: Asleep nausea: No Vomiting: No Anesthesia Complication: No Fluid Hydration Crystalloid volume administer (ml): 5 Total IV fluid infused: 5 Progress Note Anesthesia document: Postop Eval 1 completed: Yes
--- NOTE | 2025-01-05 17:28 | OP.EGD_ITS ---
Patient Name: Suleiman Mehta Procedure Date: 01/05/2025 4:53 PM Date of : 1940 Age: 84 Procedure: Upper GI endoscopy Indications: Epigastric abdominal pain, Acute post hemorrhagic anemia Providers: Dk Machado DO Medicines: Monitored Anesthesia Care Patient Profile: This is an 84 year old male. Refer to note in patient chart for documentation of history and physical. Patient has symptoms of chronic epigastric abdominal pain. Complications: No immediate complications. Procedure: Pre-Anesthesia Assessment: - Prior to the procedure, a History and Physical was performed, and patient medications and allergies were reviewed. The patient is competent. The risks and benefits of the procedure and the sedation options and risks were discussed with the patient. All questions were answered and informed consent was obtained. Patient identification and proposed procedure were verified by the physician in the pre-procedure area. Mental Status Examination: alert and oriented. Airway Examination: normal oropharyngeal airway and neck mobility. Respiratory Examination: clear to auscultation. CV Examination: normal. Prophylactic Antibiotics: The patient does not require prophylactic antibiotics. Prior Anticoagulants: The patient has taken no anticoagulant or antiplatelet agents except for NSAID medication. ASA Grade Assessment: II - A patient with mild systemic disease. After reviewing the risks and benefits, the patient was deemed in satisfactory condition to undergo the procedure. The anesthesia plan was to use monitored anesthesia care (MAC). Immediately prior to administration of medications, the patient was re-assessed for adequacy to receive sedatives. The heart rate, respiratory rate, oxygen saturations, blood pressure, adequacy of pulmonary ventilation, and response to care were monitored throughout the procedure. The physical status of the patient was re-assessed after the procedure. After obtaining informed consent, the endoscope was passed under direct vision. Throughout the procedure, the patient's blood pressure, pulse, and oxygen saturations were monitored continuously. The gastroscope was introduced through the mouth, and advanced to the second part of duodenum. The upper GI endoscopy was accomplished without difficulty. The patient tolerated the procedure well. Scope In: 5:07:25 PM Scope Out: 5:16:43 PM Total Procedure Duration Time 0 hours 9 minutes 18 seconds Findings: No gross lesions were noted in the entire esophagus. No gross lesions were noted in the entire examined stomach. One non-bleeding cratered duodenal ulcer with no stigmata of bleeding was found in the first portion of the duodenum. The lesion was 10 mm in largest dimension. An acquired benign-appearing, intrinsic severe stenosis was found in the first portion of the duodenum and was traversed after dilation. A TTS dilator was passed through the scope. Dilation with a 15 mm pyloric balloon dilator was performed. Impression: - No gross lesions in the entire esophagus. - No gross lesions in the entire stomach. - Non-bleeding duodenal ulcer with no stigmata of bleeding. - Acquired duodenal stenosis. Dilated. - No specimens collected. Recommendation: - Discharge patient to home. - Resume previous diet. - Continue present medications. - Clear liquid diet today. - Use sucralfate tablets 1 gram PO QID for 12 weeks. - Use Protonix (pantoprazole) 40 mg PO BID indefinitely. Procedure Code(s): --- Professional --- 60229, Esophagogastroduodenoscopy, flexible, transoral; with dilation of gastric/duodenal stricture(s) (eg, balloon, bougie) CPT copyright 2021 [employer]. All rights reserved. The codes documented in this report are preliminary and upon scow captain review may be revised to meet current compliance requirements. Dk Machado DO 01/05/2025 5:27:51 PM This report has been signed electronically. Number of Addenda: 0 Note Initiated On: 01/05/2025 4:53 PM
--- NOTE | 2025-01-05 17:28 | OP.CCLET_ITS ---
01/05/2025 Nahomi Long [address] [place] [address] Re : Upper GI endoscopy procedure for [place] [facility] Dear Dr. Long This procedure was performed on Sunday, January 05, 2025. My impressions and recommendations are as follows: Impressions : - No gross lesions in the entire esophagus. - No gross lesions in the entire stomach. - Non-bleeding duodenal ulcer with no stigmata of bleeding. - Acquired duodenal stenosis. Dilated. - No specimens collected. Recommendations : - Discharge patient to home. - Resume previous diet. - Continue present medications. - Clear liquid diet today. - Use sucralfate tablets 1 gram PO QID for 12 weeks. - Use Protonix (pantoprazole) 40 mg PO BID indefinitely. My findings are described in the full procedure note, which is enclosed. If I can be of further assistance, please feel free to contact me at . Sincerely, Dk Machado, 01/05/2025 5:27:51 PM This report has been signed electronically.
--- NOTE | 2025-01-05 17:55 | PCM.POSTANE2 ---
Anesthesia Postop Eval I Sum Postop Eval Completion status Anesthesia document: Postop Eval 1 completed: Yes Anesthesia Postop Eval I Summary Anesthesia Postop Eval I Summary: Anesthesia Postop Eval I: Assessment Summary Airway patent Yes 01/05/25 17:28 Spontaneous unlabored Yes 01/05/25 17:28 respirations Mental status Asleep 01/05/25 17:28 nausea No 01/05/25 17:28 Vomiting No 01/05/25 17:28 Anesthesia Postop Eval I: Fluid Summary Crystalloid volume administer 5 01/05/25 17:28 (ml) Colloids volume administered ( ml) Blood Product volume administered (ml) Total IV fluid infused 5 01/05/25 17:28 Anesthesia Postop Eval I: Summary Notes Anesthesia Complication No 01/05/25 17:28 Anesthesia Complication Comment: Post-operative progress note Anesthesia: Postop Eval II Evaluation Mental status: Awake and Calm Pain Level: 0 nausea: No Vomiting: No Complications Anesthesia Complication: No
== END | disposition home or self-care (01) ==
LOC: EN 15:43
PROVIDERS: PCP Internal Medicine; Referring Provider Internal Medicine; Visit Provider Internal Medicine Gastroenterology
PROC: 0DJ08ZZ Inspection of Upper Intestinal Tract, Via Natural or Artificial Opening Endoscopic (ICD-10-PCS; CPT 43235; principal; 2025-01-05 16:40)
DX: K31.5 Obstruction of duodenum (principal); I48.91 Unspecified atrial fibrillation; K92.2 Gastrointestinal hemorrhage, unspecified; K26.9 Duodenal ulcer, unspecified as acute or chronic, without hemorrhage or perforation; I10 Essential (primary) hypertension; R10.13 Epigastric pain; E78.5 Hyperlipidemia, unspecified; R29.6 Repeated falls; I25.10 Atherosclerotic heart disease of native coronary artery without angina pectoris; R11.10 Vomiting, unspecified; D62 Acute posthemorrhagic anemia; Z79.01 Long term (current) use of anticoagulants; Z86.718 Personal history of other venous thrombosis and embolism; Z90.79 Acquired absence of other genital organ(s); Z95.1 Presence of aortocoronary bypass graft; Z95.5 Presence of coronary angioplasty implant and graft
CPT/HCPCS: 43245; A4216; J2405

== ENCOUNTER 2025-01-08 08:59 | Day surgery (SDC) | payer MEDICARE, OTHER, SELFPAY ==
[2025-01-08 08:58] VITALS: BMI 19.6
== END 2025-01-08 13:36 | disposition skilled nursing facility (03) ==
PROVIDERS: PCP Internal Medicine; Referring Provider Surgery Trauma Surgery; Visit Provider Surgery Trauma Surgery
DX: Z86.711 Personal history of pulmonary embolism (principal); I48.91 Unspecified atrial fibrillation; K92.2 Gastrointestinal hemorrhage, unspecified; D62 Acute posthemorrhagic anemia; I25.10 Atherosclerotic heart disease of native coronary artery without angina pectoris; I10 Essential (primary) hypertension; N40.0 Benign prostatic hyperplasia without lower urinary tract symptoms; E78.5 Hyperlipidemia, unspecified; Z95.1 Presence of aortocoronary bypass graft; Z95.5 Presence of coronary angioplasty implant and graft
CPT/HCPCS: 37191; 76937; 99152; 99153; C1894; Q9967; C1769; C1880

== ENCOUNTER 2025-01-09 15:10 | Day surgery (SDC) | payer MEDICARE, OTHER, SELFPAY ==
--- NOTE | 2025-01-07 15:15 | PAT.ANESEVAL ---
Pre-Assessment Diagnosis/Proposed Procedure Planned Operative Procedure(s): EGD Anesthesia History Anesthesia History - supervising film or videotape editor: Anesthesia History - supervising film or videotape editor Hx Hospitalization Yes 01/07/25 14:45 Any Problems With Anesthesia No 01/07/25 14:45 Cholinesterase deficiency No 01/07/25 14:45 You/Your Family Experience No 01/07/25 14:45 fever (hyperthermia) with Relationship Recent Exposure to Contagious No 01/05/25 15:57 Disease Does patient have nerve No 01/07/25 14:45 stimulator Patient instructed to have device shut off --Does patient have Pacemaker or ICD? When Was Last Pacemaker Check QUESTION #4 FULL TEXT: You/Your Family Experience fever (hyperthermia) with Anesthesia Last Oral Intake Last Oral intake: Last Oral Intake NPO since Meds taken in AM with sips of water? Meds patient instructed to take am of surgery PONV PONV - supervising film or videotape editor: PONV - supervising film or videotape editor Female No 01/07/25 14:45 HX of Motion Sickness No 01/07/25 14:45 HX of N/V After Surgery No 01/07/25 14:45 Non-Smoker Yes 01/07/25 14:45 Duration of Surgery greater No 01/07/25 14:45 than 60 minutes Number of Risk Factors 1 01/07/25 14:45 PONV Score Low Risk 01/07/25 14:45 Height & Weight Height & Weight: Anesthesia: Height & Weight Height 6 ft 01/05/25 15:57 Respiratory Assessment Respiratory Assessment - supervising film or videotape editor: Respiratory Tract Infection Hx - supervising film or videotape editor Hx Respiratory Tract Infection No 01/07/25 14:45 STOP Sleep Apnea STOP Sleep Apnea - supervising film or videotape editor: STOP Sleep Apnea - supervising film or videotape editor Hx Hypertension No 01/07/25 14:45 Hx Sleep Apnea No 01/07/25 14:45 CPAP BIPAP Do you snore loudly (louder No 01/07/25 14:45 than talking or can be heard Do you often feel tired/ No 01/07/25 14:45 fatigued/ sleepy during daytime? Has anyone observed you stop No 01/07/25 14:45 breathing during sleep? STOP Results Negative 01/07/25 14:45 QUESTION #5 FULL TEXT : Do you snore loudly (louder than talking or can be heard through closed doors)? 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 Specify any problems Hx of Preganancy in last 3 N/A 01/07/25 14:45 Months Nurse Filling Out Transfusion VCHRISTIN 01/07/25 14:45 & Questions: Date: 01/07/25 01/07/25 14:45 Time: 14:45 01/07/25 14:45 Patient unable to answer at this time (ie. confused, unrespo /Reproduction History /Reproductive History - supervising film or videotape editor: /Reproductive Hx- supervising film or videotape editor Hx Now Gestational Age (in weeks): EDC: Hx Hx Para Hx Section [facility] Medical History (Updated 01/07/25 @ 14:44 by Nancy Oneill) Wears hearing aid Cancer Arthritis Back pain History of ulceration Gastric reflux Chronic cough History of edema Cardiology follow-up encounter History of echocardiogram History of stress test Rheumatoid arthritis Non-smoker Asthma Atrial fibrillation Anemia Dizziness Neck pain on right side Essential (primary) hypertension Gynecomastia, male Bony sclerosis History of prostate cancer History of fractured pelvis Kidney stones BPH (benign prostatic hyperplasia) GERD (gastroesophageal reflux disease) DVT (deep venous thrombosis) Hyperlipidemia Atherosclerotic heart disease of [place] coronary artery without angina pectoris Prostate cancer Home Medications ?Medication ?Instructions ?Recorded ?Last Taken ?Type nitroglycerin 0.4 mg sublingual 0.4 mg sublingual Q5M PRN Chest 09/22/14 Unknown History tablet Pain cholecalciferol (vitamin D3) 25 2,000 unit PO QDAY supplement 10/26/17 Unknown History mcg (1,000 unit) capsule rosuvastatin 20 mg tablet 20 mg PO QHS cholesterol #90 tabs 06/25/24 Unknown Rx ondansetron 4 mg disintegrating 4 mg PO Q8H PRN PRN Nausea #10 tabs 12/19/24 Unknown Rx tablet apixaban 5 mg tablet (Eliquis) 5 mg PO BID blood thinner 30 days 12/30/24 Unknown Rx #60 tabs ascorbic acid (vitamin C) 500 mg 500 mg PO BID supplement #60 tabs 12/30/24 Unknown Rx tablet ferrous sulfate 325 mg (65 mg 325 mg PO QODAY supplement #30 tabs 12/30/24 Unknown Rx iron) tablet metoprolol succinate 25 mg 25 mg PO DAILY pulse/BP 30 days 12/30/24 Unknown Rx tablet,extended release 24 hr #30 tabs pantoprazole 40 mg tablet,delayed 40 mg PO BID reflux 30 days #60 12/30/24 Unknown Rx release tabs sennosides 8.6 mg-docusate sodium 2 tab PO BID PRN PRN Constipation 12/30/24 Unknown Rx 50 mg tablet (Stimulant Laxative #0 tabs Plus) Allergy/AdvReac Type Severity Reaction Status Date / Time povidone-iodine Allergy Mild Rash Verified 01/07/25 14:37 atorvastatin (From Lipitor) AdvReac Intermediate Myalgias Verified 01/07/25 14:37 simvastatin (From Zocor) AdvReac Intermediate Myalgias Verified 01/07/25 14:37 Family History Father , age 64 CAD (coronary artery disease) Myocardial infarction Sudden cardiac Asthma Heart disease Hypertension Mother , Age 67 Cancer Brother CAD (coronary artery disease) Sister CAD (coronary artery disease) Colon cancer Surgical History (Updated 01/07/25 @ 14:44 by Nancy Oneill) History of esophagogastroduodenoscopy (EGD) History of appendectomy H/O coronary artery bypass surgery (11/11/97) History of coronary artery stent placement (10/01/14) H/O right mastectomy Social History household members: spouse Smoking Status: Never smoker alcohol intake: never substance use type: does not use Audit: Pertinent Findings Pertinent Findings EKG Perinent findings: 12/24/2024. Sinus rhythm with PACs. Nonspecific T wave abnormality. Stress test pertinent findings: Negative. EF 60%. 01/19/2022 Consult pertinent findings: 07/17/2023. History of coronary artery bypass surgery. 1997. Three-vessel. Stress test January 2022 was negative for ischemia at moderate workload. Continue with current medical therapy. History of coronary artery stent placement. 2013. Hypertension chronic excellent current control. Additional pertinent findings: Hemoglobin 7.5 g/dL. 01/07/2025. Surgeon aware. Hemoglobin A1c. 6.1. 12/21/2021. Recommendation Anesthesia Recommendation Anesthesia recommendation: OPTIMIZED for anesthesia
--- NOTE | 2025-01-09 14:26 | PCM.PRE.AN2 ---
ASA Classification* ASA Classification ASA Classification: 3 Assessment & Plan Anesthesia* Anesthesia Assessment Anesthesia Assessment: Discussed sedation and/or anesthesia options, risks, benefits, and alternatives with patient/parents/legal guardian/POA. Questions invited. The patient/parents/legal guardian/POA seems to understand and agrees to proceed with anesthesia plan. Reviewed the physical assessment, medical history, allergy history and patient home medications list prior to surgery/procedure/anesthetic and documented any changes. Performed airway and anesthesia risk assessments. Anesthesia Type Anesthesia Type: MAC Anesthesia Focused Assessment* Airway Assessment Mouth opens: >3 cm Mallampati Score: II Focused Labs Anesthesia Preop lab: CBC WBC 14.2 K/mm3 (4.4-11.0) H 01/09/25 05:37 01/09/25 RBC 2.54 M/mm3 (4.6-6.2) L 01/09/25 05:37 01/09/25 Hgb 8.0 g/dL (13.0-16.5) L 01/09/25 05:37 01/09/25 Hct 24.6 % (40-54) L 01/09/25 05:37 01/09/25 Plt Count 298 K/mm3 (150-450) 01/09/25 05:37 01/09/25 CHEMISTRY Potassium 3.7 mmol/L (3.3-5.1) 01/09/25 05:37 01/09/25 Sodium 136 mmol/L (133-145) 01/09/25 05:37 01/09/25 Magnesium 2.1 mg/dL (1.5-2.2) 12/25/24 08:24 12/25/24 Phosphorus 2.8 mg/dL (2.7-4.5) 12/26/24 03:30 12/26/24 BUN 17 mg/dL (4-19) 01/09/25 05:37 01/09/25 Creatinine 0.73 mg/dL (0.70-1.20) 01/09/25 05:37 01/09/25 Glucose 129 mg/dL (70-99) H 01/09/25 05:37 01/09/25 POC Glucose 122 mg/dL (74-106) H 01/05/25 23:20 01/05/25 TSH 1.600 uIU/mL (0.358-3.740) 10/13/24 02:11 10/13/24 COAG PT 14.0 SECONDS (11.7-14.9) 01/09/25 05:37 01/09/25 Pre-Assessment Diagnosis/Proposed Procedure Planned Operative Procedure(s): EGD Anesthesia History Anesthesia History - instructor hairspring: Anesthesia History - instructor hairspring Hx Hospitalization Yes 01/07/25 14:45 Any Problems With Anesthesia No 01/07/25 14:45 Cholinesterase deficiency No 01/07/25 14:45 You/Your Family Experience No 01/07/25 14:45 fever (hyperthermia) with Relationship Recent Exposure to Contagious No 01/05/25 15:57 Disease Does patient have nerve No 01/07/25 14:45 stimulator Patient instructed to have device shut off --Does patient have Pacemaker or ICD? When Was Last Pacemaker Check QUESTION #4 FULL TEXT: You/Your Family Experience fever (hyperthermia) with Anesthesia Last Oral Intake Last Oral intake: Last Oral Intake NPO since Meds taken in AM with sips of water? Meds patient instructed to take am of surgery PONV PONV - instructor hairspring: PONV - instructor hairspring Female No 01/07/25 14:45 HX of Motion Sickness No 01/07/25 14:45 HX of N/V After Surgery No 01/07/25 14:45 Non-Smoker Yes 01/07/25 14:45 Duration of Surgery greater No 01/07/25 14:45 than 60 minutes Number of Risk Factors 1 01/07/25 14:45 PONV Score Low Risk 01/07/25 14:45 Height & Weight Height & Weight: Anesthesia: Height & Weight Height 6 ft 01/08/25 08:59 Respiratory Assessment Respiratory Assessment - instructor hairspring: Respiratory Tract Infection Hx - instructor hairspring Hx Respiratory Tract Infection No 01/07/25 14:45 STOP Sleep Apnea STOP Sleep Apnea - instructor hairspring: STOP Sleep Apnea - instructor hairspring Hx Hypertension No 01/07/25 14:45 Hx Sleep Apnea No 01/07/25 14:45 CPAP BIPAP Do you snore loudly (louder No 01/07/25 14:45 than talking or can be heard Do you often feel tired/ No 01/07/25 14:45 fatigued/ sleepy during daytime? Has anyone observed you stop No 01/07/25 14:45 breathing during sleep? STOP Results Negative 01/07/25 14:45 QUESTION #5 FULL TEXT : Do you snore loudly (louder than talking or can be heard through closed doors)? 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 Specify any problems Hx of Preganancy in last 3 N/A 01/07/25 14:45 Months Nurse Filling Out Transfusion VCHRISTIN 01/07/25 14:45 & Questions: Date: 01/07/25 01/07/25 14:45 Time: 14:45 01/07/25 14:45 Patient unable to answer at this time (ie. confused, unrespo /Reproduction History /Reproductive History - instructor hairspring: /Reproductive Hx- instructor hairspring Hx Now Gestational Age (in weeks): EDC: Hx Hx Para Hx Section SAB PFSH Medical History Wears hearing aid Cancer Arthritis Back pain History of ulceration Gastric reflux Chronic cough History of edema Cardiology follow-up encounter History of echocardiogram History of stress test Rheumatoid arthritis Non-smoker Asthma Atrial fibrillation Anemia Dizziness Neck pain on right side Essential (primary) hypertension Gynecomastia, male Bony sclerosis History of prostate cancer History of fractured pelvis Kidney stones BPH (benign prostatic hyperplasia) GERD (gastroesophageal reflux disease) DVT (deep venous thrombosis) Hyperlipidemia Atherosclerotic heart disease of [place] coronary artery without angina pectoris Prostate cancer Home Medications ?Medication ?Instructions ?Recorded ?Last Taken ?Type nitroglycerin 0.4 mg sublingual 0.4 mg sublingual Q5M PRN Chest 09/22/14 Unknown History tablet Pain cholecalciferol (vitamin D3) 25 2,000 unit PO QDAY supplement 10/26/17 Unknown History mcg (1,000 unit) capsule rosuvastatin 20 mg tablet 20 mg PO QHS cholesterol #90 tabs 06/25/24 Unknown Rx ondansetron 4 mg disintegrating 4 mg PO Q8H PRN PRN Nausea #10 tabs 12/19/24 Unknown Rx tablet apixaban 5 mg tablet (Eliquis) 5 mg PO BID blood thinner 30 days 12/30/24 Unknown Rx #60 tabs ascorbic acid (vitamin C) 500 mg 500 mg PO BID supplement #60 tabs 12/30/24 Unknown Rx tablet ferrous sulfate 325 mg (65 mg 325 mg PO QODAY supplement #30 tabs 12/30/24 Unknown Rx iron) tablet metoprolol succinate 25 mg 25 mg PO DAILY pulse/BP 30 days 12/30/24 Unknown Rx tablet,extended release 24 hr #30 tabs pantoprazole 40 mg tablet,delayed 40 mg PO BID reflux 30 days #60 12/30/24 Unknown Rx release tabs sennosides 8.6 mg-docusate sodium 2 tab PO BID PRN PRN Constipation 12/30/24 Unknown Rx 50 mg tablet (Stimulant Laxative #0 tabs Plus) Allergy/AdvReac Type Severity Reaction Status Date / Time atorvastatin (From Lipitor) AdvReac Intermediate Myalgias Verified 01/09/25 14:18 simvastatin (From Zocor) AdvReac Intermediate Myalgias Verified 01/09/25 14:18 Family History Father , age 64 CAD (coronary artery disease) Myocardial infarction Sudden cardiac Asthma Heart disease Hypertension Mother , Age 67 Cancer Brother CAD (coronary artery disease) Sister CAD (coronary artery disease) Colon cancer Surgical History History of esophagogastroduodenoscopy (EGD) History of appendectomy H/O coronary artery bypass surgery (11/11/97) History of coronary artery stent placement (10/01/14) H/O right mastectomy Social History household members: spouse Smoking Status: Never smoker alcohol intake: never substance use type: does not use Review of Systems (Anesthesia) ROS Narrative System reviewed and no additional complaints, except as documented.
[2025-01-09 14:28] VITALS: BP 92/56; PULSE 70; RESP 14; TEMP 36.1; O2SAT 100
[2025-01-09 16:06] VITALS: BP 92/56; BP 96/59; PULSE 63; RESP 16; TEMP 36.7; O2SAT 100
[2025-01-09 16:10] VITALS: BP 92/56; BP 95/62; PULSE 62; RESP 16; O2SAT 97
--- NOTE | 2025-01-09 16:13 | PCM.POST.ANE ---
Anesthesia: Postop Eval I Current Vital Signs Temperature: 98.5 F Pulse Rate: 64 Blood Pressure: 96/59 Respiratory Rate: 16 Pulse Ox: 100 Oxygen Delivery Method: Room Air Assessment Airway patent: Yes Spontaneous unlabored respirations: Yes Mental status: Asleep nausea: No Vomiting: No Anesthesia Complication: No Fluid Hydration Crystalloid volume administer (ml): 60 Total IV fluid infused: 60 Progress Note Anesthesia document: Postop Eval 1 completed: Yes
[2025-01-09 16:14] VITALS: BP 96/59; PULSE 64; RESP 16; TEMP 36.9; O2SAT 100
[2025-01-09 16:15] VITALS: BP 106/58; BP 92/56; PULSE 62; RESP 16; O2SAT 97
[2025-01-09 16:20] VITALS: BP 92/56; BP 94/70; PULSE 65; RESP 16; TEMP 36.9; O2SAT 98
--- NOTE | 2025-01-09 16:26 | PCM.POSTANE2 ---
Anesthesia Postop Eval I Sum Postop Eval Completion status Anesthesia document: Postop Eval 1 completed: Yes Anesthesia Postop Eval I Summary Anesthesia Postop Eval I Summary: Anesthesia Postop Eval I: Assessment Summary Airway patent Yes 01/09/25 16:14 [email or web address] Spontaneous unlabored Yes 01/09/25 16:14 [email or web address] respirations Mental status Asleep 01/09/25 16:14 [email or web address] nausea No 01/09/25 16:14 [email or web address] Vomiting No 01/09/25 16:14 [email or web address] Anesthesia Postop Eval I: Fluid Summary Crystalloid volume administer 60 01/09/25 16:14 [email or web address] (ml) Colloids volume administered ( ml) Blood Product volume administered (ml) Total IV fluid infused 60 01/09/25 16:14 [email or web address] Anesthesia Postop Eval I: Summary Notes Anesthesia Complication No 01/09/25 16:14 [email or web address] Anesthesia Complication Comment: Post-operative progress note Anesthesia: Postop Eval II Evaluation Mental status: Awake Pain Level: 0 nausea: No Vomiting: No
== END 2025-01-09 19:00 | disposition skilled nursing facility (03) ==
LOC: EN 06-17 16:29
PROVIDERS: PCP Internal Medicine; Visit Provider Internal Medicine Gastroenterology
PROC: 0DJ08ZZ Inspection of Upper Intestinal Tract, Via Natural or Artificial Opening Endoscopic (ICD-10-PCS; CPT 43235; principal; 2025-01-09 15:10)
DX: K57.31 Diverticulosis of large intestine without perforation or abscess with bleeding (principal); I48.91 Unspecified atrial fibrillation; K44.9 Diaphragmatic hernia without obstruction or gangrene; K26.9 Duodenal ulcer, unspecified as acute or chronic, without hemorrhage or perforation; K31.5 Obstruction of duodenum; D62 Acute posthemorrhagic anemia; K21.9 Gastro-esophageal reflux disease without esophagitis; I25.10 Atherosclerotic heart disease of native coronary artery without angina pectoris; I10 Essential (primary) hypertension; Z95.5 Presence of coronary angioplasty implant and graft; Z95.828 Presence of other vascular implants and grafts; Z79.01 Long term (current) use of anticoagulants; Z79.899 Other long term (current) drug therapy; Z85.46 Personal history of malignant neoplasm of prostate; Z80.0 Family history of malignant neoplasm of digestive organs
CPT/HCPCS: 45378; 43235; A4216; J2405

== ENCOUNTER → 2025-02-04 | Outpatient (CLI) | payer MEDICARE, OTHER, SELFPAY ==
[2025-02-04 15:54] LABS: Absolute Neutrophil Count 4.6 X10^3/uL (2.0-7.7); Basophil# 0.04 X10^3/uL; Basophil% 0.6 % (0-1); Eosinophils% 1.4 % (0-5); Hemoglobin 10.9 g/dL (13.0-16.5); Mean Corp Hgb Conc 32.1 g/dL (32-36); Mean Corpuscular Hgb 30.9 pg (27.0-32.0); Mean Corpuscular Volume 96.3 fL (80-94); Mean Platelet Vol. 10.5 fl (6.2-12.0); Monocyte# 1.01 X10^3/uL; Monocyte% 14.3 % (0-10); NRBC Flagged by Analyzer 0 % (0-5); Neutrophil # 4.64 X10^3/uL (2.7-7.7); Neutrophil % 65.6 % (47-70); POSITIVE MORPHOLOGY YES; Platelet Count 208 K/mm3 (150-450); RBC Distribution Width CV 18.7 % (11.6-14.6); RBC Distribution Width SD 66.3 fl (35.1-43.9); Red Blood Count 3.53 M/mm3 (4.6-6.2); White Blood Count 7.1 K/mm3 (4.4-11.0)
[2025-02-04 16:29] LABS: Differential Indicated SCAN CRITERIA MET
[2025-02-04 16:55] LABS: Anion Gap 12 (5-15); BUN 23 mg/dL (4-19); BUN/Creat Ratio 22.9 RATIO (10-20); Calcium,Total 8.3 mg/dL (7.6-11.0); Carbon Dioxide 21.4 mmol/L (21.0-32.0); Chloride 105 mmol/L (98-108); Creatinine, Serum 1.01 mg/dL (0.70-1.20); EST Glomerular Filtration Rate 73 (>60); Glucose 131 mg/dL (70-99); Sodium Level 138 mmol/L (133-145)
[2025-02-04 19:18] LABS: Anisocytosis 1+; Polychromasia 1+
== END | disposition home or self-care (01) ==
LOC: LAB 14:55
PROVIDERS: PCP Internal Medicine; Referring Provider Family Medicine Geriatric Medicine; Visit Provider Family Medicine Geriatric Medicine
DX: E78.5 Hyperlipidemia, unspecified (principal)
CPT/HCPCS: 36415; 80048; 85025

== ENCOUNTER 2025-02-11 15:50 | Outpatient (CLI) | payer MEDICARE, OTHER, SELFPAY ==
[2025-02-11 17:05] LABS: Absolute Neutrophil Count 3.3 X10^3/uL (2.0-7.7); Basophil# 0.03 X10^3/uL; Basophil% 0.5 % (0-1); Eosinophil# 0.14 X10^3/uL; Eosinophils% 2.5 % (0-5); Hematocrit 33.9 % (40-54); Hemoglobin 11.2 g/dL (13.0-16.5); Lymphocyte % 23.6 % (19-41); Mean Corpuscular Hgb 31.3 pg (27.0-32.0); Mean Corpuscular Volume 94.7 fL (80-94); Mean Platelet Vol. 10.1 fl (6.2-12.0); Monocyte# 0.76 X10^3/uL; Monocyte% 13.8 % (0-10); NRBC Flagged by Analyzer 0 % (0-5); Neutrophil # 3.26 X10^3/uL (2.7-7.7); Neutrophil % 59.1 % (47-70); Platelet Count 200 K/mm3 (150-450); RBC Distribution Width CV 17.7 % (11.6-14.6); RBC Distribution Width SD 62.1 fl (35.1-43.9); Red Blood Count 3.58 M/mm3 (4.6-6.2); White Blood Count 5.5 K/mm3 (4.4-11.0)
[2025-02-11 19:33] LABS: Vitamin D,25 Hydroxy 35.8 ng/mL (30-100)
[2025-02-11 19:34] LABS: AST(SGOT) 25 U/L (<=37); Alanine Aminotransfer ALT/SGPT 23 U/L (<=46); Albumin, Serum 3.3 g/dL (3.4-4.8); Alkaline Phosphatase 110 U/L (40-129); Anion Gap 10 (5-15); BUN 22 mg/dL (4-19); BUN/Creat Ratio 23.2 RATIO (10-20); Calcium,Total 8.4 mg/dL (7.6-11.0); Carbon Dioxide 23.2 mmol/L (21.0-32.0); Chloride 106 mmol/L (98-108); Creatinine, Serum 0.96 mg/dL (0.70-1.20); EST Glomerular Filtration Rate 77 (>60); Globulin 3.3 g/dL (2.2-4.2); Glucose 109 mg/dL (70-99); Protein, Total 6.6 g/dL (5.9-8.4); Sodium Level 139 mmol/L (133-145); Total Bilirubin 0.17 mg/dL (0.00-1.30)
[2025-02-12 15:15] LABS: PSA,Total- Diagnostic 2.35 ng/mL (0.00-4.00)
== END 2025-02-11 23:59 | disposition home or self-care (01) ==
LOC: LAB 15:54
PROVIDERS: Internal Medicine Medical Oncology; PCP Internal Medicine; Referring Provider Family Medicine Geriatric Medicine; Visit Provider Family Medicine Geriatric Medicine
DX: E78.5 Hyperlipidemia, unspecified (principal); E55.9 Vitamin D deficiency, unspecified; Z85.46 Personal history of malignant neoplasm of prostate
CPT/HCPCS: 36415; 80053; 82306; 84153; 84443; 85025

== ENCOUNTER 2025-03-16 07:12 | Inpatient (IN) | payer OTHER, SELFPAY ==
[2025-03-16] VITALS (7 sets, daily range): BP systolic 94–153; BP diastolic 53–92; PULSE 73–89; RESP 16–18; TEMP 36.4–36.8; O2SAT 94–99; BMI 21.4; BMI 20.2
--- NOTE | 2025-03-16 07:21 | CT_ITS ---
PROCEDURE: ABDOMEN/PELVIS WITHOUT CONT 03/16/2025 REASON FOR EXAM: LOW BACK/PELVIS PAIN TECHNIQUE: Abdomen and pelvis CT without intravenous contrast. Noncontrast technique limits evaluation of the abdominal and pelvic viscera. Coronal and Sagittal reconstruction series were provided. One or more dose reduction techniques were used (e.g., Automated exposure control, adjustment of the mA and/or kV according to patient size, use of iterative reconstruction technique). PATIENT PREPARATION: Per protocol ORAL CONTRAST TYPE: None. AMOUNT: mL COMPARISON: CT scan on 12/19/2024. FINDINGS: Lung bases: Bilateral basilar atelectatic pulmonary changes. Liver: Unremarkable. Gallbladder: Small layering gallstones, no gallbladder wall thickening is demonstrated. Spleen: Atrophic spleen. Pancreas: Fatty atrophy of the pancreas. Adrenals: Unremarkable. Kidneys: Unremarkable. Bladder: Unremarkable. Reproductive Organs: Status post prostatectomy Bowel: Evaluation of the bowel loops are limited due to lack of oral contrast. The stomach is decompressed. The remaining bowel loops appear grossly unremarkable. Mild stool burden within the rectal chamber. Appendix: Normal. Lymph nodes: No suspicious lymph node enlargement. Vasculature: Mild diffuse atherosclerotic calcifications are noted. IVC filter is again noted. Peritoneum / Retroperitoneum: No ascites. No free air. Bones: Heterogeneous appearance of the osseous structures with redemonstration of a pathologic compression fracture of L1 vertebral body, as well as pathological fractures involving the left pubic symphysis and left iliac bone, concerning for Mets. Acute nondisplaced fracture of the right greater trochanter. Acute nondisplaced fracture of the right iliac bone underlying the sacroiliac joint. Mild acute compression fractures of T11 and L1 vertebral bodies without secondary high-grade spinal canal stenosis. Acute nondisplaced fracture of the left 9th rib. CT/Abdomen/Pelvis without Cont IMPRESSION: 1. Heterogeneous appearance of the osseous structures with redemonstration of a pathologic compression fracture of L1 vertebral body, as well as pathological fractures involving the left pubic symphysis and left iliac bone, concerning for Mets. 2. Acute nondisplaced fracture of the right greater trochanter. 3. Acute nondisplaced fracture of the right iliac bone underlying the sacroilia c joint. 4. Mild acute on top of chronic compression fractures of T11 and L1 vertebral b odies without secondary high-grade spinal canal stenosis. 5. Acute nondisplaced fracture of the left 9th rib. Reading [facility]
--- NOTE | 2025-03-16 07:40 | RAD_ITS ---
PROCEDURE: SHOULDER MIN 2 VIEWS 03/16/2025 REASON FOR EXAM: INJURY TECHNIQUE: 3 views of the right shoulder COMPARISON: 12/24/2024. FINDINGS: Mild osteopenia. Degenerative joint disease. Elevation of the humeral head secondary to chronic rotator cuff tendons tear. No fracture or dislocation is seen. RAD/Shoulder min 2 Views IMPRESSION: No radiographic evidence of an acute abnormality. Reading [facility]
--- NOTE | 2025-03-16 07:40 | RAD_ITS ---
PROCEDURE: FEMUR MIN 2 VIEWS 03/16/2025 REASON FOR EXAM: INJURY TECHNIQUE: 2 view(s) of the right femur. COMPARISON: None. FINDINGS: Acute nondisplaced fracture of the greater trochanter. Mild osteopenia of the visualized bones. Degenerative joint disease. No dislocation is seen. No lytic or blastic bone lesion is noted. RAD/Femur Min 2 Views IMPRESSION: Acute nondisplaced fracture of the right greater trochanter. Reading Location[facility]
[2025-03-16] MEDS: oxyCODONE 5 MG Tablet PO ×3 (08:07→16:19)
--- NOTE | 2025-03-16 08:30 | ED.VIS.FALL ---
HPI HPI - Fall History of Present Illness Chief Complaint: Fall Informant: patient and EMS Narrative Narrative: 84-year-old male presenting to the emergency room following fall. Patient states that yesterday he sustained a fall while ambulating. He states that he tripped. Patient states he landed on his right side and notes pain in the right hip and thigh region as well as in his low back. Patient has a history of prostate cancer with bony metastasis was following with [facility] oncology locally. Patient has not been able to bear weight. Patient lives at [facility]. On his medication list I do not see that he is anticoagulated now. He had been anticoagulated in the past. There is a report of the filter in place. He does take valproic acid. He is DNR [facility] arrest according to the paperwork. [facility] Medical History Wears hearing aid Cancer Arthritis Back pain History of ulceration Gastric reflux Chronic cough History of edema Cardiology follow-up encounter History of echocardiogram History of stress test Rheumatoid arthritis Non-smoker Asthma Atrial fibrillation Anemia Dizziness Neck pain on right side Essential (primary) hypertension Gynecomastia, male Bony sclerosis History of prostate cancer History of fractured pelvis Kidney stones BPH (benign prostatic hyperplasia) GERD (gastroesophageal reflux disease) DVT (deep venous thrombosis) Hyperlipidemia Atherosclerotic heart disease of [place] coronary artery without angina pectoris Prostate cancer Home Medications ?Medication ?Instructions ?Recorded ?Last Taken ?Type ascorbic acid (vitamin C) 500 mg 500 mg PO BID supplement #60 tabs 12/30/24 01/08/25 Rx tablet lorazepam 0.5 mg tablet (Ativan) 0.5 mg PO Q12H PRN anxiety 01/09/25 01/08/25 History acetaminophen 500 mg tablet 1,000 mg (2 x 500 mg) PO Q6H PRN 01/14/25 Unknown Rx PRN Pain Score 1-10 #0 tabs donepezil 5 mg tablet 5 mg PO QHS 30 days #30 tabs 01/14/25 Unknown Rx ferrous sulfate 325 mg (65 mg 325 mg PO QODAY@1200 30 days #15 01/14/25 Unknown Rx iron) tablet (FeroSul) tabs melatonin 3 mg tablet 3 mg PO QHS #0 tabs 01/14/25 Unknown Rx pantoprazole 40 mg tablet,delayed 40 mg PO BID 30 days #60 tabs 01/14/25 Unknown Rx release sucralfate 1 gram tablet 1 g PO 1HR_ACHS 30 days #120 tabs 01/14/25 Unknown Rx lorazepam 0.5 mg tablet 0.5 mg PO Q12H 03/16/25 Unknown History anxity/agitation/restlessness valproic acid (as sodium salt) 250 250 mg PO BID 03/16/25 Unknown History mg/5 mL (5 mL) oral solution Allergy/AdvReac Type Severity Reaction Status Date / Time atorvastatin (From Lipitor) AdvReac Intermediate Myalgias Verified 03/16/25 07:17 simvastatin (From Zocor) AdvReac Intermediate Myalgias Verified 03/16/25 07:17 Iodinated Contrast Media AdvReac Mild RASH Verified 03/16/25 07:17 (iodine contrast) Family History Father , age 64 CAD (coronary artery disease) Myocardial infarction Sudden cardiac Asthma Heart disease Hypertension Mother , Age 67 Cancer Brother CAD (coronary artery disease) Sister CAD (coronary artery disease) Colon cancer Surgical History History of esophagogastroduodenoscopy (EGD) History of appendectomy H/O coronary artery bypass surgery (11/11/97) History of coronary artery stent placement (10/01/14) H/O right mastectomy Social History household members: spouse Smoking Status: Never smoker alcohol intake: never substance use type: does not use ROS ROS ED Constitutional Constitutional ED: Denies chills or weight loss Eyes Eyes: Denies change in vision or diplopia ENT ENT ED: Denies ear pain, rhinorrhea or sore throat Cardiovascular Cardiovascular: Denies chest pain, orthopnea, palpitations or racing heartbeat Respiratory/Chest Respiratory/Chest: Denies cough, dyspnea or orthopnea Gastrointestinal Gastrointestinal: Denies abdominal pain, diarrhea, nausea or vomiting Genitourinary Genitourinary ED: Denies dysuria, hematuria or urinary frequency Musculoskeletal Musculoskeletal: Reports back pain and other Details: Right hip pain ; Denies arthralgias or myalgias Integumentary Denies abscess or rash Neurologic Neurologic: Denies headache(s) or weakness Psychiatric Psychiatric: Denies anxiety, depression, suicidal ideation or suicidal thoughts Endocrine Endocrinology: Denies polydipsia, polyphagia or polyuria Allergic/Immunologic Allergic/Immunologic ED: Denies mouth swelling, tongue swelling or urticaria EXAM Physical Exam Const Vital Signs: 03/16/25 07:13 03/16/25 07:20 03/16/25 09:13 Temperature 98.3 F Temperature Source Oral Pulse Rate 84 77 Respiratory Rate 18 18 Respiratory Effort Normal Respiratory Depth Normal Respiratory Pattern Normal Blood Pressure 153/77 H 144/77 H Blood Pressure Mean 102 99 Pulse Ox 98 99 Oxygen Delivery Method Room Air Room Air Positive well nourished and well developed General Appearance ED: well developed and NAD HEENT Reports normocephalic, head/scalp atraumatic and moist mucous membranes Eyes PERRL and EOMs intact bilaterally Neck no lymphadenopathy, supple and no JVD Resp normal respiratory effort and clear to auscultation bilaterally Cardio regular rate, regular rhythm and no murmurs GI normal to inspection, nondistended, normoactive bowel sounds and non-tender Palpation: soft Back/Spine no CVA tenderness Back/Spine Narrative: Tender to palpation in the lumbar paraspinal and midline regions. Limited range of motion secondary to pain Extremity Extremity Narrative: Right greater trochanter area is tender to palpation. Patient reports significant pain with attempted hip flexion. I do not appreciate obvious deformity along the femur. He does have pain with logroll. Neurovascular intact distal. Patient reports tenderness to palpation over the lateral posterior right shoulder. There is no obvious deformity significant ecchymosis swelling or obvious dislocation. Neurovascular intact distal. General Extremety ED: Negative for edema General Extremity: Negative for edema Neuro oriented x3 and CN's II-XII intact bilaterally Sensorium / Orientation: alert Motor Exam: strength 5/5 throughout Psych mental status grossly normal Mood & Affect: Negative for depressed or tearful Skin no rashes or lesions noted and no wounds MDM MDM MDM Narrative Medical decision making narrative: Differential diagnosis includes but not limited to femur fracture pelvic fracture lumbar fracture shoulder fracture retroperitoneal hematoma psoas muscle hematoma intra-abdominal hemorrhage My independent interpretation of the plain films of the right shoulder is no acute fracture. My independent interpretation of the plain films of the right femur is greater trochanter fracture. CT of the abdomen pelvis was obtained due to the broad differential. This was obtained without IV contrast due to patient's allergy. If need be we can repeat the CT with IV contrast if needed. CT was obtained read by radiology and reviewed by myself. There is a nondisplaced fracture of the greater trochanter. There appears to be acute on chronic compression fractures. Questionable fracture of left rib. Patient does not report tenderness when I press on here. I reviewed the patient's previous oncology visits and he has what appears to be pathologic fractures in the pelvis. However the greater trochanter does appear to be new when would explain some of his symptoms. As he is typically mobile and from assisted living I think it is reasonable that we admit the patient for further care and evaluation. I spoke with Dr. Gómez from orthopedics who will be happy to consult. Hospitalist will be paged. History & Record Review Discussion w/independent historian: EMS personnel and Patient Additional record(s) reviewed:: Prior inpatient record, Prior outpatient record, Prior ED visit and Prior labs Lab Data Attestation: I reviewed the patient's lab results. Labs: Laboratory Results - last 24 hr 03/16/25 08:20 WBC 7.4 RBC 4.40 L Hgb 13.6 Hct 41.0 MCV 93.2 MCH 30.9 MCHC 33.2 RDW Std Deviation 60.4 H RDW Coeff of Dami 17.5 H Plt Count 173 MPV 9.5 Immature Gran % (Auto) 0.500 Neut % (Auto) 70.0 Lymph % (Auto) 15.7 L [place] % (Auto) 13.0 H Eos % (Auto) 0.4 Baso % (Auto) 0.4 Absolute Neuts (auto) 5.2 Absolute Lymphs (auto) 1.16 Nucleated RBC % 0 Atypical Lymphocytes 1+ Sodium 141 Potassium 3.5 Chloride 103 Carbon Dioxide 27.6 Anion Gap 10 BUN 18 Creatinine 0.95 Estim Creat Clear Calc 57.73 Est GFR (MDRD) Non-Af 78 BUN/Creatinine Ratio 18.7 Glucose 114 H Calcium 9.1 Total Bilirubin 0.30 AST 25 ALT 23 Alkaline Phosphatase 98 Total Protein 7.3 Albumin 3.8 Globulin 3.5 Albumin/Globulin Ratio 1.1 Valproic Acid 20 L Radiography Diagnostic Testing: Clinical Impression(s) from Imaging Studies Abdomen/Pelvis CT 03/16/25 07:21 IMPRESSION: 1. Heterogeneous appearance of the osseous structures with redemonstration of a pathologic compression fracture of L1 vertebral body, as well as pathological fractures involving the left pubic symphysis and left iliac bone, concerning for Mets. 2. Acute nondisplaced fracture of the right greater trochanter. 3. Acute nondisplaced fracture of the right iliac bone underlying the sacroiliac joint. 4. Mild acute on top of chronic compression fractures of T11 and L1 vertebral bodies without secondary high-grade spinal canal stenosis. 5. Acute nondisplaced fracture of the left 9th rib. Reading Location: [facility] [id number] Femur X-Ray 03/16/25 07:40 IMPRESSION: Acute nondisplaced fracture of the right greater trochanter. Reading [facility] Should[facility] X-Ray 03/16/25 07:40 IMPRESSION: No radiographic evidence of an acute abnormality. Reading Location: [place] [id number] Management Discussion w/another healthcare provider: Hospitalist (Dr. Tejeda (hospitalist)) and Tip Printer (Dr. Gómez (orthopedics)) Discharge Plan Dx/Rx/DC Orders Clinical Impression: Fall, Closed fracture of greater trochanter of femur, Compression fracture of body of thoracic vertebra, Compression fracture of lumbar vertebra, Prostate cancer Disposition Disposition: [facility]
[2025-03-16 08:40] LABS: Absolute Lymphocyte Count 1.16 X10^3/uL (0.83-4.51); Absolute Neutrophil Count 5.2 X10^3/uL (2.0-7.7); Basophil# 0.03 X10^3/uL; Basophil% 0.4 % (0-1); Differential Indicated SCAN CRITERIA MET; Eosinophil# 0.03 X10^3/uL; Eosinophils% 0.4 % (0-5); Hemoglobin 13.6 g/dL (13.0-16.5); Lymphocyte # 1.16 X10^3/ul (0.83-4.51); Lymphocyte % 15.7 % (19-41); Mean Corp Hgb Conc 33.2 g/dL (32-36); Mean Corpuscular Hgb 30.9 pg (27.0-32.0); Mean Corpuscular Volume 93.2 fL (80-94); Mean Platelet Vol. 9.5 fl (6.2-12.0); Monocyte# 0.96 X10^3/uL; NRBC Flagged by Analyzer 0 % (0-5); Neutrophil # 5.16 X10^3/uL (2.7-7.7); POSITIVE MORPHOLOGY YES; Platelet Count 173 K/mm3 (150-450); RBC Distribution Width CV 17.5 % (11.6-14.6); RBC Distribution Width SD 60.4 fl (35.1-43.9); White Blood Count 7.4 K/mm3 (4.4-11.0)
[2025-03-16 09:05] LABS: Atypical Lymphocyte 1+ %
[2025-03-16] MEDS: Ondansetron 4 MG/2 ML Vial IV (09:05)
[2025-03-16] MEDS: Morphine 4 MG/ML Syringe IV (09:05)
[2025-03-16 09:24] LABS: Valproic Acid (Depakene) Level 20 ug/mL (50-100)
[2025-03-16 09:26] LABS: ALB/GLOB Ratio 1.1 RATIO (0.9-2.4); AST(SGOT) 25 U/L (<=37); Alanine Aminotransfer ALT/SGPT 23 U/L (<=46); Albumin, Serum 3.8 g/dL (3.4-4.8); Alkaline Phosphatase 98 U/L (40-129); Anion Gap 10 (5-15); BUN 18 mg/dL (4-19); BUN/Creat Ratio 18.7 RATIO (10-20); Calcium,Total 9.1 mg/dL (7.6-11.0); Carbon Dioxide 27.6 mmol/L (21.0-32.0); Chloride 103 mmol/L (98-108); Creatinine, Serum 0.95 mg/dL (0.70-1.20); EST Glomerular Filtration Rate 78 (>60); Estimated Creatinine Clearance 57.73 ml/min (50-250); Globulin 3.5 g/dL (2.2-4.2); Glucose 114 mg/dL (70-99); Potassium 3.5 mmol/L (3.3-5.1); Protein, Total 7.3 g/dL (5.9-8.4); Sodium Level 141 mmol/L (133-145)
--- NOTE | 2025-03-16 09:37 | PCM.HP.STD ---
HPI - General General Date of Admission: 03/16/25 Date of Service: 03/16/25 Chief Complaint: Fall HPI Narrative FELIX RAZA, is a 84 M who is resident at an extended care facility who apparently experienced a fall a day prior to his admission. He did complain of right hip pain necessitating patient being brought to the emergency department. Patient could not narrates the events leading to his fall. Imaging studies obtained in the ED did show Acute nondisplaced fracture of the right greater trochante, . Acute nondisplaced fracture of the right iliac bone underlying the sacroiliac joint. Mild acute on top of chronic compression fractures of T11 and L1 vertebral bodies without secondary high-grade spinal canal stenosis. Acute nondisplaced fracture of the left 9th rib. Subsequently admitted to regular nursing floor for further [facility] Medical History Wears hearing aid Cancer Arthritis Back pain History of ulceration Gastric reflux Chronic cough History of edema Cardiology follow-up encounter History of echocardiogram History of stress test Rheumatoid arthritis Non-smoker Asthma Atrial fibrillation Anemia Dizziness Neck pain on right side Essential (primary) hypertension Gynecomastia, male Bony sclerosis History of prostate cancer History of fractured pelvis Kidney stones BPH (benign prostatic hyperplasia) GERD (gastroesophageal reflux disease) DVT (deep venous thrombosis) Hyperlipidemia Atherosclerotic heart disease of [place] coronary artery without angina pectoris Prostate cancer Home Medications ?Medication ?Instructions ?Recorded ?Last Taken ?Type ascorbic acid (vitamin C) 500 mg 500 mg PO BID supplement #60 tabs 12/30/24 01/08/25 Rx tablet lorazepam 0.5 mg tablet (Ativan) 0.5 mg PO Q12H PRN anxiety 01/09/25 01/08/25 History acetaminophen 500 mg tablet 1,000 mg (2 x 500 mg) PO Q6H PRN 01/14/25 Unknown Rx PRN Pain Score 1-10 #0 tabs donepezil 5 mg tablet 5 mg PO QHS 30 days #30 tabs 01/14/25 Unknown Rx ferrous sulfate 325 mg (65 mg 325 mg PO QODAY@1200 30 days #15 01/14/25 Unknown Rx iron) tablet (FeroSul) tabs melatonin 3 mg tablet 3 mg PO QHS #0 tabs 01/14/25 Unknown Rx pantoprazole 40 mg tablet,delayed 40 mg PO BID 30 days #60 tabs 04/02/25 Unknown Rx release sucralfate 1 gram tablet 1 g PO 1HR_ACHS 30 days #120 tabs 01/14/25 Unknown Rx lorazepam 0.5 mg tablet 0.5 mg PO Q12H 03/16/25 Unknown History anxity/agitation/restlessness valproic acid (as sodium salt) 250 250 mg PO BID 03/16/25 Unknown History mg/5 mL (5 mL) oral solution Allergy/AdvReac Type Severity Reaction Status Date / Time atorvastatin (From Lipitor) AdvReac Intermediate Myalgias Verified 03/16/25 07:17 simvastatin (From Zocor) AdvReac Intermediate Myalgias Verified 03/16/25 07:17 Iodinated Contrast Media AdvReac Mild RASH Verified 03/16/25 07:17 (iodine contrast) Family History Father , age 64 CAD (coronary artery disease) Myocardial infarction Sudden cardiac Asthma Heart disease Hypertension Mother , Age 67 Cancer Brother CAD (coronary artery disease) Sister CAD (coronary artery disease) Colon cancer Surgical History History of esophagogastroduodenoscopy (EGD) History of appendectomy H/O coronary artery bypass surgery (11/11/97) History of coronary artery stent placement (10/01/14) H/O right mastectomy Social History household members: spouse Smoking Status: Never smoker alcohol intake: never substance use type: does not use ROS ROS Narrative GENERAL: denies fever, chills, night sweats, weight loss, anorexia HEENT: denies headache, sinus congestion, or drainage, dysphagia RESPIRATORY: denies cough, sputum production, shortness of breath, dyspnea on exertion CARDIAC: denies chest pain, palpitations, orthopnea, PND GASTROINTESTINAL: denies abdominal pain, nausea, vomiting, melena, GENITOURINARY: denies dysuria, urgency, frequency, heamaturia EXTREMITY: denies swelling MUSCULOSKELETAL: Right hip pain NEUROLOGIC: denies focal numbness, weakness, tingling HEMATOLOGIC: denies easy bruising and/or hemorrhage INTEGUMENT: denies rashes PSYCHIATRIC: denies suicidal or homicidal ideation Vital Signs Vital Signs Vital Signs: 03/16/25 07:13 03/16/25 07:20 03/16/25 09:13 Temperature 98.3 F Temperature Source Oral Pulse Rate 84 77 Respiratory Rate 18 18 Respiratory Effort Normal Respiratory Depth Normal Respiratory Pattern Normal Blood Pressure 153/77 H 144/77 H Blood Pressure Mean 102 99 Pulse Ox 98 99 Oxygen Delivery Method Room Air Room Air Weight Weight: 71.8 kg Body Mass Index (BMI) 21.4 Physical Exam Narrative GENERAL: cooperative HEENT: Atraumatic; normocephalic EYES; Anicteric, Normal Conjunctiva NECK; supple, normal thyroid, RESPIRATORY: Diminished to auscultation CARDIOVASCULAR: Regular S1 S2, GI: soft, normoactive bowel sounds, : No Renal angle tenderness; EXTREMITIES: No edema, no clubbing, MUSCULOSKELETAL: no muscle wasting NEURO: Awake; no lateralizing signs. SKIN: No Rash PSYCH; Flat affect Results Lab / Micro Data 03/16/25 08:20 03/16/25 08:20 Labs: Laboratory Results - last 24 hr 03/16/25 08:20: WBC 7.4, RBC 4.40 L, Hgb 13.6, Hct 41.0, MCV 93.2, MCH 30.9, MCHC 33.2, RDW Std Deviation 60.4 H, RDW Coeff of Dami 17.5 H, Plt Count 173, MPV 9.5, Immature Gran % (Auto) 0.500, Neut % (Auto) 70.0, Lymph % (Auto) 15.7 L, [place] % (Auto) 13.0 H, Eos % (Auto) 0.4, Baso % (Auto) 0.4, Absolute Neuts (auto) 5.2, Absolute Lymphs (auto) 1.16, Nucleated RBC % 0, Atypical Lymphocytes 1+, Sodium 141, Potassium 3.5, Chloride 103, Carbon Dioxide 27.6, Anion Gap 10, BUN 18, Creatinine 0.95, Estim Creat Clear Calc 57.73, Est GFR (MDRD) Non-Af 78, BUN/Creatinine Ratio 18.7, Glucose 114 H, Calcium 9.1, Total Bilirubin 0.30, AST 25, ALT 23, Alkaline Phosphatase 98, Total Protein 7.3, Albumin 3.8, Globulin 3.5, Albumin/Globulin Ratio 1.1, Valproic Acid 20 L Imaging Radiology Impression Abdomen/Pelvis CT 03/16/25 07:21 IMPRESSION: 1. Heterogeneous appearance of the osseous structures with redemonstration of a pathologic compression fracture of L1 vertebral body, as well as pathological fractures involving the left pubic symphysis and left iliac bone, concerning for Mets. 2. Acute nondisplaced fracture of the right greater trochanter. 3. Acute nondisplaced fracture of the right iliac bone underlying the sacroiliac joint. 4. Mild acute on top of chronic compression fractures of T11 and L1 vertebral bodies without secondary high-grade spinal canal stenosis. 5. Acute nondisplaced fracture of the left 9th rib. [facility] 03/16/25 07:40 IMPRESSION: Acute nondisplaced fracture of the right greater trochanter. [facility] Shoulder X-Ray 03/16/25 07:40 IMPRESSION: No radiographic evidence of an acute abnormality. Reading [facility] Assessment & Plan Assessment/Plan (1) Closed fracture of greater trochanter of femur: (2) Compression fracture of body of thoracic vertebra: PLAN: Plan Patient is an 84-year-old gentleman with history of metastatic prostate CA presented with a 4 1. Fall ? Imaging studies obtained demonstrated a pathologic compression fracture of L1 vertebral body, as well as pathological fractures involving the left pubic symphysis and left iliac bone, concerning for Mets. 2. Acute nondisplaced fracture of the right greater trochanter. 3. Acute nondisplaced fracture of the right iliac bone underlying the sacroiliac joint. 4. Mild acute on top of chronic compression fractures of T11 and L1 vertebral bodies without secondary high-grade spinal canal stenosis. 5. Acute nondisplaced fracture of the left 9th rib.. ? Patient has been admitted to regular nursing floor requested for PT OT eval initiated pain management and consultation placed to Dr. Gómez who was notified by the ED prior to patient being admitted 2. Coronary artery disease ? With previous CABG 3. Dementia ? Patient is on donepezil plan is to continue with home dose 4.Prostate CA with mets ? Patient apparently underwent radical prostatectomy on 12/13/2024. Has since been followed by oncology. Patient was treated with neoadjuvant chemotherapy which was stopped on 03/06/2024 following normalization of PSA 5. Paroxysmal atrial fibrillation ? Patient not a candidate for systemic anticoagulation given previous history of GI bleed. Rate controlled on admission 6. Rheumatoid arthritis ? Symptom management as needed 7. History of gynecomastia ? Status post right mastectomy 8.Anxiety disorder ? Patient is on lorazepam 0.5 mg every 12 hours as needed. Continued 9. History of DVT/PE ? Patient was previously on apixaban taken off after GI bleed. He apparently underwent EGD on 12/26/2024 which did show Red blood in the gastric body, Spurting duodenal ulcer with a visible vessel. Injected. Treated with a heater probe. 10. DVT prophylaxis ? Subcu heparin for now CODE STATUS?DNR CCA no intubation per documentation from [facility] Charges/Coding Visit Charges Inpatient E&M: 52677 Init Hosp L2
[2025-03-16] MEDS: Pantoprazole Sodium 40 MG Tablet PO ×2 (12:11→21:39)
[2025-03-16] MEDS: Valproic Acid 250 MG/5 ML UDC PO ×2 (12:11→21:40)
[2025-03-16] MEDS: Ferrous Sulfate 325 MG Tablet PO (12:11)
[2025-03-16] MEDS: Heparin Injection (Vial) 5,000 UNIT/ML VIAL 5000 UNIT SC ×2 (12:12→21:39)
[2025-03-16] MEDS: Sucralfate 1 GM Tablet PO ×3 (12:12→21:40)
[2025-03-16] MEDS: Acetaminophen 500 MG Tablet 1000 MG PO ×2 (14:13→21:40)
--- NOTE | 2025-03-16 14:40 | CASEMGMT ---
Addendum entered by Mariela Noel 03/16/25 14:50: Social Work SW met nephew in room, on the phone. SW spoke w/pt and nephew. SW introduced self, role of SW in the hospital. SW confirmed w/nephew that the pt is from [place], has been there almost two months. It is uncertain the discharge plan as we are waiting for the ortho consult. SW explained will work w/family for appropriate d/c plan, whether it's back to [place] or to SNF. Nephew states understanding. SW will continue to follow. JOON Glez Original Note: Social Work Pt is here from [place], just got here today. Orthopedics is consulted, SW will follow regarding what will be the most appropriate discharge plan. JOON Glez
[2025-03-16] MEDS: Ensure Plus High Protein 120 ML LIQUID PO (16:28)
--- NOTE | 2025-03-16 16:48 | CONS.ORTHO ---
HPI Consult Data Date of Consult: 03/16/25 HPI Narrative Reason for Consultation: Nondisplaced right greater trochanteric fracture HPI Narrative: FELIX RAZA, is a 84 M who presents from a skilled care facility who had a fall 03/15/2025. Patient has a history of coronary artery disease, dementia, prostate cancer with mets. Prostatectomy was several years ago per family. patient was treated with neoadjuvant chemotherapy and stopped on 03/06/2025. about 6 weeks ago patien'ts family said they had a follow up with oncology and patient was Fine. they cannot confirm whether or not mets were known prior to this admission. overall history is hard to obtain from and POA. Patient also has a history of rheumatoid arthritis, history of DVT and PE, upon evaluation in the emergency room he was found to have an acute nondisplaced fracture of the right greater trochanter. Patient was also found to have pathologic compression fracture L1, pathologic fracture involving left pubic symphysis and left iliac bone concerning for mets. ortho consulted for above fx findings. [facility] Medical History Wears hearing aid Cancer Arthritis Back pain History of ulceration Gastric reflux Chronic cough History of edema Cardiology follow-up encounter History of echocardiogram History of stress test Rheumatoid arthritis Non-smoker Asthma Atrial fibrillation Anemia Dizziness Neck pain on right side Essential (primary) hypertension Gynecomastia, male Bony sclerosis History of prostate cancer History of fractured pelvis Kidney stones BPH (benign prostatic hyperplasia) GERD (gastroesophageal reflux disease) DVT (deep venous thrombosis) Hyperlipidemia Atherosclerotic heart disease of [place] coronary artery without angina pectoris Prostate cancer Home Medications ?Medication ?Instructions ?Recorded ?Last Taken ?Type ascorbic acid (vitamin C) 500 mg 500 mg PO BID supplement #60 tabs 12/30/24 01/08/25 Rx tablet lorazepam 0.5 mg tablet (Ativan) 0.5 mg PO Q12H PRN anxiety 01/09/25 01/08/25 History acetaminophen 500 mg tablet 1,000 mg (2 x 500 mg) PO Q6H PRN 01/14/25 Unknown Rx PRN Pain Score 1-10 #0 tabs donepezil 5 mg tablet 5 mg PO QHS 30 days #30 tabs 01/14/25 Unknown Rx ferrous sulfate 325 mg (65 mg 325 mg PO QODAY@1200 30 days #15 01/14/25 Unknown Rx iron) tablet (FeroSul) tabs melatonin 3 mg tablet 3 mg PO QHS #0 tabs 01/14/25 Unknown Rx pantoprazole 40 mg tablet,delayed 40 mg PO BID 30 days #60 tabs 01/14/25 Unknown Rx release sucralfate 1 gram tablet 1 g PO 1HR_ACHS 30 days #120 tabs 01/14/25 Unknown Rx lorazepam 0.5 mg tablet 0.5 mg PO Q12H 03/16/25 Unknown History anxity/agitation/restlessness valproic acid (as sodium salt) 250 250 mg PO BID 03/16/25 Unknown History mg/5 mL (5 mL) oral solution Allergy/AdvReac Type Severity Reaction Status Date / Time atorvastatin (From Lipitor) AdvReac Intermediate Myalgias Verified 03/16/25 07:17 simvastatin (From Zocor) AdvReac Intermediate Myalgias Verified 03/16/25 07:17 Iodinated Contrast Media AdvReac Mild RASH Verified 03/16/25 07:17 (iodine contrast) Family History Father , age 64 CAD (coronary artery disease) Myocardial infarction Sudden cardiac Asthma Heart disease Hypertension Mother , Age 67 Cancer Brother CAD (coronary artery disease) Sister CAD (coronary artery disease) Colon cancer Surgical History History of esophagogastroduodenoscopy (EGD) History of appendectomy H/O coronary artery bypass surgery (11/11/97) History of coronary artery stent placement (10/01/14) H/O right mastectomy Social History household members: spouse Smoking Status: Never smoker alcohol intake: never substance use type: does not use Vital Signs Vital Signs Vital Signs: 03/16/25 07:13 03/16/25 07:20 03/16/25 09:13 Temperature 98.3 F Temperature Source Oral Pulse Rate 84 77 Respiratory Rate 18 18 Respiratory Effort Normal Respiratory Depth Normal Respiratory Pattern Normal Blood Pressure 153/77 H 144/77 H Blood Pressure Mean 102 99 Blood Pressure Source Blood Pressure Position Blood Pressure Location Pulse Ox 98 99 Oxygen Delivery Method Room Air Room Air 03/16/25 10:27 03/16/25 10:56 03/16/25 10:57 Temperature 98 F 97.9 F Temperature Source Oral Pulse Rate 75 81 Respiratory Rate 18 18 Respiratory Effort Normal Respiratory Depth Normal Respiratory Pattern Normal Blood Pressure 140/80 H 145/92 H Blood Pressure Mean 100 109 Blood Pressure Source Monitor Blood Pressure Position Supine Blood Pressure Location Left Arm Pulse Ox 99 95 Oxygen Delivery Method Room Air Room Air 03/16/25 14:16 03/16/25 15:14 Temperature 97.6 F L Temperature Source Oral Pulse Rate 89 Respiratory Rate 16 Respiratory Effort Normal Respiratory Depth Normal Respiratory Pattern Normal Blood Pressure 129/74 H Blood Pressure Mean 92 Blood Pressure Source Monitor Blood Pressure Position Semi-Fowlers Blood Pressure Location Left Arm Pulse Ox 94 Oxygen Delivery Method Room Air Weight Weight: 67.676 kg Body Mass Index (BMI) 20.2 Physical Exam Narrative Patient resting comfortably in bed. tired. No signs of acute distress Satting well on room air Limb is warm to touch, Sensation intact throughout entire lower extremity, including saphenous, sural, superficial and deep peroneal, and tibial distribution. DP/PT pulses bounding. no sidnificant ecchymosis greater trochanter is tender to palpation Calf nontender to palpation, no erythema, no edema. Negative Homans Lab / Micro Data 03/16/25 08:20 03/16/25 08:20 Labs: Laboratory Results - last 24 hr 03/16/25 08:20: WBC 7.4, RBC 4.40 L, Hgb 13.6, Hct 41.0, MCV 93.2, MCH 30.9, MCHC 33.2, RDW Std Deviation 60.4 H, RDW Coeff of Dami 17.5 H, Plt Count 173, MPV 9.5, Immature Gran % (Auto) 0.500, Neut % (Auto) 70.0, Lymph % (Auto) 15.7 L, [place] % (Auto) 13.0 H, Eos % (Auto) 0.4, Baso % (Auto) 0.4, Absolute Neuts (auto) 5.2, Absolute Lymphs (auto) 1.16, Nucleated RBC % 0, Atypical Lymphocytes 1+, Sodium 141, Potassium 3.5, Chloride 103, Carbon Dioxide 27.6, Anion Gap 10, BUN 18, Creatinine 0.95, Estim Creat Clear Calc 57.73, Est GFR (MDRD) Non-Af 78, BUN/Creatinine Ratio 18.7, Glucose 114 H, Calcium 9.1, Total Bilirubin 0.30, AST 25, ALT 23, Alkaline Phosphatase 98, Total Protein 7.3, Albumin 3.8, Globulin 3.5, Albumin/Globulin Ratio 1.1, Valproic Acid 20 L Imaging Radiology Impression Abdomen/Pelvis CT 03/16/25 07:21 IMPRESSION: 1. Heterogeneous appearance of the osseous structures with redemonstration of a pathologic compression fracture of L1 vertebral body, as well as pathological fractures involving the left pubic symphysis and left iliac bone, concerning for Mets. 2. Acute nondisplaced fracture of the right greater trochanter. 3. Acute nondisplaced fracture of the right iliac bone underlying the sacroiliac joint. 4. Mild acute on top of chronic compression fractures of T11 and L1 vertebral bodies without secondary high-grade spinal canal stenosis. 5. Acute nondisplaced fracture of the left 9th rib. Reading Location: [place] [address] Femur X-Ray 03/16/25 07:40 IMPRESSION: Acute nondisplaced fracture of the right greater trochanter. Reading Location[facility] Should[facility] X-Ray 03/16/25 07:40 IMPRESSION: No radiographic evidence of an acute abnormality. Reading Location: [place] [address] Assessment & Plan Assessment/Plan (1) Fracture of greater trochanter of right femur: PLAN: Plan -Right nondisplaced greater trochanter fracture. 1. no acute surgical intervention. 2. toe touch weight bearing to right lower extremity. no active ABduction of the right hip. 3. ok for PT as tolerates 4. recommend follow up in our office for right greater trochanter fx in 1 week for xrays. this will need to be arranged 5. pain control tylenol 1000mg every 8 hours, oxycodone q4-6 prn 6. DVT ppx per primary 7. appreciate oncology recommendations about metastasis and further treatment options. -[id number] body pathologic compression fx, T11 acute on chronic pathologic compression fx , left pubic symphysis pathologic fx, right iliac bone pathologic fx. 1. recommend follow up with orthopaedic oncology after discharge to be evaluated for palliative treatment / radiation. 2. pain control -acute nondisplaced left rib fx 1. encourage IS 2. pain control orthopaedics will sign off at this time. please call if questions/concerns.
[2025-03-16] MEDS: LORazepam 0.5 MG Tablet PO (21:39)
[2025-03-16] MEDS: MELATONIN 3 MG TABLET PO (21:40)
[2025-03-16] MEDS: Donepezil HCl 5 MG Tablet PO (21:40)
[2025-03-17 03:04] VITALS: BMI 20.2
[2025-03-17 04:55] VITALS: BP 142/64; PULSE 78; RESP 16; TEMP 36.4; O2SAT 95
[2025-03-17] MEDS: Sucralfate 1 GM Tablet PO ×4 (06:20→22:07)
[2025-03-17] MEDS: Acetaminophen 500 MG Tablet 1000 MG PO ×3 (06:20→22:07)
[2025-03-17 06:48] LABS: Absolute Lymphocyte Count 1.59 X10^3/uL (0.83-4.51); Absolute Neutrophil Count 4.7 X10^3/uL (2.0-7.7); Basophil# 0.04 X10^3/uL; Basophil% 0.5 % (0-1); Eosinophil# 0.13 X10^3/uL; Eosinophils% 1.7 % (0-5); Hematocrit 38.6 % (40-54); Hemoglobin 12.7 g/dL (13.0-16.5); Lymphocyte # 1.59 X10^3/ul (0.83-4.51); Lymphocyte % 20.8 % (19-41); Mean Corp Hgb Conc 32.9 g/dL (32-36); Mean Corpuscular Hgb 31.1 pg (27.0-32.0); Mean Corpuscular Volume 94.6 fL (80-94); Mean Platelet Vol. 10.1 fl (6.2-12.0); Monocyte# 1.14 X10^3/uL; Monocyte% 14.9 % (0-10); NRBC Flagged by Analyzer 0 % (0-5); Neutrophil # 4.68 X10^3/uL (2.7-7.7); Neutrophil % 61.3 % (47-70); POSITIVE MORPHOLOGY YES; Platelet Count 149 K/mm3 (150-450); RBC Distribution Width CV 17.6 % (11.6-14.6); RBC Distribution Width SD 61.4 fl (35.1-43.9); Red Blood Count 4.08 M/mm3 (4.6-6.2); White Blood Count 7.6 K/mm3 (4.4-11.0)
[2025-03-17 06:53] LABS: Differential Indicated SCAN CRITERIA MET
[2025-03-17 07:24] LABS: Anion Gap 10 (5-15); BUN 19 mg/dL (4-19); BUN/Creat Ratio 21.5 RATIO (10-20); Calcium,Total 8.6 mg/dL (7.6-11.0); Carbon Dioxide 25.5 mmol/L (21.0-32.0); Chloride 103 mmol/L (98-108); EST Glomerular Filtration Rate 84 (>60); Estimated Creatinine Clearance 57.44 ml/min (50-250); Glucose 91 mg/dL (70-99); Magnesium 2.1 mg/dL (1.5-2.2); Phosphorus 3.4 mg/dL (2.7-4.5); Potassium 3.4 mmol/L (3.3-5.1); Sodium Level 139 mmol/L (133-145)
[2025-03-17 07:30] LABS: Atypical Lymphocyte 1+ %; Differential Comment SCANNED
--- NOTE | 2025-03-17 07:34 | PCM.PN.HOSP ---
Reason for Visit Reason for Visit: Diagnoses Wedge compression fracture of unspecified thoracic vertebra, initial encounter for closed fracture (03/16/25) Displaced fracture of greater trochanter of right femur, initial encounter for closed fracture (03/16/25) Displaced fracture of greater trochanter of unspecified femur, initial encounter for closed fracture (03/16/25) Subjective Subjective Patient is an 84-year-old gentleman with history of metastatic prostate CA presented with a fall. Patient was noted to have L1 vertebral body pathological compression fracture, left pubic symphysis pathological fracture, right iliac bone pathological fracture as well as nondisplaced fracture of the right greater trochanter. Admitted to regular nursing floor for further Objective Data Objective Data Vital Signs: Vital Signs Temp Pulse Resp BP Pulse Ox O2 Del Method 97.5 F L 78 16 142/64 H 95 Room Air 03/17/25 04:55 03/17/25 04:55 03/17/25 04:55 03/17/25 04:55 03/17/25 04:55 03/17/25 04:55 Oxygen Delivery Method Room Air Weight: 67.67 kg Body Mass Index (BMI) 20.2 Intake & Output: Intake and Output for Last 24 Hours 03/15/25 03/16/25 03/17/25 23:59 23:59 23:59 Intake Total 200 / 200 100 / 100 Output Total 400 / 400 250 / 250 Balance -200 / -200 -150 / -150 Lab / Micro Data 03/17/25 06:10 03/17/25 06:10 Labs: Laboratory Results - last 24 hr 03/16/25 08:20: WBC 7.4, RBC 4.40 L, Hgb 13.6, Hct 41.0, MCV 93.2, MCH 30.9, MCHC 33.2, RDW Std Deviation 60.4 H, RDW Coeff of Dami 17.5 H, Plt Count 173, MPV 9.5, Immature Gran % (Auto) 0.500, Neut % (Auto) 70.0, Lymph % (Auto) 15.7 L, [place] % (Auto) 13.0 H, Eos % (Auto) 0.4, Baso % (Auto) 0.4, Absolute Neuts (auto) 5.2, Absolute Lymphs (auto) 1.16, Nucleated RBC % 0, Atypical Lymphocytes 1+, Sodium 141, Potassium 3.5, Chloride 103, Carbon Dioxide 27.6, Anion Gap 10, BUN 18, Creatinine 0.95, Estim Creat Clear Calc 57.73, Est GFR (MDRD) Non-Af 78, BUN/Creatinine Ratio 18.7, Glucose 114 H, Calcium 9.1, Total Bilirubin 0.30, AST 25, ALT 23, Alkaline Phosphatase 98, Total Protein 7.3, Albumin 3.8, Globulin 3.5, Albumin/Globulin Ratio 1.1, Valproic Acid 20 L 03/17/25 06:10: WBC 7.6, RBC 4.08 L, Hgb 12.7 L, Hct 38.6 L, MCV 94.6 H, MCH 31.1, MCHC 32.9, RDW Std Deviation 61.4 H, RDW Coeff of Dami 17.6 H, Plt Count 149 L, MPV 10.1, Immature Gran % (Auto) 0.800, Neut % (Auto) 61.3, Lymph % (Auto) 20.8, [place] % (Auto) 14.9 H, Eos % (Auto) 1.7, Baso % (Auto) 0.5, Absolute Neuts (auto) 4.7, Absolute Lymphs (auto) 1.59, Nucleated RBC % 0, Differential Comment SCANNED, Atypical Lymphocytes 1+, Sodium 139, Potassium 3.4, Chloride 103, Carbon Dioxide 25.5, Anion Gap 10, BUN 19, Creatinine 0.90, Estim Creat Clear Calc 57.44, Est GFR (MDRD) Non-Af 84, BUN/Creatinine Ratio 21.5 H, Glucose 91, Calcium 8.6, Phosphorus 3.4, Magnesium 2.1 Radiography Diagnostic Testing: Radiology Impression Abdomen/Pelvis CT 03/16/25 07:21 IMPRESSION: 1. Heterogeneous appearance of the osseous structures with redemonstration of a pathologic compression fracture of L1 vertebral body, as well as pathological fractures involving the left pubic symphysis and left iliac bone, concerning for Mets. 2. Acute nondisplaced fracture of the right greater trochanter. 3. Acute nondisplaced fracture of the right iliac bone underlying the sacroiliac joint. 4. Mild acute on top of chronic compression fractures of T11 and L1 vertebral bodies without secondary high-grade spinal canal stenosis. 5. Acute nondisplaced fracture of the left 9th rib. [facility] 03/16/25 07:40 IMPRESSION: Acute nondisplaced fracture of the right greater trochanter. [facility] Should[facility] X-Ray 03/16/25 07:40 IMPRESSION: No radiographic evidence of an acute abnormality. [facility] Physical Exam Narrative GENERAL: cooperative HEENT: Atraumatic; normocephalic EYES; Anicteric, Normal Conjunctiva NECK; supple, normal thyroid, RESPIRATORY: Diminished to auscultation CARDIOVASCULAR: Regular S1 S2, GI: soft, normoactive bowel sounds, : No Renal angle tenderness; EXTREMITIES: No edema, no clubbing, MUSCULOSKELETAL: no muscle wasting NEURO: Awake; no lateralizing signs. SKIN: No Rash PSYCH; Flat affect Assessment & Plan Assessment/Plan (1) Closed fracture of greater trochanter of femur: (2) Compression fracture of body of thoracic vertebra: PLAN: Plan Patient is an 84-year-old gentleman with history of metastatic prostate CA presented with a fall 1. Fall ? Imaging studies obtained demonstrated a pathologic compression fracture of L1 vertebral body, as well as pathological fractures involving the left pubic symphysis and left iliac bone, concerning for Mets. 2. Acute nondisplaced fracture of the right greater trochanter. 3. Acute nondisplaced fracture of the right iliac bone underlying the sacroiliac joint. 4. Mild acute on top of chronic compression fractures of T11 and L1 vertebral bodies without secondary high-grade spinal canal stenosis. 5. Acute nondisplaced fracture of the left 9th rib.. ? Patient has been admitted to regular nursing floor requested for PT OT eval initiated pain management and consultation placed to Dr. Gómez who was notified by the ED prior to patient being admitted - 03/17/2025; patient was seen in consultation by orthopedic surgery?Dr. Gómez recommended nonsurgical intervention. He gave the okay for PT to evaluate patient. Consult placed to case management to assist with discharge planning 2. Coronary artery disease ? With previous CABG 3. Dementia ? Patient is on donepezil plan is to continue with home dose 4.Prostate CA with mets ? Patient apparently underwent radical prostatectomy on 12/13/2024. Has since been followed by oncology. Patient was treated with neoadjuvant chemotherapy which was stopped on 03/06/2024 following normalization of PSA 5. Paroxysmal atrial fibrillation ? Patient not a candidate for systemic anticoagulation given previous history of GI bleed. Rate controlled on admission 6. Rheumatoid arthritis ? Symptom management as needed 7. History of gynecomastia ? Status post right mastectomy 8.Anxiety disorder ? Patient is on lorazepam 0.5 mg every 12 hours as needed. Continued 9. History of DVT/PE ? Patient was previously on apixaban taken off after GI bleed. He apparently underwent EGD on 12/26/2024 which did show Red blood in the gastric body, Spurting duodenal ulcer with a visible vessel. Injected. Treated with a heater probe. 10. DVT prophylaxis ? Subcu heparin for now Time spent in the patient's overall evaluation,decision-making process, review of diagnostic data, adjustment of management, discussion with other providers, nursing nursing and ancillary staff involved in patient's care documentation, 36 minutes CODE STATUS?DNR CCA no intubation per documentation from ECF Charges/Coding Visit Charges Inpatient E&M: 02140 Subs Hosp L2
[2025-03-17 07:49] VITALS: BP 127/68; PULSE 61; RESP 16; TEMP 36.8; O2SAT 95
[2025-03-17] MEDS: Ensure Plus High Protein 120 ML LIQUID PO ×2 (07:52→17:44)
[2025-03-17 08:08] VITALS: O2SAT 96
[2025-03-17] MEDS: Valproic Acid 250 MG/5 ML UDC PO ×2 (10:28→22:06)
[2025-03-17] MEDS: LORazepam 0.5 MG Tablet PO ×2 (10:28→22:10)
[2025-03-17] MEDS: Heparin Injection (Vial) 5,000 UNIT/ML VIAL 5000 UNIT SC ×2 (10:28→22:07)
[2025-03-17 14:24] VITALS: BP 121/64; PULSE 84; RESP 16; TEMP 36.6; O2SAT 96
--- NOTE | 2025-03-17 15:36 | CASEMGMT ---
Discharge Planning A list of SNF providers including quality and resource use data and consistent with the patient's preferred geographic region, medical needs, and insurance network was created in [employer] Guide.? This list was provided to the SW. Екатерина Han Discharge Planning Asst.
--- NOTE | 2025-03-17 15:46 | CASEMGMT ---
Social Work- SW met with pt and pt nephew, Will Davidson ([phone]) to discuss discharge planning. A list of SNF providers including quality and resource use data and consistent with the patient?s preferred geographic region, medical needs, and insurance network were provided from the [employer] Guide. Pt and Will selected [facility]CU as primary; pt declined, and [facility]; [facility] notified of referral request. SW remains available to follow. FAWN [place]
--- NOTE | 2025-03-17 16:17 | CASEMGMT ---
Discharge Planning Referral sent to [facility]. Екатерина Han DC Planning Asst.
[2025-03-17 20:30] VITALS: BP 141/70; PULSE 81; RESP 16; TEMP 36.7; O2SAT 97
[2025-03-17] MEDS: Pantoprazole Sodium 40 MG Tablet PO (22:06)
[2025-03-17] MEDS: MELATONIN 3 MG TABLET PO (22:07)
[2025-03-17] MEDS: Donepezil HCl 5 MG Tablet PO (22:07)
[2025-03-18] VITALS (7 sets, daily range): BP systolic 111–141; BP diastolic 57–80; PULSE 57–76; RESP 16–18; TEMP 36.2–36.9; O2SAT 95–100; BMI 20.1
[2025-03-18] MEDS: Acetaminophen 500 MG Tablet 1000 MG PO ×3 (05:20→21:09)
[2025-03-18] MEDS: Sucralfate 1 GM Tablet PO ×4 (05:21→21:09)
[2025-03-18] MEDS: 0.9% Saline Lock 10 ML Syringe IV (05:23)
--- NOTE | 2025-03-18 07:20 | PCM.PN.HOSP ---
Reason for Visit Reason for Visit: Diagnoses Wedge compression fracture of unspecified thoracic vertebra, initial encounter for closed fracture (03/16/25) Displaced fracture of greater trochanter of right femur, initial encounter for closed fracture (03/16/25) Displaced fracture of greater trochanter of unspecified femur, initial encounter for closed fracture (03/16/25) Subjective Subjective Patient seen. Has tolerated PT well so far. Plan is for patient to be discharged to residential facility on 03/19/2025 Objective Data Objective Data Vital Signs: Vital Signs Temp Pulse Resp BP Pulse Ox O2 Del Method 97.9 F 63 16 139/80 H 95 Room Air 03/18/25 02:29 03/18/25 02:29 03/18/25 02:29 03/18/25 02:29 03/18/25 02:29 03/18/25 02:29 Oxygen Delivery Method Room Air Weight: 67.54 kg Body Mass Index (BMI) 20.1 Intake & Output: Intake and Output for Last 24 Hours 03/16/25 03/17/25 03/18/25 23:59 23:59 23:59 Intake Total 200 / 200 100 / 100 Output Total 400 / 400 450 / 650 750 / 750 Balance -200 / -200 -350 / -550 -750 / -750 Lab / Micro Data 03/18/25 06:19 03/18/25 06:19 Labs: Laboratory Results - last 24 hr 03/17/25 06:10: Differential Comment SCANNED, Atypical Lymphocytes 1+, Sodium 139, Potassium 3.4, Chloride 103, Carbon Dioxide 25.5, Anion Gap 10, BUN 19, Creatinine 0.90, Estim Creat Clear Calc 57.44, Est GFR (MDRD) Non-Af 84, BUN/Creatinine Ratio 21.5 H, Glucose 91, Calcium 8.6, Phosphorus 3.4, Magnesium 2.1 Physical Exam Narrative GENERAL: cooperative HEENT: Atraumatic; normocephalic EYES; Anicteric, Normal Conjunctiva NECK; supple, normal thyroid, RESPIRATORY: Diminished to auscultation CARDIOVASCULAR: Regular S1 S2, GI: soft, normoactive bowel sounds, : No Renal angle tenderness; EXTREMITIES: No edema, no clubbing, MUSCULOSKELETAL: no muscle wasting NEURO: Awake; no lateralizing signs. SKIN: No Rash PSYCH; Flat affect Assessment & Plan Assessment/Plan (1) Closed fracture of greater trochanter of femur: (2) Compression fracture of body of thoracic vertebra: PLAN: Plan Patient is an 84-year-old gentleman with history of metastatic prostate CA presented with a fall 1. Fall ? Imaging studies obtained demonstrated a pathologic compression fracture of L1 vertebral body, as well as pathological fractures involving the left pubic symphysis and left iliac bone, concerning for Mets. 2. Acute nondisplaced fracture of the right greater trochanter. 3. Acute nondisplaced fracture of the right iliac bone underlying the sacroiliac joint. 4. Mild acute on top of chronic compression fractures of T11 and L1 vertebral bodies without secondary high-grade spinal canal stenosis. 5. Acute nondisplaced fracture of the left 9th rib.. ? Patient has been admitted to regular nursing floor requested for PT OT eval initiated pain management and consultation placed to Dr. Gómez who was notified by the ED prior to patient being admitted - 03/17/2025; patient was seen in consultation by orthopedic surgery?Dr. Gómez recommended nonsurgical intervention. He gave the okay for PT to evaluate patient. Consult placed to case management to assist with discharge planning 03/18/2025; patient has tolerated PT well so far plan is for patient to be discharged to residential facility on 03/19/2025 2. Coronary artery disease ? With previous CABG 3. Dementia ? Patient is on donepezil plan is to continue with home dose 4.Prostate CA with mets ? Patient apparently underwent radical prostatectomy on 12/13/2024. Has since been followed by oncology. Patient was treated with neoadjuvant chemotherapy which was stopped on 03/06/2024 following normalization of PSA 5. Paroxysmal atrial fibrillation ? Patient not a candidate for systemic anticoagulation given previous history of GI bleed. Rate controlled on admission 6. Rheumatoid arthritis ? Symptom management as needed 7. History of gynecomastia ? Status post right mastectomy 8.Anxiety disorder ? Patient is on lorazepam 0.5 mg every 12 hours as needed. Continued 9. History of DVT/PE ? Patient was previously on apixaban taken off after GI bleed. He apparently underwent EGD on 12/26/2024 which did show Red blood in the gastric body, Spurting duodenal ulcer with a visible vessel. Injected. Treated with a heater probe. 10. Anemia ? Secondary to chronic disorder monitoring H&H and transfuse if patient becomes symptomatic or hemoglobin falls below 7 11. DVT prophylaxis ? Subcu heparin for now Time spent in the patient's overall evaluation,decision-making process, review of diagnostic data, adjustment of management, discussion with other providers, nursing nursing and ancillary staff involved in patient's care documentation, 38 minutes CODE STATUS?DNR CCA no intubation per documentation from ECF Charges/Coding Visit Charges Inpatient E&M: 44370 Subs Hosp L2
[2025-03-18 07:22] LABS: Absolute Lymphocyte Count 1.49 X10^3/uL (0.83-4.51); Absolute Neutrophil Count 3.9 X10^3/uL (2.0-7.7); Basophil# 0.05 X10^3/uL; Basophil% 0.7 % (0-1); Eosinophil# 0.21 X10^3/uL; Eosinophils% 3.1 % (0-5); Hematocrit 38.7 % (40-54); Hemoglobin 12.8 g/dL (13.0-16.5); Lymphocyte # 1.49 X10^3/ul (0.83-4.51); Lymphocyte % 22.3 % (19-41); Mean Corp Hgb Conc 33.1 g/dL (32-36); Mean Corpuscular Hgb 31.1 pg (27.0-32.0); Mean Corpuscular Volume 94.2 fL (80-94); Mean Platelet Vol. 10.8 fl (6.2-12.0); Monocyte# 1.02 X10^3/uL; Monocyte% 15.3 % (0-10); NRBC Flagged by Analyzer 0 % (0-5); Neutrophil # 3.87 X10^3/uL (2.7-7.7); POSITIVE MORPHOLOGY YES; Platelet Count 112 K/mm3 (150-450); RBC Distribution Width CV 17.6 % (11.6-14.6); RBC Distribution Width SD 60.5 fl (35.1-43.9); Red Blood Count 4.11 M/mm3 (4.6-6.2); White Blood Count 6.7 K/mm3 (4.4-11.0)
[2025-03-18 07:39] LABS: Differential Indicated SCAN CRITERIA MET
[2025-03-18 07:52] LABS: Anion Gap 9 (5-15); BUN 22 mg/dL (4-19); BUN/Creat Ratio 25.9 RATIO (10-20); Carbon Dioxide 24.1 mmol/L (21.0-32.0); Chloride 104 mmol/L (98-108); Creatinine, Serum 0.85 mg/dL (0.70-1.20); EST Glomerular Filtration Rate 85 (>60); Glucose 94 mg/dL (70-99); Sodium Level 137 mmol/L (133-145)
--- NOTE | 2025-03-18 07:53 | CASEMGMT ---
Discharge Planning [facility] has accepted. Екатерина Han DC Planning Asst.
[2025-03-18 08:26] LABS: Atypical Lymphocyte 1+ %
[2025-03-18] MEDS: Ensure Plus High Protein 120 ML LIQUID PO ×2 (09:10→11:08)
[2025-03-18] MEDS: Pantoprazole Sodium 40 MG Tablet PO ×2 (10:09→21:09)
[2025-03-18] MEDS: Heparin Injection (Vial) 5,000 UNIT/ML VIAL 5000 UNIT SC ×2 (10:09→21:09)
[2025-03-18] MEDS: Valproic Acid 250 MG/5 ML UDC PO ×2 (10:09→21:09)
[2025-03-18] MEDS: LORazepam 0.5 MG Tablet PO ×2 (10:09→21:13)
--- NOTE | 2025-03-18 10:12 | CASEMGMT ---
Social Work- SW met with pt and nephew/POAWill, to update on [facility] acceptance and plans to d/c tomorrow 03/19. Pt and Will in agreement with discharge plan and report no other needs at this time. SW remains available to follow. Plan: [facility]; skilled level of care [facility] [place]
[2025-03-18] MEDS: Ferrous Sulfate 325 MG Tablet PO (11:06)
[2025-03-18] MEDS: Donepezil HCl 5 MG Tablet PO (21:09)
[2025-03-18] MEDS: MELATONIN 3 MG TABLET PO (21:09)
[2025-03-19 02:20] VITALS: BP 128/82; PULSE 68; RESP 16; TEMP 36.6; O2SAT 95
[2025-03-19] MEDS: Sucralfate 1 GM Tablet PO ×2 (05:35→10:48)
[2025-03-19] MEDS: Acetaminophen 500 MG Tablet 1000 MG PO (05:35)
[2025-03-19 06:44] LABS: Absolute Lymphocyte Count 1.34 X10^3/uL (0.83-4.51); Absolute Neutrophil Count 2.6 X10^3/uL (2.0-7.7); Basophil# 0.03 X10^3/uL; Basophil% 0.6 % (0-1); Eosinophil# 0.21 X10^3/uL; Eosinophils% 4.2 % (0-5); Hematocrit 37.8 % (40-54); Hemoglobin 12.4 g/dL (13.0-16.5); Lymphocyte # 1.34 X10^3/ul (0.83-4.51); Mean Corp Hgb Conc 32.8 g/dL (32-36); Mean Corpuscular Hgb 30.7 pg (27.0-32.0); Mean Corpuscular Volume 93.6 fL (80-94); Mean Platelet Vol. 10.2 fl (6.2-12.0); Monocyte# 0.72 X10^3/uL; Monocyte% 14.5 % (0-10); NRBC Flagged by Analyzer 0 % (0-5); Neutrophil # 2.64 X10^3/uL (2.7-7.7); Neutrophil % 53.1 % (47-70); POSITIVE MORPHOLOGY YES; Platelet Count 156 K/mm3 (150-450); RBC Distribution Width CV 17.2 % (11.6-14.6); Red Blood Count 4.04 M/mm3 (4.6-6.2)
[2025-03-19 06:49] LABS: Differential Indicated SCAN CRITERIA MET
[2025-03-19 07:13] LABS: Anion Gap 11 (5-15); BUN 21 mg/dL (4-19); BUN/Creat Ratio 24.4 RATIO (10-20); Calcium,Total 8.3 mg/dL (7.6-11.0); Carbon Dioxide 22.7 mmol/L (21.0-32.0); Chloride 104 mmol/L (98-108); Creatinine, Serum 0.85 mg/dL (0.70-1.20); EST Glomerular Filtration Rate 85 (>60); Estimated Creatinine Clearance 60.48 ml/min (50-250); Glucose 83 mg/dL (70-99); Potassium 3.8 mmol/L (3.3-5.1); Sodium Level 138 mmol/L (133-145)
[2025-03-19 09:34] VITALS: BP 121/69; PULSE 84; RESP 18; TEMP 36.3; O2SAT 98
--- NOTE | 2025-03-19 10:28 | PCM.DC.SUM ---
Providers Date of Admission: 03/16/25 Date of Discharge: 03/19/25 Primary Care Physician: Dr. Antonino Harmon, DO Consultations 03/16/25 10:48 Consult: Orthopedics Routine Consulting Provider: Elbert Gómez Reason for Consult: Acute nondisplaced fracture of the right greater trochanter. EMERGENT Consult: No MD Notified: Yes Date Notified: 03/16/25 Time Notified: 09:42 Method of Notification: ED Physician Initiated Reason For Visit: ACUTE NONDISPLACED FRACTURE OF THE RIGHT Diagnosis Discharge Diagnosis (1) Closed fracture of greater trochanter of femur: Status: Acute Code(s): S72.113A - Displaced fracture of greater trochanter of unspecified femur, initial encounter for closed fracture (2) Compression fracture of body of thoracic vertebra: Status: Acute Code(s): S22.000A - Wedge compression fracture of unspecified thoracic vertebra, initial encounter for closed fracture Plan Patient is an 84-year-old gentleman with history of metastatic prostate CA presented with a fall 1. Fall ? Imaging studies obtained demonstrated a pathologic compression fracture of L1 vertebral body, as well as pathological fractures involving the left pubic symphysis and left iliac bone, concerning for Mets. 2. Acute nondisplaced fracture of the right greater trochanter. 3. Acute nondisplaced fracture of the right iliac bone underlying the sacroiliac joint. 4. Mild acute on top of chronic compression fractures of T11 and L1 vertebral bodies without secondary high-grade spinal canal stenosis. 5. Acute nondisplaced fracture of the left 9th rib.. ? Patient has been admitted to regular nursing floor requested for PT OT eval initiated pain management and consultation placed to Dr. Gómez who was notified by the ED prior to patient being admitted - 03/17/2025; patient was seen in consultation by orthopedic surgery?Dr. Gómez recommended nonsurgical intervention. He gave the okay for PT to evaluate patient. Consult placed to case management to assist with discharge planning - 03/18/2025; patient has tolerated PT well so far plan is for patient to be discharged to group home facility on 03/19/2025 ? 03/19/2025; plan is for patient to be discharged to the group home facility 2. Coronary artery disease ? With previous CABG 3. Dementia ? Patient is on donepezil plan is to continue with home dose 4.Prostate CA with mets ? Patient apparently underwent radical prostatectomy on 12/13/2024. Has since been followed by oncology. Patient was treated with neoadjuvant chemotherapy which was stopped on 03/06/2024 following normalization of PSA 5. Paroxysmal atrial fibrillation ? Patient not a candidate for systemic anticoagulation given previous history of GI bleed. Rate controlled on admission 6. Rheumatoid arthritis ? Symptom management as needed 7. History of gynecomastia ? Status post right mastectomy 8.Anxiety disorder ? Patient is on lorazepam 0.5 mg every 12 hours as needed. Continued 9. History of DVT/PE ? Patient was previously on apixaban taken off after GI bleed. He apparently underwent EGD on 12/26/2024 which did show Red blood in the gastric body, Spurting duodenal ulcer with a visible vessel. Injected. Treated with a heater probe. 10. Anemia ? Secondary to chronic disorder monitoring H&H and transfuse if patient becomes symptomatic or hemoglobin falls below 7 11. DVT prophylaxis ? Subcu heparin for now Medications at Discharge Home Medications ascorbic acid (vitamin C) 500 mg tablet 500 mg PO BID supplement #60 tabs 12/30/24 donepezil 5 mg tablet 5 mg PO QHS 30 days #30 tabs 01/14/25 ferrous sulfate 325 mg (65 mg iron) tablet (FeroSul) 325 mg PO QODAY@1200 30 days #15 tabs 01/14/25 melatonin 3 mg tablet 3 mg PO QHS #0 tabs 01/14/25 pantoprazole 40 mg tablet,delayed release 40 mg PO BID 30 days #60 tabs 01/14/25 sucralfate 1 gram tablet 1 g PO 1HR_ACHS 30 days #120 tabs 01/14/25 valproic acid (as sodium salt) 250 mg/5 mL (5 mL) oral solution 250 mg PO BID 03/16/25 acetaminophen 500 mg tablet 1,000 mg (2 x 500 mg) PO Q8 #0 tabs 03/19/25 albuterol sulfate 2.5 mg/3 mL (0.083 %) solution for nebulization 2.5 mg (3 mL) inhalation Q2H PRN PRN SOB &/OR WHEEZING #0 mL 03/19/25 aluminum-mag hydroxide-simethicone 400 mg-400 mg-40 mg/5 mL oral susp (Mag-Al Plus Extra Strength) 30 ml PO Q6H PRN PRN Gastric Burning #0 mL 03/19/25 cyclobenzaprine 5 mg tablet 5 mg PO Q8H PRN PRN spasms/musculoskeletal pain #0 tabs 03/19/25 food supplemt, lactose-reduced 0.08 gram-1.5 kcal/mL oral liquid (Ensure Plus High Protein) 120 ml PO TIDCM #0 mL 03/19/25 lorazepam 0.5 mg tablet (Ativan) 0.5 mg PO Q12H PRN anxiety #4 tabs 03/19/25 oxycodone 5 mg tablet 5 mg PO Q4H PRN PRN Pain Score 4-10 3 days #14 tabs 03/19/25 Hospital Course Summary of Care Provided Minutes Spent on Discharge: 32 Physical Exam Narrative GENERAL: cooperative HEENT: Atraumatic; normocephalic EYES; Anicteric, Normal Conjunctiva NECK; supple, normal thyroid, RESPIRATORY: Diminished to auscultation CARDIOVASCULAR: Regular S1 S2, GI: soft, normoactive bowel sounds, : No Renal angle tenderness; EXTREMITIES: No edema, no clubbing, MUSCULOSKELETAL: no muscle wasting NEURO: Awake; no lateralizing signs. SKIN: No Rash PSYCH; Flat affect Weight / BMI Weight Weight: 67.3 kg Body Mass Index (BMI) 20.0 ABG / Lab / Microbiology Data 03/19/25 05:30 03/19/25 05:30 Laboratory: Laboratory Results - last 24 hr 03/19/25 05:30: WBC 5.0, RBC 4.04 L, Hgb 12.4 L, Hct 37.8 L, MCV 93.6, MCH 30.7, MCHC 32.8, RDW Std Deviation 60.0 H, RDW Coeff of Dami 17.2 H, Plt Count 156, MPV 10.2, Immature Gran % (Auto) 0.600, Neut % (Auto) 53.1, Lymph % (Auto) 27.0, Alpine % (Auto) 14.5 H, Eos % (Auto) 4.2, Baso % (Auto) 0.6, Absolute Neuts (auto) 2.6, Absolute Lymphs (auto) 1.34, Nucleated RBC % 0, Sodium 138, Potassium 3.8, Chloride 104, Carbon Dioxide 22.7, Anion Gap 11, BUN 21 H, Creatinine 0.85, Estim Creat Clear Calc 60.48, Est GFR (MDRD) Non-Af 85, BUN/Creatinine Ratio 24.4 H, Glucose 83, Calcium 8.3 D/C Instructions Weight Bearing Status: Weight bearing as tolerated Call your doctor if you observe: Fever of 101 or Higher, Shortness of breath, Fainting spells and Chest pain DC O2, CPAP, BIPAP Needs Home O2 Discharge instructions: No Meaningful Use Info Meaningful Use Meaningful Use Diagnoses (Choose all that apply): None applicable Ischemic Stroke Statin Dosing Therapy Reference: STATIN DOSE THERAPY REFERENCE: * Patients > 75 years receive moderate or high dose statin therapy. * Patients 75 years or YOUNGER should receive HIGH intensity statin dose unless contraindicated. You will be required to document reason for non-treatment if statin daily dose does not meet guidelines. HIGH DOSE STATIN THERAPY DAILY Atorvastatin > than or = to 40 mg Rosuvastatin > than or = to 20 mg Amlodipine + Atorvastatin > than or = to 2.5/40 mg Ezetimibe + Simvastatin 10/80 mg Simvastatin 80mg Discharge Plan Admission Admit Date/Time: 03/16/25 09:38 Attending Provider: Zaire Tejeda Primary Care Provider: Antonino Harmon Consulting Providers: Elbert Gómez Discharge Orders/Prescriptions Prescriptions: New albuterol sulfate 2.5 mg /3 mL (0.083 %) Solution For Nebulization 2.5 mg inhalation Q2H PRN PRN (Reason: SOB &/OR WHEEZING) Qty: 0 0RF acetaminophen 500 mg Tablet 1,000 mg PO Q8 Qty: 0 0RF alum-mag hydroxide-simeth [Mag-Al Plus Extra Strength] 400-400-40 mg/5 mL Suspension 30 ml PO Q6H PRN PRN (Reason: Gastric Burning) Qty: 0 0RF oxycodone 5 mg Tablet 5 mg PO Q4H PRN PRN (Reason: Pain Score 4-10) 3 Days Qty: 14 0RF cyclobenzaprine 5 mg Tablet 5 mg PO Q8H PRN PRN (Reason: spasms/musculoskeletal pain) Qty: 0 0RF Ensure Plus High Protein 0.08 gram-1.5 kcal/mL Liquid 120 ml PO TIDCM Qty: 0 0RF Continued ascorbic acid (vitamin C) 500 mg tablet 500 mg PO BID Qty: 60 2RF donepezil 5 mg Tablet 5 mg PO QHS 30 Days Qty: 30 0RF sucralfate 1 gram Tablet 1 g PO 1HR_ACHS 30 Days Qty: 120 0RF melatonin 3 mg Tablet 3 mg PO QHS Qty: 0 0RF pantoprazole 40 mg Tablet,Delayed Release (Dr/Ec) 40 mg PO BID 30 Days Qty: 60 0RF ferrous sulfate [FeroSul] 325 mg (65 mg iron) Tablet 325 mg PO QODAY@1200 30 Days Qty: 15 0RF valproic acid (as sodium salt) 250 mg/5 mL (5 mL) Solution 250 mg PO BID lorazepam [Ativan] 0.5 mg tablet 0.5 mg PO Q12H PRN (Reason: anxiety) Qty: 4 0RF Discontinued acetaminophen 500 mg Tablet 1,000 mg PO Q6H PRN PRN (Reason: Pain Score 1-10) Qty: 0 0RF lorazepam 0.5 mg Tablet 0.5 mg PO Q12H Referrals / Follow Up: Antonino Harmon DO [Primary Care Provider] - Within 2 Weeks Disposition Disposition (needs filled in before D/C Order can be placed): [facility] Charges/Coding Visit Charges Inpatient E&M: 76662 Disch Hosp >30min
--- NOTE | 2025-03-19 10:35 | TREXTCAR_ITS ---
Diet Diet Order/Speech Therapy: INPATIENT Hospital Diet / Speech Therapy Order(s) 03/16/25 10:48 Diet: Regular - General Food consistency:: Regular Liquid Consistency:: Regular/Thin Routine Orders/Code Status Code Status: DNRCC-A DC O2, CPAP, BIPAP needs Home O2 Discharge instructions: No Wound(s) right forearm: Wound Type: Skin Tear Therapies Occupational Therapy: Eval and Treat Speech Therapy: Eval and Treat Problem/Diagnosis (1) Closed fracture of greater trochanter of femur: Status: Acute Code(s): S72.113A - Displaced fracture of greater trochanter of unspecified femur, initial encounter for closed fracture (2) Compression fracture of body of thoracic vertebra: Status: Acute Code(s): S22.000A - Wedge compression fracture of unspecified thoracic vertebra, initial encounter for closed fracture Plan Patient is an 84-year-old gentleman with history of metastatic prostate CA presented with a fall 1. Fall ? Imaging studies obtained demonstrated a pathologic compression fracture of L1 vertebral body, as well as pathological fractures involving the left pubic symphysis and left iliac bone, concerning for Mets. 2. Acute nondisplaced fracture of the right greater trochanter. 3. Acute nondisplaced fracture of the right iliac bone underlying the sacroiliac joint. 4. Mild acute on top of chronic compression fractures of T11 and L1 vertebral bodies without secondary high-grade spinal canal stenosis. 5. Acute nondisplaced fracture of the left 9th rib.. ? Patient has been admitted to regular nursing floor requested for PT OT eval initiated pain management and consultation placed to Dr. Gómez who was notified by the ED prior to patient being admitted - 03/17/2025; patient was seen in consultation by orthopedic surgery?Dr. Gómez recommended nonsurgical intervention. He gave the okay for PT to evaluate patient. Consult placed to case management to assist with discharge planning - 03/18/2025; patient has tolerated PT well so far plan is for patient to be discharged to long-term facility on 03/19/2025 ? 03/19/2025; plan is for patient to be discharged to the long-term facility 2. Coronary artery disease ? With previous CABG 3. Dementia ? Patient is on donepezil plan is to continue with home dose 4.Prostate CA with mets ? Patient apparently underwent radical prostatectomy on 12/13/2024. Has since been followed by oncology. Patient was treated with neoadjuvant chemotherapy which was stopped on 03/06/2024 following normalization of PSA 5. Paroxysmal atrial fibrillation ? Patient not a candidate for systemic anticoagulation given previous history of GI bleed. Rate controlled on admission 6. Rheumatoid arthritis ? Symptom management as needed 7. History of gynecomastia ? Status post right mastectomy 8.Anxiety disorder ? Patient is on lorazepam 0.5 mg every 12 hours as needed. Continued 9. History of DVT/PE ? Patient was previously on apixaban taken off after GI bleed. He apparently underwent EGD on 12/26/2024 which did show Red blood in the gastric body, Spurting duodenal ulcer with a visible vessel. Injected. Treated with a heater probe. 10. Anemia ? Secondary to chronic disorder monitoring H&H and transfuse if patient becomes symptomatic or hemoglobin falls below 7 11. DVT prophylaxis ? Subcu heparin for now Allergies/Procedures Done in Hospital Allergies atorvastatin (From Lipitor) Adverse Reaction (Intermediate, Verified 03/16/25 07:17) Myalgias simvastatin (From Zocor) Adverse Reaction (Intermediate, Verified 03/16/25 07:17) Myalgias Iodinated Contrast Media (iodine contrast) Adverse Reaction (Mild, Verified 03/16/25 07:17) RASH Type of Care/Length of Stay Estimated LOS: Convalescent Care Less Than 30 days Type of Care Needed: Skilled Rehab Potential: Good Prognosis: Good Additional Orders/Day of Discharge Day of Discharge: 03/19/25 Dietary and Speech Recommendations Dietitian Recommendations/Changes: Continue liberal regular diet Will order 4 oz ensure plus tid w/ medpass for increased nutrition if consumed Discharge Plan Admission Admit Date/Time: 03/16/25 09:38 Attending Provider: Zaire Tejeda Primary Care Provider: Antonino Harmon Consulting Providers: Elbert Gómez Discharge Orders/Prescriptions Prescriptions: New albuterol sulfate 2.5 mg /3 mL (0.083 %) Solution For Nebulization 2.5 mg inhalation Q2H PRN PRN (Reason: SOB &/OR WHEEZING) Qty: 0 0RF acetaminophen 500 mg Tablet 1,000 mg PO Q8 Qty: 0 0RF alum-mag hydroxide-simeth [Mag-Al Plus Extra Strength] 400-400-40 mg/5 mL Suspension 30 ml PO Q6H PRN PRN (Reason: Gastric Burning) Qty: 0 0RF oxycodone 5 mg Tablet 5 mg PO Q4H PRN PRN (Reason: Pain Score 4-10) 3 Days Qty: 14 0RF cyclobenzaprine 5 mg Tablet 5 mg PO Q8H PRN PRN (Reason: spasms/musculoskeletal pain) Qty: 0 0RF Ensure Plus High Protein 0.08 gram-1.5 kcal/mL Liquid 120 ml PO TIDCM Qty: 0 0RF Continued ascorbic acid (vitamin C) 500 mg tablet 500 mg PO BID Qty: 60 2RF donepezil 5 mg Tablet 5 mg PO QHS 30 Days Qty: 30 0RF sucralfate 1 gram Tablet 1 g PO 1HR_ACHS 30 Days Qty: 120 0RF melatonin 3 mg Tablet 3 mg PO QHS Qty: 0 0RF pantoprazole 40 mg Tablet,Delayed Release (Dr/Ec) 40 mg PO BID 30 Days Qty: 60 0RF ferrous sulfate [FeroSul] 325 mg (65 mg iron) Tablet 325 mg PO QODAY@1200 30 Days Qty: 15 0RF valproic acid (as sodium salt) 250 mg/5 mL (5 mL) Solution 250 mg PO BID lorazepam [Ativan] 0.5 mg tablet 0.5 mg PO Q12H PRN (Reason: anxiety) Qty: 4 0RF Discontinued acetaminophen 500 mg Tablet 1,000 mg PO Q6H PRN PRN (Reason: Pain Score 1-10) Qty: 0 0RF lorazepam 0.5 mg Tablet 0.5 mg PO Q12H Referrals / Follow Up: Antonino Harmon DO [Primary Care Provider] - Within 2 Weeks Disposition Disposition (needs filled in before D/C Order can be placed): [facility]
[2025-03-19] MEDS: LORazepam 0.5 MG Tablet PO (10:48)
[2025-03-19] MEDS: Valproic Acid 250 MG/5 ML UDC PO (10:48)
[2025-03-19] MEDS: Pantoprazole Sodium 40 MG Tablet PO (10:48)
[2025-03-19] MEDS: Heparin Injection (Vial) 5,000 UNIT/ML VIAL 5000 UNIT SC (10:49)
--- NOTE | 2025-03-19 11:00 | CASEMGMT ---
Social Work Physician updated and pt is ready for discharge today.? 7000 convalescent form completed in [facility]. SW met with pt and pt nephew; they are agreeable to discharge plan as stated above.?[facility] notified of discharge; to make all final arrangements and notifications. Disposition:[facility], skilled level of care under convalescent stay. FAWN [place]
--- NOTE | 2025-03-19 11:36 | CASEMGMT ---
Discharge Planning Discharge orders, signed med list, and transport time sent to [facility]. Physicians will transport pt by cot at 12:15p. Nursing, SW, pt, and his nephew (Will) updated. Екатерина Han DC Planning Asst.
--- NOTE | 2025-03-19 13:03 | CASEMGMT ---
Discharge Planning Discharge orders, signed med list, and transport time sent to [facility]. Physicians will transport pt by cot at 12:15p. Nursing, SW, pt, and his nephew (Will) updated. Екатерина Han DC Planning Asst.
== END 2025-03-19 13:12 | disposition skilled nursing facility (03) | DRG 536 ==
LOC: ED 09:47 → MS3 10:30
PROVIDERS: Admitting Provider Internal Medicine; Emergency Provider Emergency Medicine; Visit Provider Internal Medicine
DX: S72.114A Nondisplaced fracture of greater trochanter of right femur, initial encounter for closed fracture (principal); C79.51 Secondary malignant neoplasm of bone; M84.58XA Pathological fracture in neoplastic disease, other specified site, initial encounter for fracture; M84.550A Pathological fracture in neoplastic disease, pelvis, initial encounter for fracture; S22.32XA Fracture of one rib, left side, initial encounter for closed fracture; Z66 Do not resuscitate; F03.90 Unspecified dementia, unspecified severity, without behavioral disturbance, psychotic disturbance, mood disturbance, and anxiety; M06.9 Rheumatoid arthritis, unspecified; I10 Essential (primary) hypertension; I48.0 Paroxysmal atrial fibrillation; I25.10 Atherosclerotic heart disease of native coronary artery without angina pectoris; E78.5 Hyperlipidemia, unspecified; W18.09XA Striking against other object with subsequent fall, initial encounter; K21.9 Gastro-esophageal reflux disease without esophagitis; N40.0 Benign prostatic hyperplasia without lower urinary tract symptoms; Y93.01 Activity, walking, marching and hiking; Z79.899 Other long term (current) drug therapy; Z86.718 Personal history of other venous thrombosis and embolism; Z86.711 Personal history of pulmonary embolism; Z90.11 Acquired absence of right breast and nipple; Z95.5 Presence of coronary angioplasty implant and graft; Z95.1 Presence of aortocoronary bypass graft; Z85.46 Personal history of malignant neoplasm of prostate
CPT/HCPCS: 36415; 73030; 73552; 74176; 80048; 80053; 80164; 83735; 84100; 85025; 97116; 97162; 97166; 97530; 97535; 97802; 99285; A4216; J2405

== ENCOUNTER 2025-05-09 13:41 | Emergency (ER) | payer OTHER, SELFPAY ==
[2025-05-09 13:43] VITALS: BP 125/58; PULSE 73; RESP 16; TEMP 36.4; O2SAT 99
--- NOTE | 2025-05-09 13:53 | CT_ITS ---
PROCEDURE: SPINE CERVICAL WITHOUT CONTRAS 05/09/2025 REASON FOR EXAM: PAIN, FALL TECHNIQUE: SPINE CERVICAL WITHOUT CONTRAS Coronal and Sagittal reconstruction series were provided. One or more dose reduction techniques were used (e.g., Automated exposure control, adjustment of the mA and/or kV according to patient size, use of iterative reconstruction technique. RADIATION DOSE SUMMARY: CTDlvol: 81 mGy DLP: 2175 mGycm FINDINGS: Normal cervical alignment. Normal vertebral body height. No subluxation. No compression deformity. Normal odontoid process. Normal occipital condyles and C1 ring. No destructive osseous changes. Intact pedicles and lamina. No visible soft tissue masses. CT/Spine Cervical without Contras IMPRESSION: No acute abnormality Reading [facility]
--- NOTE | 2025-05-09 13:53 | CT_ITS ---
PROCEDURE: BRAIN/HEAD WITHOUT CONTRAST 05/09/2025 REASON FOR EXAM: FALL, HEAD INJURY TECHNIQUE: BRAIN/HEAD WITHOUT CONTRAST Coronal and Sagittal reconstruction series were provided. One or more dose reduction techniques were used (e.g., Automated exposure control, adjustment of the mA and/or kV according to patient size, use of iterative reconstruction technique. RADIATION DOSE SUMMARY: CTDlvol: 88 mGy DLP: 2175 mGycm COMPARISON: 12/24/2024 FINDINGS: The bony calvarium is intact. The sinuses are clear. Moderate chronic microvascular change in the periventricular white matter. No intracranial mass, hemorrhage or edema. CT/Brain/Head without Contrast IMPRESSION: No acute abnormality Reading [facility]
--- NOTE | 2025-05-09 13:54 | CT_ITS ---
PROCEDURE: SPINE LUMBAR WITHOUT CONTRAST 05/09/2025 REASON FOR EXAM: FALL, PAIN TECHNIQUE: SPINE LUMBAR WITHOUT CONTRAST Coronal and Sagittal reconstruction series were provided. One or more dose reduction techniques were used (e.g., Automated exposure control, adjustment of the mA and/or kV according to patient size, use of iterative reconstruction technique RADIATION DOSE SUMMARY: CTDlvol: 85 mGy DLP: 2175 mGycm FINDINGS: Normal transverse processes. Normal spinous processes. There is a compression fracture of indeterminate age of the L1 vertebral body. There is a more chronic appearing deformity posteriorly of the L4 vertebral body. Prominent disc space narrowing at L2-3. No pars defect. No visible paravertebral or sacral abnormality. CT/Spine Lumbar without Contrast IMPRESSION: Age-indeterminate but possibly acute L1 compression fracture without retropulsi on. Chronic loss of height of L2 and L4 Reading Location: [facility]
--- NOTE | 2025-05-09 13:55 | EX.ED.GENINJ ---
HPI <JUSTUS White - Last Filed: 05/09/25 15:49> History of Present Illness Chief Complaint: Fall Narrative Narrative: Patient presenting today due to a fall that occurred this afternoon. He is coming from [facility] care [facility], he was getting up out of a chair while outside and tripped over another resident's chair and hit his head on the ground. No LOC occurred, he is not on any blood thinners. He has a history of chronic low back pain but does feel like it is somewhat worse than usual. He otherwise denies any other injury. [facility], LAT[facility] <JUSTUS White - Last Filed: 05/09/25 15:49> [facility], [facility] Medical History (Updated 05/09/25 @ 15:01 by Lexii Main) Unspecified dementia, unspecified severity, without behavioral disturbance, psychotic disturbance, mood disturbance, and anxiety Wears hearing aid Cancer Arthritis Back pain History of ulceration Gastric reflux Chronic cough History of edema Cardiology follow-up encounter History of echocardiogram History of stress test Rheumatoid arthritis Non-smoker Asthma Atrial fibrillation Anemia Dizziness Neck pain on right side Essential (primary) hypertension Gynecomastia, male Bony sclerosis History of prostate cancer History of fractured pelvis Kidney stones BPH (benign prostatic hyperplasia) GERD (gastroesophageal reflux disease) DVT (deep venous thrombosis) Hyperlipidemia Atherosclerotic heart disease of [place] coronary artery without angina pectoris Prostate cancer Home Medications ?Medication ?Instructions ?Recorded ?Last Taken ?Type ascorbic acid (vitamin C) 500 mg 500 mg PO BID supplement #60 tabs 12/30/24 01/08/25 Rx tablet donepezil 5 mg tablet 5 mg PO QHS 30 days #30 tabs 01/14/25 Unknown Rx ferrous sulfate 325 mg (65 mg 325 mg PO QODAY@1200 30 days #15 01/14/25 Unknown Rx iron) tablet (FeroSul) tabs melatonin 3 mg tablet 3 mg PO QHS #0 tabs 01/14/25 Unknown Rx pantoprazole 40 mg tablet,delayed 40 mg PO BID 30 days #60 tabs 01/14/25 Unknown Rx release sucralfate 1 gram tablet 1 g PO 1HR_ACHS 30 days #120 tabs 01/14/25 Unknown Rx valproic acid (as sodium salt) 250 250 mg PO BID 03/16/25 Unknown History mg/5 mL (5 mL) oral solution acetaminophen 500 mg tablet 1,000 mg (2 x 500 mg) PO Q8 #0 tabs 03/19/25 Unknown Rx albuterol sulfate 2.5 mg/3 mL 2.5 mg (3 mL) inhalation Q2H PRN 03/19/25 Unknown Rx (0.083 %) solution for nebulization PRN SOB &/OR WHEEZING #0 mL aluminum-mag hydroxide-simethicone 30 ml PO Q6H PRN PRN Gastric 03/19/25 Unknown Rx 400 mg-400 mg-40 mg/5 mL oral susp Burning #0 mL (Mag-Al Plus Extra Strength) cyclobenzaprine 5 mg tablet 5 mg PO Q8H PRN PRN 03/19/25 Unknown Rx spasms/musculoskeletal pain #0 tabs food supplemt, lactose-reduced 120 ml PO TIDCM #0 mL 03/19/25 Unknown Rx 0.08 gram-1.5 kcal/mL oral liquid (Ensure Plus High Protein) oxycodone 5 mg tablet 5 mg PO Q4H PRN PRN Pain Score 03/19/25 Unknown Rx 4-10 3 days #14 tabs Allergy/AdvReac Type Severity Reaction Status Date / Time atorvastatin (From Lipitor) AdvReac Intermediate Myalgias Verified 05/09/25 13:43 simvastatin (From Zocor) AdvReac Intermediate Myalgias Verified 05/09/25 13:43 Iodinated Contrast Media AdvReac Mild RASH Verified 05/09/25 13:43 (iodine contrast) Family History Father , age 64 CAD (coronary artery disease) Myocardial infarction Sudden cardiac Asthma Heart disease Hypertension Mother , Age 67 Cancer Brother CAD (coronary artery disease) Sister CAD (coronary artery disease) Colon cancer Surgical History History of esophagogastroduodenoscopy (EGD) History of appendectomy H/O coronary artery bypass surgery (11/11/97) History of coronary artery stent placement (10/01/14) H/O right mastectomy Social History household members: spouse Smoking Status: Never smoker alcohol intake: never substance use type: does not use ROS <JUSTUS White - Last Filed: 05/09/25 15:49> ROS ED Constitutional Constitutional ED: Denies chills or fever(s) Cardiovascular Cardiovascular: Denies chest pain Respiratory/Chest Respiratory/Chest: Denies dyspnea Gastrointestinal Gastrointestinal: Denies abdominal pain, nausea or vomiting Musculoskeletal Musculoskeletal: Reports back pain; Denies arthralgias or neck pain Integumentary Denies Abrasions Neurologic Neurologic: Denies weakness EXAM <JUSTUS White Last Filed: 05/09/25 15:49> Physical Exam Const Vital Signs: 05/09/25 13:43 05/09/25 15:25 Temperature 97.5 F L 97.5 F L Temperature Source Oral Pulse Rate 73 74 Respiratory Rate 16 18 Blood Pressure 125/58 H 127/65 H Blood Pressure Mean 80 85 Pulse Ox 99 99 Oxygen Delivery Method Room Air Positive well nourished, well developed and no apparent distress General Appearance ED: well developed HEENT Reports normocephalic and head/scalp atraumatic HEENT Narrative: No signs of trauma to the head Mouth ED: Yes moist mucous membranes normal Eyes PERRL and EOMs intact bilaterally Neck full ROM and supple Neck Narrative: No cervical tenderness Chest Wall inspection of chest normal Resp normal respiratory effort and clear to auscultation bilaterally Cardio regular rate and regular rhythm GI soft to palpation, non-tender, non-distended and no masses Back/Spine normal ROM and normal to inspection Back/Spine Narrative: No thoracic tenderness to palpation, minimal tenderness across the lower lumbar spine. No step-offs. No bruising to the back. Extremity normal to inspection and full ROM Neuro oriented x3, CN's II-XII intact bilaterally, moves all extremities, no focal motor deficits and no sensory deficits noted Sensorium / Orientation: awake and alert Psych mental status grossly normal and thought process normal Skin no rashes or lesions noted and no wounds <Dr. Eva Figueroa DO - Last Filed: 05/09/25 15:39> Physical Exam Const Vital Signs: 05/09/25 13:43 05/09/25 15:25 Temperature 97.5 F L 97.5 F L Temperature Source Oral Pulse Rate 73 74 Respiratory Rate 16 18 Blood Pressure 125/58 H 127/65 H Blood Pressure Mean 80 85 Pulse Ox 99 99 Oxygen Delivery Method Room Air MDM <JUSTUS White Last Filed: 05/09/25 15:49> [facility] MDM Narrative Medical decision making narrative: Patient presenting today due to head injury that occurred this afternoon. He was getting up out of a chair and tripped over another chair and hit his head on the ground. CT scan of the head and neck will be obtained to assess for intracranial bleed and cervical fracture. He has chronic low back pain reports that it is slightly worse than usual, therefore CT scan of the lumbar spine will be obtained to assess for fracture. I did offer to give him pain medication and he declined. CT scan of the head and neck are negative for acute findings. Lumbar spine CT shows a compression fracture to L1, previously imaging has shown this fracture, he does not have any pain to this area currently and his pain is across the lower lumbar back. Patient will be discharged back to the SNF in stable condition. I have personally performed a face to face assessment of the patient and have reviewed the JOSE Note. I performed a substantive portion of the visit including all aspects of the following. My becerra findings include: History is patient is an 84-year-old male presenting from memory care at [facility] after mechanical fall. ECC. He was sent in for evaluation. He reportedly tripped over a chair and did hit the top of his head. No report of loss of consciousness. Was a witnessed fall per EMS report. Patient is in his normal state of health. He is not on any blood thinners. He is really only complaining of low back pain which she actually states is more chronic. On exam patient is not have any obvious findings of head trauma. No signs of basilar skull fracture. No cephalhematoma present. He is alert and oriented to self. He is quite social and pleasantly demented. No neck tenderness. Normal range of motion of the neck. No chest wall tenderness. Heart regular rate and rhythm. Lungs with auscultation. Pelvis is stable. No tenderness or deformity of the extremities. He complained of pain in his lower lumbar back that is diffuse. Does not have upper lumbar or thoracic midline tenderness. CT of the head, C-spine and lumbar spine is obtained. Patient does have chronic lumbar fractures (compression fractures) they do not correlate with his pain today. No other acute process. His states that patient does not really ambulate at baseline and does not need an ambulation trial prior to discharge Other additions or changes: [None] Radiography Diagnostic Testing: Clinical Impression(s) from Imaging Studies Brain CT 05/09/25 13:53 IMPRESSION: No acute abnormality [facility] Cervical Spine CT 05/09/25 13:53 IMPRESSION: No acute abnormality Reading Location: [facility] Lumbar Spine CT 05/09/25 13:54 IMPRESSION: Age-indeterminate but possibly acute L1 compression fracture without retropulsion. Chronic loss of height of L2 and L4 Reading Location: [facility] <Dr. Eva Figueroa, DO - Last Filed: 05/09/25 15:39> [facility] Narrative Medical decision making narrative: Patient presenting today due to head injury that occurred this afternoon. He was getting up out of a chair and tripped over another chair and hit his head on the ground. CT scan of the head and neck will be obtained to assess for intracranial bleed and cervical fracture. He has chronic low back pain reports that it is slightly worse than usual, therefore CT scan of the lumbar spine will be obtained to assess for fracture. I did offer to give him pain medication and he declined. I have personally performed a face to face assessment of the patient and have reviewed the JOSE Note. I performed a substantive portion of the visit including all aspects of the following. My becerra findings include: History is patient is an 84-year-old male presenting from memory care at [facility] after mechanical fall. ECC. He was sent in for evaluation. He reportedly tripped over a chair and did hit the top of his head. No report of loss of consciousness. Was a witnessed fall per EMS report. Patient is in his normal state of health. He is not on any blood thinners. He is really only complaining of low back pain which she actually states is more chronic. On exam patient is not have any obvious findings of head trauma. No signs of basilar skull fracture. No cephalhematoma present. He is alert and oriented to self. He is quite social and pleasantly demented. No neck tenderness. Normal range of motion of the neck. No chest wall tenderness. Heart regular rate and rhythm. Lungs with auscultation. Pelvis is stable. No tenderness or deformity of the extremities. He complained of pain in his lower lumbar back that is diffuse. Does not have upper lumbar or thoracic midline tenderness. CT of the head, C-spine and lumbar spine is obtained. Patient does have chronic lumbar fractures (compression fractures) they do not correlate with his pain today. No other acute process. His states that patient does not really ambulate at baseline and does not need an ambulation trial prior to discharge Other additions or changes: [None] Radiography Diagnostic Testing: Clinical Impression(s) from Imaging Studies Brain CT 05/09/25 13:53 IMPRESSION: No acute abnormality Reading Location: [facility] Cervical Spine CT 05/09/25 13:53 IMPRESSION: No acute abnormality Reading Location: [facility] Lumbar Spine CT 05/09/25 13:54 IMPRESSION: Age-indeterminate but possibly acute L1 compression fracture without retropulsion. Chronic loss of height of L2 and L4 Reading Location: [facility] Discharge Plan Triage Chief Complaint: Fall ED Midlevel Provider: Dolly Velasquez ED Provider: Eva Figueroa Dx/Rx/DC Orders Clinical Impression: Fall, Head injury, Closed compression fracture of L1 vertebra Instructions: Compression Fx, ED Head Injury (Adult) Prescriptions: No Action ascorbic acid (vitamin C) 500 mg tablet 500 mg PO BID Qty: 60 2RF donepezil 5 mg Tablet 5 mg PO QHS 30 Days Qty: 30 0RF sucralfate 1 gram Tablet 1 g PO 1HR_ACHS 30 Days Qty: 120 0RF melatonin 3 mg Tablet 3 mg PO QHS Qty: 0 0RF pantoprazole 40 mg Tablet,Delayed Release (Dr/Ec) 40 mg PO BID 30 Days Qty: 60 0RF ferrous sulfate [FeroSul] 325 mg (65 mg iron) Tablet 325 mg PO QODAY@1200 30 Days Qty: 15 0RF valproic acid (as sodium salt) 250 mg/5 mL (5 mL) Solution 250 mg PO BID albuterol sulfate 2.5 mg /3 mL (0.083 %) Solution For Nebulization 2.5 mg inhalation Q2H PRN PRN (Reason: SOB &/OR WHEEZING) Qty: 0 0RF acetaminophen 500 mg Tablet 1,000 mg PO Q8 Qty: 0 0RF alum-mag hydroxide-simeth [Mag-Al Plus Extra Strength] 400-400-40 mg/5 mL Suspension 30 ml PO Q6H PRN PRN (Reason: Gastric Burning) Qty: 0 0RF oxycodone 5 mg Tablet 5 mg PO Q4H PRN PRN (Reason: Pain Score 4-10) 3 Days Qty: 14 0RF cyclobenzaprine 5 mg Tablet 5 mg PO Q8H PRN PRN (Reason: spasms/musculoskeletal pain) Qty: 0 0RF Ensure Plus High Protein 0.08 gram-1.5 kcal/mL Liquid 120 ml PO TIDCM Qty: 0 0RF Primary Care Provider: Antonino Harmon Referrals: Antonino Harmon DO [Primary Care Provider] - 5-7 Days Activity Restrictions/Additional Instructions: Follow-up with your PCP and return for any other concerns or worsening symptoms. Print Language: Lao Disposition Disposition: Home, Self Care
--- NOTE | 2025-05-09 14:55 | CM.ED ---
Social Work Date of referral: 05/09/25 Reason for referral: Advanced Care Directives (ACD's) not on file. Referred by: Social Work Identification Patient provided consent for Social Work Visit. Also present was patient's and patient's [id number]. [employer] requested a copy of ADC's which patient and his family stated they will get. Namrata Petty
--- NOTE | 2025-05-09 15:20 | ED.RN ---
left message with Elle to inform of pt's return
[2025-05-09 15:25] VITALS: BP 127/65; PULSE 74; RESP 18; TEMP 36.4; O2SAT 99
== END 2025-05-09 16:30 | disposition home or self-care (01) ==
PROVIDERS: Emergency Provider Emergency Medicine; Visit Provider Emergency Medicine
DX: S09.90XA Unspecified injury of head, initial encounter (principal); S32.010A Wedge compression fracture of first lumbar vertebra, initial encounter for closed fracture; F03.90 Unspecified dementia, unspecified severity, without behavioral disturbance, psychotic disturbance, mood disturbance, and anxiety; I25.10 Atherosclerotic heart disease of native coronary artery without angina pectoris; I10 Essential (primary) hypertension; E78.5 Hyperlipidemia, unspecified; K21.9 Gastro-esophageal reflux disease without esophagitis; J45.909 Unspecified asthma, uncomplicated; W01.0XXA Fall on same level from slipping, tripping and stumbling without subsequent striking against object, initial encounter
CPT/HCPCS: 70450; 72125; 72131; 99284